=== PATIENT | female | born 1940 | race Caucasian/White ===

== ENCOUNTER 2019-09-05 13:02 | Outpatient (CLI) | payer MEDICARE, OTHER, SELFPAY ==
--- NOTE | ~2019-09-05 | XR_ITS ---
EXAMINATION: XR chest 2V EXAM DATE: 09/05/2019 14:32 INDICATION: Shortness of breath, cough for 3 weeks. TECHNIQUE: Frontal and lateral projections of the chest obtained and reviewed. There is no prior cyndi dy for comparison. FINDINGS: Sternotomy wires are present without findings to suggest sternal dehiscence. The lungs are clear. There are no pleural effusions. The cardiomediastinal silhouette is within normal limits. There is no pneumothorax suspected. The bones and soft tissues are unremarkable. IMPRESSION: No acute cardiopulmonary findings. Reviewed, dictated and finalized at location B. R CAPTAIN
--- NOTE | 2019-09-07 22:28 | WPDPFTINT ---
PFT Interpretation PFT Interpretation: DOS: 09/05/2019 REQUESTING: Chencho Molina MD REASON FOR TESTING: Shortness of breath PULMONARY FUNCTION TESTS Results are not reproducible or reliable due to lack of three exhalations of 6 seconds. Spirometry: Normal FEV1, 88%. Normal FVC. Normal FEV1%. DEcreased small airways slows 53%. No change with bronchodilator. Lung volumes: Normal totla lung capacity. Normal RV. Mild increase in RV/TLC ratio consistent with air trapping. Increased airway resistance 171%. Diffusion: DLCO is moderately decreased, 56%. Flow volume loop: Mild scooping of the expiratory limb. IMPRESSION: Moderate diffusion defect, small airways pattern, mild air trapping, mild increase in airway resistance. Lack of response to bronchodilator should not preclude use if clinically indicated. Results are not reproducible. Clinical correlation is advised. Clementina Molina MD
--- NOTE | 2019-09-07 22:41 | WPDSIXMINUTE ---
Six Minute Walk DOS: 09/05/2019 REQUESTING: Chencho Molina MD REASON FOR TESTING: Shortness of breath SIX MINUTE WALK This test was conducted per ATS guidelines. Initial saturation was 95%. Pulse was 61. She walked for 6 minutes on room air without stopping, distance walked 1000 feet/304 meters. Saturation ranged from 93-97%, pulse ranged from 60 to 79. IMPRESSION: No desaturation with exertion. No need for supplemental oxygen. Clementina Molina MD
== END 2019-09-05 13:03 | disposition home or self-care (01) ==
PROVIDERS: PCP Family Medicine; Visit Provider Internal Medicine Critical Care Medicine
DX: R06.02 Shortness of breath (principal); R94.2 Abnormal results of pulmonary function studies
CPT/HCPCS: 71046; 94060; 94618; 94726; 94729

== ENCOUNTER 2019-09-11 08:27 | Outpatient (CLI) | payer MEDICARE, OTHER, SELFPAY ==
--- NOTE | 2019-09-11 11:00 | NEURO_ITS ---
Patient Number: [id number] Impression: # Complains of gait dysfunction. # Nerve conduction study in upper extremities normal including motor and sensory nerves. # Nerve conduction study in lower extremities revealed neuropathy including right peroneal motor and sensory nerves and poor responses from left posterior tibial nerve. # Needle/EMG exam neurogenic in lower extremities. 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 Nerve Conduction Studies Anti Sensory Summary Table Stim Site NR Peak (ms) P-T Amp (?V) Site1 Site2 Delta-P (ms) Dist (cm) Be (m/s) Left Median Anti Sensory (2-3nd Digit) Wrist 3.8 37.3 Wrist 2-3nd Digit 3.8 14.0 37 Wrist 3.8 19.6 Wrist 2-3nd Digit 3.8 14.0 37 Right Median Anti Sensory (2-3nd Digit) Wrist 3.6 21.2 Wrist 2-3nd Digit 3.6 14.0 39 Wrist 3.6 27.8 Wrist 2-3nd Digit 3.6 14.0 39 Left Radial Anti Sensory (Base 1st Digit) Wrist 2.9 35.0 Wrist Base 1st Digit 2.9 0.0 Right Radial Anti Sensory (Base 1st Digit) Wrist 2.8 5.5 Wrist Base 1st Digit 2.8 0.0 Left Sup Fibular Anti Sensory (Ant Lat Mall) 14 cm 3.8 5.4 14 cm Ant Lat Mall 3.8 16.0 42 Right Sup Fibular Anti Sensory (Ant Lat Mall) NO RESPONSE 14 cm NR 14 cm Ant Lat Mall 16.0 Left Sural Anti Sensory (Lat Mall) Calf 3.9 15.3 Calf Lat Mall 3.9 16.0 41 Right Sural Anti Sensory (Lat Mall) Calf 4.3 7.8 Calf Lat Mall 4.3 16.0 37 Left Ulnar Anti Sensory (5th Digit) Right Ulnar Anti Sensory (5th Digit) Wrist 2.9 39.3 Wrist 5th Digit 2.9 14.0 48 Motor Summary Table Stim Site NR Onset (ms) O-P Amp (mV) Site1 Site2 Delta-0 (ms) Dist (cm) Be (m/s) Left Median Motor (Abd Poll Brev) Wrist 3.5 2.9 Elbow Wrist 5.3 33.0 62 Elbow 8.8 2.5 Right Median Motor (Abd Poll Brev) Wrist 3.4 5.0 Elbow Wrist 5.0 29.0 58 Elbow 8.4 4.5 Left Peroneal Motor (Vastus Med) Ankle 4.5 1.4 Popit Ankle 9.3 40.0 43 Popit 13.8 1.2 Right Peroneal Motor (Vastus Med) NO RESPONSE Ankle NR Popit Ankle 0.0 Popit NR Left Tibial Motor (Abd Segura Brev) Ankle 4.7 0.9 Knee Ankle 9.6 43.0 45 Knee 14.3 0.4 Right Tibial Motor (Abd Segura Brev) Ankle 5.1 0.8 Knee Ankle 9.7 43.0 44 Knee 14.8 0.6 Left Ulnar Motor (Abd Dig Minimi) Wrist 2.5 5.4 A Elbow Wrist 5.2 31.0 60 A Elbow 7.7 4.8 Right Ulnar Motor (Abd Dig Minimi) Wrist 2.7 6.5 A Elbow Wrist 5.3 30.0 57 A Elbow 8.0 5.0 F Wave Studies NR F-Lat (ms) L-R F-Lat (ms) Left Median (Mrkrs) (Abd Poll Brev) 30.18 0.00 Right Median (Mrkrs) (Abd Poll Brev) 30.18 0.00 Left Peroneal (Mrkrs) (EDB) 56.95 Left Tibial (Mrkrs) (Abd Hallucis) 56.07 2.92 Right Tibial (Mrkrs) (Abd Hallucis) 58.99 2.92 Left Ulnar (Mrkrs) (Abd Dig Min) 31.02 0.14 Right Ulnar (Mrkrs) (Abd Dig Min) 31.16 0.14 EMG Side Muscle Nerve Root Ins Act Fibs Amp Dur Recrt Comment Right 1stDorInt Ulnar C8-T1 Nml Nml Nml >12ms Reduced Right Ext Indicis Radial (Post Int) C7-8 Nml Nml Nml Nml Nml Right Ext Digitorum Radial (Post Int) C7-8 Nml Nml Nml Nml Nml Right BrachioRad Radial C5-6 Nml Nml Nml
== END 2019-09-11 08:28 | disposition home or self-care (01) ==
PROVIDERS: PCP Family Medicine; Visit Provider Psychiatry & Neurology Neurology
DX: G62.9 Polyneuropathy, unspecified (principal)
CPT/HCPCS: 95886; 95913

== ENCOUNTER 2019-09-30 13:37 | Outpatient (CLI) | payer MEDICARE, OTHER, SELFPAY ==
[2019-09-30 14:55] LABS: Basophils Percent Auto 0.3 % (0.2-1.2); Eosinophils Absolute Auto 0.1 K/mm3 (0-0.3); Eosinophils Percent Auto 1.8 % (0-4.4); Hematocrit 37.8 % (37.0-47.0); Hemoglobin 12.3 g/dL (12.0-15.0); Immature Granulocyte Absolute 0.01 K/mm3 (0.00-0.031); Immature Granulocyte Percent A 0.1 % (0-0.5); Lymphocytes Percent Auto 25.7 % (18.3-44.2); Mean Corpuscular HGB Conc 32.5 g/dl (32-36); Mean Corpuscular Hemoglobin 31.5 pg (26-34); Mean Corpuscular Volume 96.9 fl (80-100); Mean Platelet Volume 10.4 fl (7.4-10.4); Monocytes Absolute Auto 0.6 K/mm3 (0.1-0.6); Monocytes Percent Auto 7.5 % (2.6-8.5); Neutrophils Percent Auto 64.6 % (45.5-73.1); Platelet Count Result 246 k/mm3 (150-375); Red Cell Distribution Width 13.9 % (11.5-14.5); White Blood Count 7.8 K/mm3 (4.5-10.0)
[2019-09-30 15:04] LABS: Alanine Aminotransferase 19 U/L (4-35); Alkaline Phosphatase 74 U/L (38-126); Aspartate Amino Transferase 22 U/L (14-36); Bilirubin,Total 0.6 mg/dL (0.2-1.3); Blood Urea Nitrogen 30 mg/dL (7-17); Calcium 9.1 mg/dL (8.4-10.2); Carbon Dioxide 26 mmol/L (22-30); Chloride 107 mmol/L (98-107); Estimated Glomerular Filt Rate 40; Glucose 122 mg/dL (65-105); Potassium 4.6 mmol/L (3.4-5.0); Sodium 141 mmol/L (137-145)
[2019-09-30 16:08] LABS: Folic Acid 12.4 ng/mL (2.76->20)
[2019-09-30 16:21] LABS: Free T4 Free Thyroxine 0.86 ng/mL (0.78-2.19)
[2019-10-04 02:53] LABS: Albumin 3.7 g/dL (3.8-4.8); Alpha 1 Globulin 0.3 g/dL (0.2-0.3); Alpha 2 Globulin 0.9 g/dL (0.5-0.9); Beta 1 Globulin 0.5 g/dL (0.4-0.6); Gamma Globulin 0.7 g/dL (0.8-1.7); Protein, Total 6.4 g/dL (6.1-8.1)
== END 2019-09-30 13:38 | disposition home or self-care (01) ==
PROVIDERS: PCP Family Medicine; Visit Provider Psychiatry & Neurology Neurology
DX: R41.3 Other amnesia (principal)
CPT/HCPCS: 36415; 80053; 82607; 82746; 84155; 84165; 84439; 84443; 85025

== ENCOUNTER 2019-10-01 14:17 | Outpatient (CLI) | payer MEDICARE, OTHER, SELFPAY ==
[2019-10-06 02:10] LABS: Creatinine, Random Urine 75 mg/dL (20-275); Total Protein/Creatinine Ratio 93 mg/g creat (21-161)
== END 2019-10-01 14:18 | disposition home or self-care (01) ==
PROVIDERS: PCP Family Medicine; Visit Provider Psychiatry & Neurology Neurology
DX: R41.3 Other amnesia (principal)
CPT/HCPCS: 82570; 84156; 84166

== ENCOUNTER 2019-11-26 15:20 | Outpatient (CLI) | payer MEDICARE, OTHER, SELFPAY ==
[2019-11-26 16:05] LABS: Creatinine Urine 164.8 mg/dL; Total Protein Urine Random 10 mg/dL
[2019-11-26 16:10] LABS: Albumin Level 4.2 g/dL (3.5-5.1); Blood Urea Nitrogen 33 mg/dL (7-17); Calcium 9.1 mg/dL (8.4-10.2); Carbon Dioxide 25 mmol/L (22-30); Chloride 107 mmol/L (98-107); Estimated Glomerular Filt Rate 33; Glucose 114 mg/dL (65-105); Phosphorus 4.1 mg/dL (2.5-4.5); Potassium 4.9 mmol/L (3.4-5.0); Sodium 138 mmol/L (137-145)
[2019-11-26 16:21] LABS: Parathyroid Intact 95.9 pg/mL (7.5-53.5)
[2019-11-26 17:02] LABS: Vitamin D 25 Hydroxy 32.2 ng/mL
[2019-11-26 17:45] LABS: Rheumatoid Factor < 8.6 IU/ML (<12)
[2019-11-28 10:36] LABS: SS-A <1.0; SS-B <1.0
[2019-11-30 08:59] LABS: JO 1 Antibody <1.0; Scleroderma 70 Antibody <1.0
[2019-11-30 17:39] LABS: Anti Nuclear Antibody Pattern Nuclear, Speckled; Anti Nuclear Antibody Titer >=1:1280 (Negative)
== END 2019-11-26 15:21 | disposition home or self-care (01) ==
PROVIDERS: PCP Family Medicine; Visit Provider Nurse Practitioner Family
DX: M35.9 Systemic involvement of connective tissue, unspecified (principal); N18.3 Chronic kidney disease, stage 3 (moderate); I12.9 Hypertensive chronic kidney disease with stage 1 through stage 4 chronic kidney disease, or unspecified chronic kidney disease; R80.8 Other proteinuria
CPT/HCPCS: 36415; 80069; 82306; 82570; 83970; 84156; 86038; 86039; 86235; 86430

== ENCOUNTER 2019-12-17 09:50 | Outpatient (CLI) | payer MEDICARE, OTHER, SELFPAY ==
--- NOTE | ~2019-12-17 | CT_ITS ---
EXAMINATION: CT chest high resolution [facility] EXAM DATE: 12/17/2019 10:25 INDICATION: Abnormal pulmonary function tests. Shortness of breath. Chest pain. TECHNIQUE: Spiral CT of the chest without contrast. HRCT. Axial, coronal and sagittal images were re viewed. Coronal maximum intensity pixel images of chest reviewed. The dose-length product (DLP) for this examination was 192.83 mGy-cm. The exposure was tailored according to patient size (auto mA ex posure control), and iterative reconstruction (ASIR) was used as additional dose reduction technique. Comparison is made to prior examination from 05/08/2018. FINDINGS: Development of small cluster of reticular nodular tree-in-bud distribution right upper lob e opacities likely infectious or postinfectious. There is mild bronchiectasis and mild emphysema. No intralobular septal thickening on the HRCT. No There are no pleural or pericardial effusions. Trach eobronchial tree is patent. There is no mediastinal, hilar or axillary lymphadenopathy. There is no pneumothorax. Heart normal in size. There are sternotomy wires, and cardiac/coronary surgical changes. Correlate with prior history. Upper abdomen is unremarkable. There is moderate lower thor acic spondylosis without osteoblastic or osteolytic lesions identified. IMPRESSION: 1. Small cluster right upper lobe nodules consistent with infectious or postinfectious residua. 2. Mild emphysema and bronchiectasis. Reviewed, dictated and finalized at location A. IMPRESSION: 1. Small cluster right upper lobe nodules consistent with infectious or postin fectious residua. 2. Mild emphysema and bronchiectasis.
== END 2019-12-17 09:51 | disposition home or self-care (01) ==
PROVIDERS: PCP Family Medicine; Visit Provider Nurse Practitioner Family
DX: R06.02 Shortness of breath (principal); J43.9 Emphysema, unspecified; R91.8 Other nonspecific abnormal finding of lung field
CPT/HCPCS: 71250

== ENCOUNTER 2020-01-20 18:23 | Observation (INO) | payer MEDICARE, OTHER, SELFPAY ==
[2020-01-20] VITALS (11 sets, daily range): BP systolic 133–174; BP diastolic 54–107; PULSE 67–77; RESP 14–24; TEMP 36.2–37.1; O2SAT 94–98; BMI 34.2; BMI 33.0
--- NOTE | ~2020-01-20 | XR_ITS ---
EXAMINATION: XR chest 2V DATE: 01/20/2020 18:55 INDICATION: Chest pain and shortness of breath TECHNIQUE: PA and lateral views of the chest are obtained. COMPARISON: 09/05/2019 FINDINGS: The lungs are free of acute opacities. There is no pleural effusion or pneumothorax. The he art size is normal. There are coronary artery stents. Median sternotomy wires and mediastinal surgica l clips are seen, likely from prior coronary artery bypass grafting. Calcified atherosclerosis is not ed. There is moderate thoracic spondylosis. IMPRESSION: 1. No acute cardiopulmonary abnormality. Reviewed, dictated and finalized at location A.
--- NOTE | ~2020-01-20 | NM_ITS ---
EXAMINATION: NM annabel stress w perfusion DATE: 01/21/2020 14:29 INDICATION: Coronary artery disease. Chest pain. TECHNIQUE: Rest images were obtained following intravenous administration of 9.6 mCi Tc99m tetrofosmi n (Myoview). The patient was infused intravenously with Lexiscan (Regadenoson). Then, 30 mCi Tc99m te trofosmin (Myoview) was administered intravenously, and stress images were obtained. Data was reconst ructed into short axis and horizontal and vertical long axis SPECT images. Gated SPECT images were al so obtained. COMPARISON: None. FINDINGS: There is no definite reversible or fixed perfusion abnormality to suggest ischemia or infar ction. There is normal left ventricular chamber size, wall motion and ejection fraction. Left ventr icular ejection fraction measures >70%. IMPRESSION: 1. Normal myocardial perfusion at rest and during stress. 2. Left ventricular ejection fraction measuring >70%. Reviewed, dictated and finalized at location A.
--- NOTE | 2020-01-20 18:32 | ECG_ITS ---
Measurements Intervals [place] Rate: 73 P: 41 MI: 193 QRS: 31 QRSD: 93 T: 75 QT: 415 QTc: 459 Interpretive Statements SINUS RHYTHM NONSPECIFIC ST & T-WAVE ABNORMALITY- LATERAL LEADS BASELINE WANDER- I, II, AVR, AVL, AVF, V4-V6 BORDERLINE ECG Electronically Signed On 01-20-2020 18:58:10 CDT by Ramon Loyd D.O.
[2020-01-20 18:44] LABS: Basophils Percent Auto 0.5 % (0.2-1.2); Eosinophils Absolute Auto 0.2 K/mm3 (0-0.3); Eosinophils Percent Auto 2.4 % (0-4.4); Hematocrit 36.2 % (37.0-47.0); Hemoglobin 12.1 g/dL (12.0-15.0); Immature Granulocyte Absolute 0.03 K/mm3 (0.00-0.031); Immature Granulocyte Percent A 0.4 % (0-0.5); Lymphocytes Absolute Auto 1.96 K/mm3 (0.9-3.2); Lymphocytes Percent Auto 24.3 % (18.3-44.2); Mean Corpuscular HGB Conc 33.4 g/dl (32-36); Mean Corpuscular Hemoglobin 31.8 pg (26-34); Mean Corpuscular Volume 95.3 fl (80-100); Mean Platelet Volume 10.2 fl (7.4-10.4); Monocytes Absolute Auto 0.8 K/mm3 (0.1-0.6); Monocytes Percent Auto 9.7 % (2.6-8.5); Neutrophils Absolute Auto 5.1 K/mm3 (1.3-6.7); Neutrophils Percent Auto 62.7 % (45.5-73.1); Platelet Count Result 255 k/mm3 (150-375); Red Cell Distribution Width 13.5 % (11.5-14.5); White Blood Count 8.1 K/mm3 (4.5-10.0)
--- NOTE | 2020-01-20 18:47 | ED.CHESTPAIN ---
HPI - Chest Pain General Chief Complaint: Chest Pain Stated Complaint: Chest Pain Time Seen by Provider: 01/20/20 18:32 Source: patient Mode of arrival: ambulatory Limitations: no limitations History of Present Illness HPI narrative: This patient is a 79 year old female with history of hyperlipidemia, HTN, CABG who presents for evaluation of substernal chest pain. She states she developed chest pressure while cooking dinner around 2 pm She states she would sit down and her pressure wound improve and then it would worse when she would get back up. OVer time she states she developed pain in her back, bilateral shoulder and her teeth. She rates her pain 4/10. She reports shortness of breath that has been present for 3 months. She is currently being evaluated by head charrer but she states that she just started having chest pressure with it today. She denies associated diaphoresis, nausea, dizziness. She has chronic cough but no fever or chills. complaint: chest heaviness Pertinent past history: coronary artery disease and CABG (1998) Onset (ago): hour(s) (4) Pain location: substernal Pain radiation: back and jaw/teeth Quality: other (pressure) Relieving factors: rest Associated symptoms: dyspnea Related Data Home Medications Medication Instructions Recorded Confirmed nifedipine 30 mg tablet,extended 30 mg PO DAILY 07/27/19 11/13/19 release 24 hr ranolazine 500 mg tablet,extended 500 mg PO ONCE tablet 07/27/19 11/13/19 release,12 hr nitroglycerin 0.4 mg sublingual 0.4 mg SUBLINGUAL Q5M PRN 08/27/19 11/13/19 tablet Allergies Allergy/AdvReac Type Severity Reaction Status Date / Time No Known Allergies Allergy Unknown Verified 01/20/20 18:31 Review of Systems Review of Systems: All systems reviewed & are unremarkable except as noted in HPI and below Constitutional: Constitutional: Denies chills and Denies fever(s) Cardiovascular: Cardiovascular: Reports chest pain and Reports radiating jaw, neck or arm pain Respiratory: Respiratory: Reports cough (chronic) and Reports dyspnea Gastrointestinal: Gastrointestinal: Denies abdominal pain, Denies nausea and Denies vomiting Musculoskeletal: Musculoskeletal: Reports back pain PMFSH Past Medical History Medical History (Updated 01/20/20 @ 20:01 by Renay Mccall MD) Atherosclerotic heart disease of [place] coronary artery with angina pectoris Chronic sinusitis Cough Essential (primary) hypertension Gastroesophageal reflux disease History of melanoma Surgical History Surgical History (Updated 01/20/20 @ 18:49 by Renay Mccall MD) Hx of CABG Social History Social History Smoking status: Never smoker Second hand tobacco smoke exposure: No Alcohol intake: current Exam Narrative: Exam Narrative: GENERAL: Well-appearing, well-nourished, and in no acute distress. HEAD: Normocephalic, atraumatic EYES: PERRLA and EOMI, conjunctiva clear without discharge THROAT:Mucous membranes moist, NECK: Supple, without lymphadenopathy or mass RESPIRATORY: No respiratory distress, Airway patent, Respirations non-labored, Clear to auscultation without rales, rhonchi or wheeze HEART: Regular rate and rhythm. No murmur heard. Normal peripheral pulses. ABDOMEN: Soft, nontender, nondistended, normal active bowel sounds. No masses. No rebound or guarding, No organomegaly. EXTREMITIES: No edema, normal strength with full range of motion. SKIN: Warm, dry, normal color without rash NEURO: Alert and oriented x3. CN 2-12 grossly intact. No focal deficits. PSYCH: Normal mood and affect. Course Reevaluation(s) Reevaluation #1: PAtient states her chest pressure has resolved. She is agreeable to observation in the hospital Date: 01/20/20 Time: 19:59 Consultations Consultation #1: I have discussed case with DR. Ruelas who accepts patient to service in IMU. Recommends 1 dose of lovenox g
[2020-01-20 18:54] LABS: Prothrombin Time 12.5 Seconds (11.1-14.7)
[2020-01-20 18:55] LABS: Partial Thromboplastin Time 30.3 SECONDS (22.3-36.8)
[2020-01-20 18:59] LABS: Blood Urea Nitrogen 33 mg/dL (7-17); Carbon Dioxide 24 mmol/L (22-30); Chloride 106 mmol/L (98-107); Estimated CRCL calculation 39 ml/min; Estimated Glomerular Filt Rate 40; Glucose 131 mg/dL (65-105); Potassium 4.7 mmol/L (3.4-5.0); Sodium 139 mmol/L (137-145)
[2020-01-20 19:01] LABS: Alanine Aminotransferase 18 U/L (4-35); Albumin Level 4.2 g/dL (3.5-5.1); Alkaline Phosphatase 87 U/L (38-126); Aspartate Amino Transferase 29 U/L (14-36); Bilirubin,Total 0.6 mg/dL (0.2-1.3); Lipase 263 U/L (23-300)
[2020-01-20] MEDS: ASPIRIN 81 MG CHEWABLE TABLET 324 MG PO (19:04)
[2020-01-20] MEDS: NITROGLYCERIN OINTMENT 1 INCH DOSE TRANSDERM ×2 (19:05→23:17)
[2020-01-20 19:11] LABS: Troponin I < 0.012 ng/mL (0.000-0.034)
[2020-01-20] MEDS: BELLADONNA ALK/PHENOB ELIX 10 ML, MAG HYDROX/ALUMINUM HYD/SIMETH 30 ML, LIDOCAINE HCL 2... PO (19:49)
[2020-01-20] MEDS: ENOXAPARIN 100 MG/ML SYRINGE SUB-Q (20:52)
[2020-01-20 22:17] LABS: Troponin I < 0.012 ng/mL (0.000-0.034)
--- NOTE | 2020-01-20 22:45 | ADMGEN ---
This patient, Regine Zarate, was admitted to IMU Room 209-01 at 2130. Patient/family oriented to hospital policies and general routines including ID bracelet, bed and alarms, visiting hours, pain management, procedures, bathroom and other care routines, personal items, smoking policy, room service/diet, and visiting hours. Valuables list has been completed. Information on how to activate the Rapid Response Team has been discussed. Patient/Family are encouraged to report perceived risks to care and to ask questions if they do not understand what they are told or what they should do.
[2020-01-20] MEDS: FAMOTIDINE 20 MG/2 ML VIAL IV PUSH (23:16)
[2020-01-20] MEDS: METOPROLOL SUCCINATE EXT REL 100 MG TABCR PO (23:17)
[2020-01-20] MEDS: ROSUVASTATIN 10 MG TABLET 20 MG PO (23:17)
[2020-01-20] MEDS: RANOLAZINE 500 MG TAB.ER.12H 1000 MG PO (23:17)
[2020-01-21] VITALS (12 sets, daily range): BP systolic 127–185; BP diastolic 46–65; PULSE 50–64; RESP 14–20; TEMP 35.8–36.6; O2SAT 93–100
--- NOTE | 2020-01-21 | EST_ITS ---
Patient Info Name: Regine Zarate Age: 79 years : 1940 Gender: Female Ht: 69 in Wt: 217 lbs BSA: 2.22 m2 Exam Date: 01/21/2020 1:11 PM Exam Location: [facility] Stress Patient Status: Inpatient Admit Date: 01/20/2020 Staff Ordering Physician: Nadeem Barry MD Attending Provider: Diane Ruelas DO Exercise Technologist: Bharathi Elaine, SHEA, RT Nurse: Bianca Ferrari, ANP, ACNP-BC Exam Type: CA stress annabel w NM Study Info A regadenoson stress test was performed. Summary 1. 1. EKG portion of the pharmacological stress test is equivocal for ischemia. 2. Correlate with myocardial perfusion imaging. Protocol: Lexiscan Stress ECG Details Stage: REST Duration (min): 2 min : 12 sec HR (bpm): 55 SBP (mmHg): 187 DBP (mmHg): 61 Stage: REST Duration (min): 6 min : 10 sec HR (bpm): 57 SBP (mmHg): 187 DBP (mmHg): 61 Stage: STAGE 1 Duration (min): 1 min : 0 sec HR (bpm): 66 SBP (mmHg): 187 DBP (mmHg): 61 Stage: RECOVERY Duration (min): 1 min : 0 sec HR (bpm): 72 SBP (mmHg): 150 DBP (mmHg): 56 Stage: RECOVERY Duration (min): 2 min : 0 sec HR (bpm): 72 SBP (mmHg): 150 DBP (mmHg): 56 Stage: RECOVERY Duration (min): 3 min : 0 sec HR (bpm): 70 SBP (mmHg): 159 DBP (mmHg): 59 Stage: RECOVERY Duration (min): 4 min : 0 sec HR (bpm): 68 SBP (mmHg): 159 DBP (mmHg): 59 Stage: RECOVERY Duration (min): 5 min : 0 sec HR (bpm): 67 SBP (mmHg): 165 DBP (mmHg): 62 Stage: RECOVERY Duration (min): 6 min : 0 sec HR (bpm): 67 SBP (mmHg): 165 DBP (mmHg): 62 Stage: RECOVERY Duration (min): 6 min : 49 sec HR (bpm): 67 SBP (mmHg): 165 DBP (mmHg): 56 Rest HR: 57 bpm Peak HR: 74 bpm Rest Sys BP: 187 mmHg Peak Sys BP: 165 mmHg Max Pred HR: 141 bpm % Max Pred HR: 52 % Target HR: 120 bpm Max RPP: 12,210 bpm*mmHg Total Time: 1 min : 0 sec Rest Suazo BP: 61 mmHg Peak Suazo BP: 62 mmHg Total Dose: 0.4 mg Resting ECG Sinus bradycardia, heart rate 55 beats per minute, nonspecific ST-T abnormality. Stress ECG Subtle ST depression in leads V4 to V6. Arrhythmias None. Report Signatures
[2020-01-21 01:16] LABS: Troponin I < 0.012 ng/mL (0.000-0.034)
[2020-01-21] MEDS: NITROGLYCERIN OINTMENT 1 INCH DOSE TRANSDERM (05:35)
--- NOTE | 2020-01-21 08:37 | ECG_ITS ---
Measurements Intervals [place] Rate: 51 P: 30 MD: 203 QRS: 19 QRSD: 88 T: 77 QT: 477 QTc: 442 Interpretive Statements SINUS BRADYCARDIA BORDERLINE ST ABNORMALITY- HIGH LATERAL LEADS BORDERLINE ECG Electronically Signed On 01-21-2020 9:04:21 CDT by Ramon Loyd D.O.
[2020-01-21] MEDS: FAMOTIDINE 20 MG/2 ML VIAL IV PUSH (08:38)
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
[2020-01-21] MEDS: CLOPIDOGREL BISULFATE 75 MG TABLET PO (10:16)
[2020-01-21] MEDS: TELMISARTAN 40 MG TABLET 80 MG PO (10:16)
[2020-01-21] MEDS: NIFEdipine 30 MG TAB.ER.24 PO (14:51)
--- NOTE | 2020-01-21 17:31 | PM.DS ---
DS: Admitting Diagnosis Admitting Diagnosis Admitting Diagnosis: Chest pain DS: Discharge Diagnosis Discharge Diagnosis (1) Chest pain: Code(s): R07.9 - Chest pain, unspecified Status: Acute Assessment and Plan: History of coronary artery disease as described in the hospital course. Biomarkers negative x3 Lexiscan stress test negative for ischemia Restart Protonix. Discharge home. DS: Summary Hospital Course Reason for hospitalization: Chest pain Hospital Course: 79-year-old lady with coronary artery disease with an HILARIO graft to her diagonal branch of the LAD that was placed in 1997. She had a PRASANNA graft from the ADAME to the circumflex which has been occluded for a long time. She also apparently has a previous stent in the proximal anterior descending and some stenosis in a small obtuse marginal branch that was identified angiographically a couple of years ago. Her symptoms raised concern regarding ischemia. Biomarkers were negative x3. Lexiscan stress test was negative for ischemia. She was discharged home in stable and pain-free condition. Status at Discharge Functional status at discharge: independent ambulation Overall status at discharge: patient is back to baseline Time Spent with Patient Time attestation: Total time spent providing and/or coordinating discharge services: 15 minutes to do discharge summary Time spent: Less than 30 minutes Exam Const: General: no acute distress Other: Pleasant overweight white female comfortable cooperative in no distress of any kind HENMT: Mouth: Yes moist mucous membranes Eyes: Sclera: sclerae normal Pupils: Equal, round and reactive pupils present Neck: Neck: supple and no JVD Thyroid: thyroid normal Other: Carotid upstrokes are normal there are no audible bruits Resp: Effort & Inspection: normal respiratory effort Auscultation: clear to auscultation bilaterally Cardio: Rate: regular rate Rhythm: regular rhythm Other: No discernible cardiac murmur or gallop GI: Auscultation: normal bowel sounds Skin: General skin exam: normal color Neuro: Cranial nerves: Yes Equal, round and reactive pupils present Cognition (Neuro): normal cognition Extrem: General: normal to inspection Other: Intact distal pulses, no edema Psych: Mental Status: mental status grossly normal DS: Data Data Completed and Pending Labs on day of discharge: Labs from last 24 hours 01/21/20 01/20/20 01/20/20 00:34 21:40 18:38 WBC RBC Hgb Hct MCV MCH MCHC RDW Plt Count MPV Immature Gran % (Auto) Neut % (Auto) Lymph % (Auto) [place] % (Auto) Eos % (Auto) Baso % (Auto) Lymph # (Auto) [place] # (Auto) Eos # (Auto) Baso # (Auto) Abs Immat Gran (auto) Absolute Neuts (auto) Absolute Nucleated RBC Nucleated RBC % PT 12.5 INR 1.0 APTT 30.3 Sodium Potassium Chloride Carbon Dioxide BUN Creatinine Estim Creat Clear Calc Estimated GFR Glucose Calcium Total Bilirubin Direct Bilirubin AST ALT Alkaline Phosphatase Troponin I < 0.012 < 0.012 Total Protein Albumin Lipase 01/20/20 01/20/20 01/20/20 18:37 18:37 18:37 WBC 8.1 RBC 3.80 L Hgb 12.1 Hct 36.2 L MCV 95.3 MCH 31.8 MCHC 33.4 RDW 13.5 Plt Count 255 MPV 10.2 Immature Gran % (Auto) 0.4 Neut % (Auto) 62.7 Lymph % (Auto) 24.3 [place] % (Auto) 9.7 H Eos % (Auto) 2.4 Baso % (Auto) 0.5 Lymph # (Auto) 1.96 [place] # (Auto) 0.8 H Eos # (Auto) 0.2 Baso # (Auto) 0.0 Abs Immat Gran (auto) 0.03 Absolute Neuts (auto) 5.1 Absolute Nucleated RBC 0.0 Nucleated RBC % 0.0 PT INR APTT Sodium 139 Potassium 4.7 Chloride 106 Carbon Dioxide 24 BUN 33 H Creatinine 1.30 H Estim Creat Clear Calc 39 Estimated GFR 40 L Glucos
== END 2020-01-21 18:00 | disposition home or self-care (01) ==
LOC: ANHED 20:05 → ANHIMU 20:18
PROVIDERS: Emergency Medicine; Admitting Provider Internal Medicine Cardiovascular Disease; Emergency Provider General Practice; PCP Family Medicine; Visit Provider Internal Medicine Cardiovascular Disease
DX: R07.89 Other chest pain (principal); R06.00 Dyspnea, unspecified; I12.9 Hypertensive chronic kidney disease with stage 1 through stage 4 chronic kidney disease, or unspecified chronic kidney disease; N18.9 Chronic kidney disease, unspecified; E78.5 Hyperlipidemia, unspecified; I25.10 Atherosclerotic heart disease of native coronary artery without angina pectoris; K21.9 Gastro-esophageal reflux disease without esophagitis; G47.33 Obstructive sleep apnea (adult) (pediatric); K31.84 Gastroparesis; F41.8 Other specified anxiety disorders; Z95.1 Presence of aortocoronary bypass graft; Z85.820 Personal history of malignant melanoma of skin; Z79.02 Long term (current) use of antithrombotics/antiplatelets; Z86.73 Personal history of transient ischemic attack (TIA), and cerebral infarction without residual deficits; Z79.82 Long term (current) use of aspirin
CPT/HCPCS: 36415; 71046; 78452; 80048; 80076; 83690; 84484; 85025; 85610; 85730; 93005; 93017; 96372; 96374; 96376; 99285; A9270; A9502; G0378; J1650; J2785

== ENCOUNTER 2020-04-26 10:07 | Outpatient (CLI) | payer MEDICARE, OTHER, SELFPAY ==
--- NOTE | ~2020-04-26 | XR_ITS ---
XR foot RT standing 2V DATE: 04/26/2020 12:56 INDICATION: Abnormal neurological findings and serum TECHNIQUE: Standing AP and lateral views COMPARISON: None FINDINGS: Plate and screws are noted along the distal fibular shaft and lateral malleolus. There is hallux valgus and bunion deformity. There is moderate osteoarthritic change at the first metatarsophalangeal joint. There is osteoarthrit ic change at the first through third tarsometatarsal joints. No fracture, dislocation, periosteal reaction or bone destruction. IMPRESSION: Hallux valgus and bunion deformity Polyarticular osteoarthritis Reviewed, dictated and finalized at location A.
--- NOTE | ~2020-04-26 | XR_ITS ---
XR foot LT standing 2V DATE: 04/26/2020 12:56 INDICATION: Abnormal neurological findings in the cerebral TECHNIQUE: Standing AP and lateral views COMPARISON: None FINDINGS: There is osteoarthritic change at the first tarsometatarsal joint and the remaining tarsome tatarsal joints. There is hallux valgus and bunion deformity. There is moderate osteophytic changes of the first metatarsophalangeal joint. More prominent osteoarthritic changes noted at the second metatarsophalangeal joint. There are 2 screws in the head of the second metatarsal bone. There is fusion at the proximal interphalangeal joint of the second digit. There is slight plantar calcaneal enthesopathy. No fracture or dislocation, periosteal reaction or bone destruction. IMPRESSION: Postoperative change at second metatarsal head Hallux valgus and bunion deformity Polyarticular osteoarthritis Reviewed, dictated and finalized at location A.
--- NOTE | ~2020-04-26 | XR_ITS ---
XR knee LT min 4V DATE: 04/26/2020 12:56 INDICATION: Left knee pain TECHNIQUE: 4 views including standing AP and lateral views COMPARISON: None FINDINGS: There is tricompartment osteoarthritis, most pronounced at the lateral compartment. Tricomp artment osteoarthritis there is valgus angulation. No fracture or dislocation or joint effusion. No periosteal reaction or bone destruction. No radiopaq ue intra-articular loose body or chondrocalcinosis. IMPRESSION: Tricompartment osteoarthritis, most pronounced at lateral compartment Reviewed, dictated and finalized at location A. IMPRESSION: Tricompartment osteoarthritis, most pronounced at lateral compartme nt
--- NOTE | ~2020-04-26 | XR_ITS ---
XR hip BI 2V w AP pelvis DATE: 04/26/2020 12:56 INDICATION: Abnormal immunological findings and serum TECHNIQUE: AP pelvis. AP and lateral views of each hip. COMPARISON: None FINDINGS: There is prominent degenerative disc disease at L5-S1. No pelvic fracture or bone destructi on is detected. The pubic symphysis and sacroiliac joints are intact. No fracture, dislocation, avascular necrosis or bone destruction of either hip is detected. IMPRESSION: Prominent degenerative disc disease at L5-S1 No significant abnormality of the hips Reviewed, dictated and finalized at location A.
--- NOTE | ~2020-04-26 | XR_ITS ---
XR hand BI arthritis min 3V DATE: 04/26/2020 12:56 INDICATION: Osteoarthritis TECHNIQUE: 4 views of each COMPARISON: None FINDINGS: Right hand: There is asymmetry of the right trapezium trapezoid, possibly anatomic variation versus o ld or less likely recent fracture deformity. Other fracture or any dislocation or any periosteal reac tion or bone destruction is noted on the right. There is narrowing at the right second and third metacarpophalangeal joints and some interphalangeal joints, consistent with osteoarthritis. No erosive change is evident. No chondrocalcinosis. Left hand: There are a couple surgical clips in the anterolateral aspect of the left wrist. No fracture, dislocation, periosteal reaction or bone destruction. There is moderate narrowing at the third metacarpophalangeal joint. No erosive change. No chondrocalc inosis. IMPRESSION: Asymmetry of the trapezium and trapezoid bones on the right Osteoarthritis Reviewed, dictated and finalized at location A.
--- NOTE | ~2020-04-26 | XR_ITS ---
XR knee RT min 4V DATE: 04/26/2020 12:56 INDICATION: Right knee pain TECHNIQUE: 4 views, some standing COMPARISON: None FINDINGS: There is tricompartment osteoarthritis, moderate at the medial compartment, minimal at the lateral and patellofemoral compartments. No fracture or dislocation or joint effusion. No periosteal reaction or bone destruction. No radiopaq ue intra-articular loose body or chondrocalcinosis. IMPRESSION: Tricompartment osteophytosis, with greatest involvement at the medial compartment Reviewed, dictated and finalized at location A. IMPRESSION: Tricompartment osteophytosis, with greatest involvement at the medi al compartment
[2020-04-26 10:44] LABS: Basophils Percent Auto 0.4 % (0.2-1.2); Eosinophils Absolute Auto 0.2 K/mm3 (0-0.3); Eosinophils Percent Auto 3.1 % (0-4.4); Hematocrit 36.2 % (37.0-47.0); Immature Granulocyte Absolute 0.01 K/mm3 (0.00-0.031); Immature Granulocyte Percent A 0.2 % (0-0.5); Lymphocytes Absolute Auto 1.96 K/mm3 (0.9-3.2); Lymphocytes Percent Auto 36.1 % (18.3-44.2); Mean Corpuscular HGB Conc 33.1 g/dl (32-36); Mean Corpuscular Hemoglobin 31.6 pg (26-34); Mean Corpuscular Volume 95.3 fl (80-100); Mean Platelet Volume 9.8 fl (7.4-10.4); Monocytes Absolute Auto 0.6 K/mm3 (0.1-0.6); Monocytes Percent Auto 10.7 % (2.6-8.5); Neutrophils Absolute Auto 2.7 K/mm3 (1.3-6.7); Neutrophils Percent Auto 49.5 % (45.5-73.1); Platelet Count Result 274 k/mm3 (150-375); Red Cell Distribution Width 14.6 % (11.5-14.5); White Blood Count 5.4 K/mm3 (4.5-10.0)
[2020-04-26 10:52] LABS: Alanine Aminotransferase 18 U/L (4-35); Albumin Level 4.1 g/dL (3.5-5.1); Alkaline Phosphatase 77 U/L (38-126); Anion Gap 9 mmol/L (8-16); Aspartate Amino Transferase 23 U/L (14-36); Bilirubin,Total 0.7 mg/dL (0.2-1.3); Blood Urea Nitrogen 27 mg/dL (7-17); CRP < 0.5 mg/dL (<1.0); Calcium 9.3 mg/dL (8.4-10.2); Carbon Dioxide 26 mmol/L (22-30); Chloride 106 mmol/L (98-107); Creatine Kinase 68 U/L (30-135); Estimated Glomerular Filt Rate 33; Glucose 105 mg/dL (65-105); Potassium 4.4 mmol/L (3.4-5.0); Sodium 141 mmol/L (137-145)
[2020-04-26 10:56] LABS: Complement C3 119 mg/dL (88-165); Rheumatoid Factor < 8.6 IU/ML (<12)
[2020-04-26 11:10] LABS: Erythrocyte Sedimentation Rate 58 mm/hr (0-20)
[2020-04-26 11:19] LABS: Vitamin D 25 Hydroxy 39.5 ng/mL
[2020-04-28 22:02] LABS: Lupus dRVVT 1:1 Mix Interpreta Not Indicated; Lupus dRVVT Screen 44 sec (<=45); PTT-LA Screen 35 sec (<=40)
[2020-04-29 11:02] LABS: SM Antibody <1.0; SM/RNP Antibody <1.0; SS-A <1.0; SS-B <1.0
[2020-04-29 21:58] LABS: Anti Cyclic Citrullinated Pept <16 Units (<20)
[2020-04-30 03:23] LABS: Aldolase 4.2 U/L (<=8.1)
[2020-05-02 02:42] LABS: Angiotensin Converting Enzyme 34 U/L (9-67)
== END 2020-04-26 10:08 | disposition home or self-care (01) ==
PROVIDERS: PCP Family Medicine; Visit Provider Internal Medicine
DX: R76.8 Other specified abnormal immunological findings in serum (principal); M15.9 Polyosteoarthritis, unspecified; E56.9 Vitamin deficiency, unspecified; R89.9 Unspecified abnormal finding in specimens from other organs, systems and tissues; M81.0 Age-related osteoporosis without current pathological fracture
CPT/HCPCS: 36415; 73130; 73521; 73564; 73620; 80053; 82085; 82164; 82306; 82550; 85025; 85613; 85652; 85730; 86140; 86160; 86200; 86225; 86235; 86430

== ENCOUNTER 2020-08-09 12:11 | Outpatient (CLI) | payer MEDICARE, OTHER, SELFPAY ==
[2020-08-09 12:44] LABS: Creatinine Urine 63.2 mg/dL; Total Protein Urine Random 9 mg/dL; Ur Ttl Prot Creatinine Ratio 0.14 mg/mg (0-0.20)
[2020-08-09 12:50] LABS: Anion Gap 5 mmol/L (8-16); Blood Urea Nitrogen 27 mg/dL (7-17); Calcium 9.4 mg/dL (8.4-10.2); Carbon Dioxide 26 mmol/L (22-30); Chloride 108 mmol/L (98-107); Estimated Glomerular Filt Rate 31; Glucose 110 mg/dL (65-105); Phosphorus 3.9 mg/dL (2.5-4.5); Potassium 4.8 mmol/L (3.4-5.0); Sodium 139 mmol/L (137-145)
== END 2020-08-09 12:12 | disposition home or self-care (01) ==
PROVIDERS: PCP Family Medicine; Visit Provider Internal Medicine Nephrology
DX: I12.9 Hypertensive chronic kidney disease with stage 1 through stage 4 chronic kidney disease, or unspecified chronic kidney disease (principal); N18.30 Chronic kidney disease, stage 3 unspecified; R80.8 Other proteinuria
CPT/HCPCS: 36415; 80069; 82570; 84156

== ENCOUNTER 2020-08-17 02:02 | Outpatient (CLI) | payer MEDICARE, OTHER, SELFPAY ==
[2020-08-17 18:12] LABS: SARS-CoV-2 RNA PCR Negative
== END 2020-08-17 02:03 | disposition home or self-care (01) ==
LOC: ANHCOVIDDT 02:02
PROVIDERS: PCP Family Medicine; Visit Provider Internal Medicine Gastroenterology
DX: Z01.812 Encounter for preprocedural laboratory examination (principal); Z20.822 Contact with and (suspected) exposure to COVID-19
CPT/HCPCS: C9803; U0003; U0005

== ENCOUNTER 2020-08-17 08:21 | Outpatient (CLI) | payer MEDICARE, OTHER, SELFPAY ==
[2020-08-17 08:51] LABS: Add Urine Microscopic? YES; Appearance Urine Clear (Clear); Bilirubin Urine Negative (Negative); Blood Urine Negative (Negative); Color Urine Yellow (Yellow); Glucose Urine UA Negative (Negative); Ketones Urine Negative (Negative); Leukocyte Esterase Ur Trace LEU/UL (Negative); Nitrate Urine Negative (Negative); Protein Urine Negative (Negative); RBC Urine 0-2 /hpf (0-2); Specific Grav Ur 1.013 (1.001-1.035); Squamous Epithelial Cell Urine Occasional /hpf (Few); Urobilinogen Urine Negative mg/dL (<2.0)
== END 2020-08-17 08:22 | disposition home or self-care (01) ==
PROVIDERS: Family Provider Family Medicine; PCP Family Medicine; Referring Provider Family Medicine; Visit Provider Internal Medicine Nephrology
DX: N18.32 Chronic kidney disease, stage 3b (principal); R30.0 Dysuria; N39.0 Urinary tract infection, site not specified
CPT/HCPCS: 81001; 87086; C9803; U0003; U0005

== ENCOUNTER 2020-08-20 00:48 | Day surgery (SDC) | payer MEDICARE, OTHER, SELFPAY ==
[2020-07-30 08:42] VITALS: BMI 31.8
[2020-08-05 14:51] VITALS: BMI 32.1
--- NOTE | 2020-08-18 13:24 | WPDANESEPPF ---
Anes - Initial Pre Proc Eval Procedure: Operation Date: 08/20/20 07:30 Proposed Procedures p Esophagogastroduodenoscopy & Screening Colonoscopy - Jose Manuel Anderson MD Date/Time: 08/18/20 13:24 Surgeon: Jose Manuel Anderson MD Pre Op Diagnosis: Family Hx Of Colon CA, Gerd Patient Data Age: 80 Gender: F Height: 1.73 m Weight: 96 kg Allergies Allergy/AdvReac Type Severity Reaction Status Date / Time No Known Allergies Allergy Unknown Verified 08/20/20 06:21 Home Medications Medication Instructions Recorded Confirmed Type nifedipine 30 mg tablet,extended 30 mg PO DAILY 07/27/19 07/30/20 History release 24 hr ranolazine 500 mg tablet,extended 1,000 mg PO BID tablet 07/27/19 07/30/20 History release,12 hr telmisartan 80 mg tablet 80 mg PO DAILY #30 tablet 11/06/19 07/30/20 Rx metoprolol succinate 100 mg PO HS 01/20/20 07/30/20 History nitroglycerin 0.4 mg SUBLINGUAL DIRECTED PRN 01/21/20 07/30/20 Rx #21 tablet rosuvastatin 20 mg tablet 20 mg PO HS #90 tablet 03/05/20 07/30/20 Rx clopidogrel 75 mg tablet 75 mg PO DAILY #90 tablet 04/27/20 07/30/20 Rx furosemide 20 mg tablet 20 mg PO QAM PRN #30 tablet 07/08/20 07/30/20 Rx pantoprazole 40 mg tablet,delayed 40 mg PO QAM #90 tablet 07/08/20 07/30/20 Rx release ondansetron HCl 4 mg tablet 4 mg PO Q12H #60 tablet 07/21/20 07/30/20 Rx duloxetine [Cymbalta] 30 mg PO DAILY 08/05/20 08/05/20 History Patient hx anesthesia problems: none Family hx anesthesia problems: none [facility] Past Medical History Medical History (Updated 08/20/20 @ 07:07 by Riley Bedolla DO) AUSTIN positive (~10/2019) Anxiety 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 Patient states 2 of the grafts have since failed. She does not get chest pain but does have dyspnea on exertion. 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 BMI 32.0-32.9,adult BMI 33.0-33.9,adult Chronic sinusitis CKD (chronic kidney disease) III Cough Diverticula of colon Essential (primary) hypertension Gastroesophageal reflux disease Generalized osteoarthritis of multiple sites GERD with apnea History of melanoma WENYD (obstructive sleep apnea) TIA (transient ischemic attack) 2009 Surgical History Surgical History (Updated 08/18/20 @ 13:27 by Riley Bedolla DO) Hx of CABG 1998 Family History Family History Other Cerebrovascular accident Diabetes mellitus Family history of alcoholism Family history of arthritis Family history of cardiovascular disease Family history of kidney disease Family history of malignant neoplasm of urinary bladder Hypertension Social History Social History Smoking status: Never smoker Second hand tobacco smoke exposure: No Alcohol intake: never Substance use: never Substance use type: does not use Living arrangements: with family Gender identity (if verbalized by the patient): Female Sexual Orientation (if Verbalized by the Patient): Straight or Heterosexual Spiritual care concerns: No Anes - Eval Final PreProcedure Day of Procedure 08/18/20 13:24 Patient weight: obese Heart: regular rate and rhythm Lungs: clear to auscultation and normal air movement Airway: Mallampati scale class II Neurological: alert and oriented Last oral intake: >/= 8 hours ASA classification: IV Emergent: no Anesthetic plan: proceed Anesthesia type and monitoring: general GIVS and standard monitoring Informed Consent: The patient's anesthetic plan and its attendant risks and benefits were discussed with the patient/family/POA. Questions were solicited and answers provided to the satisfaction of the patient/family/POA.
[2020-08-20 06:24] VITALS: BP 166/62; PULSE 72; RESP 18; TEMP 36.4; O2SAT 98
[2020-08-20] MEDS: LACTATED RINGERS 1,000 ML 150 ML IV CONT (06:37)
[2020-08-20] MEDS: BENZOCAINE (*SP) 60 ML SPRAY CAN (HURRICAINE) 1 SPRAY MUCOUS MEM (07:38)
--- NOTE | 2020-08-20 07:45 | WPDGICN ---
Assessment and Plan Assessment and plan (1) Epigastric abdominal pain: Code(s): R10.13 - Epigastric pain Status: Acute Assessment and Plan: Patient with long history of GE reflux. Epigastric pain is developed over the last 10 days and poorly responsive to PPI. Plan is for EGD to assess more thoroughly. Patient also reports a component of dysphagia that will be assessed at the time endoscopy. Antiemetics will be stopped PPI will continue at this time. (2) GERD (gastroesophageal reflux disease): Code(s): K21.9 - Gastro-esophageal reflux disease without esophagitis Status: Acute Assessment and Plan: Patient has been on Protonix 40 mg p.o. daily. for an extended period of time because of acid reflux. Because of epigastric pain EGD will be performed to assess this patient has developed a component of dysphagia as well that will also be assessed. (3) Family history of colon cancer in father: Code(s): Z80.0 - Family history of malignant neoplasm of digestive organs Status: Acute Assessment and Plan: Because of family history of colon cancer in father surveillance colonoscopy at 5 year intervals as expected. GI Consult Note Consult date/time: 08/20/20 07:45 HPI: Regine Zarate is a 80 year old female Seen in evaluation at the request of . Patient reports a history of epigastric pain. She states she has been on Protonix for several months. Supplemented with antiemetic agents. Over the last 10 days has had significant epigastric pain that is not responded to these medications. She no longer takes [id number] antacids. She does notice food hanging up in the mid substernal portion of the chest on occasion. She denies any weight loss or bleeding. Family history noncontributory. Family history is significant that her father had colon cancer. Patient reports that her current weight appetite bowel movements are normal. Last colonoscopy was 2014. She has had several previous colonoscopies. On 1 occasion had colon polyps. Patient denies any blood in her stools. Her bowel habits have been loose over the last 1 week. 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 Patient states 2 of the grafts have since failed. She does not get chest pain but does have dyspnea on exertion. 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 BMI 32.0-32.9,adult BMI 33.0-33.9,adult Chronic sinusitis CKD (chronic kidney disease) III Cough Diverticula of colon Essential (primary) hypertension Gastroesophageal reflux disease Generalized osteoarthritis of multiple sites GERD with apnea History of melanoma WENDY (obstructive sleep apnea) TIA (transient ischemic attack) 2009 Surgical History Surgical History (Updated 08/18/20 @ 13:27 by Riley Bedolla, ) Hx of CABG 1998 Family History Family History Other Cerebrovascular accident Diabetes mellitus Family history of alcoholism Family history of arthritis Family history of cardiovascular disease Family history of kidney disease Family history of malignant neoplasm of urinary bladder Hypertension Social History Social History Smoking status: Never smoker Second hand tobacco smoke exposure: No Alcohol intake: never Substance use: never Substance use type: does not use Living arrangements: with family Gender identity (if verbalized by the patient): Female Sexual Orientation (if Verbalized by the Patient): Straight or Heterosexual Spiritual
[2020-08-20 08:03] VITALS: BP 125/60; PULSE 58; RESP 17; O2SAT 96
[2020-08-20 08:13] VITALS: BP 137/57; PULSE 59; RESP 16; O2SAT 97
[2020-08-20 08:23] VITALS: BP 150/61; PULSE 59; RESP 15; O2SAT 98
--- NOTE | 2023-10-31 09:16 | PC.NURSE ---
called pt to let her know we had rec'd cardiac clearance from dr crews office and informed her that lose dose of plavix will be november 03, 2013. voiced understanding.
== END 2020-08-20 08:40 | disposition home or self-care (01) ==
PROVIDERS: Family Provider Family Medicine; PCP Family Medicine; Visit Provider Internal Medicine Gastroenterology
PROC: 0DJ08ZZ Inspection of Upper Intestinal Tract, Via Natural or Artificial Opening Endoscopic (ICD-10-PCS; CPT 43235; principal; 2020-08-20 07:30)
DX: Z12.11 Encounter for screening for malignant neoplasm of colon (principal); Z83.71 Family history of colonic polyps; R10.13 Epigastric pain; R13.19 Other dysphagia; Q39.4 Esophageal web; K21.00 Gastro-esophageal reflux disease with esophagitis, without bleeding; Z80.0 Family history of malignant neoplasm of digestive organs; K57.30 Diverticulosis of large intestine without perforation or abscess without bleeding; K64.8 Other hemorrhoids; K63.5 Polyp of colon; F41.9 Anxiety disorder, unspecified; Z95.1 Presence of aortocoronary bypass graft; I10 Essential (primary) hypertension; K21.9 Gastro-esophageal reflux disease without esophagitis; M19.90 Unspecified osteoarthritis, unspecified site; G47.33 Obstructive sleep apnea (adult) (pediatric); Z86.73 Personal history of transient ischemic attack (TIA), and cerebral infarction without residual deficits; E66.9 Obesity, unspecified; Z68.31 Body mass index [BMI] 31.0-31.9, adult
CPT/HCPCS: 43450; 43235; 45385; 88305; J2001; J2704; J7120

== ENCOUNTER 2020-10-22 10:36 | Outpatient (CLI) | payer MEDICARE, OTHER, SELFPAY ==
[2020-10-22 11:11] LABS: Basophils Percent Auto 0.5 % (0.2-1.2); Eosinophils Absolute Auto 0.2 K/mm3 (0-0.3); Eosinophils Percent Auto 2.5 % (0-4.4); Hematocrit 38.8 % (37.0-47.0); Hemoglobin 12.7 g/dL (12.0-15.0); Immature Granulocyte Absolute 0.01 K/mm3 (0.00-0.031); Immature Granulocyte Percent A 0.2 % (0-0.5); Lymphocytes Absolute Auto 1.92 K/mm3 (0.9-3.2); Lymphocytes Percent Auto 30.5 % (18.3-44.2); Mean Corpuscular HGB Conc 32.7 g/dl (32-36); Mean Corpuscular Hemoglobin 31.9 pg (26-34); Mean Corpuscular Volume 97.5 fl (80-100); Mean Platelet Volume 9.9 fl (7.4-10.4); Monocytes Absolute Auto 0.6 K/mm3 (0.1-0.6); Monocytes Percent Auto 9.8 % (2.6-8.5); Neutrophils Absolute Auto 3.6 K/mm3 (1.3-6.7); Neutrophils Percent Auto 56.5 % (45.5-73.1); Platelet Count Result 236 k/mm3 (150-375); Red Blood Count 3.98 M/mm3 (4.2-5.4); White Blood Count 6.3 K/mm3 (4.5-10.0)
[2020-10-22 11:38] LABS: Anion Gap 9 mmol/L (8-16); Blood Urea Nitrogen 21 mg/dL (7-17); Calcium 9.3 mg/dL (8.4-10.2); Carbon Dioxide 25 mmol/L (22-30); Chloride 109 mmol/L (98-107); Estimated Glomerular Filt Rate 39; Glucose 114 mg/dL (65-105); Potassium 4.5 mmol/L (3.4-5.0); Sodium 143 mmol/L (137-145)
[2020-10-22 12:15] LABS: Vitamin D 25 Hydroxy 44.1 ng/mL
[2020-10-22 13:56] LABS: Erythrocyte Sedimentation Rate 50 mm/hr (0-20)
== END 2020-10-22 10:37 | disposition home or self-care (01) ==
LOC: ANHLAB 10:41
PROVIDERS: PCP Family Medicine; Visit Provider Family Medicine
DX: G44.85 Primary stabbing headache (principal); N18.31 Chronic kidney disease, stage 3a; E55.9 Vitamin D deficiency, unspecified; E56.9 Vitamin deficiency, unspecified
CPT/HCPCS: 36415; 80048; 82306; 82607; 85025; 85652

== ENCOUNTER 2021-02-15 21:12 | Observation (INO) | payer MEDICARE, OTHER, SELFPAY ==
--- NOTE | ~2021-02-15 | XR_ITS ---
EXAMINATION: XR chest 2V DATE: 02/15/2021 21:34 INDICATION: Left-sided chest pain TECHNIQUE: PA and lateral views of the chest are obtained. COMPARISON: 01/20/2020 FINDINGS: The lungs are free of acute opacities. There is no pleural effusion or pneumothorax. The he art size is normal. Median sternotomy wires and mediastinal surgical clips are seen, likely from prio r coronary artery bypass grafting. There is moderate thoracic spondylosis. Coronary artery stents are noted. IMPRESSION: 1. No acute cardiopulmonary abnormality. Reviewed, dictated and finalized at location A.
--- NOTE | ~2021-02-15 | NM_ITS ---
EXAMINATION: NM annabel stress w perfusion DATE: 02/16/2021 14:43 INDICATION: Chest pain with known coronary artery disease. TECHNIQUE: Rest images were obtained following intravenous administration of 9.6 mCi Tc99m tetrofosmi n (Myoview). The patient was infused intravenously with Lexiscan (Regadenoson). Then, 28.8 mCi Tc99m tetrofosmin (Myoview) was administered intravenously, and stress images were obtained. Data was recon structed into short axis and horizontal and vertical long axis SPECT images. Gated SPECT images were also obtained. COMPARISON: None. FINDINGS: There is no definite reversible or fixed perfusion abnormality to suggest ischemia or infar ction. There is normal left ventricular chamber size, wall motion and ejection fraction. Left ventr icular ejection fraction measures 70%. IMPRESSION: 1. Normal myocardial perfusion at rest and during stress. 2. Left ventricular ejection fraction measuring 70%. Reviewed, dictated and finalized at location A.
--- NOTE | 2021-02-15 21:15 | ECG_ITS ---
Measurements Intervals [place] Rate: 76 P: 61 CA: 172 QRS: 30 QRSD: 90 T: 78 QT: 400 QTc: 451 Interpretive Statements SINUS RHYTHM NONSPECIFIC ST & T-WAVE ABNORMALITY- HIGH LATERAL LEADS BASELINE ARTIFACT- I, II, III, AVR, AVL, AVF, V4-V6 BORDERLINE ECG Electronically Signed On 02-15-2021 21:26:55 CDT by Ramon Loyd D.O.
[2021-02-15 21:22] VITALS: BP 178/81; PULSE 75; RESP 20; TEMP 37.1; O2SAT 97
[2021-02-15 21:35] LABS: Basophils Percent Auto 0.3 % (0.2-1.2); Eosinophils Absolute Auto 0.1 K/mm3 (0-0.3); Hematocrit 37.8 % (37.0-47.0); Hemoglobin 12.2 g/dL (12.0-15.0); Immature Granulocyte Absolute 0.02 K/mm3 (0.00-0.031); Immature Granulocyte Percent A 0.3 % (0-0.5); Lymphocytes Absolute Auto 2.12 K/mm3 (0.9-3.2); Lymphocytes Percent Auto 35.8 % (18.3-44.2); Mean Corpuscular HGB Conc 32.3 g/dl (32-36); Mean Corpuscular Volume 96.2 fl (80-100); Monocytes Absolute Auto 0.7 K/mm3 (0.1-0.6); Monocytes Percent Auto 11.5 % (2.6-8.5); Neutrophils Percent Auto 50.1 % (45.5-73.1); Platelet Count Result 219 k/mm3 (150-375); Red Blood Count 3.93 M/mm3 (4.2-5.4); Red Cell Distribution Width 14.5 % (11.5-14.5); White Blood Count 5.9 K/mm3 (4.5-10.0)
[2021-02-15 22:09] LABS: Anion Gap 7 mmol/L (8-16); Blood Urea Nitrogen 22 mg/dL (7-17); Calcium 9.3 mg/dL (8.4-10.2); Carbon Dioxide 24 mmol/L (22-30); Chloride 110 mmol/L (98-107); Estimated CRCL calculation 38 ml/min; Estimated Glomerular Filt Rate 39; Glucose 102 mg/dL (65-110); Potassium 4.6 mmol/L (3.4-5.0); Sodium 141 mmol/L (137-145)
[2021-02-15 22:14] LABS: INR 0.9; Prothrombin Time 12.1 Seconds (11.1-14.7)
[2021-02-15 22:15] LABS: Partial Thromboplastin Time 29.5 SECONDS (22.3-36.8)
[2021-02-15 22:21] LABS: Troponin I < 0.012 ng/mL (0.000-0.034)
[2021-02-16] VITALS (19 sets, daily range): BP systolic 153–196; BP diastolic 57–69; PULSE 60–70; RESP 14–20; TEMP 35.6–37.2; O2SAT 95–100; BMI 32.8
--- NOTE | 2021-02-16 00:49 | ED.CHESTPAIN ---
HPI - Chest Pain History of Present Illness HPI narrative: 80 yo female w/ h/o CAD s/p CABG presents tot ED c/o CP. She reports not feeling well since yesterday. At that time she was seen by her PCP. She was noted to have very elevated BP. Ultimately she was snet home. Today she began having intermittent left sided schest pressure radiating to the left arm and back. She says that she feels like something is very wrong in her chest. She tried protonix without improvement. She took 2 nitro, which seemed to help. Related Data Home Medications Medication Instructions Recorded Confirmed nifedipine 30 mg tablet,extended 30 mg PO DAILY 07/27/19 02/16/21 release 24 hr metoprolol succinate 100 mg PO HS 01/20/20 02/16/21 pantoprazole 40 mg tablet,delayed 40 mg PO BID PRN tablet 09/13/20 02/16/21 release ranolazine 500 mg tablet,extended 500 mg PO BID tablet 10/21/20 11/18/20 release,12 hr Allergies Allergy/AdvReac Type Severity Reaction Status Date / Time No Known Allergies Allergy Unknown Verified 02/16/21 01:14 Review of Systems Review of Systems: All systems reviewed & are unremarkable except as noted in HPI and below Constitutional: Constitutional: Denies chills and Denies fever(s) Cardiovascular: Cardiovascular: Reports chest pain Respiratory: Respiratory: Reports dyspnea Gastrointestinal: Gastrointestinal: Denies abdominal pain Neurologic: Reports system reviewed and no additional complaints, except as documented PMF Past Medical History Medical History [place] positive (~10/2019) Anxiety 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 Patient states 2 of the grafts have since failed. She does not get chest pain but does have dyspnea on exertion. 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 BMI 31.0-31.9,adult BMI 32.0-32.9,adult BMI 32.0-32.9,adult BMI 32.0-32.9,adult BMI 33.0-33.9,adult Chronic sinusitis CKD (chronic kidney disease) III Cough Cough Diverticula of colon Ear pressure Erosive esophagitis Essential (primary) hypertension Gastroesophageal reflux disease Generalized osteoarthritis of multiple sites GERD with apnea Head ache History of melanoma WENDY (obstructive sleep apnea) Polyp of ascending colon Serous otitis media TIA (transient ischemic attack) 2009 Urinary incontinence Surgical History Surgical History Hx of CABG 1998 Family History Family History Other Cerebrovascular accident Diabetes mellitus Family history of alcoholism Family history of arthritis Family history of cardiovascular disease Family history of kidney disease Family history of malignant neoplasm of urinary bladder Hypertension Social History Social History Smoking status: Never smoker Second hand tobacco smoke exposure: No Alcohol intake: never Substance use: never Substance use type: does not use Gender identity (if verbalized by the patient): Female Spiritual care concerns: No Exam Const: General: healthy appearing, no acute distress and alert Orientation/consciousness: patient oriented x3 HENMT: Head: normal to inspection Neck: Neck: normal visual inspection Chest: Chest palpation & inspection: normal inspection of the chest Resp: Effort & Inspection: normal respiratory effort Auscultation: clear to auscultation bilaterally Cardio: Rate: regular rate Rhythm: regular rhythm Skin: General skin exam: normal color Neuro: General: patient oriented x3, moves all extremities, no focal motor deficits and CN's II-XI intact bilaterally Speech: normal speech Extrem: General: normal to inspection Psych: Appearance: grossly normal an
[2021-02-16 01:00] LABS: Troponin I < 0.012 ng/mL (0.000-0.034)
--- NOTE | 2021-02-16 01:24 | PC.NURSE ---
Pt okayed by EDP to take home medications (crestor and metoprolol)
[2021-02-16 03:36] LABS: Troponin I 0.014 ng/mL (0.000-0.034)
[2021-02-16] MEDS: LABETALOL HCL INJ 100 MG/20 ML VIAL 20 MG IV PUSH (03:43)
[2021-02-16] MEDS: hydrALAZINE HCL 20 MG/ML VIAL 10 MG IV PUSH (04:18)
--- NOTE | 2021-02-16 04:49 | PC.NURSE ---
This patient, Regine Zarate, was admitted to IMU Room 206-02. Patient/family oriented to hospital policies and general routines including ID bracelet, bed and alarms, visiting hours, pain management, procedures, bathroom and other care routines, personal items, smoking policy, room service/diet, and visiting hours. Information on how to activate the Rapid Response Team has been discussed. Patient/Family are encouraged to report perceived risks to care and to ask questions if they do not understand what they are told or what they should do.
--- NOTE | 2021-02-16 08:46 | PM.IMHP ---
H&P: HPI History of Present Illness Date/Time: 02/16/21 08:46 Chief Complaint: chest pain Narrative: Regine Zarate is an 80-year-old female whom I follow in the office with history of CAD and CABG in 1997, hypertension, history of TIA, 2nd TIA with amaurosis fugax in June 2016, dyslipidemia, WENDY on CPAP, GERD, gastroparesis, chronic kidney disease (Dr. Wolff), chronic atypical chest pain, anxiety, depression, fatigue, orthostatic hypotension, and a connective tissue disease followed by Dr. Kaufman. Her primary care doctor is Dr. tripathi. The patient has had recurrent evaluations for chest pains over the years. Last cardiac catheterization in 2015 showed a patent Left anterior descending with a patent stent, the ADAME which was anastomosed to the diagonal after the occluded diagonal stent was patent but the ADAME branch to the Left anterior descending was occluded. The Y-graft to the PRASANNA from the ADAME to the OM 1 has been occluded since with a 90% ostial stenosis of a small to medium-sized OM 1 which has been managed medically because of her atypical symptoms and negative stress tests. She has had her frequent evaluations for chest pains and Lexiscan stress tests In 2018 and 01/2020 have shown no ischemia, EF greater than 70%. I last saw her in September 2020 and she was having a lot of dizziness and orthostasis. I reduced her nifedipine and ranolazine with improvement. the patient states she has been doing very well recently, able to do housework etc. with no particular problems. She is taking nitroglycerin prep 6 times over the last 6-7 months for chest pain and also because it helps everything. On Sunday she went to her back doctor and was quite upset and aggravated as she had to walk a long way And had a lot of pain. Her blood pressure was 198/78 and she states she was advised to go to the emergency room but declined. She did not feel normal, not good, weak and went home. Sunday her blood pressure was 168 mmHg. She went to the store and broke out in a cold sweat, then quit and went home. Her chest discomfort started at home with heaviness and pressure in the epigastric area which has been constant. She had 3 episodes of watery diarrhea yesterday, no melena or GI bleeding. She had a bad headache and her ears hurt and she felt worse and worse. She took nitroglycerin which helped the pressure some and she took a Protonix which did not help at all. However the chest pressure came back an hour after the nitro and she came to the emergency room. Her BP was 189/61 and she was given some IV labetalol and hydralazine but her BP is still elevated this morning. Today she is still having some constant chest pressure and an episode of diarrhea, headache and feels nauseated. Her troponins have been negative x3 and her EKG was normal. No sick contacts. The patient is very worried as she states that prior to her CABG everything looked good. She wants to get to the bottom of this. Review of Systems Constitutional: Constitutional: Reports weakness Eyes: Eyes: Reports no additional eye complaints ENT: Denies epistaxis Cardiovascular: Cardiovascular: Reports chest pain, Reports diaphoresis, Denies pedal edema, Denies leg edema and Denies lightheadedness Respiratory: Respiratory: Reports cough (mild chronic nonproductive) and Denies dyspnea Gastrointestinal: Gastrointestinal: Reports abdominal pain (epigastric discomfort), Reports diarrhea and Reports nausea Genitourinary: Genitourinary: Denies hematuria Musculoskeletal: Musculoskeletal: Reports back pain and Reports arthralgias Integumentary/Breasts: Skin/Breast: Denies rash Neurologic: Denies confusion and Reports headache(s) Psychiatric: Psychiatric: Reports anxiety [facility] Past Medical History Medical History (Updated 02/16/21 @ 09:34 by Melani Santana MD) A[place] positive (~10/2019) Anxiety Anxiety and depression Atherosclerotic heart disease of [place]
--- NOTE | 2021-02-16 09:43 | EST_ITS ---
Patient Info Name: Regine Zarate Age: 80 years : 1940 Gender: Female Ht: 68 in Wt: 213 lbs BSA: 2.18 m2 Exam Date: 02/16/2021 1:33 PM Exam Location: [facility] Stress Admit Date: 02/16/2021 Staff Attending Provider: DR TRUDI TAYLOR Referring Physician: RUI Devi; Exam Type: CA stress annabel w NM Summary 1. Resting hypertension, systolic blood pressure 180-200 mmHg. 2. Patient received aminophylline 50 mg IV push at the completion the chest for complaints of headache and nausea, with relief. 3. No abnormal ST-T wave changes with lexiscan. 4. Nuclear test results to follow. Protocol: Lexiscan Stress ECG Details Stage: REST Duration (min): 6 min : 25 sec HR (bpm): 66 SBP (mmHg): 220 DBP (mmHg): 76 Stage: REST Duration (min): 8 min : 13 sec HR (bpm): 61 SBP (mmHg): 220 DBP (mmHg): 76 Stage: STAGE 1 Duration (min): 0 min : 59 sec HR (bpm): 68 SBP (mmHg): 220 DBP (mmHg): 76 Stage: RECOVERY Duration (min): 1 min : 0 sec HR (bpm): 75 SBP (mmHg): 178 DBP (mmHg): 61 Stage: RECOVERY Duration (min): 2 min : 0 sec HR (bpm): 74 SBP (mmHg): 178 DBP (mmHg): 61 Stage: RECOVERY Duration (min): 3 min : 0 sec HR (bpm): 73 SBP (mmHg): 178 DBP (mmHg): 61 Stage: RECOVERY Duration (min): 4 min : 0 sec HR (bpm): --- SBP (mmHg): 181 DBP (mmHg): 64 Stage: RECOVERY Duration (min): 4 min : 10 sec HR (bpm): --- SBP (mmHg): 181 DBP (mmHg): 64 Rest HR: 61 bpm Peak HR: 81 bpm Rest Sys BP: 220 mmHg Peak Sys BP: 181 mmHg Max Pred HR: 140 bpm % Max Pred HR: 58 % Target HR: 119 bpm Max RPP: 14,661 bpm*mmHg BP Response: Normal blood pressure response Termination Reason: Completed protocol Cardiac Symptoms: None Total Time: 1 min : 0 sec Rest [place] BP: 76 mmHg Peak [place] BP: 64 mmHg Total Dose: 0.4 mg Aminophylline Dose: 50 mg Resting ECG Normal sinus rhythm - normal ECG. Stress ECG No abnormal ST/T wave changes with exercise. Arrhythmias None. Report Signatures
[2021-02-16] MEDS: SODIUM CHLORIDE 0.9% IV 500 ML 100 ML IV CONT (10:55)
[2021-02-16] MEDS: DULoxetine HCL 60 MG CAPSULE.DR PO (10:56)
[2021-02-16] MEDS: TELMISARTAN 40 MG TABLET 80 MG PO (10:56)
[2021-02-16] MEDS: RANOLAZINE 500 MG TAB.ER.12H 1000 MG PO (10:56)
[2021-02-16] MEDS: PANTOPRAZOLE 40 MG TABLET PO ×2 (10:56→16:43)
[2021-02-16] MEDS: CLOPIDOGREL BISULFATE 75 MG TABLET PO (10:56)
[2021-02-16] MEDS: ACETAMINOPHEN 325 MG TABLET 650 MG PO (11:28)
[2021-02-16] MEDS: NIFEdipine 30 MG TAB.ER.24 PO ×2 (11:33→20:39)
--- NOTE | 2021-02-16 12:37 | PC.NURSE ---
To nuclear med dept for Lexiscan via wheelchair accompanied transporter
[2021-02-16] MEDS: ROSUVASTATIN 10 MG TABLET 20 MG PO (20:39)
[2021-02-16] MEDS: METOPROLOL SUCCINATE EXT REL 100 MG TABCR PO (20:40)
[2021-02-17] VITALS (12 sets, daily range): BP systolic 141–167; BP diastolic 51–97; PULSE 55–89; RESP 16–20; TEMP 36.4–37.1; O2SAT 94–100
[2021-02-17] MEDS: NIFEdipine 30 MG TAB.ER.24 60 MG PO (09:20)
[2021-02-17] MEDS: PANTOPRAZOLE 40 MG TABLET PO (09:21)
[2021-02-17] MEDS: TELMISARTAN 40 MG TABLET 80 MG PO (09:21)
[2021-02-17] MEDS: CLOPIDOGREL BISULFATE 75 MG TABLET PO (09:21)
[2021-02-17] MEDS: RANOLAZINE 500 MG TAB.ER.12H 1000 MG PO (09:21)
[2021-02-17] MEDS: DULoxetine HCL 60 MG CAPSULE.DR PO (09:21)
--- NOTE | 2021-02-17 13:44 | PM.DS ---
DS: Admitting Diagnosis Admitting Diagnosis chest pain, hypertension, diarrhea, history of CAD DS: Discharge Diagnosis Discharge Diagnosis (1) Chest pain: Qualifiers: Chest pain type: unspecified Qualified Code(s): R07.9 - Chest pain, unspecified Code(s): R07.9 - Chest pain, unspecified Status: Acute Assessment and Plan: Patient with a history of coronary disease was admitted with atypical lower sternal epigastric contant heaviness as described in the H&P. Troponins were negative, EKG was unremarkable. Lexiscan on this admission showed no ischemia, EF greater than 70%. Patient tends to be anxious about her coronary disease, but I felt her coronary disease with stable. The patient's PPI was increased to b.i.d. during this admission. The discomfort had resolved on discharge. I suspect that her epigastric discomfort was likely GERD or related to gastroenteritis as she also had episodes of diarrhea. (2) Hypertension: Code(s): I10 - Essential (primary) hypertension Status: Acute Assessment and Plan: A few months ago the patient was orthostatic and dizzy so I reduced her ranolazine and nifedipine. Over the past week she has had significant hypertension with systolic blood pressures running 160s- 180s at times, associated with headache. I increased her nifedipine back to 60 mg a day with improvement. Blood pressures are running in the 150s at discharge. She did have a 3 second episode of dizziness this morning which alarmed her. There were no arrhythmias and she was not orthostatic. (3) Atherosclerotic heart disease of [place] coronary artery with angina pectoris: Code(s): I25.119 - Atherosclerotic heart disease of [place] coronary artery with unspecified angina pectoris Status: Acute Assessment and Plan: history of CABG in 1997. Cardiac catheterization in 2016 showed Adequate revascularization as described in history. CAD appeared stable. (4) Diarrhea: Code(s): R19.7 - Diarrhea, unspecified Status: Acute Assessment and Plan: Patient had several episodes of watery stool which resolved on its own during this day and I suspected a viral gastroenteritis. DS: Summary Hospital Course Reason for hospitalization: chest pain and controlled hypertension Hospital Course: as described above Status at Discharge Cognitive/behavioral status at discharge: normal Functional status at discharge: independent ambulation Overall status at discharge: patient is back to baseline Time Spent with Patient Time attestation: Total time spent providing and/or coordinating discharge services: greater than 35 minutes Time spent: Greater than 30 minutes Exam Narrative: Complaint of dizziness earlier today. telemetry has shown no arrhythmias. Not orthostatic. Const: General: comfortable and no acute distress HENMT: Mouth: Yes moist mucous membranes Eyes: EOM: EOMs intact bilaterally Neck: Neck: supple Resp: Effort & Inspection: normal respiratory effort Auscultation: clear to auscultation bilaterally Cardio: Rate: regular rate Rhythm: regular rhythm Heart sounds: no murmurs GI: Inspection: non-distended GI Palp: Yes Soft to palpation, No Firmness to palpation present (GI) and No Tenderness to palpation present (GI) Skin: General skin exam: normal color and no rashes or lesions noted Neuro: Motor exam (neuro): Normal motor muscle tone present throughout Extrem: General: no edema and no pedal edema Psych: Mental Status: mental status grossly normal Affect: Anxious affect present DS: Data Data Completed and Pending Completed studies during hospitalization: Lexiscan stress test showed no ischemia, EF 70%. Labs on day of discharge: See admission H&P for lab results which were all basically normal, EKG was normal,chest x-ray was normal, Discharge Plan Discharge Attending physician on discharge: Melani Santana Discharging Clin[facility]
== END 2021-02-17 16:25 | disposition home or self-care (01) ==
LOC: ANHED 02-16 01:36 → ANHIMU 02-16 03:18
PROVIDERS: Emergency Medicine; Admitting Provider Internal Medicine Cardiovascular Disease; Emergency Provider Emergency Medicine; PCP Family Medicine; Visit Provider Internal Medicine Cardiovascular Disease
DX: R07.89 Other chest pain (principal); I25.119 Atherosclerotic heart disease of native coronary artery with unspecified angina pectoris; R19.7 Diarrhea, unspecified; I10 Essential (primary) hypertension; E78.5 Hyperlipidemia, unspecified; G47.33 Obstructive sleep apnea (adult) (pediatric); K21.9 Gastro-esophageal reflux disease without esophagitis; Z86.73 Personal history of transient ischemic attack (TIA), and cerebral infarction without residual deficits; Z95.1 Presence of aortocoronary bypass graft; Z79.02 Long term (current) use of antithrombotics/antiplatelets
CPT/HCPCS: 36415; 71046; 78452; 80048; 84484; 85025; 85610; 85730; 93005; 93017; 96361; 96374; 96375; 99285; A9270; A9502; G0378; J0280; J0360; J2785; J7040

== ENCOUNTER 2021-03-05 09:35 | Outpatient (CLI) | payer MEDICARE, OTHER, SELFPAY ==
--- NOTE | ~2021-03-05 | MR_ITS ---
EXAMINATION: MR brain IAC wo con DATE: 03/05/2021 10:47 INDICATION: Left-sided headache. Transient ischemic attack. TECHNIQUE: Magnetic resonance imaging (MRI) of the brain, brainstem, and internal auditory canals was performed without intravenous contrast. Sequences included sagittal and axial T1-weighted FSE, axial diffusion-weighted FS EPI, axial T2*-weighted GRE, axial T2-weighted FLAIR Propeller, axial T2-weigh syed Propeller, small ienpe-mq-vcyb coronal FIESTA, small erwts-rk-ohdo coronal T1-weighted FSE, and s mall kpiqd-kn-gkkh axial T1-weighted SPGR. Apparent diffusion coefficient (ADC) maps were created. COMPARISON: Brain MRI 04/11/2019 FINDINGS: There are scattered areas of nonspecific increased T2-weighted signal intensity in the cere bral white matter, which is within normal limits for the patient's age. There is no intracranial hemo rrhage, acute infarction, or abnormal intracranial mass lesion. The ventricles are normal in size. Th ere is mild mucosal thickening in the ethmoid sinuses. There are likely changes of ocular lens replac ement surgeries. The mastoid air cells are normal. IMPRESSION: 1. Normal aging brain. Reviewed, dictated and finalized at location B. IMPRESSION: 1. Normal aging brain.
== END 2021-03-05 09:36 | disposition home or self-care (01) ==
PROVIDERS: PCP Family Medicine; Visit Provider Psychiatry & Neurology Neurology
DX: G45.9 Transient cerebral ischemic attack, unspecified (principal); R56.9 Unspecified convulsions; I25.10 Atherosclerotic heart disease of native coronary artery without angina pectoris; R42 Dizziness and giddiness; Z86.73 Personal history of transient ischemic attack (TIA), and cerebral infarction without residual deficits
CPT/HCPCS: 70551

== ENCOUNTER 2021-03-15 13:56 | Outpatient (CLI) | payer MEDICARE, OTHER, SELFPAY ==
--- NOTE | ~2021-03-15 | US_ITS ---
EXAMINATION: US carotid duplex BI DATE: 03/15/2021 14:28 INDICATION: Transient cerebral ischemic attack, unspecified. TECHNIQUE: Grayscale, color Doppler, and pulsed Doppler images of the cervical carotid arteries were obtained. The degree of vessel stenosis is placed in one of the following categories: normal, <50%, 5 0-69%, >=70% but less than near-occlusion, near-occlusion, or total occlusion. Note that percent sten osis relative to normal distal artery lumen diameter is indirectly measured from velocity measurement s as described by King, et al. Radiology 2003; 229:340-346. COMPARISON: Ultrasound 08/25/2016 FINDINGS: RIGHT: The right common carotid artery (CCA) peak systolic velocity (PSV) is 65 cm/s. The right internal car otid artery (ICA) PSV is 120 cm/s. The right ICA end-diastolic velocity (EDV) is 25 cm/s. The right I CA/CCA PSV ratio is 1.9. Grayscale and color Doppler images yield an estimate of <50% diameter reduct ion from plaque in the ICA. There is antegrade flow in the right vertebral artery. LEFT: The left CCA PSV is 75 cm/s. The left ICA PSV is 116 cm/s. The left ICA EDV is 24 cm/s. The left ICA/ CCA PSV ratio is 1.5. Grayscale and color Doppler images yield an estimate of <50% diameter reduction from plaque in the ICA. There is antegrade flow in the left vertebral artery. IMPRESSION: 1. <50% stenosis in the right internal carotid artery. 2. <50% stenosis in the left internal carotid artery. Reviewed, dictated and finalized at location A.
== END 2021-03-15 13:57 | disposition home or self-care (01) ==
LOC: ANHIMG 14:01
PROVIDERS: PCP Family Medicine; Visit Provider Internal Medicine Cardiovascular Disease
DX: I25.10 Atherosclerotic heart disease of native coronary artery without angina pectoris (principal); R42 Dizziness and giddiness; Z86.73 Personal history of transient ischemic attack (TIA), and cerebral infarction without residual deficits; I65.23 Occlusion and stenosis of bilateral carotid arteries
CPT/HCPCS: 93880

== ENCOUNTER 2021-06-09 12:22 | Outpatient (CLI) | payer MEDICARE, OTHER, SELFPAY ==
[2021-06-09 13:07] LABS: Basophils Percent Auto 0.6 % (0.2-1.2); Eosinophils Absolute Auto 0.2 K/mm3 (0-0.3); Eosinophils Percent Auto 2.7 % (0-4.4); Hematocrit 37.9 % (37.0-47.0); Hemoglobin 12.5 g/dL (12.0-15.0); Immature Granulocyte Absolute 0.01 K/mm3 (0.00-0.031); Immature Granulocyte Percent A 0.2 % (0-0.5); Lymphocytes Absolute Auto 2.21 K/mm3 (0.9-3.2); Lymphocytes Percent Auto 34.5 % (18.3-44.2); Mean Platelet Volume 9.8 fl (7.4-10.4); Monocytes Absolute Auto 0.7 K/mm3 (0.1-0.6); Monocytes Percent Auto 10.3 % (2.6-8.5); Neutrophils Absolute Auto 3.3 K/mm3 (1.3-6.7); Neutrophils Percent Auto 51.7 % (45.5-73.1); Platelet Count Result 229 k/mm3 (150-375); Red Blood Count 4.03 M/mm3 (4.2-5.4); Red Cell Distribution Width 13.9 % (11.5-14.5); White Blood Count 6.4 K/mm3 (4.5-10.0)
[2021-06-09 13:20] LABS: Alanine Aminotransferase 19 U/L (4-35); Albumin Level 4.3 g/dL (3.5-5.1); Alkaline Phosphatase 73 U/L (38-126); Anion Gap 8 mmol/L (8-16); Aspartate Amino Transferase 26 U/L (14-36); Bilirubin,Total 0.9 mg/dL (0.2-1.3); Blood Urea Nitrogen 40 mg/dL (7-17); Calcium 9.4 mg/dL (8.4-10.2); Carbon Dioxide 22 mmol/L (22-30); Chloride 107 mmol/L (98-107); Estimated Glomerular Filt Rate 39; Glucose 98 mg/dL (65-110); Potassium 4.3 mmol/L (3.4-5.0); Sodium 137 mmol/L (137-145)
== END 2021-06-09 12:23 | disposition home or self-care (01) ==
PROVIDERS: PCP Family Medicine; Visit Provider Nurse Practitioner Adult Health
DX: R53.83 Other fatigue (principal)
CPT/HCPCS: 80053; 84443; 85025

== ENCOUNTER → 2021-07-11 09:58 | Outpatient (CLI) | payer MEDICARE, OTHER, SELFPAY ==
[2021-07-13 19:34] LABS: SARS-CoV-2 RNA PCR Negative
== END ==
PROVIDERS: PCP Family Medicine; Visit Provider Nurse Practitioner Family
DX: R05.9 Cough, unspecified (principal); R07.89 Other chest pain; G44.85 Primary stabbing headache; Z20.822 Contact with and (suspected) exposure to COVID-19
CPT/HCPCS: C9803; U0003; U0005

== ENCOUNTER 2021-07-18 16:26 | Outpatient (CLI) | payer MEDICARE, OTHER, SELFPAY ==
--- NOTE | ~2021-07-18 | XR_ITS ---
XR chest 2V DATE: 07/18/2021 16:53 INDICATION: Cough, shortness of breath TECHNIQUE: PA and lateral views COMPARISON: 02/15/2021 PA and lateral chest 01/19/2022 view chest 12/17/2019 CT chest high resolution scan FINDINGS: Status post sternotomy. Coronary artery stent is noted. Heart size is normal. There is aort ic calcification and mild tortuosity. No hilar or mediastinal enlargement, pulmonary vascular congest ion or pleural effusion or pneumothorax. The lungs are clear of infiltrate or consolidation. Diffuse osteopenia. Mild thoracic and lumbar scoliosis. Prominent calcification of the included proximal and mid abdominal aorta, without evidence of aneurys m. IMPRESSION: Status post sternotomy Coronary artery stent No active cardiopulmonary disease Reviewed, dictated and finalized at location A. MACHINE OPERATOR
== END 2021-07-18 16:27 | disposition home or self-care (01) ==
LOC: ANHIMG 16:32
PROVIDERS: PCP Family Medicine; Visit Provider Nurse Practitioner Family
DX: R05.9 Cough, unspecified (principal); R06.02 Shortness of breath
CPT/HCPCS: 71046

== ENCOUNTER 2021-09-12 11:40 | Outpatient (CLI) | payer OTHER, SELFPAY ==
[2021-09-12 12:14] LABS: Basophils Percent Auto 0.7 % (0.2-1.2); Eosinophils Absolute Auto 0.2 K/mm3 (0-0.3); Eosinophils Percent Auto 3.8 % (0-4.4); Hemoglobin 13.1 g/dL (12.0-15.0); Immature Granulocyte Absolute 0.02 K/mm3 (0.00-0.031); Immature Granulocyte Percent A 0.3 % (0-0.5); Lymphocytes Absolute Auto 2.12 K/mm3 (0.9-3.2); Lymphocytes Percent Auto 34.8 % (18.3-44.2); Mean Corpuscular HGB Conc 32.8 g/dl (32-36); Mean Corpuscular Hemoglobin 30.8 pg (26-34); Mean Corpuscular Volume 94.1 fl (80-100); Mean Platelet Volume 9.6 fl (7.4-10.4); Monocytes Absolute Auto 0.7 K/mm3 (0.1-0.6); Monocytes Percent Auto 11.3 % (2.6-8.5); Neutrophils Percent Auto 49.1 % (45.5-73.1); Platelet Count Result 269 k/mm3 (150-375); Red Blood Count 4.25 M/mm3 (4.2-5.4); Red Cell Distribution Width 14.6 % (11.5-14.5); White Blood Count 6.1 K/mm3 (4.5-10.0)
[2021-09-12 12:33] LABS: Alanine Aminotransferase 23 U/L (4-35); Albumin Level 4.3 g/dL (3.5-5.1); Alkaline Phosphatase 94 U/L (38-126); Anion Gap 7 mmol/L (8-16); Aspartate Amino Transferase 33 U/L (14-36); Bilirubin,Total 0.9 mg/dL (0.2-1.3); Blood Urea Nitrogen 29 mg/dL (7-17); Calcium 9.1 mg/dL (8.4-10.2); Carbon Dioxide 24 mmol/L (22-30); Chloride 109 mmol/L (98-107); Cholesterol 185 mg/dL (0-200); Estimated Glomerular Filt Rate 43; Glucose 102 mg/dL (65-110); HDL Direct 57 mg/dL; Potassium 4.5 mmol/L (3.4-5.0); Sodium 140 mmol/L (137-145); Triglycerides 158 mg/dL (<150)
[2021-09-12 12:44] LABS: LDL Cholesterol Direct 70 mg/dL
== END 2021-09-12 11:41 | disposition home or self-care (01) ==
PROVIDERS: PCP Family Medicine; Visit Provider Internal Medicine Cardiovascular Disease
DX: I25.10 Atherosclerotic heart disease of native coronary artery without angina pectoris (principal); R06.00 Dyspnea, unspecified; R53.82 Chronic fatigue, unspecified
CPT/HCPCS: 36415; 80053; 80061; 85025

== ENCOUNTER 2021-09-28 10:49 | Outpatient (CLI) | payer OTHER, SELFPAY ==
[2021-09-28 11:45] LABS: Anion Gap 10 mmol/L (8-16); Blood Urea Nitrogen 27 mg/dL (7-17); Carbon Dioxide 24 mmol/L (22-30); Chloride 107 mmol/L (98-107); Estimated Glomerular Filt Rate 39; Glucose 128 mg/dL (65-110); Potassium 4.1 mmol/L (3.4-5.0); Sodium 141 mmol/L (137-145)
[2021-09-28 11:53] LABS: NT Pro B Type Natriuretic Pept 489 pg/mL (5-100)
== END 2021-09-28 10:50 | disposition home or self-care (01) ==
LOC: ANHLAB 10:57
PROVIDERS: PCP Family Medicine; Visit Provider Internal Medicine Cardiovascular Disease
DX: R06.00 Dyspnea, unspecified (principal)
CPT/HCPCS: 36415; 80048; 83880

== ENCOUNTER 2021-12-29 09:13 | Outpatient (CLI) | payer OTHER, SELFPAY ==
[2021-12-29 10:32] LABS: Anion Gap 10 mmol/L (8-16); Blood Urea Nitrogen 42 mg/dL (7-17); Calcium 9.2 mg/dL (8.4-10.2); Carbon Dioxide 22 mmol/L (22-30); Chloride 109 mmol/L (98-107); Estimated Glomerular Filt Rate 33; Glucose 102 mg/dL (65-110); Potassium 4.3 mmol/L (3.4-5.0); Sodium 141 mmol/L (137-145)
[2021-12-29 10:33] LABS: NT Pro B Type Natriuretic Pept 538 pg/mL (5-100)
== END 2021-12-29 09:14 | disposition home or self-care (01) ==
LOC: ANHLAB 09:18
PROVIDERS: PCP Family Medicine; Visit Provider Internal Medicine Cardiovascular Disease
DX: R06.00 Dyspnea, unspecified (principal)
CPT/HCPCS: 36415; 80048; 83880

== ENCOUNTER 2022-02-15 13:24 | Outpatient (CLI) | payer OTHER, SELFPAY ==
--- NOTE | ~2022-02-15 | DEXA_ITS ---
Bone Density Report Name: CHARIS MCCULLOUGH Age: 81 Sex: Female Ethnicity: White Date of : 1940 Indication: postmenopausal; screening for osteoporosis; height loss; prior fracture; hysterectomy; Referring Provider: JEAN CLAUDE FISH Study: Bone densitometry was performed. Exam Date: February 15, 2022 Accession number: [id number] Bone Density: Region BMD T-score Z-score Classification AP Spine(L3, L4) 1.357 2.3 5.2 Normal Femoral Neck (Left) 0.728 -1.1 1.3 Osteopenia Total Hip (Left) 0.860 -0.7 1.5 Normal Femoral Neck (Right) 0.812 -0.3 2.1 Normal Total Hip (Right) 0.980 0.3 2.5 Normal Total Hip Mean 0.920 -0.2 2.0 Normal World Health Organization criteria for BMD impression classify patients as: Normal (T-score at or above -1.0), Osteopenia (T-score between -1.0 and -2.5), or Osteoporosis (T-score at or below -2.5). 10-year Fracture Risk(1): Major Osteoporotic Fracture 16% Hip Fracture 3.1% Reported Risk Factors: [place] (), Neck BMD=0.728, BMI=35.0, previous fracture (1) FRAX(R) Version 3.08. Fracture probability calculated for an untreated patient. Fracture probability may be lower if the patient has received treatment. Clinical Information Provided by Patient: Has had a low trauma fracture Has used the following medications: Vitamin D, Calcium Has the following medical conditions: Hysterectomy Patient maximum height was 68.5 Menopause Age: 31 No regular weight bearing exercise Onset of menses at age 14 Number of children 3 Impression: The patient has low bone mass, based on the Left Femoral Neck T-score. The patient has an estimated ten-year risk of hip fracture of 3.1% and an estimated ten-year risk of major fracture of 16%, based on the WHO FRAX algorithm. The patient has risk factors, including: previous fracture. Discussion: BONE DENSITY IS LOW AT ONE OR MORE SKELETAL SITES. THE PATIENT'S BMD AND CLINICAL RISK FACTORS CONTRIBUTE TO THIS PATIENT'S INCREASED RISK OF FRACTURE. This patient's lowest T-score is low at one or more skeletal sites. It meets the World Health Organization's (WHO) criteria for ?low bone mass? (T-score between -1.0 and -2.5). The patient's 10-year risk of hip fracture as calculated by FRAX exceeds the threshold where pharmacological therapy is recommended by the National Osteoporosis Foundation (NOF). However, all treatment decisions require clinical judgment and consideration of individual patient factors, including patient preferences, comorbidities, previous drug use, risk factors not captured in the FRAX model (e.g., frailty, falls, vitamin D deficiency, increased bone turnover, interval significant decline in bone density) and possible under or overestimation of fracture risk by FRAX. The patient should follow a healthful lifestyle
== END 2022-02-15 13:25 | disposition home or self-care (01) ==
LOC: ANHIMG 13:25
PROVIDERS: PCP Family Medicine; Visit Provider Family Medicine
DX: Z78.0 Asymptomatic menopausal state (principal); M85.852 Other specified disorders of bone density and structure, left thigh; S92.909A Unspecified fracture of unspecified foot, initial encounter for closed fracture
CPT/HCPCS: 77080

== ENCOUNTER 2022-02-17 08:22 | Outpatient (CLI) | payer OTHER, SELFPAY ==
--- NOTE | ~2022-02-17 | MM_ITS ---
EXAMINATION: MM screening marlon BI w joon HISTORY: Screening mammogram TECHNIQUE: Craniocaudal and mediolateral oblique 3-D tomosynthesis images were obtained and synthetic 2-D images were generated. CAD analysis was submitted and interpreted. COMPARISON: No prior mammogram is available for comparison at this institution. BREAST PARENCHYMAL COMPOSITION: There are scattered areas of fibroglandular density. FINDINGS: There is a biopsy marker on the right; history of prior benign right breast biopsy. There i s no evidence of suspicious mass, calcification, or architectural distortion to suggest malignancy in either breast. There has been no suspicious interval change. IMPRESSION: 1. No mammographic evidence of malignancy. 2. Recommend routine screening mammography in one year. BI-RADS Category 1: Negative Reviewed, dictated and finalized at location B.
== END 2022-02-17 08:23 | disposition home or self-care (01) ==
LOC: ANHIMG 08:23
PROVIDERS: PCP Family Medicine; Visit Provider Family Medicine
DX: Z12.31 Encounter for screening mammogram for malignant neoplasm of breast (principal)
CPT/HCPCS: 77063; 77067

== ENCOUNTER 2022-05-05 12:23 | Outpatient (CLI) | payer OTHER, SELFPAY ==
--- NOTE | ~2022-05-05 | XR_ITS ---
EXAMINATION: XR forearm LT 2V INDICATION: Left forearm pain TECHNIQUE: Left forearm pain COMPARISON: None available FINDINGS: Bone alignment is normal. There appears to be a nondisplaced radial head fracture. A small elbow joint effusion is present. Surgical clips are seen in the ventral soft tissues near the radial styloid and over the proximal forearm. Alignment IMPRESSION: 1. Nondisplaced radial head fracture with small elbow joint effusion. Reviewed, dictated and finalized at location F.
--- NOTE | ~2022-05-05 | XR_ITS ---
XR chest 2V 05/05/2022 12:56 Indication: Bronchitis Procedure: 2 view chest Comparison: Comparison to multiple prior studies sequentially, with oldest reviewed study dated 09/05. Findings: Status post median sternotomy for CABG. Borderline heart size. There is scarring in the lef t lung base. There is right basilar atelectasis. No focal pneumonia, edema, pleural effusion or pneum othorax. There is a coronary artery stent. Impression: 1: Right basilar atelectasis. Left basilar scarring. Reviewed, dictated and finalized at location A. Impression: 1: Right basilar atelectasis. Left basilar scarring.
== END 2022-05-05 12:24 | disposition home or self-care (01) ==
PROVIDERS: PCP Family Medicine; Visit Provider Physician Assistant Medical
DX: J40 Bronchitis, not specified as acute or chronic (principal); S52.125A Nondisplaced fracture of head of left radius, initial encounter for closed fracture; M25.422 Effusion, left elbow; I25.10 Atherosclerotic heart disease of native coronary artery without angina pectoris
CPT/HCPCS: 71046; 73090

== ENCOUNTER 2022-06-28 11:47 | Outpatient (CLI) | payer OTHER, SELFPAY ==
[2022-06-28 12:24] LABS: Anion Gap 4 mmol/L (8-16); Blood Urea Nitrogen 26 mg/dL (7-17); Calcium 9.1 mg/dL (8.4-10.2); Carbon Dioxide 27 mmol/L (22-30); Chloride 108 mmol/L (98-107); Estimated Glomerular Filt Rate 43; Glucose 97 mg/dL (65-110); Potassium 4.6 mmol/L (3.4-5.0); Sodium 139 mmol/L (137-145)
== END 2022-06-28 11:48 | disposition home or self-care (01) ==
LOC: ANHLAB 11:50
PROVIDERS: PCP Family Medicine; Visit Provider Nurse Practitioner Adult Health
DX: I51.89 Other ill-defined heart diseases (principal)
CPT/HCPCS: 36415; 80048

== ENCOUNTER 2022-07-03 15:06 | Outpatient (CLI) | payer OTHER, SELFPAY ==
--- NOTE | ~2022-07-03 | XR_ITS ---
EXAMINATION: XR chest 2V Exam Date/Time: 07/03/2022 15:11 BEST WORKER HISTORY: R07.81 - Pleurodynia, COUGH Comparison: 05/05/2022. RESULT: Lines, tubes, and devices: Intact sternotomy wires. Coronary artery stent. Mediastinal surgical clip s. Lungs and pleura: Bibasilar scar. No focal consolidation, effusion, or pneumothorax. Cardiomediastinal silhouette: Stable. Other: No acute osseous or upper abdominal finding. IMPRESSION: No acute cardiopulmonary process. Reviewed, dictated and finalized at location K. WORKER
== END 2022-07-03 15:07 | disposition home or self-care (01) ==
PROVIDERS: PCP Family Medicine; Visit Provider Family Medicine
DX: R07.81 Pleurodynia (principal)
CPT/HCPCS: 71046

== ENCOUNTER 2022-09-28 13:26 | Outpatient (CLI) | payer OTHER, SELFPAY ==
--- NOTE | ~2022-09-28 | XR_ITS ---
XR knee RT min 4V DATE: 09/28/2022 14:00 INDICATION: Bilateral primarily knee osteoarthritis TECHNIQUE: [place] and standing AP, PA and lateral views COMPARISON: None FINDINGS: There is tricompartment osteoarthritis, with prominent loss of lateral compartment joint sp latoya. No fracture or dislocation or joint effusion. No radiopaque intra-articular loose body or chondrocalc inosis. No periosteal reaction or bone destruction. IMPRESSION: Tricompartment osteoarthritis Reviewed, dictated and finalized at location L. NUE ACCOUNTING MANAGER
--- NOTE | ~2022-09-28 | XR_ITS ---
XR knee LT min 4V DATE: 09/28/2022 14:00 INDICATION: Bilateral knee pain. No injury. TECHNIQUE: [place] and standing AP, PA and lateral views COMPARISON: 04/26/2020 left knee FINDINGS: There is tricompartment osteoarthritis, most severe at the lateral compartment with bone-on -bone and prominent periarticular spurring. There is minimal periarticular spurring at the medial com partment and mild particular spurring at the patellofemoral compartment. No fracture or dislocation or joint effusion is evident. No radiopaque intra-articular loose body or chondrocalcinosis. No periosteal reaction or bone destruction. IMPRESSION: Tricompartment osteoarthritis, most severe at the lateral compartment; little interval ch dave since 04/26/2020 Reviewed, dictated and finalized at location L. ON RIVETER IMPRESSION: Tricompartment osteoarthritis, most severe at the lateral compartme nt; little interval change since 04/26/2020
== END 2022-09-28 13:27 | disposition home or self-care (01) ==
PROVIDERS: PCP Family Medicine; Referring Provider Orthopaedic Surgery; Visit Provider Family Medicine
DX: M17.0 Bilateral primary osteoarthritis of knee (principal)
CPT/HCPCS: 73564

== ENCOUNTER 2022-12-21 12:10 | Outpatient (CLI) | payer OTHER, SELFPAY ==
[2022-12-21 13:01] LABS: Anion Gap 7 mmol/L (8-16); Blood Urea Nitrogen 32 mg/dL (7-17); Carbon Dioxide 29 mmol/L (22-30); Chloride 105 mmol/L (98-107); Estimated Glomerular Filt Rate 33; Glucose 119 mg/dL (65-110); Potassium 4.9 mmol/L (3.4-5.0); Sodium 141 mmol/L (137-145)
== END 2022-12-21 12:11 | disposition home or self-care (01) ==
PROVIDERS: PCP Family Medicine; Visit Provider Nurse Practitioner Adult Health
DX: I10 Essential (primary) hypertension (principal)
CPT/HCPCS: 36415; 80048

== ENCOUNTER 2023-02-22 11:58 | Outpatient (CLI) | payer OTHER, SELFPAY ==
[2023-02-22 12:39] LABS: Anion Gap 6 mmol/L (8-16); Blood Urea Nitrogen 42 mg/dL (7-17); Calcium 9.2 mg/dL (8.4-10.2); Carbon Dioxide 24 mmol/L (22-30); Chloride 107 mmol/L (98-107); Estimated Glomerular Filt Rate 36; Glucose 98 mg/dL (65-110); Potassium 4.6 mmol/L (3.4-5.0); Sodium 137 mmol/L (137-145)
== END 2023-02-22 11:59 | disposition home or self-care (01) ==
PROVIDERS: PCP Family Medicine; Visit Provider Nurse Practitioner Adult Health
DX: I50.32 Chronic diastolic (congestive) heart failure (principal); R06.09 Other forms of dyspnea
CPT/HCPCS: 36415; 80048

== ENCOUNTER 2023-04-24 12:15 | Outpatient (CLI) | payer OTHER, SELFPAY ==
[2023-04-24 13:09] LABS: Hematocrit 46.7 % (37.0-47.0); Hemoglobin 15.1 g/dL (12.0-15.0); Mean Corpuscular HGB Conc 32.3 g/dl (32-36); Mean Corpuscular Hemoglobin 30.8 pg (26-34); Mean Corpuscular Volume 95.1 fl (80-100); Mean Platelet Volume 9.8 fl (7.4-10.4); Platelet Count Result 279 k/mm3 (150-375); Red Blood Count 4.91 M/mm3 (4.2-5.4); Red Cell Distribution Width 14.3 % (11.5-14.5); White Blood Count 8.4 K/mm3 (4.5-10.0)
[2023-04-24 13:18] LABS: Anion Gap 11 mmol/L (8-16); Blood Urea Nitrogen 39 mg/dL (7-17); Calcium 9.3 mg/dL (8.4-10.2); Carbon Dioxide 21 mmol/L (22-30); Chloride 107 mmol/L (98-107); Estimated Glomerular Filt Rate 36; Glucose 144 mg/dL (65-110); Potassium 4.5 mmol/L (3.4-5.0); Sodium 139 mmol/L (137-145)
[2023-04-24 13:27] LABS: Parathyroid Intact 84.4 pg/mL (7.5-53.5)
[2023-04-24 13:41] LABS: Vitamin D 25 Hydroxy 57.4 ng/mL
[2023-04-26 14:47] LABS: Ionized Calcium 4.9 mg/dL (4.7-5.5)
== END 2023-04-24 12:16 | disposition home or self-care (01) ==
LOC: ANHLAB 12:20
PROVIDERS: PCP Family Medicine; Visit Provider Family Medicine
DX: N18.31 Chronic kidney disease, stage 3a (principal); E55.9 Vitamin D deficiency, unspecified
CPT/HCPCS: 36415; 80048; 82306; 82330; 83970; 85027

== ENCOUNTER 2023-05-11 11:27 | Outpatient (CLI) | payer OTHER, SELFPAY ==
--- NOTE | ~2023-05-11 | MMUS_ITS ---
EXAMINATION: MM diagnostic marlon BI w joon, US breast BI complete HISTORY: Breast pain. TECHNIQUE: Additional 3-D tomosynthesis images of the right breast were performed and synthetic 2-D i mages were generated. CAD analysis was submitted and interpreted. High resolution bilateral complete breast ultrasound was performed. COMPARISON: 02/17/2022 BREAST PARENCHYMAL COMPOSITION: Breast composed of scattered areas of fibroglandular density FINDINGS: MAMMOGRAPHIC FINDINGS: There are benign calcifications in the upper outer quadrant of the right breast. There is tissue kerry er from previous benign right breast biopsy in the lower outer quadrant. There are no suspicious mass es, calcifications or architectural distortion in either breast to suggest malignancy. ULTRASOUND: Complete bilateral US of all 4 quadrants of the breasts and retroareolar region was reviewed. Right breast: At 12:00, 4 and 5 cm from the nipple, there are peripherally calcified nodules with pos terior shadowing, largest measuring 6 mm, corresponding to the area benign calcifications seen on [facility] mography. No definite sonographic correlate to focal asymmetry in the upper central right breast, mid dle third which appears lucent centrally on tomographic images, likely benign. Left breast: At 11:00, 8 cm from the nipple, there is a 3 mm cyst. No suspicious masses in the left b reast to suggest malignancy. IMPRESSION: 1. Probable benign focal asymmetry upper central right breast, middle third. No definite sonographic correlate. 2. Recommend 6 month follow-up diagnostic right mammogram BI-RADS category 3, probably benign findings. Reviewed, dictated and finalized at location A. IMPRESSION: 1. Probable benign focal asymmetry upper central right breast, middle third. No definite sonographic correlate. 2. Recommend 6 month follow-up diagnostic right mammogram BI-RADS category 3, probably benign findings.
== END 2023-05-11 11:28 | disposition home or self-care (01) ==
LOC: ANHIMG 11:28
PROVIDERS: PCP Family Medicine; Visit Provider Family Medicine
DX: R07.9 Chest pain, unspecified (principal); R92.8 Other abnormal and inconclusive findings on diagnostic imaging of breast
CPT/HCPCS: 76641; 77062; 77066; G0279

== ENCOUNTER 2023-05-30 15:43 | Outpatient (CLI) | payer OTHER, SELFPAY ==
--- NOTE | ~2023-05-30 | MR_ITS ---
EXAMINATION: MR lumbar spine wo con DATE: 05/30/2023 16:20 INDICATION: Spondylosis without myelopathy or radiculopathy. TECHNIQUE: Magnetic resonance imaging (MRI) of the lumbar spine was performed without intravenous con trast. COMPARISON: Lumbar spine MRI 12/16/2014 FINDINGS: There is 3 mm retrolisthesis of L1 on L2 and L2-L3 and L3 on L4, 3 mm anterolisthesis of L4 on L5, and 3 mm retrolisthesis of L5 on S1. Vertebral body heights are normal. There is severely dec reased disc height at L1-L2 and L2-L3. There is interbody fusion at L2-L3. There is mildly decreased disc height at L3-L4 and L4-L5 and severely decreased disc height at L5-S1. The distal spinal cord si gnal intensity is normal. The conus medullaris is at L1. The following disc levels are specifically d iscussed: L1-L2: The disc is bulging. There is severe bilateral facet joint osteoarthritis. There is mild bilat eral neural foraminal stenosis. There is mild central canal stenosis. L2-L3: The disc is bulging. There is severe bilateral facet joint osteoarthritis. There is mild bilat eral neural foraminal stenosis. There is mild central canal stenosis. L3-L4: The disc is bulging and has an annular fissure. There is severe bilateral facet joint osteoart hritis. There is mild bilateral neural foraminal stenosis. There is moderate central canal stenosis. L4-L5: The disc does not extend beyond the endplate margin. There is severe bilateral facet joint ost eoarthritis. There is mild bilateral neural foraminal stenosis. There is no central canal stenosis. L5-S1: The disc is bulging. There is severe bilateral facet joint osteoarthritis. There is mild bilat eral neural foraminal stenosis. There is mild central canal stenosis. IMPRESSION: 1. Severe lumbar spondylosis, worsened from 12/16/2014. Reviewed, dictated and finalized at location E. ONNEL AND PAYROLL TECHNICIAN
== END 2023-05-30 15:44 | disposition home or self-care (01) ==
PROVIDERS: PCP Family Medicine; Visit Provider Family Medicine
DX: M47.816 Spondylosis without myelopathy or radiculopathy, lumbar region (principal); M43.06 Spondylolysis, lumbar region
CPT/HCPCS: 72148

== ENCOUNTER 2023-07-02 08:35 | Outpatient (CLI) | payer OTHER, SELFPAY ==
--- NOTE | ~2023-07-02 | MR_ITS ---
EXAMINATION: MR brain/brain stem wo/w con DATE: 07/02/2023 09:32 INDICATION: Transient ischemic attack. Aphasia. Loss of balance. Gait disturbance. TECHNIQUE: Magnetic resonance imaging (MRI) of the brain and brainstem was performed without and with 20 mL MultiHance intravenous contrast. COMPARISON: Brain MRI 03/05/2021 FINDINGS: There are scattered areas of nonspecific increased T2-weighted signal intensity in the cere bral white matter, which is within normal limits for the patient's age. There is no intracranial hemo rrhage, acute infarction, or abnormal intracranial mass lesion. The ventricles are normal in size. Th ere is mucosal thickening in the paranasal sinuses. There are likely changes of ocular lens replaceme nt surgeries. The mastoid air cells are normal. IMPRESSION: 1. Normal aging brain. Reviewed, dictated and finalized at location A. L REED TUNER IMPRESSION: 1. Normal aging brain.
== END 2023-07-02 08:36 | disposition home or self-care (01) ==
PROVIDERS: PCP Family Medicine; Visit Provider Internal Medicine Cardiovascular Disease
DX: R47.01 Aphasia (principal); G45.9 Transient cerebral ischemic attack, unspecified; Z86.73 Personal history of transient ischemic attack (TIA), and cerebral infarction without residual deficits
CPT/HCPCS: 70553; A9577

== ENCOUNTER 2023-07-05 06:36 | Outpatient (CLI) | payer OTHER, SELFPAY ==
--- NOTE | ~2023-07-05 | MR_ITS ---
EXAMINATION: MRA neck wo/w con DATE: 07/05/2023 08:32 INDICATION: Aphasia. Transient ischemic attack. TECHNIQUE: Magnetic resonance angiography (MRA) of the neck was performed without and with 20 mL Mult iHance intravenous contrast. COMPARISON: Ultrasound 03/15/2021 FINDINGS: The vertebral arteries are codominant. There is no significant stenosis of the vertebral arteries. Th ere is 9% stenosis of the proximal right internal carotid artery relative to normal distal artery lum en diameter (NASCET criteria). There is 37% stenosis of the proximal left internal carotid artery re lative to normal distal artery lumen diameter. IMPRESSION: 1. 9% stenosis of the proximal right internal carotid artery relative to normal distal artery lumen d iameter (NASCET criteria). 2. 37% stenosis of the proximal left internal carotid artery relative to normal distal artery lumen d iameter. Reviewed, dictated and finalized at location A. ODIAN MANAGER IMPRESSION: 1. 9% stenosis of the proximal right internal carotid artery relative to normal distal artery lumen diameter (NASCET criteria). 2. 37% stenosis of the proximal left internal carotid artery relative to normal distal artery lumen diameter.
--- NOTE | ~2023-07-05 | MR_ITS ---
MRA HEAD History: TIA Technique: 3D time of flight MRA of the head is performed. Findings: The right and left distal vertebral arteries and the basilar and posterior cerebral arterie s are normal. Right and left distal internal carotid arteries and anterior and middle cerebral arteri es are normal. There is no aneurysm, stenosis, or occlusion. Impression: No occlusion, stenosis, or aneurysm. Reviewed, dictated and finalized at location . ER FIELD SERVICE TECHNICIAN Impression: No occlusion, stenosis, or aneurysm.
== END 2023-07-05 06:37 | disposition home or self-care (01) ==
PROVIDERS: PCP Family Medicine; Visit Provider Internal Medicine Cardiovascular Disease
DX: R47.01 Aphasia (principal); G45.9 Transient cerebral ischemic attack, unspecified; Z86.73 Personal history of transient ischemic attack (TIA), and cerebral infarction without residual deficits
CPT/HCPCS: 70544; 70549; A9577

== ENCOUNTER 2023-07-18 08:44 | Outpatient (CLI) | payer OTHER, SELFPAY ==
--- NOTE | ~2023-07-18 | US_ITS ---
US abdomen limited INDICATION: Epigastric pain PROCEDURE: Realtime right upper abdominal ultrasound. COMPARISON: No prior studies for comparison. FINDINGS: The pancreas is normal without focal mass or pancreatic ductal dilation. Liver echotexture is normal without focal mass or intrahepatic biliary dilatation. There is normal directional flow i n the portal vein. The gallbladder is normal without stones, gallbladder wall thickening or pericholecystic fluid. Comm on bile duct measures 6 mm. No sonographic Elaine's sign. IMPRESSION: 1: Normal limited abdominal ultrasound. Reviewed, dictated and finalized at location B. ITAL MONITOR
== END 2023-07-18 08:45 | disposition home or self-care (01) ==
PROVIDERS: PCP Family Medicine; Visit Provider Nurse Practitioner
DX: R10.13 Epigastric pain (principal)
CPT/HCPCS: 36415; 76705; 81001; 82306; 82330; 82550; 82570; 83883; 84100; 84156; 86038; 86039; 86160; 87086

== ENCOUNTER 2023-07-18 09:25 | Outpatient (CLI) | payer OTHER, SELFPAY ==
[2023-07-18 10:31] LABS: Appearance Urine Cloudy (Clear); Bacteria Urine 1+ /hpf; Bilirubin Urine Negative (Negative); Blood Urine Negative (Negative); Color Urine Yellow (Yellow); Glucose Urine UA 3+ mg/dL (Negative); Ketones Urine Negative (Negative); Leukocyte Esterase Ur 2+ LEU/UL (Negative); Nitrate Urine Negative (Negative); Non Pathogenic Casts 0-2; Protein Urine Negative (Negative); RBC Urine 0-2 /hpf (0-2); Specific Grav Ur 1.017 (1.001-1.035); Squamous Epithelial Cell Urine Moderate /hpf (Few); Urobilinogen Urine 0.2 mg/dL (<2.0)
[2023-07-18 10:33] LABS: Add Urine Microscopic? YES
[2023-07-18 10:38] LABS: Creatine Kinase 67 U/L (30-135); Phosphorus 3.5 mg/dL (2.5-4.5)
[2023-07-18 10:45] LABS: Complement C3 124 mg/dL (88-165)
[2023-07-18 10:45] LABS: Creatinine Urine 95.8 mg/dL; Total Protein Urine Random 16 mg/dL; Ur Ttl Prot Creatinine Ratio 0.17 mg/mg (0-0.20)
[2023-07-18 11:17] LABS: Vitamin D 25 Hydroxy 42.8 ng/mL
[2023-07-20 09:44] LABS: Kappa\\Lambda Light Chains 1.79 (0.26-1.65); Lambda Light Chain 32.6 mg/L (5.7-26.3)
[2023-07-20 20:28] LABS: Ionized Calcium 4.9 mg/dL (4.7-5.5)
[2023-07-24 12:11] LABS: Anti Nuclear Antibody Pattern Nuclear, Speckled; Anti Nuclear Antibody Titer >=1:1280 (Negative)
== END 2023-07-18 09:26 | disposition home or self-care (01) ==
PROVIDERS: PCP Family Medicine
DX: R33.9 Retention of urine, unspecified (principal); N25.0 Renal osteodystrophy; I12.9 Hypertensive chronic kidney disease with stage 1 through stage 4 chronic kidney disease, or unspecified chronic kidney disease; N18.30 Chronic kidney disease, stage 3 unspecified; R60.0 Localized edema
CPT/HCPCS: 36415; 81001; 82306; 82330; 82550; 82570; 83883; 84100; 84156; 86038; 86039; 86160; 87086; 87088

== ENCOUNTER 2023-07-26 07:59 | Outpatient (CLI) | payer OTHER, SELFPAY ==
--- NOTE | ~2023-07-26 | NM_ITS ---
EXAMINATION: NM hepatobiliary wo pharm DATE: 07/26/2023 11:32 INDICATION: Postprandial epigastric pain COMPARISON: None. TECHNIQUE: 5 mCi Tc-99m mebrofenin (Choletec) was administered intravenously. Scintigraphic images o f the abdomen were obtained for one hour. At the 1 hour time point, the patient drank 8 oz Ensure, an d imaging was continued for 60 minutes. Gallbladder ejection fraction was calculated by the technolog ist. FINDINGS: There is normal clearance of radiotracer from the blood pool. There is homogeneous tracer u ptake by the liver. Activity progresses to the bowel and gallbladder. The gallbladder ejection fract ion (GBEF) is 34%. Note that with this technique, normal GBEF >= 33%. IMPRESSION: 1. Normal hepatobiliary scan Reviewed, dictated and finalized at location A. GER COST
== END 2023-07-26 08:00 | disposition home or self-care (01) ==
PROVIDERS: PCP Family Medicine; Visit Provider Nurse Practitioner
DX: R10.13 Epigastric pain (principal)
CPT/HCPCS: 78226; A9537

== ENCOUNTER 2023-07-27 10:51 | Outpatient (CLI) | payer OTHER, SELFPAY ==
--- NOTE | ~2023-07-27 | US_ITS ---
EXAMINATION: US retroperitoneal comp DATE: 07/27/2023 12:03 INDICATION: Urinary retention TECHNIQUE: Multiple ultrasound grayscale images of the kidneys were obtained. COMPARISON: None. FINDINGS: The right kidney measures 9.0 x 4.0 x 4.6 cm. The left kidney measures 7.7 x 4.2 x 4.1 cm. The kidney s demonstrate normal echogenicity. There is no hydronephrosis in either kidney. No stones identified . The bladder is normal with calculated prevoid bladder volume of 153 mL. There is a normal minimal c alculated post void residual bladder volume of 9 mL. Bilateral ureteral jets are visualized in the bl adder on color Doppler. IMPRESSION: 1. Normal kidneys without hydronephrosis. 2. Minimal calculated post void bladder volume of 9 mL which is within normal limits. Reviewed, dictated and finalized at location A. SPOOLER IMPRESSION: 1. Normal kidneys without hydronephrosis. 2. Minimal calculated post void bladder volume of 9 mL which is within normal l imits.
== END 2023-07-27 10:52 | disposition home or self-care (01) ==
PROVIDERS: PCP Family Medicine
DX: R39.198 Other difficulties with micturition (principal)
CPT/HCPCS: 76770

== ENCOUNTER 2023-08-02 13:07 | Outpatient (CLI) | payer OTHER, SELFPAY ==
--- NOTE | ~2023-08-02 | XR_ITS ---
EXAMINATION: XR shoulder LT min 2V DATE: 08/02/2023 13:30 INDICATION: Left shoulder pain TECHNIQUE: AP internally and externally rotated, AP oblique externally rotated and transscapular Y vi ews of the left shoulder were obtained. COMPARISON: 02/15/2023 FINDINGS: Normal alignment. No fracture.Mild glenohumeral osteoarthritis with mild cephalad predominant nonuni form joint space narrowing and small marginal osteophytes along the inferior glenoid. Mild to moderat e acromioclavicular osteoarthritis with small inferiorly directed osteophytes. There is some cystic c hange along the superior facet of the greater tuberosity which can be seen in setting of rotator cuff disease. Median sternotomy wires and mediastinal surgical clips are seen, likely from prior coronary artery bypass grafting. Left lung is clear. IMPRESSION: 1. Mild to moderate left acromioclavicular and mild glenohumeral osteoarthritis. 2. Cystic change along the superior facet of the greater tuberosity which can be seen in setting of r otator cuff disease. Reviewed, dictated and finalized at location A. [facility] IMPRESSION: 1. Mild to moderate left acromioclavicular and mild glenohumeral osteoarthritis . 2. Cystic change along the superior facet of the greater tuberosity which can b e seen in setting of rotator cuff disease.
== END 2023-08-02 13:08 | disposition home or self-care (01) ==
PROVIDERS: PCP Family Medicine; Visit Provider Nurse Practitioner Family
DX: M25.512 Pain in left shoulder (principal); M19.012 Primary osteoarthritis, left shoulder
CPT/HCPCS: 73030

== ENCOUNTER 2023-08-10 09:06 | Outpatient (CLI) | payer OTHER, SELFPAY ==
--- NOTE | 2023-08-10 09:18 | ECG_ITS ---
Measurements Intervals [place] Rate: 60 P: 91 [place]: 220 QRS: 7 QRSD: 83 T: 76 QT: 420 QTc: 421 Interpretive Statements SINUS RHYTHM WITH SINUS ARRHYTHMIA WITH FIRST DEGREE AV BLOCK NONSPECIFIC T-WAVE ABNORMALITY- HIGH LATERAL LEADS BASELINE ARTIFACT- I, II, III, AVR, AVL, AVF BORDERLINE ECG COMPARED TO ECG 02/15/2021 21:22:43 SINUS ARRHYTHMIA NOW PRESENT FIRST DEGREE AV BLOCK NOW PRESENT Electronically Signed On 08-10-2023 10:02:53 TERMINAL OPERATIONS SUPERVISOR by Ramon Loyd D.O.
[2023-08-10 09:44] LABS: INR 0.9; Prothrombin Time 12.8 Seconds (11.1-14.7)
[2023-08-10 09:45] LABS: Partial Thromboplastin Time 34.6 SECONDS (22.3-36.8)
[2023-08-10 09:49] LABS: Anion Gap 11 mmol/L (8-16); Blood Urea Nitrogen 34 mg/dL (7-17); Calcium 9.6 mg/dL (8.4-10.2); Carbon Dioxide 23 mmol/L (22-30); Chloride 107 mmol/L (98-107); Estimated Glomerular Filt Rate 43; Glucose 89 mg/dL (65-110); Potassium 4.4 mmol/L (3.4-5.0); Sodium 141 mmol/L (137-145)
[2023-08-10 09:50] LABS: Alanine Aminotransferase 32 U/L (6-35); Albumin Level 4.3 g/dL (3.5-5.1); Alkaline Phosphatase 89 U/L (38-126); Amylase 99 U/L (30-110); Aspartate Amino Transferase 35 U/L (14-36); Bilirubin,Total 0.7 mg/dL (0.2-1.3); Lipase 274 U/L (23-300)
--- NOTE | 2023-08-10 10:02 | ECG_ITS ---
Rate [place] QRSd QT QTc P QRS T Severity 60 220 83 420 421 91 7 76 Abnormal ECG SINUS RHYTHM WITH SINUS ARRHYTHMIA WITH FIRST DEGREE AV BLOCK NONSPECIFIC T-WAVE ABNORMALITY- HIGH LATERAL LEADS BASELINE ARTIFACT- I, II, III, AVR, AVL, AVF BORDERLINE ECG COMPARED TO ECG 02/15/2021 21:22:43 SINUS ARRHYTHMIA NOW PRESENT FIRST DEGREE AV BLOCK NOW PRESENT Electronically Signed On 08-10-2023 10:02:53 LITHOGRAPHIC ARTIST by Ramon LOPEZ
--- NOTE | 2023-08-10 16:28 | ECG_ITS ---
Rate [place] QRSd QT QTc P QRS T Severity 60 220 83 420 421 91 7 76 Abnormal ECG SINUS RHYTHM WITH SINUS ARRHYTHMIA WITH FIRST DEGREE AV BLOCK NONSPECIFIC T-WAVE ABNORMALITY- HIGH LATERAL LEADS BASELINE ARTIFACT- I, II, III, AVR, AVL, AVF BORDERLINE ECG Electronically Signed On 08-10-2023 10:02:53 LABORER POWERHOUSE by Ramon Loyd D.O. COMPARED TO ECG 02/15/2021 21:22:43 SINUS ARRHYTHMIA NOW PRESENT FIRST DEGREE AV BLOCK NOW PRESENT MTDD
== END 2023-08-10 09:07 | disposition home or self-care (01) ==
LOC: ANHSURGERY 09:11
PROVIDERS: Anesthesiology; PCP Family Medicine; Visit Provider Surgery
DX: Z01.818 Encounter for other preprocedural examination (principal); K81.1 Chronic cholecystitis; I49.8 Other specified cardiac arrhythmias; I44.0 Atrioventricular block, first degree
CPT/HCPCS: 36415; 80048; 80076; 82150; 83690; 85610; 85730; 93005

== ENCOUNTER 2023-08-13 00:43 | Day surgery (SDC) | payer OTHER, SELFPAY ==
--- NOTE | 2023-08-09 12:04 | PC.NURSE ---
Report to the Outpatient Waiting Room, entrance under the green pavilion located off [facility], at time ___0700____ on date _08/13/23 . Planned Procedure Time: __0900 . Time changes happen often and if your time is changed the preop area will call you the afternoon before. - You and your visitor will be asked to self-screen and do not enter if you have any COVID symptoms. - A mask is optional within the hospital at this time. Patients may have clear liquids (water, carbonated beverages, clear teas, apple juice) until 3 hours prior to surgery( 6: 00 AM ) with a maximum of 20 ounces. - No food from midnight until time of surgery - Infants may have breast milk until 4 hours before surgery, infant formula 6 hours prior to surgery. - Children will be allowed to drink immediately following surgery. If applicable, please bring a bottle or sippy cup to assist with drinking. Juice, water, soda, and popsicles are readily available. For infants on formula, please bring formula the day of surgery. Pacifiers are allowed. Take the following medications with a SIP of water the morning of surgery: __USE INHALER IF NEEDED,DIAZEPAM, DO NOT STOP ANY OF YOUR OTHER PRESCRIPTION MEDICATIONS PRIOR TO SURGERY ?EXCEPT THE FOLLOWING Medications to discontinue per physician ___PLAVIX 5 DAYS PRE OP PER DR BRUSH. LAST DOSE MAY CONTINUE ASPIRIN 81 MG BUT DON'T TAKE MORNING OF SURGERY. HOLD ALL VITAMINS AND SUPPLEMENTS 3 DAYS PRE OP.LAST DOSE 08/09/23 Please no make-up, nail english, hairspray, perfume, deodorant, or body powder the day of surgery. No jewelry (including any body piercings) or valuables the day of surgery, leave them at home. Please take a shower or bath the night before, or the morning of, surgery with an antibacterial soap. Wear comfortable, loose fitting clothing. Children are encouraged to wear pajamas. - Jewelry must be removed prior to entering the operating room. Rings and piercings that are not removed may be cut off. - The hospital will not accept responsibility for valuables. - Please leave all valuables, including medications, at home the day of surgery. If you are going home after surgery, a licensed catshovel driver must drive you home. - NO public transportation without another adult if you receive anesthesia. - We recommend that an adult stay with you for 24 hours following discharge. - We also recommend that you do not drive, make important decision, drink alcoholic beverages, or take any drugs that were not prescribed by your health care provider for at least 24 hours after your discharge time. For Pediatric surgeries, we recommend two adults accompany the child home. Follow any additional instructions given to you from your surgeon. If you or anyone in your household have experienced Covid symptoms in the past week, please notify your surgeon or the nurse liaison at the phone number below for possible testing. Telephone instructions given to __PATIENT and asked if any additional questions and then verbalized understanding. Patient advised to call surgeon office or pre surgery nurse liaison [phone] if any additional questions.
[2023-08-09 12:20] VITALS: BMI 34.8
[2023-08-13] VITALS (12 sets, daily range): BP systolic 112–157; BP diastolic 43–73; PULSE 47–64; RESP 12–20; TEMP 36.2–36.3; O2SAT 91–100
--- NOTE | 2023-08-13 07:24 | WPDHPUPDATE1 ---
History and Physical Update Update Date/Time: 08/13/23 07:24 History and Physical has been reviewed, including an updated exam of the patient. There are NO changes in the patient's condition. Risks, benefits, and alternatives have been discussed and questions answered. Patient agrees to proceed with procedure.
[2023-08-13] MEDS: LACTATED RINGERS 1,000 ML 30 ML IV CONT ×2 (07:59→12:05)
[2023-08-13] MEDS: ACETAMINOPHEN 500 MG TABLET 1000 MG PO (07:59)
[2023-08-13] MEDS: KETOROLAC 15 MG/ML VIAL (*BKC) IV PUSH (08:02)
--- NOTE | 2023-08-13 08:15 | WPDANESEPPF ---
Anes - Initial Pre Proc Eval Procedure: Operation Date: 08/13/23 09:00 Proposed Procedures p Laparoscopic Cholecystectomy - Clotilde Caro MD Date/Time: 08/13/23 08:15 Surgeon: Clotilde Caro MD Pre Op Diagnosis: Chr Cholecystitis Patient Data Age: 83 Gender: F Height: 1.68 m Weight: 99.4 kg Last Vital Signs Temp 36.3 C L 08/13/23 08:06 Pulse 64 08/13/23 08:06 Resp 16 08/13/23 08:06 BP 142/73 H 08/13/23 08:06 Pulse Ox 99 08/13/23 08:06 O2 Del Method Room Air 08/13/23 08:06 Allergies Allergy/AdvReac Type Severity Reaction Status Date / Time No Known Allergies Allergy Unknown Verified 08/13/23 06:57 Home Medications Medication Instructions Recorded Confirmed Type telmisartan 80 mg tablet (Micardis) 80 mg PO DAILY #30 tabs 11/06/19 08/09/23 Rx nitroglycerin 0.4 mg sublingual 0.4 mg sublingual DIRECTED PRN 01/21/20 08/09/23 Rx tablet Chest Pain #21 tabs rosuvastatin 20 mg tablet (Crestor) 20 mg PO HS #90 tabs 03/05/20 08/09/23 Rx clopidogrel 75 mg tablet (Plavix) 75 mg PO DAILY #90 tabs 11/07/21 08/09/23 Rx albuterol sulfate 90 mcg/actuation 2 inh inhalation Q4H PRN shortness 08/21/22 08/09/23 Rx aerosol inhaler of breath or wheezing #8.5 grams nifedipine 60 mg tablet,extended 60 mg PO QNOON 09/19/22 08/09/23 History release estradiol 0.01% (0.1 mg/gram) 1 g vaginal 2XW #42.5 grams 01/25/23 08/09/23 Rx vaginal cream (Estrace) acetaminophen 325 mg tablet 650 mg PO Q6H PRN Pain 02/13/23 08/09/23 History diazepam 5 mg tablet 5 mg PO QHS PRN anxiety #90 tabs 08/02/23 08/09/23 Rx nifedipine 30 mg tablet,extended 30 mg PO QNOON 08/02/23 08/09/23 History release aluminum hydrox-magnesium carb 95 15 ml PO DAILY PRN Heartburn 08/09/23 08/09/23 History mg-358 mg/15 mL oral suspension (Gaviscon) aspirin 81 mg tablet,delayed 81 mg PO DAILY 08/09/23 08/09/23 History release (Adult Low Dose Aspirin) duloxetine 60 mg capsule,delayed 60 mg PO QNOON 08/09/23 08/09/23 History release (Cymbalta) empagliflozin 10 mg tablet 10 mg PO .QD TAKES FOR HEART/SOB 08/09/23 08/09/23 History (Jardiance) magnesium 250 mg tablet 250 mg PO HS 08/09/23 08/09/23 History metoprolol succinate 100 mg 100 mg PO HS 08/09/23 08/09/23 History tablet,extended release 24 hr clfmtvhw-ehk-pven-FA-Ca carb-vit K 1 tablet PO DAILY 08/09/23 08/09/23 History 18 mg iron-400 mcg-500 mg tablet Patient hx anesthesia problems: none Family hx anesthesia problems: none Results Review: All pre-operative results and documents have been reviewed as part of the pre-operative evaluation. 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 2016 cardiac catheterization: Patent Left anterior descending with patent stent. sequential ADAME to the occluded D1 was patent but occluded to the Left anterior descending. The PRASANNA from the ADAME to the OM 1 has been occluded since 2001. 90% ostial stenosis of a small to medium-sized OM 1 manage medically because of negative stress tests and atypical chest pain. Bilateral primary osteoarthritis of knee BMI 31.0-31.9,adult BMI 32.0-32.9,adult BMI 32.0-32.9,adult BMI 33.0-33.9,adult BMI 35.0-35.9,adult BMI 36.0-36.9,adult Chronic constipation Chronic sinusitis CKD (chronic kidney disease) III Coronary artery disease Cough Diverticula of colon Ear pressure Erosive esophagitis Esophageal web Essential (primary) hypertension Family hx of colon cancer Gastroesophageal reflux disease Generalized osteoarthritis of multiple sites GERD with apnea GERD without esophagitis Head ache History of melanoma History of one miscarriage Hx of adenomatous colonic polyps Hypertension Inflamed seborrheic ke
[2023-08-13] MEDS: ceFAZolin 2 GM/D5W 50 ML 2 GM/50 ML BAG IVPB (08:34)
[2023-08-13] MEDS: BUPIVACAINE/EPINEPHRINE 0.5% 30 ML VIAL INFILTRATE (08:55)
--- NOTE | 2023-08-13 09:54 | W.PM.PROC2 ---
Procedure Note - Detailed Date of Procedure 08/13/23 Pre-op Diagnosis Chronic cholecystitis Post-op Diagnosis Same Procedure Performed Laparoscopic cholecystectomy Surgeon Clotilde Caro MD Anesthesia General Indications 83-year-old female presenting with chronic cholecystitis, worsening symptoms over the last few months. Findings Chronic cholecystitis Description of Procedure The patient was taken to the operating room placed in the supine position. After adequate induction of general anesthesia, the patient was prepped and draped in normal sterile fashion. A time-out was then performed to verify the patient's identity as well as the procedure being performed. I then made a 5 mm incision in the infraumbilical region. Through this, a Veress needle was placed into the peritoneal cavity and CO2 gas was then insufflated. After adequate pneumoperitoneum was achieved, the Veress needle was removed and a 5 mm optiview trocar was placed through this incision under direct visualization. I then placed the laparoscope through this trocar site and under direct visualization placed a further 12 mm subxiphoid port as well as 2 additional 5 mm ports in the right upper abdomen. The gallbladder was then identified and was noted to be moderately inflamed and distended. I was able to place a grasper at the dome of the gallbladder and this was retracted anterior and cephalad up over the liver. A 2nd retractor was then placed at the infundibulum and retracted laterally, this allowed visualization of the triangle of Calot. I then was able to visualize the cystic duct in its entirety from its proximal insertion into the gallbladder, to its distal junction with the common hepatic/common bile duct junction. At this point, I carefully skeletonized the proximal cystic duct with the [place] dissector. I then clipped and transected the proximal cystic duct. Next I visualized the cystic artery. Again the artery was skeletonized, clipped, and transected. I then used the Bovie cautery to take down the peritoneal attachments of the gallbladder off the liver bed. This was somewhat difficult given the amount of inflammation in the posterior space. Once the gallbladder specimen was completely detached, an endo-pouch was placed through the 12 mm port site. I then placed the gallbladder specimen into the Endo pouch and removed the endo-pouch from the 12 mm port site. The specimen will now be sent to pathology for further review. I then copiously irrigated the right upper quadrant. Some mild oozing was noted in the liver bed and this was controlled with the bovie cautery. I then placed some hemostatic powder in the liver bed. Given her anticoagulation, I also placed some surgicel in the liver bed. Hemostasis was noted in the liver bed, the clips were noted to be in good position on both the cystic duct stump and the cystic artery stump. No other pathology was noted in the right upper quadrant. I then moved the laparoscope to the subxiphoid port. No iatrogenic injury or other pathology was noted in the lower abdomen. I then closed the 12 mm trocar site under direct visualization using the Desmond cone and 0 Vicryl suture. At this point, the abdomen was desufflated and all ports removed. All port sites were then closed with 4.O Monocryl subcuticular sutures. Dermabond was placed on each incision. The patient tolerated the procedure well, was extubated in the operating room postoperative and will be transferred to the recovery room in stable condition Estimated Blood Loss 100 Drains No Packing No Pathology Yes Complications No immediate complications Condition Stable Disposition PACU [facility] Billing Surgery - Charge Forward: Surgery Billing
[2023-08-13] MEDS: fentaNYL CITRATE INJ (*CRX) 100 MCG/2 ML VIAL 25 MCG IV PUSH ×4 (10:09→10:29)
[2023-08-13] MEDS: ONDANSETRON INJ 4 MG/2 ML VIAL IV PUSH (10:48)
[2023-08-13] MEDS: oxyCODONE HCL (*CRX) 5 MG TAB IR PO (11:23)
[2023-08-13] MEDS: diphenhydrAMINE HCl INJ 50 MG/ML VIAL 12.5 MG IV PUSH (12:05)
== END 2023-08-13 13:20 | disposition home or self-care (01) ==
PROVIDERS: PCP Family Medicine; Visit Provider Surgery
PROC: 0FT44ZZ Resection of Gallbladder, Percutaneous Endoscopic Approach (ICD-10-PCS; CPT 47562; principal; 2023-08-13 09:00)
DX: K81.1 Chronic cholecystitis (principal); I12.9 Hypertensive chronic kidney disease with stage 1 through stage 4 chronic kidney disease, or unspecified chronic kidney disease; N18.30 Chronic kidney disease, stage 3 unspecified; F41.8 Other specified anxiety disorders; K59.09 Other constipation; J32.9 Chronic sinusitis, unspecified; K21.9 Gastro-esophageal reflux disease without esophagitis; G47.33 Obstructive sleep apnea (adult) (pediatric); R32 Unspecified urinary incontinence; E66.9 Obesity, unspecified; Z68.35 Body mass index [BMI] 35.0-35.9, adult; Z79.02 Long term (current) use of antithrombotics/antiplatelets; Z79.51 Long term (current) use of inhaled steroids; Z79.82 Long term (current) use of aspirin; Z79.84 Long term (current) use of oral hypoglycemic drugs; Z95.1 Presence of aortocoronary bypass graft; Z86.79 Personal history of other diseases of the circulatory system; Z85.820 Personal history of malignant melanoma of skin; Z86.010 Personal history of colon polyps; Z86.73 Personal history of transient ischemic attack (TIA), and cerebral infarction without residual deficits; Z80.0 Family history of malignant neoplasm of digestive organs; Z80.52 Family history of malignant neoplasm of bladder; Z82.49 Family history of ischemic heart disease and other diseases of the circulatory system
CPT/HCPCS: 47562; 36415; 80048; 80076; 82150; 83690; 85610; 85730; 88304; 93005; A9270; J0330; J0690; J1200; J1885; J2405; J2704; J3010; J7030; J7120

== ENCOUNTER 2023-08-15 00:19 | Inpatient (IN) | payer OTHER, SELFPAY ==
[2023-08-15] VITALS (14 sets, daily range): BP systolic 129–160; BP diastolic 45–64; PULSE 79–100; RESP 15–25; TEMP 36.6–37.4; O2SAT 91–97; BMI 34.5
--- NOTE | ~2023-08-15 | US_ITS ---
US abdomen limited INDICATION: Possible hepatic laceration PROCEDURE: Realtime right upper abdominal ultrasound. COMPARISON: No prior studies for comparison. FINDINGS: Pancreas not visualized due to bowel gas. There is perihepatic fluid. There is nonspecific capsular thickening of the liver margin. There is normal directional flow in the portal vein. Gallbladder is surgically absent. Common bile duct measures 4 mm. No sonographic Elaine's sign. IMPRESSION: 1: Nonspecific capsular thickening of the liver with perihepatic ascites present. If there is concern for hepatic laceration CT abdomen with contrast recommended. Reviewed, dictated and finalized at location B. TIVE GURU IMPRESSION: 1: Nonspecific capsular thickening of the liver with perihepatic ascites presen t. If there is concern for hepatic laceration CT abdomen with contrast recommen ded.
--- NOTE | ~2023-08-15 | CT_ITS ---
Clinical Indication: Pain CT Scan of the Chest, Abdomen, and Pelvis with Contrast: Technique: Contiguous sections were acquired throughout the chest, abdomen, and pelvis without IV con trast administration. Dose reduction technique was used on this scan by utilizing automated exposure control and iterative reconstruction technique. The dose-length product (DLP) was 1409.93 mGy-cm. COMPARISON: 12/17/2019 Findings: There is no evidence of any significant mediastinal, hilar or axillary lymphadenopathy. Coronary christin ry calcifications are present. No pericardial effusion. There are small right pleural effusion with essentially complete right lower lobe atelectasis. Focal nodularity in the right upper lobe appears stable from prior exam. There is mild, subsegmental left b asilar atelectatic change. There is a subtle curvilinear lucency towards the dome of the liver (coronal images 1506 for example) . The spleen, pancreas, adrenals and kidneys are within normal limits. Cholecystectomy clips are pres ent. There is heterogeneous appearance of the gallbladder fossa, with probable small hematoma the gal lbladder fossa measuring approximately 3.5 x 1.6 cm. There is perihepatic ascites along the liver.. T here are atherosclerotic calcifications of the aorta. No lymphadenopathy. No bowel obstruction or bowel wall thickening. There is no evidence to suggest acute appendicitis. Th ere is subcutaneous emphysema at the right lateral abdominal wall and small amounts anteriorly, possi sierra postoperative in nature. Urinary bladder is unremarkable. No pelvic mass evident. There is small amount of hemorrhage of pelvi c ascites. Impression: Findings suggestive of recent cholecystectomy. There is probable 3.5 x 1.6 cm hematoma at the gallbla dder fossa, along with small amount of hemorrhage of pelvic ascites. Curvilinear lucency near the dome of the liver could reflect hepatic laceration. Perihepatic ascites versus possibly biloma. Consider HIDA scan to evaluate for bile leak, as indicate d. Small right pleural effusion with essentially complete right lower lobe atelectasis. Reviewed, dictated and finalized at location M. ECTOR HAIRSPRING TRUING Impression: Findings suggestive of recent cholecystectomy. There is probable 3.5 x 1.6 cm h ematoma at the gallbladder fossa, along with small amount of hemorrhage of pelv ic ascites. Curvilinear lucency near the dome of the liver could reflect hepatic laceration . Perihepatic ascites versus possibly biloma. Consider HIDA scan to evaluate for bile leak, as indicated. Small right pleural effusion with essentially complete right lower lobe atelect asis.
--- NOTE | ~2023-08-15 | XR_ITS ---
Portable chest x-ray Comparison: 07/03/2022 Clinical History: Chest pain Findings: Probable small right pleural effusion with mild vascular crowding centrally. Questionable minimal left pleural effusion. Cardiomediastinal silhouette is stable. Bones and soft tissues are un remarkable. Impression: Probable small right pleural effusion and minimal left pleural effusion. Reviewed, dictated and finalized at [facility]. HEAD WEIGHER Impression: Probable small right pleural effusion and minimal left pleural effusion.
--- NOTE | ~2023-08-15 | US_ITS ---
EXAMINATION: US thoracentesis DATE: 08/28/2023 13:58 INDICATION: pleural effusion TECHNIQUE: The skin was prepped and draped in sterile fashion. 1% lidocaine was used for local anesth esia. Under ultrasound guidance, a 5 Fr catheter with trochar was advanced into the right pleural eff usion. Fluid was aspirated. The catheter was removed, and a dressing was applied. There were no immed iate complications. FINDINGS: Ultrasound images demonstrate a right pleural effusion and the catheter within the fluid. IMPRESSION: 1. Successful ultrasound-guided thoracentesis yielding 40 mL of yellow fluid. Reviewed, dictated and finalized at location E. PRODUCTS MANUFACTURER
--- NOTE | ~2023-08-15 | US_ITS ---
EXAMINATION: US renal BI DATE: 08/19/2023 17:01 INDICATION: elevated creatinine. okay to do on sunday TECHNIQUE: Multiple grayscale and Doppler ultrasound images of the kidneys were obtained. COMPARISON: Ultrasound abdomen limited 08/15/2023; CT cap 08/15/2023. FINDINGS: The right kidney measures 9.8 x 5.0 x 5.1 cm. The left kidney measures 10.3 x 5.5 x 4.7 cm. The kidne ys demonstrate normal parenchymal echogenicity. There is no hydronephrosis. The bladder is normal. In cidental note of perihepatic fluid. IMPRESSION: Unremarkable renal sonogram findings. Reviewed, dictated and finalized at location K. MACOLOGY PROFESSOR
--- NOTE | ~2023-08-15 | XR_ITS ---
EXAMINATION: XR ERCP DATE: 08/16/2023 15:07 INDICATION: Bile leak TECHNIQUE: 3 spot fluoroscopic images of the right upper quadrant were obtained during endoscopic ret rograde cholangiopancreatography (ERCP). Fluoroscopy exposure time was 170 seconds. COMPARISON: CT 08/15/2023 FINDINGS: The endoscope is in the second portion of the duodenum. There is extravasation of contrast from the cystic duct. The final images demonstrate an internal biliary stent in expected position. Th ere are stents in expected position. IMPRESSION: 1. Bile leak from the cystic duct. 2. Internal biliary stent in expected position. Please refer to the ERCP procedure note for additiona l details. Reviewed, dictated and finalized at location E. L INTERNSHIP IMPRESSION: 1. Bile leak from the cystic duct. 2. Internal biliary stent in expected position. Please refer to the ERCP proced ure note for additional details.
--- NOTE | ~2023-08-15 | XR_ITS ---
XR chest 2V 08/16/2023 08:37 Indication: Shortness of breath. Nausea and pain. Procedure: AP and lateral views of the chest Comparison: Comparison to multiple prior studies sequentially, with oldest reviewed study dated 06/23. Findings: Status post median sternotomy for CABG. Cardiomegaly. Bilateral pleural effusions, right gr eater than left. Bibasilar compressive atelectasis. No acute osseous abnormality. No pneumothorax. El evated right diaphragm. Impression: 1: Bilateral pleural effusions with underlying compressive atelectasis. Reviewed, dictated and finalized at location L. RAM SUPPORT ASSISTANT Impression: 1: Bilateral pleural effusions with underlying compressive atelectasis.
--- NOTE | ~2023-08-15 | XR_ITS ---
XR chest 2V 08/18/2023 11:50 Indication: Shortness of breath Procedure: 2 view chest Comparison: Comparison to multiple prior studies sequentially, with oldest reviewed study dated 06/22. Findings: Status post median sternotomy for CABG. Cardiomegaly. Moderate right pleural effusion. Righ t basilar atelectasis. Cardiomegaly. Impression: 1: Moderate right pleural effusion with underlying compressive atelectasis. Reviewed, dictated and finalized at location B. TERIA HELPER Impression: 1: Moderate right pleural effusion with underlying compressive atelectasis.
--- NOTE | ~2023-08-15 | NM_ITS ---
EXAMINATION: NM hepatobiliary wo pharm DATE: 08/15/2023 13:12 INDICATION: Possible bile leak COMPARISON: None. TECHNIQUE: 5.019 mCi Tc-99m mebrofenin (Choletec) was administered intravenously. Scintigraphic imag es of the abdomen were obtained for one hour. Additional 1 hour and 15 minute delayed scintigrams obt ained. FINDINGS: There is normal clearance of radiotracer from the blood pool. There is homogeneous tracer u ptake by the liver. There is accumulation of a significant amount of activity in the region of the po rta hepatis gallbladder fossa which is concerning for bile leak. Is seen in the duodenum majority alec ears to reflux into the stomach with no appreciable jejunal activity. There is no extension of activi ty along the periphery of the dome of the liver suggesting complex fluid collection evident at this l ocation on prior CT most likely represents a postoperative hematoma. IMPRESSION: 1. Abnormal attenuation of activity at the rocco hepatis and gallbladder fossa suggesting a bile sherri k post recent cholecystectomy. Reviewed, dictated and finalized at location A. MODEL IMPRESSION: 1. Abnormal attenuation of activity at the rocco hepatis and gallbladder fossa suggesting a bile leak post recent cholecystectomy.
--- NOTE | ~2023-08-15 | US_ITS ---
EXAMINATION: US abdomen limited DATE: 08/20/2023 13:46 INDICATION: Perihepatic hematoma. TECHNIQUE: Multiple grayscale and Doppler ultrasound images of the abdomen were obtained. COMPARISON: CT abdomen and pelvis 08/15/23 FINDINGS: There is a loculated fluid collection superficial to the liver measuring 16.0 x 2.5 x 11.3 cm. IMPRESSION: 1. 16.0 x 2.5 x 1.3 cm loculated fluid collection superficial to the liver, consistent with biloma. Reviewed, dictated and finalized at location A. DIAN BACON TIER IMPRESSION: 1. 16.0 x 2.5 x 1.3 cm loculated fluid collection superficial to the liver, con sistent with biloma.
--- NOTE | ~2023-08-15 | XR_ITS ---
EXAMINATION: [id number]_[id number]_CR DATE: 08/20/2023 12:57 INDICATION: Right pleural effusion status post thoracentesis. TECHNIQUE: A single frontal view of the chest was obtained. COMPARISON: Chest 2 views 08/18/2023, chest CT 08/15/2023 FINDINGS: There is elevation of right hemidiaphragm. There is atelectasis at the lung bases, worse th an left. No pleural effusion or pneumothorax. The heart size is normal. Median sternotomy wires and m ediastinal surgical clips are seen, likely from prior coronary artery bypass grafting. IMPRESSION: 1. Elevation of right hemidiaphragm. 2. Atelectasis at the lung bases, right worse than left. Reviewed, dictated and finalized at location A. T MAKER
--- NOTE | ~2023-08-15 | XR_ITS ---
EXAMINATION: XR chest 1V portable DATE: 08/16/2023 19:09 INDICATION: Hypoxia. TECHNIQUE: A single frontal view of the chest was obtained. COMPARISON: Chest 2 views at 8:28 AM, chest CT 08/15/2023 FINDINGS: There is mild elevation of right hemidiaphragm. There are airspace opacities at the lung ba ses. There is a small right pleural effusion. No pneumothorax. The heart size is normal. Median dover otomy wires and mediastinal surgical clips are seen, likely from prior coronary artery bypass graftin g. Surgical clips in the right upper quadrant are likely from cholecystectomy. IMPRESSION: 1. Stable airspace opacities at the lung bases, likely atelectasis. 2. Stable small right pleural effusion. Reviewed, dictated and finalized at location E. ER SETTER RESISTANCE MACHINE
--- NOTE | 2023-08-15 00:24 | ECG_ITS ---
Measurements Intervals [place] Rate: 83 P: 20 [place]: 176 QRS: 11 QRSD: 86 T: 50 QT: 365 QTc: 430 Interpretive Statements SINUS RHYTHM BORDERLINE ST-T WAVE ABNORMALITY- HIGH LATERAL LEADS BASELINE ARTIFACT- I, II, III, AVR, AVL, AVF, V4-V6 BORDERLINE ECG COMPARED TO ECG 08/10/2023 09:21:33 NO SIGNIFICANT CHANGES Electronically Signed On 08-15-2023 6:49:05 DIRECTOR DIVERSITY by Ramon Loyd D.O.
[2023-08-15 01:40] LABS: Basophils Absolute Auto 0.1 K/mm3 (0.0-0.1); Basophils Percent Auto 0.3 % (0.2-1.2); Hematocrit 41.1 % (37.0-47.0); Hemoglobin 12.7 g/dL (12.0-15.0); Immature Granulocyte Absolute 0.18 K/mm3 (0.00-0.031); Immature Granulocyte Percent A 0.9 % (0-0.5); Immature Platelet Fraction Pct 5.2 % (0.9-11.2); Lymphocytes Absolute Auto 1.33 K/mm3 (0.9-3.2); Lymphocytes Percent Auto 6.3 % (18.3-44.2); Mean Corpuscular HGB Conc 30.9 g/dl (32-36); Mean Corpuscular Hemoglobin 29.6 pg (26-34); Mean Corpuscular Volume 95.8 fl (80-100); Mean Platelet Volume 10.5 fl (7.4-10.4); Monocytes Absolute Auto 1.1 K/mm3 (0.1-0.6); Monocytes Percent Auto 5.1 % (2.6-8.5); Neutrophils Absolute Auto 18.4 K/mm3 (1.3-6.7); Neutrophils Percent Auto 87.4 % (45.5-73.1); Platelet Count Result 295 k/mm3 (150-375); Red Blood Count 4.29 M/mm3 (4.2-5.4); White Blood Count 21.1 K/mm3 (4.5-10.0)
[2023-08-15] MEDS: SODIUM CHLORIDE 0.9% IV 1,000 ML 999 ML IV CONT (01:41)
[2023-08-15] MEDS: MORPHINE SULFATE (*CRX) 4 MG/ML INJ IV PUSH (01:41)
[2023-08-15] MEDS: ONDANSETRON INJ 4 MG/2 ML VIAL IV PUSH (01:41)
[2023-08-15 01:45] LABS: Lactic Acid Reflex 3.6 mmol/L (0.7-2.0)
[2023-08-15 01:47] LABS: INR 1.2; Prothrombin Time 15.7 Seconds (11.1-14.7)
[2023-08-15 01:48] LABS: Partial Thromboplastin Time 25.3 SECONDS (22.3-36.8)
[2023-08-15 02:41] LABS: Alanine Aminotransferase 30 U/L (6-35); Albumin Level 3.7 g/dL (3.5-5.1); Alkaline Phosphatase 108 U/L (38-126); Anion Gap 11 mmol/L (8-16); Aspartate Amino Transferase 43 U/L (14-36); Bilirubin,Total 2.1 mg/dL (0.2-1.3); Blood Urea Nitrogen 41 mg/dL (7-17); Calcium 8.9 mg/dL (8.4-10.2); Carbon Dioxide 20 mmol/L (22-30); Chloride 104 mmol/L (98-107); Estimated CRCL calculation 25 ml/min; Estimated Glomerular Filt Rate 27; Glucose 147 mg/dL (65-110); Lipase 64 U/L (23-300); Potassium 4.8 mmol/L (3.4-5.0); Sodium 135 mmol/L (137-145)
[2023-08-15 02:56] LABS: NT Pro B Type Natriuretic Pept 5510 pg/mL (19.9-100); Troponin I 0.042 ng/mL (0.000-0.034)
[2023-08-15 03:03] LABS: Influenza A QL RT-PCR Negative (Negative); Influenza B QL RT-PCR Negative (Negative); RSV RNA, RT-PCR Negative (Negative); SARS-CoV-2 RNA PCR Negative (Negative)
--- NOTE | 2023-08-15 03:31 | ECG_ITS ---
Measurements Intervals [place] Rate: 86 P: 11 [place]: 174 QRS: 11 QRSD: 85 T: 58 QT: 369 QTc: 443 Interpretive Statements SINUS RHYTHM BORDERLINE ST-T WAVE ABNORMALITY- HIGH LATERAL LEADS BASELINE ARTIFACT- I, II, III, AVR, AVL, AVF BORDERLINE ECG COMPARED TO ECG 08/15/2023 00:26:44 NO SIGNIFICANT CHANGES Electronically Signed On 08-15-2023 16:07:40 KNOWLEDGE MANAGEMENT CONSULTANT by Ramon Loyd D.O.
[2023-08-15 04:24] LABS: Appearance Urine Clear (Clear); Bacteria Urine None Seen /hpf; Bilirubin Urine 1+ (Negative); Blood Urine Negative (Negative); Color Urine Dark Yellow (Yellow); Glucose Urine UA 3+ mg/dL (Negative); Ketones Urine Negative (Negative); Leukocyte Esterase Ur Negative LEU/UL (Negative); Need Manual Microscopic Reviewed; Nitrate Urine Negative (Negative); Non Pathogenic Casts >20; Protein Urine 1+ mg/dL (Negative); RBC Urine 0-2 /hpf (0-2); Specific Grav Ur 1.024 (1.001-1.035); Squamous Epithelial Cell Urine Occasional /hpf (Few); WBC Urine 0-5 /hpf
[2023-08-15 04:28] LABS: Reflex Lactic Acid Yes or No Add Lactic
[2023-08-15 04:29] LABS: Add Urine Microscopic? YES
[2023-08-15 04:32] LABS: Troponin I 0.053 ng/mL (0.000-0.034)
[2023-08-15] MEDS: HYDROmorphone HCL INJ (*CRX) 1 MG/ML SYR 0.5 MG IV PUSH ×3 (05:15→20:12)
[2023-08-15] MEDS: PIPERACILLN/TAZ 3.375GM/NS50ML 3.375 GM/50 ML BAG IVPB (05:17)
--- NOTE | 2023-08-15 05:35 | ED.GENADULT ---
HPI - General Adult General Chief complaint: Chest Pain Stated complaint: NEAR SYNCOPE, CP, POST-OP PAIN Time Seen by Provider: 08/15/23 00:55 History of Present Illness HPI narrative: Patient 83-year-old female who presents emergency department with chief complaint of chest pain abdominal pain and shortness of breath. Patient reports that she had a cholecystectomy on Sunday and reports that this evening she had a near syncopal episode patient reports he has been having discomfort in the abdomen has also been going up into her chest. The patient states that she feels short of breath and feels though she is not getting a good deep breath due to the pain. Related Data Home Medications Medication Instructions Recorded Confirmed nifedipine 60 mg tablet,extended 60 mg PO QNOON 09/19/22 08/09/23 release acetaminophen 325 mg tablet 650 mg PO Q6H PRN Pain 02/13/23 08/09/23 nifedipine 30 mg tablet,extended 30 mg PO QNOON 08/02/23 08/09/23 release aluminum hydrox-magnesium carb 95 15 ml PO DAILY PRN Heartburn 08/09/23 08/09/23 mg-358 mg/15 mL oral suspension (Gaviscon) aspirin 81 mg tablet,delayed 81 mg PO DAILY 08/09/23 08/09/23 release (Adult Low Dose Aspirin) duloxetine 60 mg capsule,delayed 60 mg PO QNOON 08/09/23 08/09/23 release (Cymbalta) empagliflozin 10 mg tablet 10 mg PO .QD TAKES FOR HEART/SOB 08/09/23 08/09/23 (Jardiance) magnesium 250 mg tablet 250 mg PO HS 08/09/23 08/09/23 metoprolol succinate 100 mg 100 mg PO HS 08/09/23 08/09/23 tablet,extended release 24 hr vhvyzfvr-anm-fria-FA-Ca carb-vit K 1 tablet PO DAILY 08/09/23 08/09/23 18 mg iron-400 mcg-500 mg tablet Allergies Allergy/AdvReac Type Severity Reaction Status Date / Time No Known Allergies Allergy Unknown Verified 08/15/23 01:25 Review of Systems Review of Systems: A 10 system review of systems was completed on the patient and is negative except for what is stated in the HPI. Nursing and ancillary documentation was reviewed. 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 2016 cardiac catheterization: Patent Left anterior descending with patent stent. sequential ADAME to the occluded D1 was patent but occluded to the Left anterior descending. The PRASANNA from the ADAME to the OM 1 has been occluded since 2001. 90% ostial stenosis of a small to medium-sized OM 1 manage medically because of negative stress tests and atypical chest pain. Bilateral primary osteoarthritis of knee BMI 31.0-31.9,adult BMI 32.0-32.9,adult BMI 32.0-32.9,adult BMI 33.0-33.9,adult BMI 35.0-35.9,adult BMI 36.0-36.9,adult Chronic constipation Chronic sinusitis CKD (chronic kidney disease) III Coronary artery disease Cough Diverticula of colon Ear pressure Erosive esophagitis Esophageal web Essential (primary) hypertension Family hx of colon cancer Gastroesophageal reflux disease Generalized osteoarthritis of multiple sites GERD with apnea GERD without esophagitis Head ache History of melanoma History of one miscarriage Hx of adenomatous colonic polyps Hypertension Inflamed seborrheic keratosis Inflamed skin tag Kidney disease Left breast lump Left shoulder pain Lumbar radiculopathy, chronic Lumbar spondylosis Need for vaccination Obesity WENDY (obstructive sleep apnea) Osteoarthritis of knees, bilateral Otalgia, left ear Pleuritic chest pain Polyp of ascending colon Serous otitis media TIA (transient ischemic attack) 2010 Urinary incontinence Vascular disease Surgical History Surgical History History of ankle surgery 2012 History of dilation and curettage History of hysterectomy Hx of CABG 1998
[2023-08-15 05:44] LABS: Lactic Acid 1.6 mmol/L (0.7-2.0)
--- NOTE | 2023-08-15 07:17 | ECG_ITS ---
Measurements Intervals [place] Rate: 81 P: -6 [place]: 156 QRS: 6 QRSD: 82 T: 50 QT: 372 QTc: 434 Interpretive Statements SINUS RHYTHM NONSPECIFIC ST-T WAVE ABNORMALITY- HIGH LATERAL LEADS BASELINE ARTIFACT- I, III, AVR, AVL BORDERLINE ECG COMPARED TO ECG 08/15/2023 03:31:29 NO SIGNIFICANT CHANGES Electronically Signed On 08-15-2023 7:43:46 DIETARY COOK by Ramon Loyd D.O.
[2023-08-15 07:47] LABS: Troponin I 0.061 ng/mL (0.000-0.034)
--- NOTE | 2023-08-15 09:01 | PM.IMHP ---
H&P: [facility] History of Present Illness Date/Time: 08/15/23 09:01 Chief Complaint: CP/abdominal pain/SOB Narrative: 83-year-old female with history of hypertension, GERD, kidney disease, history of TIA, sleep apnea is presenting with abdominal pain, chest pain and shortness of breath. Patient had a cholecystectomy on Sunday. Since then, she has had a near syncopal episode was associated with epigastric discomfort radiating into her chest. She did notice some associated shortness of breath but states she also is having difficulty taking deep breath secondary to abdominal pain from the cholecystectomy. She denies any fevers or chills. No nausea, vomiting or diarrhea. Review of Systems Review of Systems: 12 point review of systems was assessed and was negative except as noted in the HPI [facility] Past Medical History Medical History [place] positive (~10/2019) Anxiety Anxiety and depression Anxiety disorder, unspecified At moderate risk for fall Ataxia Atherosclerotic heart disease of [place] coronary artery with angina pectoris CABG x3, 1997. 2016 cardiac catheterization: Patent Left anterior descending with patent stent. sequential ADAME to the occluded D1 was patent but occluded to the Left anterior descending. The PRASANNA from the ADAME to the OM 1 has been occluded since 2001. 90% ostial stenosis of a small to medium-sized OM 1 manage medically because of negative stress tests and atypical chest pain. Bilateral primary osteoarthritis of knee BMI 31.0-31.9,adult BMI 32.0-32.9,adult BMI 32.0-32.9,adult BMI 33.0-33.9,adult BMI 35.0-35.9,adult BMI 36.0-36.9,adult Chronic constipation Chronic sinusitis CKD (chronic kidney disease) III Coronary artery disease Cough Diverticula of colon Ear pressure Erosive esophagitis Esophageal web Essential (primary) hypertension Family hx of colon cancer Gastroesophageal reflux disease Generalized osteoarthritis of multiple sites GERD with apnea GERD without esophagitis Head ache History of melanoma History of one miscarriage Hx of adenomatous colonic polyps Hypertension Inflamed seborrheic keratosis Inflamed skin tag Kidney disease Left breast lump Left shoulder pain Lumbar radiculopathy, chronic Lumbar spondylosis Need for vaccination Obesity WENDY (obstructive sleep apnea) Osteoarthritis of knees, bilateral Otalgia, left ear Pleuritic chest pain Polyp of ascending colon Serous otitis media TIA (transient ischemic attack) 2010 Urinary incontinence Vascular disease Surgical History Surgical History History of ankle surgery 2011 History of dilation and curettage History of hysterectomy Hx of CABG 1998 [place] teeth removed Family History Family History Father Alcoholic Hypertension Cancer Mother Cerebrovascular accident Sibling Heart disease Other Diabetes mellitus Family history of alcoholism Family history of arthritis Family history of cardiovascular disease Family history of kidney disease Family history of malignant neoplasm of urinary bladder Social History Social History Social History: ; in his sleep. 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 Daughter is Shyann Perez. Smoking status: Never smoker Second hand tobacco smoke exposure: Yes Alcohol intake: current Substance use: never Substance use type: does not use Lack of Transportation: No Lack of Food: Never True Current Housing: I Have Housing Concerned About Future Housing: No Difficulty Paying Gas/Electric Bills: Decline to Answer Difficulty Paying for Meds: Decline to Answer Currently Unemployed: YES Education: High School Diploma/GED Difficulty w/ Childcare or Family Care:
[2023-08-15] MEDS: PIPERACILLIN/TAZ 2.25G/NS 50ML 2.25 GM/50 ML BAG IVPB ×3 (11:33→23:06)
--- NOTE | 2023-08-15 13:13 | PC.NURSE ---
pt returned to room h3 from nuclear medicine
--- NOTE | 2023-08-15 13:37 | PM.CNGS ---
Assessment and Plan Assessment and plan (1) Postoperative bile leak: Code(s): K91.89 - Other postprocedural complications and disorders of digestive system; K83.8 - Other specified diseases of biliary tract Status: Acute Assessment and Plan: CT showed evidence of a small fluid collection in the gallbladder fossa c/w with possible hematoma and perihepatic ascites that could be a biloma. Total bilirubin elevated at 2.1. HIDA scan showed bile leak. Will consult GI for possible ERCP. Continue IV Zosyn. Will keep NPO with IV fluids until GI evaluates the patient. (2) Status post laparoscopic cholecystectomy: Code(s): Z90.49 - Acquired absence of other specified parts of digestive tract Status: Acute Assessment and Plan: 08/13/[address] Caro for chronic cholecystitis (3) Chronic cholecystitis: Code(s): K81.1 - Chronic cholecystitis Status: Acute Assessment and Plan: Pathology reviewed (4) Pleural effusion: Code(s): J90 - Pleural effusion, not elsewhere classified Status: Acute Assessment and Plan: Management per primary service (5) Sepsis: Code(s): A41.9 - Sepsis, unspecified organism Status: Acute Assessment and Plan: Criteria met with tachypnea, leukocytosis, and CHUCK. Likely secondary to postoperative bile leak as mentioned above, consult GI. Blood cx pending. Continue IV Zosyn. (6) Antiplatelet or antithrombotic long-term use: Code(s): Z79.02 - terminal make up operator (current) use of antithrombotics/antiplatelets Status: Acute Assessment and Plan: Plavix was on hold for surgery and held postoperatively. She may have continued to hold this medication since being home, which is pertinent for ERCP. (7) Stage 3 chronic kidney disease: Qualifiers: Chronic kidney disease stage 3 subtype: stage 3a (GFR 45-59) Qualified Code(s): N18.31 - Chronic kidney disease, stage 3a Code(s): N18.3 - Chronic kidney disease, stage 3 (moderate) Status: Acute Assessment and Plan: CHUCK on CKD, creatinine up slightly from baseline, continue IV fluids and trend labs Plan I have discussed the patient's case and plan of care with Dr. Caro. History of Present Illness Consult details Consult date: 08/15/23 Reason for consult: other (Postoperative infection) Requesting physician: Moe Sullivan MD Narrative: This is an 83-year-old woman who we have been asked to see in surgical consultation for a postoperative infection. She is status post laparoscopic cholecystectomy on 08/13/[address] Caro for chronic cholecystitis. She reports having a near syncopal episode the evening she got home from her surgery. She also reports epigastric pain since surgery that is radiating up into her mid chest. She reports shortness of breath and difficulty taking a deep breath due to the pain. Due to her persistent pain, she presented to the ER overnight for further evaluation. [place] [address] with a left shift, BUN 41, creatinine 1.8, total bilirubin 2.1, AST 43, ALT 30, alk-phos 108, and lactic acid 3.6 that came down to 1.6 after IV fluids. She also has an elevated BNP of 5510. Found to have mildly elevated troponin as well. She had a CT scan of the chest, abdomen, and pelvis without contrast that showed changes of a recent cholecystectomy and a probable 3.5 x 1.6 cm hematoma at the gallbladder fossa, perihepatic ascites versus possibly a biloma, small right pleural effusion with essentially complete right lower lobe atelectasis, and curvilinear lucency near the dome of the liver that could reflect hepatic laceration. Chest x-ray showed probable small right pleural effusion and minimal left pleural effusion. Abdominal ultrasound showed nonspecific capsular thickening of the liver with perihepatic ascites present. Our service was consulted for suspected postoperative infection. She i
[2023-08-15] MEDS: IPRATROPIUM 0.5 MG/ALBUTEROL SULFATE 2.5 MG AMPUL.NEB 3 ML INHALATION ×2 (14:00→20:34)
[2023-08-15] MEDS: SODIUM CHLORIDE 0.9% IV 1,000 ML 125 ML IV CONT ×3 (14:12→23:06)
--- NOTE | 2023-08-15 16:51 | PC.NURSE ---
This patient, Regine Zarate, was admitted to Virtual Bed 3rd Floor-4. Patient/family oriented to hospital policies and general routines including ID bracelet, bed and alarms, visiting hours, pain management, procedures, bathroom and other care routines, personal items, smoking policy, room service/diet, and visiting hours. Information on how to activate the Rapid Response Team has been discussed. Patient/Family are encouraged to report perceived risks to care and to ask questions if they do not understand what they are told or what they should do.
[2023-08-16] VITALS (25 sets, daily range): BP systolic 156–184; BP diastolic 50–81; PULSE 80–103; RESP 17–26; TEMP 36.6–37.2; O2SAT 92–100
[2023-08-16] MEDS: HYDROmorphone HCL INJ (*CRX) 1 MG/ML SYR 0.5 MG IV PUSH ×3 (01:43→22:14)
[2023-08-16] MEDS: IPRATROPIUM 0.5 MG/ALBUTEROL SULFATE 2.5 MG AMPUL.NEB 3 ML INHALATION ×3 (03:00→19:58)
[2023-08-16] MEDS: PIPERACILLIN/TAZ 2.25G/NS 50ML 2.25 GM/50 ML BAG IVPB ×4 (04:19→22:16)
[2023-08-16 05:52] LABS: Basophils Percent Auto 0.1 % (0.2-1.2); Eosinophils Percent Auto 0.1 % (0-4.4); Hematocrit 32.7 % (37.0-47.0); Hemoglobin 10.2 g/dL (12.0-15.0); Immature Granulocyte Absolute 0.17 K/mm3 (0.00-0.031); Immature Granulocyte Percent A 1.3 % (0-0.5); Lymphocytes Percent Auto 11.5 % (18.3-44.2); Mean Corpuscular HGB Conc 31.2 g/dl (32-36); Mean Corpuscular Hemoglobin 29.7 pg (26-34); Mean Corpuscular Volume 95.3 fl (80-100); Mean Platelet Volume 10.1 fl (7.4-10.4); Monocytes Absolute Auto 0.9 K/mm3 (0.1-0.6); Monocytes Percent Auto 6.8 % (2.6-8.5); Neutrophils Absolute Auto 10.4 K/mm3 (1.3-6.7); Neutrophils Percent Auto 80.2 % (45.5-73.1); Platelet Count Result 241 k/mm3 (150-375); Red Blood Count 3.43 M/mm3 (4.2-5.4); Red Cell Distribution Width 15.1 % (11.5-14.5)
[2023-08-16 06:06] LABS: Alanine Aminotransferase 19 U/L (6-35); Albumin Level 3.2 g/dL (3.5-5.1); Alkaline Phosphatase 105 U/L (38-126); Anion Gap 13 mmol/L (8-16); Aspartate Amino Transferase 30 U/L (14-36); Bilirubin,Total 1.6 mg/dL (0.2-1.3); Blood Urea Nitrogen 49 mg/dL (7-17); Calcium 8.4 mg/dL (8.4-10.2); Carbon Dioxide 17 mmol/L (22-30); Chloride 110 mmol/L (98-107); Estimated CRCL calculation 23 ml/min; Estimated Glomerular Filt Rate 24; Glucose 113 mg/dL (65-110); Potassium 3.7 mmol/L (3.4-5.0); Sodium 140 mmol/L (137-145)
[2023-08-16] MEDS: SODIUM CHLORIDE 0.9% IV 1,000 ML 125 ML IV CONT (11:28)
[2023-08-16] MEDS: LACTATED RINGERS 1,000 ML 150 ML IV CONT (13:05)
--- NOTE | 2023-08-16 13:16 | WPDGICN ---
Assessment and Plan Assessment and plan (1) Postoperative bile leak: Code(s): K91.89 - Other postprocedural complications and disorders of digestive system; K83.8 - Other specified diseases of biliary tract Status: Acute Assessment and Plan: will proceed with ercp and stent placement this was discussed with daughter and patient unfortunately had complication of bile leak after surgery (2) Sepsis: Code(s): A41.9 - Sepsis, unspecified organism Status: Acute Assessment and Plan: on abx (3) Status post laparoscopic cholecystectomy: Code(s): Z90.49 - Acquired absence of other specified parts of digestive tract Status: Acute (4) Chronic anticoagulation: Code(s): Z79.01 - FPC (current) use of anticoagulants Status: Acute Assessment and Plan: meds on hold (5) Elevated liver enzymes: Code(s): R74.8 - Abnormal levels of other serum enzymes Status: Acute Assessment and Plan: elevated bili due to bile leak (6) Hematoma of gallbladder: Code(s): S36.122A - Contusion of gallbladder, initial encounter Status: Acute Assessment and Plan: also possible hematoma at site of GV fossa (7) Syncope: Code(s): R55 - Syncope and collapse Status: Acute GI Consult Note Consult date/time: 08/16/23 13:16 Reason for consult: bile leak post cholecystectomy, ruq pain, sepsis HPI: Regine Zarate is a 83 year old female who originally had 08/13/[address] Caro for chronic cholecystitis after she presented with several months of intermittent discomfort, she was Dr Anderson and evaluated by surgery.?After surgery when she was at home had a near syncopal episode, also worsening epigastric pain since surgery that is radiating up into her mid chest.?She presented to the ER overnight for further evaluation.? [place] [address] with a left shift, BUN 41, creatinine 1.8, total bilirubin 2.1, AST 43, ALT 30, alk-phos 108, and lactic acid 3.6 that came down to 1.6 after IV fluids.? She also has an elevated BNP of 5510.? Found to have mildly elevated troponin as well.? She had a CT scan of the chest, abdomen, and pelvis without contrast that showed changes of a recent cholecystectomy and a probable 3.5 x 1.6 cm hematoma at the gallbladder fossa, perihepatic ascites versus possibly a biloma, small right pleural effusion with essentially complete right lower lobe atelectasis, and curvilinear lucency near the dome of the liver that could reflect hepatic laceration.? Chest x-ray showed probable small right pleural effusion and minimal left pleural effusion. HIDA scan c/w bile leak, started on abx and evaluated by surgery. Review of Systems Constitutional: Constitutional: Reports weakness Eyes: Eyes: Denies blurry vision ENT: Reports Normal hearing present Cardiovascular: Cardiovascular: Reports chest pain Respiratory: Respiratory: Reports dyspnea Gastrointestinal: Gastrointestinal: Reports abdominal pain and Reports nausea Genitourinary: Genitourinary: Denies urinary incontinence Musculoskeletal: Musculoskeletal: Denies neck pain Integumentary/Breasts: Skin/Breast: Denies rash Neurologic: Denies confusion Psychiatric: Psychiatric: Denies behavioral changes [facility] Past Medical History Medical History (Updated 08/16/23 @ 13:51 by Juancarlos Comer MD) AUSTIN positive (~10/2019) Anxiety Anxiety and depression Anxiety disorder, unspecified At moderate risk for fall Ataxia 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 2016 cardiac catheterization: Patent Left anterior descending with patent stent. sequential ADAME to the occluded D1 was patent but occluded to the Left anterior descending. The PRASANNA from the ADAME to the OM 1 has been occluded since 2001. 90% ostial stenosis of a small to medium-sized OM 1 manage medically because of negative str
--- NOTE | 2023-08-16 13:43 | WPDANESEPPF ---
Anes - Initial Pre Proc Eval Procedure: Operation Date: 08/16/23 14:00 Proposed Procedures p Endoscopic Retro Cholangiopancreatogram With Stent Placement - Juancarlos Comer MD Date/Time: 08/16/23 13:43 Surgeon: Micki Em DO Pre Op Diagnosis: postoperative infection,pleural effusion, hypoxic Patient Data Age: 83 Gender: F Height: 1.68 m Weight: 97.2 kg Last Vital Signs Temp 97.9 F 08/16/23 13:12 Pulse 100 08/16/23 13:12 Resp 20 08/16/23 13:12 BP 170/53 H 08/16/23 13:12 Pulse Ox 93 08/16/23 13:12 O2 Del Method Nasal Cannula 08/16/23 13:12 O2 Flow Rate 3 08/16/23 13:12 FiO2 28 08/15/23 20:34 Allergies Allergy/AdvReac Type Severity Reaction Status Date / Time No Known Allergies Allergy Unknown Verified 08/16/23 13:06 Home Medications Medication Instructions Recorded Confirmed Type rosuvastatin 20 mg tablet (Crestor) 20 mg PO HS #90 tabs 03/05/20 08/15/23 Rx albuterol sulfate 90 mcg/actuation 2 inh inhalation Q4H PRN shortness 08/21/22 08/15/23 Rx aerosol inhaler of breath or wheezing #8.5 grams nifedipine 30 mg tablet,extended 90 mg PO QNOON 08/02/23 08/15/23 History release aspirin 81 mg tablet,delayed 81 mg PO QAM 08/09/23 08/15/23 History release (Adult Low Dose Aspirin) duloxetine 60 mg capsule,delayed 60 mg PO QAM 08/09/23 08/15/23 History release (Cymbalta) empagliflozin 10 mg tablet 10 mg PO QNOON TAKES FOR HEART/SOB 08/09/23 08/15/23 History (Jardiance) metoprolol succinate 100 mg 100 mg PO HS 08/09/23 08/15/23 History tablet,extended release 24 hr clopidogrel 75 mg tablet (Plavix) 75 mg PO QAM 08/15/23 08/16/23 History pantoprazole 40 mg tablet,delayed 40 mg PO 12 08/15/23 08/15/23 History release telmisartan 80 mg tablet (Micardis) 80 mg PO QAM 08/15/23 08/15/23 History Laboratory Tests 08/16/23 05:19 WBC 13.0 H K/mm3 (4.5-10.0) RBC 3.43 L M/mm3 (4.2-5.4) Hgb 10.2 L g/dL (12.0-15.0) Hct 32.7 L % (37.0-47.0) MCV 95.3 fl (80-100) MCH 29.7 pg (26-34) MCHC 31.2 L g/dl (32-36) RDW 15.1 H % (11.5-14.5) Plt Count 241 k/mm3 (150-375) MPV 10.1 fl (7.4-10.4) Immature Gran % (Auto) 1.3 H % (0-0.5) Neut % (Auto) 80.2 H % (45.5-73.1) Lymph % (Auto) 11.5 L % (18.3-44.2) [place] % (Auto) 6.8 % (2.6-8.5) Eos % (Auto) 0.1 % (0-4.4) Baso % (Auto) 0.1 L % (0.2-1.2) Lymph # (Auto) 1.50 K/mm3 (0.9-3.2) [place] # (Auto) 0.9 H K/mm3 (0.1-0.6) Eos # (Auto) 0.0 K/mm3 (0-0.3) Baso # (Auto) 0.0 K/mm3 (0.0-0.1) Abs Immat Gran (auto) 0.17 H K/mm3 (0.00-0.031) Absolute Neuts (auto) 10.4 H K/mm3 (1.3-6.7) Absolute Nucleated RBC 0.0 K/mm3 (0.0-0.012) Nucleated RBC % 0.0 % (0.0-0.2) Sodium 140 mmol/L (137-145) Potassium 3.7 mmol/L (3.4-5.0) Chloride 110 H mmol/L (98-107) Carbon Dioxide 17 L mmol/L (22-30) Anion Gap 13 mmol/L (8-16) BUN 49 H mg/dL (7-17) Creatinine 2.00 H mg/dL (0.7-1.0) Estim Creat Clear Calc 23 ml/min Estimated GFR 24 L (59 - ) Glucose 113 H mg/dL (65-110) Calcium 8.4 mg/dL (8.4-10.2) Total Bilirubin 1.6 H mg/dL (0.2-1.3) AST 30 U/L (14-36) ALT 19 U/L (6-35) Alkaline Phosphatase 105 U/L (38-126) Total Protein 7.0 g/dL (6.3-8.2) Albumin 3.2 L g/dL (3.5-5.1) Patient hx anesthesia problems: none Family hx anesthesia problems: none Results Review: All pre-operative results and documents have been reviewed as part of the pre-operative evaluation. 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 2016 cardiac catheterization:
--- NOTE | 2023-08-16 14:00 | PM.PNGS ---
Progress Note: A&P Assessment and Plan (1) Postoperative bile leak: Code(s): K91.89 - Other postprocedural complications and disorders of digestive system; K83.8 - Other specified diseases of biliary tract Status: Acute Assessment and Plan: plan for ERCP and stent today, labs improving, cont abx Subjective Subjective Date/Time Seen: 08/16/23 14:00 Interval history: feels better today, pain decreased, hungry Review of Systems Review of Systems: All systems reviewed & are unremarkable except as noted in HPI and below Exam Const: General: cooperative, comfortable and no acute distress Resp: Auscultation: clear to auscultation bilaterally Cardio: Rate: regular rate Rhythm: regular rhythm GI: Inspection: normal to inspection, distended and incision GI Palp: Yes abdominal tenderness, Yes Soft to palpation, Yes Tenderness to palpation present (GI), No Guarding due to palpation present (GI) and No Rigid due to palpation Objective Data Vital Signs Vital Signs: Vital Signs - 24 hr 08/15/23 14:10 08/15/23 15:50 08/15/23 17:50 Temperature 36.7 C Pulse Rate 87 90 90 Respiratory Rate 18 22 H 16 Blood Pressure 160/55 H 150/47 H Pulse Oximetry 95 97 Oxygen Delivery Oxygen Flow Rate Fraction of Inspired Oxygen 08/15/23 20:34 08/15/23 20:34 08/15/23 20:41 Temperature Pulse Rate 99 99 97 Respiratory Rate 20 20 20 Blood Pressure Pulse Oximetry 91 Oxygen Delivery Nasal Cannula Oxygen Flow Rate 2 Fraction of Inspired Oxygen 28 08/15/23 21:03 08/15/23 20:10 08/15/23 20:04 Temperature 37.4 C Pulse Rate 100 91 Respiratory Rate 18 Blood Pressure 130/45 L Pulse Oximetry 91 91 Oxygen Delivery Nasal Cannula Oxygen Flow Rate 3 Fraction of Inspired Oxygen 08/16/23 00:05 08/16/23 03:01 08/16/23 03:06 Temperature Pulse Rate 93 87 84 Respiratory Rate 18 18 Blood Pressure Pulse Oximetry Oxygen Delivery Oxygen Flow Rate Fraction of Inspired Oxygen 08/16/23 04:04 08/16/23 05:25 08/16/23 08:47 Temperature 36.8 C Pulse Rate 88 80 Respiratory Rate 20 Blood Pressure 156/81 H Pulse Oximetry 92 92 Oxygen Delivery Nasal Cannula Oxygen Flow Rate 3 Fraction of Inspired Oxygen 08/16/23 08:47 08/16/23 09:35 08/16/23 13:12 Temperature 36.6 C Pulse Rate 95 100 Respiratory Rate 20 20 Blood Pressure 170/53 H Pulse Oximetry 92 93 Oxygen Delivery Nasal Cannula Nasal Cannula Oxygen Flow Rate 3 3 Fraction of Inspired Oxygen Intake/Output Intake/Output: Intake & Output 08/13/23 08/14/23 08/15/23 08/16/23 23:59 23:59 23:59 23:59 Intake Total 3200 1100 Output Total 300 Balance 3200 800 Meds/Results Medications: Active Medications Generic Name Dose Route Start Last Admin Trade Name Freq PRN Reason Stop Dose Admin Albuterol/Ipratropium 3 ml 08/15/23 14:00 08/16/23 08:46 Ipratropium 0.5 Mg/Albuterol Sulfate 2.5 Mg Ampul.Neb 3 Ml INHALATION 3 ml Q6HRT ARTHUR Administration Hydromorphone HCl 0.5 mg 08/15/23 05:39 08/16/23 08:12 Hydromorphone Hcl Inj (*Crx) 1 Mg/Ml Syr IV PUSH 0.5 mg Q4H PRN Administration Pain Rated 7-10 Piperacillin Sod/Tazobactam Sod 2.25 gm in 50 mls @ 100 mls/hr 08/15/23 11:00 08/16/23 11:28 Zosyn 2.25 Gm/Ns 50 Ml IVPB 100 mls/hr Q6H ARTHUR Administration Sodium Chloride 1,000 mls @ 125 mls/hr 08/15/23 05:40 08/16/23 11:28 Normal Saline Iv IV CONT 125 mls/hr .Q8H ARTHUR Administration Lactated Ringer's 1,000 mls @ 150 mls/hr 08/16/23 12:35 08/16/23 13:05 Lr - Lactated Ringers Iv IV CONT 150 mls/hr .Q6H40M ARTHUR Administration Ondansetron HCl 4 mg 08/15/23 05:39 Ondansetron Inj 4 Mg/2 Ml Vial IV PUSH Q4H PRN Nausea Radiology Results: ITS Impressions Chest/Abdomen/Pelvis CT 08/15/23 05:45 Impression: Findings suggestive of recent cholecystectomy. There is probable 3.5 x 1.6 cm hematoma
[2023-08-16] MEDS: INDOMETHACIN 50 MG SUPP.RECT RECTAL (14:17)
[2023-08-16] MEDS: traMADol HCL (*CRX) 50 MG TABLET PO (18:35)
--- NOTE | 2023-08-16 18:51 | PM.IMPN ---
Progress Note: A&P Assessment and Plan (1) Postoperative bile leak: Code(s): K91.89 - Other postprocedural complications and disorders of digestive system; K83.8 - Other specified diseases of biliary tract Status: Acute Assessment and Plan: Status post elective cholecystectomy on 08/13/2023 with subsequent bile leak Status post biliary stent on 08/16/2023. No acute complications. She does complain of back pain at the mid right side and appear short of breath after the surgery so well obtain a stat chest x-ray. Use tramadol p.r.n. Follow general surgery and GI recommendations on going. Will need to follow with GI and have the stent taken out. Continue Zosyn. Her epigastric and chest pain has resolved. Chest pain was atypical and her troponin has down trended, this was likely due to her acute sepsis. Continue incentive spirometer (2) Ascites: Code(s): R18.8 - Other ascites Status: Acute Assessment and Plan: Probably secondary to bile leak. Continue to monitor (3) Status post laparoscopic cholecystectomy: Code(s): Z90.49 - Acquired absence of other specified parts of digestive tract Status: Acute Assessment and Plan: As above (4) Hematoma of gallbladder: Code(s): S36.122A - Contusion of gallbladder, initial encounter Status: Acute Assessment and Plan: Probably mixed with bile. Continue to monitor (5) Elevated liver enzymes: Code(s): R74.8 - Abnormal levels of other serum enzymes Status: Acute Assessment and Plan: Probably secondary to acute issues. (6) Sepsis: Code(s): A41.9 - Sepsis, unspecified organism Status: Acute Assessment and Plan: Resolving, secondary to bile leak. WBC downtrending (7) Post-operative infection: Code(s): T81.40XA - Infection following a procedure, unspecified, initial encounter Status: Acute Assessment and Plan: Continue Zosyn (8) Pleural effusion: Code(s): J90 - Pleural effusion, not elsewhere classified Status: Acute Assessment and Plan: Appear subacute to acute. This is worse on the right and is most likely related to her acute gallbladder issues and hematoma/ascites. None the less, she does have shortness of breath and bilateral pleural effusions it is possible that she has congestive heart failure so we will order echocardiogram and discontinue fluids. BNP on admission was elevated. Give 1 time dose of Lasix 40 mg IV. She has complained of bilateral leg swelling on and off. (9) Hypoxic respiratory failure: Code(s): J96.91 - Respiratory failure, unspecified with hypoxia Status: Acute Assessment and Plan: Continue O2 and wean as tolerated. Treat pleural effusions and possible congestive heart failure (10) Syncope: Code(s): R55 - Syncope and collapse Status: Acute Assessment and Plan: Continue to monitor (11) Metabolic acidosis: Code(s): E87.20 - Acidosis, unspecified Status: Acute Assessment and Plan: Probably due to sepsis and CHUCK. Lactic acid normal. Continue to monitor. (12) Acute kidney injury superimposed on CKD: Code(s): N17.9 - Acute kidney failure, unspecified; N18.9 - Chronic kidney disease, unspecified Status: Acute Assessment and Plan: Her baseline is between 1.2 and 1.9. On 07/27/2023 she is at 2 so it is not far off from her baseline. Discontinue fluids and monitor. Will more likely resolve as her sepsis has been treated (13) WENDY on CPAP: Code(s): G47.33 - Obstructive sleep apnea (adult) (pediatric); Z99.89 - Dependence on other enabling machines and devices Status: Acute Assessment and Plan: CPAP at night. This will help her breathing. (14) COPD (chronic obstructive pulmonary disease): Code(s): J44.9 - Chronic obstructive pulmonary disease, unspecified Status: Acute Assessment and Plan: Is not whee
[2023-08-16] MEDS: FUROSEMIDE INJ 40 MG/4 ML VIAL IV PUSH (19:15)
[2023-08-16] MEDS: ROSUVASTATIN 10 MG TABLET 20 MG PO (22:44)
[2023-08-16] MEDS: PANTOPRAZOLE 40 MG TABLET PO (22:44)
[2023-08-16] MEDS: METOPROLOL SUCCINATE EXT REL 100 MG TABCR PO (22:44)
[2023-08-17] VITALS (21 sets, daily range): BP systolic 128–152; BP diastolic 62–68; PULSE 75–99; RESP 16–18; TEMP 36.1–36.9; O2SAT 93–97
--- NOTE | 2023-08-17 | ECHO_ITS ---
Patient Info Name: Regine Zarate Age: 83 years : 1940 Gender: Female Ht: 66 in Wt: 214 lbs BSA: 2.16 m2 HR: 87 bpm BP: 168 / 60 mmHg Heart Rhythm: Sinus Rhythm Technical Quality: Good Exam Date: 08/17/2023 10:26 AM Exam Location: Echo Lab Patient Status: Inpatient Admit Date: 08/16/2023 Staff Ordering Physician: Veronique Antonio MD Client Relationship Executive: Maria T Sams RDCS Attending Provider: Micki Em DO Exam Type: CA echo doppler color flow Study Info Indications - hypxia Complete two-dimensional, color flow and Doppler transthoracic echocardiogram is performed. Summary 1. Complete two-dimensional, color flow and Doppler transthoracic echocardiogram is performed. 2. Technically somewhat challenging echocardiogram. 3. Normal appearing left and right ventricular size and systolic function. 4. Sclerotic aortic valve which is not significantly stenotic. 5. Mildly enlarged left atrium. 6. Mild TR with a velocity suggesting pulmonary systolic pressure approximately 55 mm Hg. Left Ventricle Left ventricular chamber dimension is normal. Left ventricular systolic function is normal, estimated at 60-65%. There is mild concentric increased left ventricular wall thickness. The left ventricular diastolic function is grade I diastolic dysfunction. Right Ventricle Right ventricular chamber dimension is normal. Left Atria Left atrial chamber dimension is mildly enlarged. Right Atria Right atrial chamber dimension is normal. Aortic Valve The aortic valve is trileaflet. There is moderate aortic valve sclerosis. There is no aortic valve stenosis. Pulmonic Valve The pulmonic valve is not well visualized. Mitral Valve The mitral valve has normal leaflets. The mitral valve annulus is mildly calcified. Tricuspid Valve The tricuspid valve leaflets are normal. There is mild tricuspid valve regurgitation. Moderate pulmonary hypertension, estimated pulmonary arterial systolic pressure is 58 mmHg. Pericardium/Pleural The pericardium appears normal. Aorta The aortic root size at the sinus of Valsalva is normal. Left Ventricular Outflow Tract Name Value Normal LVOT 2D LVOT Diameter 2.0 cm LVOT Doppler LVOT Peak Gradient 7 mmHg LVOT Mean Gradient 5 mmHg LVOT VTI 35 cm LVOT VTI/AV VTI Ratio 0.8 LVOT Stroke Volume 105 ml LVOT CO 8.1 l/min LVOT CI 3.7 l/min/m2 Pulmonic Valve Name Value Normal RVOT Doppler RVOT Peak Gradient 1 mmHg PV Doppler PV Peak Gradient 5 mmHg Mitral Valve Name Value Normal --------
[2023-08-17] MEDS: PIPERACILLIN/TAZ 2.25G/NS 50ML 2.25 GM/50 ML BAG IVPB ×4 (04:28→20:53)
[2023-08-17] MEDS: HYDROmorphone HCL INJ (*CRX) 1 MG/ML SYR 0.5 MG IV PUSH (04:30)
[2023-08-17] MEDS: traMADol HCL (*CRX) 50 MG TABLET PO ×2 (05:25→20:36)
[2023-08-17 05:59] LABS: Basophils Percent Auto 0.1 % (0.2-1.2); Hematocrit 31.7 % (37.0-47.0); Hemoglobin 10.3 g/dL (12.0-15.0); Immature Granulocyte Absolute 0.15 K/mm3 (0.00-0.031); Immature Granulocyte Percent A 1.1 % (0-0.5); Lymphocytes Percent Auto 5.8 % (18.3-44.2); Mean Corpuscular HGB Conc 32.5 g/dl (32-36); Mean Corpuscular Hemoglobin 30.3 pg (26-34); Mean Corpuscular Volume 93.2 fl (80-100); Mean Platelet Volume 9.8 fl (7.4-10.4); Monocytes Percent Auto 7.4 % (2.6-8.5); Neutrophils Absolute Auto 11.8 K/mm3 (1.3-6.7); Neutrophils Percent Auto 85.6 % (45.5-73.1); Platelet Count Result 247 k/mm3 (150-375); Red Cell Distribution Width 15.4 % (11.5-14.5); White Blood Count 13.7 K/mm3 (4.5-10.0)
[2023-08-17 06:29] LABS: Alanine Aminotransferase 26 U/L (6-35); Albumin Level 3.1 g/dL (3.5-5.1); Alkaline Phosphatase 140 U/L (38-126); Anion Gap 14 mmol/L (8-16); Aspartate Amino Transferase 44 U/L (14-36); Bilirubin,Total 1.5 mg/dL (0.2-1.3); Blood Urea Nitrogen 50 mg/dL (7-17); Calcium 8.5 mg/dL (8.4-10.2); Carbon Dioxide 18 mmol/L (22-30); Chloride 108 mmol/L (98-107); Estimated CRCL calculation 21 ml/min; Estimated Glomerular Filt Rate 21; Glucose 162 mg/dL (65-110); Potassium 3.9 mmol/L (3.4-5.0); Sodium 140 mmol/L (137-145)
[2023-08-17] MEDS: IPRATROPIUM 0.5 MG/ALBUTEROL SULFATE 2.5 MG AMPUL.NEB 3 ML INHALATION ×3 (07:43→20:06)
[2023-08-17] MEDS: PANTOPRAZOLE 40 MG TABLET PO ×2 (10:08→20:28)
[2023-08-17] MEDS: DULoxetine HCL 60 MG CAPSULE.DR PO (10:08)
[2023-08-17] MEDS: TELMISARTAN 40 MG TABLET 80 MG PO (10:08)
--- NOTE | 2023-08-17 14:31 | PM.PNGS ---
Progress Note: A&P Assessment and Plan (1) Postoperative bile leak: Code(s): K91.89 - Other postprocedural complications and disorders of digestive system; K83.8 - Other specified diseases of biliary tract Status: Acute Assessment and Plan: s/p ERCP and stent, exam largely benign, ADAT, PT/OT Subjective Subjective Date/Time Seen: 08/17/23 14:31 Interval history: cont to feel better, wants more to eat Review of Systems Review of Systems: All systems reviewed & are unremarkable except as noted in HPI and below Exam Const: General: cooperative, comfortable and no acute distress Resp: Auscultation: diminished lung sounds Cardio: Rate: regular rate Rhythm: regular rhythm GI: Inspection: normal to inspection and distended GI Palp: Yes abdominal tenderness, Yes Soft to palpation, Yes Tenderness to palpation present (GI), No Guarding due to palpation present (GI) and No Rigid due to palpation Objective Data Vital Signs Vital Signs: Vital Signs - 24 hr 08/16/23 15:13 08/16/23 15:23 08/16/23 15:33 Temperature 37.1 C Pulse Rate 102 H 103 H 100 Respiratory Rate 26 H 25 H 25 H Blood Pressure 160/63 H 171/51 H 166/50 H Pulse Oximetry 100 97 96 Oxygen Delivery Simple Face Mask Nasal Cannula Nasal Cannula Oxygen Flow Rate 8 5 5 08/16/23 15:43 08/16/23 15:53 08/16/23 16:03 Temperature 37.2 C Pulse Rate 102 H 97 96 Respiratory Rate 24 H 23 H 19 Blood Pressure 156/62 H 173/60 H 176/53 H Pulse Oximetry 95 94 95 Oxygen Delivery Nasal Cannula Nasal Cannula Nasal Cannula Oxygen Flow Rate 5 5 3 08/16/23 16:13 08/16/23 16:35 08/16/23 16:43 Temperature 36.6 C Pulse Rate 95 95 97 Respiratory Rate 22 H 17 Blood Pressure 175/59 H 184/61 H Pulse Oximetry 94 98 Oxygen Delivery Nasal Cannula Oxygen Flow Rate 3 08/16/23 19:58 08/16/23 20:05 08/16/23 20:00 Temperature Pulse Rate 99 102 H Respiratory Rate 18 Blood Pressure Pulse Oximetry 92 Oxygen Delivery Nasal Cannula Oxygen Flow Rate 2 08/16/23 21:58 08/16/23 20:15 08/16/23 21:35 Temperature 36.7 C Pulse Rate 101 H 102 H 102 H Respiratory Rate 20 18 Blood Pressure 168/60 H Pulse Oximetry 98 94 Oxygen Delivery CPAP Oxygen Flow Rate 08/17/23 00:00 08/17/23 02:00 08/17/23 04:00 Temperature Pulse Rate 99 93 87 Respiratory Rate Blood Pressure Pulse Oximetry 94 Oxygen Delivery CPAP Oxygen Flow Rate 08/17/23 06:00 08/17/23 07:44 08/17/23 07:35 Temperature 36.1 C L Pulse Rate 91 88 Respiratory Rate 16 18 Blood Pressure 144/68 H Pulse Oximetry 94 94 Oxygen Delivery Nasal Cannula Oxygen Flow Rate 2 08/17/23 07:54 08/17/23 10:07 08/17/23 08:00 Temperature Pulse Rate 89 77 Respiratory Rate 18 Blood Pressure Pulse Oximetry 94 Oxygen Delivery Nasal Cannula Oxygen Flow Rate 2 08/17/23 10:37 08/17/23 13:12 08/17/23 13:26 Temperature Pulse Rate 75 77 Respiratory Rate 18 18 Blood Pressure 139/65 Pulse Oximetry Oxygen Delivery Oxygen Flow Rate 08/17/23 12:00 08/17/23 14:00 Temperature 36.9 C Pulse Rate 88 82 Respiratory Rate 16 Blood Pressure 152/62 H Pulse Oximetry 93 Oxygen Delivery Oxygen Flow Rate Intake/Output Intake/Output: Intake & Output 08/14/23 08/15/23 08/16/23 08/17/23 23:59 23:59 23:59 23:59 Intake Total 3200 2070 1020 Output Total 1500 800 Balance 3200 570 220 Meds/Results Medications: Active Medications Generic Name Dose Route Start Last Admin Trade Name Freq PRN Reason Stop Dose Admin Albuterol/Ipratropium 3 ml 08/15/23 14:00 08/17/23 13:12 Ipratropium 0.5 Mg/Albuterol Sulfate 2.5 Mg Ampul.Neb 3 Ml INHALATION 3 ml Q6HRT ARTHUR Administration Duloxetine HCl 60 mg 08/17/23 09:00 08/17/23 10:08 Duloxetine Hcl 60 Mg Capsule.Dr PO 60 mg QAM ARTHUR Administration Hydromorphone HCl 0.5 mg 08/15/23 05:39 08/17/23 04:30 Hydromorphone Hcl Inj (*
--- NOTE | 2023-08-17 15:01 | PM.IMPN ---
Progress Note: A&P Assessment and Plan (1) Postoperative bile leak: Code(s): K91.89 - Other postprocedural complications and disorders of digestive system; K83.8 - Other specified diseases of biliary tract Status: Acute Assessment and Plan: Status post elective cholecystectomy on 08/13/2023 with subsequent bile leak Status post biliary stent on 08/16/2023. No acute complications. Back pain and bilateral upper quadrant abdominal pain are greatly resolving. Continue tramadol p.r.n. Follow general surgery and GI recommendations on going. She has been advanced to a regular diet. Will need to follow with GI and have the stent taken out. Will clarify with GI when she can restart aspirin and Plavix. Continue Zosyn. Leukocytosis persists. Chest pain was atypical and her troponin has down trended, this was likely due to her acute sepsis. Continue incentive spirometer (2) Ascites: Code(s): R18.8 - Other ascites Status: Acute Assessment and Plan: Probably secondary to bile leak. Continue to monitor (3) Status post laparoscopic cholecystectomy: Code(s): Z90.49 - Acquired absence of other specified parts of digestive tract Status: Acute Assessment and Plan: As above (4) Hematoma of gallbladder: Code(s): S36.122A - Contusion of gallbladder, initial encounter Status: Acute Assessment and Plan: Probably mixed with bile. Continue to monitor (5) Elevated liver enzymes: Code(s): R74.8 - Abnormal levels of other serum enzymes Status: Acute Assessment and Plan: Probably secondary to acute issues. Continue to trend (6) Sepsis: Code(s): A41.9 - Sepsis, unspecified organism Status: Acute Assessment and Plan: Resolving, secondary to bile leak. Monitor leukocytosis (7) Post-operative infection: Code(s): T81.40XA - Infection following a procedure, unspecified, initial encounter Status: Acute Assessment and Plan: Continue Zosyn (8) Pleural effusion: Code(s): J90 - Pleural effusion, not elsewhere classified Status: Acute Assessment and Plan: Appear subacute to acute. This is worse on the right and is most likely related to her acute gallbladder issues and hematoma/ascites. None the less, she does have shortness of breath and bilateral pleural effusions it is possible that she has congestive heart failure so we will order echocardiogram and discontinue fluids. BNP on admission was elevated. Give 1 time dose of Lasix 40 mg IV. She has complained of bilateral leg swelling on and off. On 08/17 she appears to be breathing better. She has had good urine output Still requires oxygen by nasal cannula so wean that as tolerated and will give another 1 time dose Lasix today 40 mg. (9) Hypoxic respiratory failure: Code(s): J96.91 - Respiratory failure, unspecified with hypoxia Status: Acute Assessment and Plan: Continue O2 and wean as tolerated. Treat pleural effusions and possible congestive heart failure Pending surface echo (10) Syncope: Code(s): R55 - Syncope and collapse Status: Acute Assessment and Plan: Continue to monitor (11) Metabolic acidosis: Code(s): E87.20 - Acidosis, unspecified Status: Acute Assessment and Plan: Probably due to sepsis and CHUCK. Lactic acid normal. Continue to monitor. (12) Acute kidney injury superimposed on CKD: Code(s): N17.9 - Acute kidney failure, unspecified; N18.9 - Chronic kidney disease, unspecified Status: Acute Assessment and Plan: Her baseline is between 1.2 and 1.9. On 08/16/2023 she is at 2 so it is not far off from her baseline. Discontinue fluids and monitor. Will more likely resolve as her sepsis has been treated On 08/17 serum creatinine is 2.2. Continues to diurese and follow. (13) WENDY on CPAP: Code(s): G47.33 - Obstructive sleep apnea (adult) (pe
--- NOTE | 2023-08-17 15:08 | WPDGIPROGNO ---
Progress Note: A&P Assessment and Plan (1) Postoperative bile leak: Code(s): K91.89 - Other postprocedural complications and disorders of digestive system; K83.8 - Other specified diseases of biliary tract Status: Acute Assessment and Plan: feeling much better continue medical care ERCP in about 2 months to remove stent and reassess site diet per surgery (2) Sepsis: Code(s): A41.9 - Sepsis, unspecified organism Status: Acute Assessment and Plan: improved, on abx (3) Acute kidney injury superimposed on CKD: Code(s): N17.9 - Acute kidney failure, unspecified; N18.9 - Chronic kidney disease, unspecified Status: Acute (4) Elevated liver enzymes: Code(s): R74.8 - Abnormal levels of other serum enzymes Status: Acute Assessment and Plan: trend lft, will expect recovery Subjective Date/time seen: 08/17/23 15:09 Interval history: feeling much better since had ERCP with biliary stent placement she is more comfortable and tolerating diet daugther at bedside Review of Systems Review of Systems: All systems reviewed & are unremarkable except as noted in HPI and below Exam Const: General: cooperative, comfortable and no acute distress HENMT: Face/Nose/Sinus: Normal nares present Eyes: Sclera: sclerae normal Neck: Neck: supple Resp: Auscultation: diminished lung sounds Cardio: Rate: regular rate Rhythm: regular rhythm GI: Inspection: normal to inspection and distended GI Palp: Yes abdominal tenderness, Yes Soft to palpation, Yes Tenderness to palpation present (GI) (less tender today), No Guarding due to palpation present (GI) and No Rigid due to palpation Skin: General skin exam: normal color Neuro: Speech: normal speech Motor exam (neuro): 5/5 motor strength present throughout Extrem: General: normal to inspection Psych: Mental Status: mental status grossly normal Objective Data Vital Signs Vital Signs: Vital Signs - 24 hr 08/16/23 15:13 08/16/23 15:23 08/16/23 15:33 Temperature 98.7 F Pulse Rate 102 H 103 H 100 Respiratory Rate 26 H 25 H 25 H Blood Pressure 160/63 H 171/51 H 166/50 H Pulse Oximetry 100 97 96 Oxygen Delivery Simple Face Mask Nasal Cannula Nasal Cannula Oxygen Flow Rate 8 5 5 08/16/23 15:43 08/16/23 15:53 08/16/23 16:03 Temperature 99.0 F Pulse Rate 102 H 97 96 Respiratory Rate 24 H 23 H 19 Blood Pressure 156/62 H 173/60 H 176/53 H Pulse Oximetry 95 94 95 Oxygen Delivery Nasal Cannula Nasal Cannula Nasal Cannula Oxygen Flow Rate 5 5 3 08/16/23 16:13 08/16/23 16:35 08/16/23 16:43 Temperature 97.9 F Pulse Rate 95 95 97 Respiratory Rate 22 H 17 Blood Pressure 175/59 H 184/61 H Pulse Oximetry 94 98 Oxygen Delivery Nasal Cannula Oxygen Flow Rate 3 08/16/23 19:58 08/16/23 20:05 08/16/23 20:00 Temperature Pulse Rate 99 102 H Respiratory Rate 18 Blood Pressure Pulse Oximetry 92 Oxygen Delivery Nasal Cannula Oxygen Flow Rate 2 08/16/23 21:58 08/16/23 20:15 08/16/23 21:35 Temperature 98.0 F Pulse Rate 101 H 102 H 102 H Respiratory Rate 20 18 Blood Pressure 168/60 H Pulse Oximetry 98 94 Oxygen Delivery CPAP Oxygen Flow Rate 08/17/23 00:00 08/17/23 02:00 08/17/23 04:00 Temperature Pulse Rate 99 93 87 Respiratory Rate Blood Pressure Pulse Oximetry 94 Oxygen Delivery CPAP Oxygen Flow Rate 08/17/23 06:00 08/17/23 07:44 08/17/23 07:35 Temperature 97.0 F L Pulse Rate 91 88 Respiratory Rate 16 18 Blood Pressure 144/68 H Pulse Oximetry 94 94 Oxygen Delivery Nasal Cannula Oxygen Flow Rate 2 08/17/23 07:54 08/17/23 10:07 08/17/23 08:00 Temperature Pulse Rate 89 77 Respiratory Rate 18 Blood Pressure Pulse Oximetry 94 Oxygen Delivery Nasal Cannula Oxygen Flow Rate 2 08/17/23 10:37 08/17/23 13:12 08/17/23 13:26 Temperature Pulse Rate 75 77 Respiratory Rate 18 18 Blood Pressure 1
[2023-08-17] MEDS: FUROSEMIDE INJ 40 MG/4 ML VIAL IV PUSH (15:52)
[2023-08-17] MEDS: NIFEdipine 30 MG TAB.ER.24 90 MG PO (15:52)
[2023-08-17] MEDS: ROSUVASTATIN 10 MG TABLET 20 MG PO (20:27)
[2023-08-17] MEDS: METOPROLOL SUCCINATE EXT REL 100 MG TABCR PO (20:28)
[2023-08-17] MEDS: MELATONIN 5 MG TABLET PO (23:38)
[2023-08-18] VITALS (20 sets, daily range): BP systolic 124–134; BP diastolic 47–62; PULSE 65–76; RESP 16–22; TEMP 36.3–36.9; O2SAT 92–97
[2023-08-18] MEDS: IPRATROPIUM 0.5 MG/ALBUTEROL SULFATE 2.5 MG AMPUL.NEB 3 ML INHALATION ×4 (01:52→20:35)
[2023-08-18] MEDS: PIPERACILLIN/TAZ 2.25G/NS 50ML 2.25 GM/50 ML BAG IVPB ×2 (05:25→12:07)
[2023-08-18] MEDS: traMADol HCL (*CRX) 50 MG TABLET PO ×3 (05:32→23:42)
[2023-08-18 05:56] LABS: Basophils Percent Auto 0.1 % (0.2-1.2); Eosinophils Percent Auto 0.5 % (0-4.4); Hematocrit 29.7 % (37.0-47.0); Hemoglobin 9.4 g/dL (12.0-15.0); Immature Granulocyte Absolute 0.04 K/mm3 (0.00-0.031); Immature Granulocyte Percent A 0.5 % (0-0.5); Lymphocytes Absolute Auto 1.13 K/mm3 (0.9-3.2); Lymphocytes Percent Auto 13.2 % (18.3-44.2); Mean Corpuscular HGB Conc 31.6 g/dl (32-36); Mean Corpuscular Volume 91.7 fl (80-100); Mean Platelet Volume 10.2 fl (7.4-10.4); Monocytes Absolute Auto 0.9 K/mm3 (0.1-0.6); Monocytes Percent Auto 10.5 % (2.6-8.5); Neutrophils Absolute Auto 6.5 K/mm3 (1.3-6.7); Neutrophils Percent Auto 75.2 % (45.5-73.1); Nucleated Red Blood Cells Perc 0.2 % (0.0-0.2); Platelet Count Result 229 k/mm3 (150-375); Red Blood Count 3.24 M/mm3 (4.2-5.4); Red Cell Distribution Width 15.6 % (11.5-14.5); White Blood Count 8.6 K/mm3 (4.5-10.0)
[2023-08-18 06:06] LABS: Alanine Aminotransferase 47 U/L (6-35); Albumin Level 3.2 g/dL (3.5-5.1); Alkaline Phosphatase 138 U/L (38-126); Anion Gap 10 mmol/L (8-16); Aspartate Amino Transferase 79 U/L (14-36); Bilirubin,Total 1.3 mg/dL (0.2-1.3); Blood Urea Nitrogen 51 mg/dL (7-17); Calcium 8.6 mg/dL (8.4-10.2); Carbon Dioxide 21 mmol/L (22-30); Chloride 108 mmol/L (98-107); Estimated CRCL calculation 18 ml/min; Estimated Glomerular Filt Rate 18; Glucose 115 mg/dL (65-110); Potassium 3.5 mmol/L (3.4-5.0); Sodium 139 mmol/L (137-145)
[2023-08-18] MEDS: TELMISARTAN 40 MG TABLET 80 MG PO (09:45)
[2023-08-18] MEDS: PANTOPRAZOLE 40 MG TABLET PO (09:45)
[2023-08-18] MEDS: DULoxetine HCL 60 MG CAPSULE.DR PO (09:45)
--- NOTE | 2023-08-18 10:55 | PM.PNGS ---
Progress Note: A&P Assessment and Plan (1) Postoperative bile leak: Code(s): K91.89 - Other postprocedural complications and disorders of digestive system; K83.8 - Other specified diseases of biliary tract Status: Acute Assessment and Plan: doing well, labs largely normalized, cont diet (2) Hypoxic respiratory failure: Code(s): J96.91 - Respiratory failure, unspecified with hypoxia Status: Acute Assessment and Plan: worsening SOB, will get CXR, ask hospitalist to further eval (3) Acute kidney injury superimposed on CKD: Code(s): N17.9 - Acute kidney failure, unspecified; N18.9 - Chronic kidney disease, unspecified Status: Acute Assessment and Plan: will check urine labs, get nephrology consult Subjective Subjective Date/Time Seen: 08/18/23 10:55 Interval history: feels a little worse today, reports increased SOB, +bowel fxn, eddie diet Review of Systems Review of Systems: All systems reviewed & are unremarkable except as noted in HPI and below Exam Const: General: cooperative, comfortable, no acute distress and tired appearing Resp: Auscultation: diminished lung sounds Cardio: Rate: regular rate Rhythm: regular rhythm GI: Inspection: normal to inspection, non-distended and incision GI Palp: Yes abdominal tenderness, Yes Soft to palpation, Yes Tenderness to palpation present (GI), No Guarding due to palpation present (GI) and No Rigid due to palpation Objective Data Vital Signs Vital Signs: Vital Signs - 24 hr 08/17/23 13:12 08/17/23 13:26 08/17/23 13:33 Temperature Pulse Rate 75 77 Respiratory Rate 18 18 Blood Pressure Pulse Oximetry Oxygen Delivery Nasal Cannula Oxygen Flow Rate 2 08/17/23 12:00 08/17/23 14:00 08/17/23 16:00 Temperature 36.9 C Pulse Rate 88 82 78 Respiratory Rate 16 Blood Pressure 152/62 H Pulse Oximetry 93 Oxygen Delivery Oxygen Flow Rate 08/17/23 20:08 08/17/23 20:09 08/17/23 20:10 Temperature Pulse Rate 75 75 Respiratory Rate 18 Blood Pressure Pulse Oximetry 94 94 Oxygen Delivery CPAP CPAP Oxygen Flow Rate 2 08/17/23 20:16 08/17/23 20:00 08/17/23 22:00 Temperature 36.2 C L Pulse Rate 75 75 83 Respiratory Rate 17 18 Blood Pressure 128/62 Pulse Oximetry 97 Oxygen Delivery Oxygen Flow Rate 08/18/23 01:55 08/18/23 01:56 08/18/23 02:01 Temperature Pulse Rate 74 71 71 Respiratory Rate 18 16 Blood Pressure Pulse Oximetry 92 Oxygen Delivery CPAP Oxygen Flow Rate 08/18/23 00:00 08/18/23 04:00 08/18/23 06:00 Temperature 36.7 C Pulse Rate 76 73 73 Respiratory Rate 18 Blood Pressure 128/47 L Pulse Oximetry 97 Oxygen Delivery Oxygen Flow Rate 08/18/23 08:42 08/18/23 08:35 08/18/23 10:02 Temperature Pulse Rate 74 Respiratory Rate 16 Blood Pressure Pulse Oximetry 94 Oxygen Delivery Nasal Cannula Nasal Cannula Oxygen Flow Rate 2 2 Intake/Output Intake/Output: Intake & Output 08/15/23 08/16/23 08/17/23 08/18/23 23:59 23:59 23:59 23:59 Intake Total 3200 2070 1860 750 Output Total 1500 800 Balance 3200 570 1060 750 Meds/Results Medications: Active Medications Generic Name Dose Route Start Last Admin Trade Name Freq PRN Reason Stop Dose Admin Albuterol/Ipratropium 3 ml 08/15/23 14:00 08/18/23 08:41 Ipratropium 0.5 Mg/Albuterol Sulfate 2.5 Mg Ampul.Neb 3 Ml INHALATION 3 ml Q6HRT ARTHUR Administration Duloxetine HCl 60 mg 08/17/23 09:00 08/18/23 09:45 Duloxetine Hcl 60 Mg Capsule.Dr PO 60 mg QAM ARTHUR Administration Hydromorphone HCl 0.5 mg 08/15/23 05:39 08/17/23 04:30 Hydromorphone Hcl Inj (*Crx) 1 Mg/Ml Syr IV PUSH 0.5 mg Q4H PRN Administration Pain Rated 7-10 Piperacillin Sod/Tazobactam Sod 2.25 gm in 50 mls @ 100 mls/hr 08/15/23 11:00 08/18/23 05:55 Zosyn 2.25 Gm/Ns 50 Ml IVPB Infused Q6H ARTHUR Infusion Melatonin 5 mg 0
[2023-08-18] MEDS: ALBUTEROL SULFATE NEB 2.5 MG/3 ML INH INHALATION (12:10)
[2023-08-18] MEDS: FUROSEMIDE INJ 40 MG/4 ML VIAL IV PUSH (13:14)
[2023-08-18] MEDS: HYDROmorphone HCL INJ (*CRX) 1 MG/ML SYR 0.5 MG IV PUSH (13:55)
--- NOTE | 2023-08-18 14:01 | PM.IMPN ---
Progress Note: A&P Assessment and Plan (1) Postoperative bile leak: Code(s): K91.89 - Other postprocedural complications and disorders of digestive system; K83.8 - Other specified diseases of biliary tract Status: Acute Assessment and Plan: Status post elective cholecystectomy on 08/13/2023 with subsequent bile leak Status post biliary stent on 08/16/2023. No acute complications. Back pain and bilateral upper quadrant abdominal pain are greatly resolving. Continue tramadol p.r.n. Follow general surgery and GI recommendations on going. She has been advanced to a regular diet. Will need to follow with GI and have the stent taken out. Zosyn has been discontinued due to CHUCK. Switch to ceftriaxone and metronidazole. Continue incentive spirometer She continues to have a achy pain at the right upper quadrant/right rib. This is likely due to the pleural effusion and hematoma/resolving bowel leak. Continue to monitor this. (2) Ascites: Code(s): R18.8 - Other ascites Status: Acute Assessment and Plan: Probably secondary to bile leak. Continue to monitor (3) Status post laparoscopic cholecystectomy: Code(s): Z90.49 - Acquired absence of other specified parts of digestive tract Status: Acute Assessment and Plan: As above (4) Hematoma of gallbladder: Code(s): S36.122A - Contusion of gallbladder, initial encounter Status: Acute Assessment and Plan: Probably mixed with bile. Continue to monitor (5) Elevated liver enzymes: Code(s): R74.8 - Abnormal levels of other serum enzymes Status: Acute Assessment and Plan: Probably secondary to acute issues. Continue to trend (6) Sepsis: Code(s): A41.9 - Sepsis, unspecified organism Status: Acute Assessment and Plan: Resolving, secondary to bile leak. Leukocytosis resolved (7) Post-operative infection: Code(s): T81.40XA - Infection following a procedure, unspecified, initial encounter Status: Acute Assessment and Plan: Zosyn switched to ceftriaxone and Flagyl (8) Pleural effusion: Code(s): J90 - Pleural effusion, not elsewhere classified Status: Acute Assessment and Plan: Appear subacute to acute. This is worse on the right and is most likely related to her acute gallbladder issues and hematoma/ascites. None the less, she does have shortness of breath and bilateral pleural effusions it is possible that she has congestive heart failure so we will order echocardiogram and discontinue fluids. BNP on admission was elevated. Give 1 time dose of Lasix 40 mg IV. She has complained of bilateral leg swelling on and off. On 08/17 she appears to be breathing better. She has had good urine output Still requires oxygen by nasal cannula so wean that as tolerated and will give another 1 time dose Lasix today 40 mg. On 08/18 will give last dose of Lasix. She has had good urine output but developing worsening CHUCK. Discussed the risks versus benefits of thoracentesis and she in the daughters agree. Thoracentesis ordered and she will be NPO at midnight. If acute hypoxic respiratory failure persists after this will consult pulmonology (9) Hypoxic respiratory failure: Code(s): J96.91 - Respiratory failure, unspecified with hypoxia Status: Acute Assessment and Plan: Continue O2 and wean as tolerated. (10) Syncope: Code(s): R55 - Syncope and collapse Status: Acute Assessment and Plan: Resolved. Continue to monitor (11) Metabolic acidosis: Code(s): E87.20 - Acidosis, unspecified Status: Acute Assessment and Plan: Lactic acid normal. This is probably due to the CHUCK and sepsis. It is resolving, continue to monitor. (12) Acute kidney injury superimposed on CKD: Code(s): N17.9 - Acute kidney failure, unspecified; N18.9 - Chronic kidney disease, unspecified Status: Acute Asses
--- NOTE | 2023-08-18 15:05 | PCOTNOTE ---
Attempted to see pt for Occupational Therapy treatment. Pt declined to participate in session due to being very tired and drowsy from recent pain medication. Will continue per poc duration/frequency tomorrow.
[2023-08-18] MEDS: NIFEdipine 30 MG TAB.ER.24 90 MG PO (15:33)
--- NOTE | 2023-08-18 15:33 | PM.CNNEP ---
Assessment and Plan Assessment and plan (1) CHUCK (acute kidney injury): Code(s): N17.9 - Acute kidney failure, unspecified Status: Acute Assessment and Plan: the patient has acute kidney injury. This could be due to infection. Her white count was elevated when she came in and she did have a biliary leak. The white count is better her pain is better. Sometimes there is a delay in the recover renal function after this sort of thing. Dehydration can do this as well, however the patient is getting IV fluids and she continues to worsen. Another possibility is contrast nephropathy. Her creatinine was already mildly elevated when she got the dye so the entire rise in her creatinine is not explained by the dye. perhaps the initial rise in creatinine was due to dehydration or infection. Obstruction or rhabdomyolysis or possible but less so. Interstitial nephritis or glomerulonephritis are less likely but still possible. (2) Stage 3 chronic kidney disease: Qualifiers: Chronic kidney disease stage 3 subtype: stage 3a (GFR 45-59) Qualified Code(s): N18.31 - Chronic kidney disease, stage 3a Code(s): N18.3 - Chronic kidney disease, stage 3 (moderate) Status: Acute Assessment and Plan: The patient has chronic kidney disease. This is probably due to vascular disease plus hypertension. Her baseline creatinine seems to be about 1.3 (3) WENDY on CPAP: Code(s): G47.33 - Obstructive sleep apnea (adult) (pediatric); Z99.89 - Dependence on other enabling machines and devices Status: Acute (4) Mixed hyperlipidemia: Code(s): E78.2 - Mixed hyperlipidemia Status: Acute Assessment and Plan: the patient has hyperlipidemia. She is on rosuvastatin for this. (5) Atherosclerotic heart disease of [place] coronary artery with angina pectoris: Qualifiers: [place] vs. transplanted heart: [place] heart Qualified Code(s): I25.119 - Atherosclerotic heart disease of [place] coronary artery with unspecified angina pectoris Code(s): I25.119 - Atherosclerotic heart disease of [place] coronary artery with unspecified angina pectoris Status: Chronic Assessment and Plan: Patient is on a statin. She has no chest pain or shortness of breath (6) Hypertension: Qualifiers: Hypertension type: primary hypertension Qualified Code(s): I10 - Essential (primary) hypertension Code(s): I10 - Essential (primary) hypertension Status: Acute Assessment and Plan: blood pressure is under good control (7) TIA (transient ischemic attack): Code(s): G45.9 - Transient cerebral ischemic attack, unspecified Status: Acute Assessment and Plan: no new symptoms of this (8) GERD without esophagitis: Code(s): K21.9 - Gastro-esophageal reflux disease without esophagitis Status: Acute Assessment and Plan: the patient is on pantoprazole and does not have any symptoms History of Present Illness Reason for Consult Consult date: 08/18/23 Chief Complaint Chief complaint: postoperative infection,pleural effusion, hypoxic History of Present Illness Narrative: Chronic kidney disease with a creatinine of 1.3-1.5, anxiety, peripheral vascular disease status post TIA, coronary artery disease status post bypass, sleep apnea, hypertension, GERD. The patient was recently in the hospital for cholecystectomy. She did well and went home. Then she developed abdominal discomfort in the right upper quadrant which was new for her. She came back to the ER. She had a CT of the abdomen with contrast. Apparently she had a leak in her bile duct and so Dr. Phan saw her and placed a stent in the bile duct. Since then she has been gradually better. Her creatinine on admission was 1.8. After that the creatinine has been rising gradually and today it is 2.5 so renal consultation was requested. The patient does no
[2023-08-18 16:17] LABS: Creatine Kinase 94 U/L (30-135)
[2023-08-18] MEDS: METOPROLOL SUCCINATE EXT REL 100 MG TABCR PO (20:03)
[2023-08-18] MEDS: ROSUVASTATIN 10 MG TABLET 20 MG PO (20:03)
[2023-08-18] MEDS: MELATONIN 5 MG TABLET PO (20:10)
[2023-08-18 23:44] LABS: Appearance Urine Clear (Clear); Bilirubin Urine Negative (Negative); Blood Urine Negative (Negative); Color Urine Yellow (Yellow); Glucose Urine UA 1+ mg/dL (Negative); Ketones Urine Negative (Negative); Leukocyte Esterase Ur Negative LEU/UL (Negative); Nitrate Urine Negative (Negative); Protein Urine Negative (Negative); Specific Grav Ur 1.008 (1.001-1.035); Urobilinogen Urine 0.2 mg/dL (<2.0)
[2023-08-18 23:50] LABS: Add Urine Microscopic? NO
[2023-08-18 23:51] LABS: Creatinine Urine 24.2 mg/dL; Total Protein Urine Random 18 mg/dL; Ur Ttl Prot Creatinine Ratio 0.74 mg/mg (0-0.20); Urea Random Urine 222 MG/DL
[2023-08-18 23:58] LABS: Sodium Urine Random 84 meq/L
[2023-08-19] VITALS (18 sets, daily range): BP systolic 140–150; BP diastolic 58–71; PULSE 74–86; RESP 16–20; TEMP 36.4–37.2; O2SAT 83–95
[2023-08-19] MEDS: IPRATROPIUM 0.5 MG/ALBUTEROL SULFATE 2.5 MG AMPUL.NEB 3 ML INHALATION ×4 (02:33→20:02)
[2023-08-19 06:17] LABS: Basophils Percent Auto 0.2 % (0.2-1.2); Eosinophils Absolute Auto 0.2 K/mm3 (0-0.3); Eosinophils Percent Auto 2.5 % (0-4.4); Hematocrit 33.1 % (37.0-47.0); Hemoglobin 10.8 g/dL (12.0-15.0); Immature Granulocyte Absolute 0.05 K/mm3 (0.00-0.031); Immature Granulocyte Percent A 0.6 % (0-0.5); Lymphocytes Absolute Auto 1.77 K/mm3 (0.9-3.2); Lymphocytes Percent Auto 21.4 % (18.3-44.2); Mean Corpuscular HGB Conc 32.6 g/dl (32-36); Mean Corpuscular Hemoglobin 29.5 pg (26-34); Mean Corpuscular Volume 90.4 fl (80-100); Mean Platelet Volume 10.1 fl (7.4-10.4); Monocytes Percent Auto 12.2 % (2.6-8.5); Neutrophils Absolute Auto 5.2 K/mm3 (1.3-6.7); Neutrophils Percent Auto 63.1 % (45.5-73.1); Platelet Count Result 265 k/mm3 (150-375); Red Blood Count 3.66 M/mm3 (4.2-5.4); Red Cell Distribution Width 15.7 % (11.5-14.5); White Blood Count 8.3 K/mm3 (4.5-10.0)
[2023-08-19 06:18] LABS: Hematocrit 34.7 % (37.0-47.0); Hemoglobin 11.1 g/dL (12.0-15.0); Mean Corpuscular Hemoglobin 29.6 pg (26-34); Mean Corpuscular Volume 92.5 fl (80-100); Mean Platelet Volume 10.3 fl (7.4-10.4); Platelet Count Result 255 k/mm3 (150-375); Red Blood Count 3.75 M/mm3 (4.2-5.4); Red Cell Distribution Width 16.1 % (11.5-14.5); White Blood Count 7.5 K/mm3 (4.5-10.0)
[2023-08-19 06:29] LABS: Albumin Level 3.3 g/dL (3.5-5.1); Anion Gap 10 mmol/L (8-16); Blood Urea Nitrogen 46 mg/dL (7-17); Calcium 8.8 mg/dL (8.4-10.2); Carbon Dioxide 23 mmol/L (22-30); Chloride 105 mmol/L (98-107); Estimated CRCL calculation 24 ml/min; Estimated Glomerular Filt Rate 25; Glucose 113 mg/dL (65-110); Phosphorus 3.9 mg/dL (2.5-4.5); Potassium 3.3 mmol/L (3.4-5.0); Sodium 138 mmol/L (137-145)
[2023-08-19 06:31] LABS: Alanine Aminotransferase 63 U/L (6-35); Albumin Level 3.3 g/dL (3.5-5.1); Alkaline Phosphatase 163 U/L (38-126); Anion Gap 9 mmol/L (8-16); Aspartate Amino Transferase 93 U/L (14-36); Bilirubin,Total 1.3 mg/dL (0.2-1.3); Blood Urea Nitrogen 46 mg/dL (7-17); Calcium 8.7 mg/dL (8.4-10.2); Carbon Dioxide 25 mmol/L (22-30); Chloride 104 mmol/L (98-107); Estimated CRCL calculation 23 ml/min; Estimated Glomerular Filt Rate 24; Glucose 113 mg/dL (65-110); Magnesium 2.4 mg/dL (1.6-2.3); Potassium 3.1 mmol/L (3.4-5.0); Sodium 138 mmol/L (137-145)
[2023-08-19 06:34] LABS: INR 1.1; Prothrombin Time 14.4 Seconds (11.1-14.7)
[2023-08-19 08:37] LABS: Partial Thromboplastin Time 34.6 SECONDS (22.3-36.8)
[2023-08-19] MEDS: DULoxetine HCL 60 MG CAPSULE.DR PO (10:05)
[2023-08-19] MEDS: HYDROmorphone HCL INJ (*CRX) 1 MG/ML SYR 0.5 MG IV PUSH (10:10)
[2023-08-19] MEDS: PANTOPRAZOLE 40 MG TABLET PO (10:13)
--- NOTE | 2023-08-19 11:09 | PM.PNGS ---
Progress Note: A&P Assessment and Plan (1) Postoperative bile leak: Code(s): K91.89 - Other postprocedural complications and disorders of digestive system; K83.8 - Other specified diseases of biliary tract Status: Acute Assessment and Plan: doing well, exam largely benign, eddie diet, leukocytosis resolved (2) Pleural effusion: Code(s): J90 - Pleural effusion, not elsewhere classified Status: Acute Assessment and Plan: exam improved, cont to follow (3) Stage 3 chronic kidney disease: Qualifiers: Chronic kidney disease stage 3 subtype: stage 3a (GFR 45-59) Qualified Code(s): N18.31 - Chronic kidney disease, stage 3a Code(s): N18.3 - Chronic kidney disease, stage 3 (moderate) Status: Acute Assessment and Plan: labs improved, appreciate nephrology input Subjective Subjective Date/Time Seen: 08/19/23 11:09 Interval history: feels better today, decreased SOB, abd pain, eddie diet Review of Systems Review of Systems: All systems reviewed & are unremarkable except as noted in HPI and below Exam Const: General: cooperative, comfortable and no acute distress Resp: Auscultation: diminished lung sounds Cardio: Rate: regular rate Rhythm: regular rhythm GI: Inspection: normal to inspection, non-distended and incision GI Palp: Yes abdominal tenderness, Yes Soft to palpation, Yes Tenderness to palpation present (GI), No Guarding due to palpation present (GI) and No Rigid due to palpation Objective Data Vital Signs Vital Signs: Vital Signs - 24 hr 08/18/23 12:10 08/18/23 12:20 08/18/23 13:07 Temperature 36.3 C L Pulse Rate 70 71 76 Respiratory Rate 20 22 H 17 Blood Pressure 134/55 L Pulse Oximetry 95 Oxygen Delivery Oxygen Flow Rate 08/18/23 12:00 08/18/23 16:00 08/18/23 20:03 Temperature Pulse Rate 70 65 73 Respiratory Rate Blood Pressure Pulse Oximetry Oxygen Delivery Oxygen Flow Rate 08/18/23 20:34 08/18/23 20:35 08/18/23 20:00 Temperature Pulse Rate 73 74 Respiratory Rate 22 H Blood Pressure Pulse Oximetry 94 Oxygen Delivery Nasal Cannula Oxygen Flow Rate 2 08/19/23 00:00 08/19/23 02:33 08/18/23 22:00 Temperature 36.9 C Pulse Rate 74 74 72 Respiratory Rate 20 18 Blood Pressure 124/62 Pulse Oximetry 95 Oxygen Delivery Oxygen Flow Rate 08/19/23 04:00 08/18/23 23:10 08/19/23 07:20 Temperature Pulse Rate 79 71 85 Respiratory Rate 20 Blood Pressure Pulse Oximetry 92 Oxygen Delivery CPAP Oxygen Flow Rate 08/19/23 07:20 08/19/23 07:27 08/19/23 06:00 Temperature 36.4 C Pulse Rate 80 79 Respiratory Rate 20 18 Blood Pressure 150/58 H Pulse Oximetry 92 95 Oxygen Delivery Nasal Cannula Oxygen Flow Rate 2 Intake/Output Intake/Output: Intake & Output 08/16/23 08/17/23 08/18/23 08/19/23 23:59 23:59 23:59 23:59 Intake Total 2070 1860 1900 300 Output Total 1500 722 501 9561 Balance 570 1060 1700 -1700 Meds/Results Medications: Active Medications Generic Name Dose Route Start Last Admin Trade Name Freq PRN Reason Stop Dose Admin Albuterol 2.5 mg 08/18/23 12:02 08/18/23 12:10 Albuterol Sulfate Neb 2.5 Mg/3 Ml Inh INHALATION 2.5 mg Q4HRT PRN Administration Shortness Of Breath Albuterol/Ipratropium 3 ml 08/15/23 14:00 08/19/23 08:10 Ipratropium 0.5 Mg/Albuterol Sulfate 2.5 Mg Ampul.Neb 3 Ml INHALATION Not Given Q6HRT ARTHUR Duloxetine HCl 60 mg 08/17/23 09:00 08/19/23 10:05 Duloxetine Hcl 60 Mg Capsule.Dr PO 60 mg QAM ARTHUR Administration Hydromorphone HCl 0.5 mg 08/15/23 05:39 08/19/23 10:10 Hydromorphone Hcl Inj (*Crx) 1 Mg/Ml Syr IV PUSH 0.5 mg Q4H PRN Administration Pain Rated 7-10 Melatonin 5 mg 08/17/23 23:17 08/18/23 20:10 Melatonin 5 Mg Tablet PO 5 mg HS PRN Administration Sleep Metoprolol Succinate 100 mg 08/16/23 22:20 08/18/23 20:0
--- NOTE | 2023-08-19 13:21 | PM.PNNEP ---
Progress Note: A&P Assessment and Plan (1) CHUCK (acute kidney injury): Code(s): N17.9 - Acute kidney failure, unspecified Status: Acute Assessment and Plan: the patient has acute kidney injury. Renal ultrasound is not done yet. Renal ultrasound on July 27 showed normal kidney no MRI imaging of the abdomen at [facility]. Urine electrolytes non pre renal. Fractional excretion of urea was non pre renal as well. CT abdomen and pelvis on August 15 showed normal kidneys. creatinine has come down in spite of diuretics. I suspect that the CHUCK is due to contrast plus possibly infection. She might have been a little dehydrated when she was admitted and had the CT scan done her creatinine was already 1.8 in the ER.. The patient's daughter is in the room. He was asking about some lesion on the kidneys about the size of a pea. The ultrasound I ordered for this admission is not done yet but as above other imaging has not shown any evidence of a lesion in either kidney. (2) Stage 3 chronic kidney disease: Qualifiers: Chronic kidney disease stage 3 subtype: stage 3a (GFR 45-59) Qualified Code(s): N18.31 - Chronic kidney disease, stage 3a Code(s): N18.3 - Chronic kidney disease, stage 3 (moderate) Status: Acute Assessment and Plan: The patient has chronic kidney disease. This is probably due to vascular disease plus hypertension. Her baseline creatinine seems to be about 1.3 (3) WENDY on CPAP: Code(s): G47.33 - Obstructive sleep apnea (adult) (pediatric); Z99.89 - Dependence on other enabling machines and devices Status: Acute (4) Mixed hyperlipidemia: Code(s): E78.2 - Mixed hyperlipidemia Status: Acute Assessment and Plan: the patient has hyperlipidemia. She is on rosuvastatin for this. (5) Atherosclerotic heart disease of [place] coronary artery with angina pectoris: Qualifiers: [place] vs. transplanted heart: [place] heart Qualified Code(s): I25.119 - Atherosclerotic heart disease of [place] coronary artery with unspecified angina pectoris Code(s): I25.119 - Atherosclerotic heart disease of [place] coronary artery with unspecified angina pectoris Status: Chronic Assessment and Plan: Patient is on a statin. She has no chest pain or shortness of breath (6) Hypertension: Qualifiers: Hypertension type: primary hypertension Qualified Code(s): I10 - Essential (primary) hypertension Code(s): I10 - Essential (primary) hypertension Status: Acute Assessment and Plan: blood pressure is under good control Generally. It has been running 120-140 over the last day or 2 but this a.m. was 150/58. will follow going forward see if adjustments need to be made in her blood pressure medications. (7) TIA (transient ischemic attack): Code(s): G45.9 - Transient cerebral ischemic attack, unspecified Status: Acute Assessment and Plan: no new symptoms of this (8) GERD without esophagitis: Code(s): K21.9 - Gastro-esophageal reflux disease without esophagitis Status: Acute Assessment and Plan: the patient is on pantoprazole and does not have any symptoms Subjective Date/time seen: 08/19/23 13:21 Interval history: patient feels better today. She developed some shortness of breath later. She received some IV Lasix and she feels better now. Review of Systems Cardiovascular: Cardiovascular: Reports no additional cardiovascular complaints Respiratory: Respiratory: Reports no additional respiratory complaints Gastrointestinal: Gastrointestinal: Reports no additional gastrointestinal complaints Genitourinary: Genitourinary: Reports no additional female genitourinary complaints Exam Narrative: WDWN in NAD skin no rash head ncat lungs clear Bilaterally cor reg no rub abd BS+ nontender and soft ext no edema. Objective Data Vital
[2023-08-19] MEDS: FUROSEMIDE INJ 40 MG/4 ML VIAL 20 MG IV PUSH ×2 (13:57→16:30)
[2023-08-19] MEDS: NIFEdipine 30 MG TAB.ER.24 90 MG PO (13:58)
[2023-08-19] MEDS: polyethylene glycoL 3350 17 GM POWD.PACK PO (13:59)
--- NOTE | 2023-08-19 14:08 | PM.IMPN ---
Progress Note: A&P Assessment and Plan (1) Postoperative bile leak: Code(s): K91.89 - Other postprocedural complications and disorders of digestive system; K83.8 - Other specified diseases of biliary tract Status: Acute Assessment and Plan: Status post elective cholecystectomy on 08/13/2023 with subsequent bile leak Status post biliary stent on 08/16/2023. No acute complications. pain is resolving. Tramadol and Tylenol p.r.n. Follow general surgery and GI recommendations on going. She has been advanced to a regular diet. Will need to follow with GI and have the stent taken out. Zosyn has been discontinued due to CHUCK. Switch to ceftriaxone and metronidazole. Continue incentive spirometer Has transaminitis, mild. Possibly due to the irritation from her acute events. Continue to monitor (2) Ascites: Code(s): R18.8 - Other ascites Status: Acute Assessment and Plan: Probably secondary to bile leak. Continue to monitor (3) Status post laparoscopic cholecystectomy: Code(s): Z90.49 - Acquired absence of other specified parts of digestive tract Status: Acute Assessment and Plan: As above (4) Hematoma of gallbladder: Code(s): S36.122A - Contusion of gallbladder, initial encounter Status: Acute Assessment and Plan: Probably mixed with bile. Continue to monitor (5) Elevated liver enzymes: Code(s): R74.8 - Abnormal levels of other serum enzymes Status: Acute Assessment and Plan: Probably secondary to acute issues. Continue to trend (6) Sepsis: Code(s): A41.9 - Sepsis, unspecified organism Status: Acute Assessment and Plan: Resolving, secondary to bile leak. Leukocytosis resolved (7) Post-operative infection: Code(s): T81.40XA - Infection following a procedure, unspecified, initial encounter Status: Acute Assessment and Plan: Zosyn switched to ceftriaxone and Flagyl due to CHUCK. (8) Pleural effusion: Code(s): J90 - Pleural effusion, not elsewhere classified Status: Acute Assessment and Plan: Appear subacute to acute. This is worse on the right and is most likely related to her acute gallbladder issues and hematoma/ascites. None the less, she does have shortness of breath and bilateral pleural effusions. BNP on admission elevated. Surface echo demonstrating 60-65% EF and grade 1 diastolic dysfunction. Probably has a degree of underlying CHF. Her symptomatology greatly improved with the Lasix 40 mg x 1 on 08/18 and on 08/19. With her best urine output came along improvement of her CHUCK. On 08/19 will continue Lasix 20 mg IV b.i.d. She still requires 2-3 L of nasal cannula at rest. NPO at midnight to attempt for thoracentesis on the right side. (9) Hypoxic respiratory failure: Code(s): J96.91 - Respiratory failure, unspecified with hypoxia Status: Acute Assessment and Plan: Continue O2 and wean as tolerated. Did better after coughing up some sputum. Start guaifenesin extended release 600 mg p.o. b.i.d. (10) Syncope: Code(s): R55 - Syncope and collapse Status: Acute Assessment and Plan: Resolved. Continue to monitor (11) Metabolic acidosis: Code(s): E87.20 - Acidosis, unspecified Status: Acute Assessment and Plan: Lactic acid normal. This is probably due to the CHUCK and sepsis. It is resolving, continue to monitor. (12) Acute kidney injury superimposed on CKD: Code(s): N17.9 - Acute kidney failure, unspecified; N18.9 - Chronic kidney disease, unspecified Status: Acute Assessment and Plan: Appreciate nephrology recommendations. Renal ultrasound pending as well. On 08/19 status post diuresis her CHUCK is improved. Continue to diurese gently and monitor renal function. (13) WENDY on CPAP: Code(s): G47.33 - Obstructive sleep apnea (adult) (pediatric); Z99.89 - Dependence on other enabli
--- NOTE | 2023-08-19 14:59 | PCOTNOTE ---
Attempted to see pt for Occupational Therapy treatment. Pt declined to participate in any self care, therapeutic activities, and/or strengthening due to being exhausted. Pt reports having limited sleep last night due to interruptions. Pt is aware of importance of therapy participation and states she will participate tomorrow, however, she is declining any therapy treatment today. Will continue per poc duration/frequency tomorrow.
[2023-08-19] MEDS: guaiFENesin 12 HR 600 MG TABCR PO (16:30)
--- NOTE | 2023-08-19 19:34 | PC.NURSE ---
On 08/19/23, the student, Jose Manuel Michelle, provided care and completed [facility] documentation on this patient. I have reviewed the student's documentation and agree with the findings except 0800 telemetry assessment claims pt was on comfort measures. This was a mistake in documentation as the pt has not been comfort measures.
[2023-08-19] MEDS: ROSUVASTATIN 10 MG TABLET 20 MG PO (20:46)
[2023-08-19] MEDS: METOPROLOL SUCCINATE EXT REL 100 MG TABCR PO (20:46)
[2023-08-20] VITALS (20 sets, daily range): BP systolic 100–154; BP diastolic 57–92; PULSE 80–88; RESP 16–18; TEMP 36.7–36.8; O2SAT 91–100
--- NOTE | 2023-08-20 02:29 | PCRCNOTE ---
pt did not want 0200 breathing tx, will resume tx's at 0800.
[2023-08-20 06:01] LABS: Basophils Percent Auto 0.4 % (0.2-1.2); Eosinophils Absolute Auto 0.1 K/mm3 (0-0.3); Eosinophils Percent Auto 1.9 % (0-4.4); Hemoglobin 10.9 g/dL (12.0-15.0); Immature Granulocyte Absolute 0.09 K/mm3 (0.00-0.031); Immature Granulocyte Percent A 1.2 % (0-0.5); Lymphocytes Absolute Auto 1.61 K/mm3 (0.9-3.2); Lymphocytes Percent Auto 22.1 % (18.3-44.2); Mean Corpuscular HGB Conc 32.1 g/dl (32-36); Mean Corpuscular Hemoglobin 29.1 pg (26-34); Mean Corpuscular Volume 90.9 fl (80-100); Mean Platelet Volume 10.3 fl (7.4-10.4); Monocytes Absolute Auto 1.1 K/mm3 (0.1-0.6); Monocytes Percent Auto 14.5 % (2.6-8.5); Neutrophils Absolute Auto 4.4 K/mm3 (1.3-6.7); Neutrophils Percent Auto 59.9 % (45.5-73.1); Platelet Count Result 278 k/mm3 (150-375); Red Blood Count 3.74 M/mm3 (4.2-5.4); Red Cell Distribution Width 15.9 % (11.5-14.5); White Blood Count 7.3 K/mm3 (4.5-10.0)
[2023-08-20 06:29] LABS: Alanine Aminotransferase 47 U/L (6-35); Alkaline Phosphatase 138 U/L (38-126); Anion Gap 10 mmol/L (8-16); Aspartate Amino Transferase 53 U/L (14-36); Bilirubin,Total 1.4 mg/dL (0.2-1.3); Blood Urea Nitrogen 44 mg/dL (7-17); Calcium 8.4 mg/dL (8.4-10.2); Carbon Dioxide 24 mmol/L (22-30); Chloride 104 mmol/L (98-107); Estimated CRCL calculation 28 ml/min; Estimated Glomerular Filt Rate 31; Glucose 115 mg/dL (65-110); Magnesium 2.2 mg/dL (1.6-2.3); Phosphorus 3.7 mg/dL (2.5-4.5); Sodium 138 mmol/L (137-145)
[2023-08-20] MEDS: IPRATROPIUM 0.5 MG/ALBUTEROL SULFATE 2.5 MG AMPUL.NEB 3 ML INHALATION (07:00)
[2023-08-20 07:32] LABS: Potassium 3.2 mmol/L (3.4-5.0)
[2023-08-20] MEDS: guaiFENesin 12 HR 600 MG TABCR PO ×2 (08:45→20:46)
[2023-08-20] MEDS: FUROSEMIDE INJ 40 MG/4 ML VIAL 20 MG IV PUSH (08:45)
[2023-08-20] MEDS: DULoxetine HCL 60 MG CAPSULE.DR PO (08:45)
[2023-08-20] MEDS: PANTOPRAZOLE 40 MG TABLET PO (08:45)
--- NOTE | 2023-08-20 09:19 | PCOTNOTE ---
The patient treatment was not able to be completed. Patient working with PT. Will plan to continue treatment per plan of care.
[2023-08-20] MEDS: diazePAM (*CRX) 5 MG TABLET PO (11:04)
--- NOTE | 2023-08-20 11:43 | PM.IMPN ---
Progress Note: A&P Assessment and Plan (1) Postoperative bile leak: Code(s): K91.89 - Other postprocedural complications and disorders of digestive system; K83.8 - Other specified diseases of biliary tract Status: Acute Assessment and Plan: Status post elective cholecystectomy on 08/13/2023 with subsequent bile leak Status post biliary stent on 08/16/2023. No acute complications. pain is resolving. Tramadol and Tylenol p.r.n. Follow general surgery and GI recommendations on going. She has been advanced to a regular diet. Will need to follow with GI and have the stent taken out. Zosyn has been discontinued due to CHUCK. Switched to ceftriaxone and metronidazole. Ordering repeat right upper quadrant ultrasound in light of that discovered hematoma. She does have some uncomfortable feeling when taking deep breaths. Will check to see if this hematoma is resolving or? This will help guide antibiotic timeline as well, she is largely nontoxic appearing at the moment but transaminitis persists Continue incentive spirometer (2) Ascites: Code(s): R18.8 - Other ascites Status: Acute Assessment and Plan: Probably secondary to bile leak. Continue to monitor (3) Status post laparoscopic cholecystectomy: Code(s): Z90.49 - Acquired absence of other specified parts of digestive tract Status: Acute Assessment and Plan: As above (4) Hematoma of gallbladder: Code(s): S36.122A - Contusion of gallbladder, initial encounter Status: Acute Assessment and Plan: Probably mixed with bile. Continue to monitor (5) Elevated liver enzymes: Code(s): R74.8 - Abnormal levels of other serum enzymes Status: Acute Assessment and Plan: Probably secondary to acute issues. Continue to trend (6) Sepsis: Code(s): A41.9 - Sepsis, unspecified organism Status: Acute Assessment and Plan: Resolving, secondary to bile leak. Leukocytosis resolved (7) Post-operative infection: Code(s): T81.40XA - Infection following a procedure, unspecified, initial encounter Status: Acute Assessment and Plan: Zosyn switched to ceftriaxone and Flagyl due to CHUCK. (8) Pleural effusion: Code(s): J90 - Pleural effusion, not elsewhere classified Status: Acute Assessment and Plan: Appear subacute to acute. This is worse on the right and is most likely related to her acute gallbladder issues and hematoma/ascites. None the less, she does have shortness of breath and bilateral pleural effusions. BNP on admission elevated. Surface echo demonstrating 60-65% EF and grade 1 diastolic dysfunction. Probably has a degree of underlying CHF. Her symptomatology greatly improved with the Lasix 40 mg x 1 on 08/18 and on 08/19. With her best urine output came along improvement of her CHUCK. On 08/19 will continue Lasix 20 mg IV b.i.d. On 08/19 She still requires 2-3 L of nasal cannula at rest. NPO at midnight to attempt for thoracentesis on the right side. On 08/20 thoracentesis pending as well as right upper quadrant ultrasound. (9) Hypoxic respiratory failure: Code(s): J96.91 - Respiratory failure, unspecified with hypoxia Status: Acute Assessment and Plan: Continue O2 and wean as tolerated. Did better after coughing up some sputum. Started guaifenesin extended release 600 mg p.o. b.i.d. on 08/19 On 08/20 discontinue DuoNeb scheduled as this did not provide relief (10) Syncope: Code(s): R55 - Syncope and collapse Status: Acute Assessment and Plan: Resolved. Continue to monitor (11) Metabolic acidosis: Code(s): E87.20 - Acidosis, unspecified Status: Acute Assessment and Plan: Lactic acid normal. This is probably due to the CHUCK and sepsis. It is resolving, continue to monitor. (12) Acute kidney injury superimposed on CKD: Code(s): N17.9 - Acute kidney failure, unspecified; N18
--- NOTE | 2023-08-20 12:10 | PM.PNNEP ---
Progress Note: A&P Assessment and Plan (1) CHUCK (acute kidney injury): Code(s): N17.9 - Acute kidney failure, unspecified Status: Acute Assessment and Plan: slow improvement noted evaluation to date: renal ultrasound okay urine electrolyte non-prerenal (by both FeNA and FeUrea) renal function tolerating diuresis suspect CHUCK due to contrast + infection and mild prerenal factors continue current therapy (2) Stage 3b chronic kidney disease: Code(s): N18.32 - Chronic kidney disease, stage 3b Status: Acute Assessment and Plan: baseline creatinine runs around 1.2 - 1.6mg/dl presumably due to vascular disease, hypertension, WENDY, and age-related change (3) Postoperative bile leak: Code(s): K91.89 - Other postprocedural complications and disorders of digestive system; K83.8 - Other specified diseases of biliary tract Status: Acute Assessment and Plan: s/p elective cholecystectomy on 08/13/2023 with subsequent bile leak s/p post biliary stent on 08/16/2023 General Surgery and GI following tolerating oral intake (4) Pleural effusion: Code(s): J90 - Pleural effusion, not elsewhere classified Status: Acute Assessment and Plan: felt to be responsible or respiratory/breathing issues Echo results noted - preserved EF but diastolic dysfunction noted reasonable response with IV diuretics continue current therapy (5) Hypertension: Qualifiers: Hypertension type: primary hypertension Qualified Code(s): I10 - Essential (primary) hypertension Code(s): I10 - Essential (primary) hypertension Status: Acute Assessment and Plan: reasonable control follow trend of hemodynamics Subjective Date/time seen: 08/20/23 12:10 Interval history: Follow-up for acute kidney injury/acute renal failure on chronic kidney disease. Chart reviewed -- assuming care from Dr. Guzmán; renal function stable if not improving in spite of IV diuretic therapy; some improvement in breathing/respiratory status on my visit with patient; no acute distress noted. Exam Narrative: General: elderly but WD/WN female in NAD Heart: normal S1 and S2; no rub Lungs: clear to auscultation Abdomen: soft, nontender, nondistended, positive bowel sounds Extremities: no cyanosis or clubbing; no edema Skin: warm and dry Objective Data Vital Signs Vital Signs: Vital Signs Temp Pulse Resp BP Pulse Ox O2 Del Method O2 Flow Rate 08/20/23 12:01 109/65 08/20/23 11:33 80 137/57 L 08/20/23 08:00 91 Nasal Cannula 3 08/20/23 09:12 100/58 L 08/20/23 09:10 134/60 08/20/23 07:10 84 18 08/20/23 07:00 83 18 08/20/23 07:00 83 18 91 Nasal Cannula 2 08/20/23 05:12 98.1 F 84 17 154/63 H 96 08/20/23 04:00 81 08/20/23 00:00 88 08/19/23 20:00 83 08/19/23 20:09 75 20 08/19/23 20:08 77 93 CPAP 08/19/23 20:00 77 20 08/19/23 19:37 98.9 F 83 17 145/62 H 95 Intake/Output Intake/Output: Intake & Output 08/17/23 08/18/23 08/19/23 08/20/23 23:59 23:59 23:59 23:59 Intake Total 1860 1900 1120 240 Output Total 647 942 0577 540 Balance 1060 1700 -2080 -300 Meds/Results Medications: Active Medications Generic Name Dose Route Start Last Admin Trade Name Freq PRN Reason Stop Dose Admin Albuterol 2.5 mg 08/18/23 12:02 08/18/23 12:10 Albuterol Sulfate Neb 2.5 Mg/3 Ml Inh INHALATION 2.5 mg Q4HRT PRN Administration Shortness Of Breath Duloxetine HCl 60 mg 08/17/23 09:00 08/20/23 08:45 Duloxetine Hcl 60 Mg Capsule.Dr PO 60 mg QAM ARTHUR Administration Guaifenesin 600 mg 08/19/23 14:10 08/20/23 08:45 Guaifenesin 12 Hr 600 Mg Tabcr PO 600 mg Q12HR ARTHUR Administration Hydromorphone HCl 0.5 mg 08/15/23 05:39 08/19/23 10:10 Hydromorphone Hcl Inj (*Crx) 1 Mg/Ml Syr IV PUSH 0.
--- NOTE | 2023-08-20 12:10 | P.PNNP_ITS ---
Progress Note: A&P Assessment and Plan (1) CHUCK (acute kidney injury): Code(s): N17.9 - Acute kidney failure, unspecified Status: Acute Assessment and Plan: * slow improvement noted * evaluation to date: * renal ultrasound okay * urine electrolyte non-prerenal (by both FeNA and FeUrea) * renal function tolerating diuresis * suspect CHUCK due to contrast + infection and mild prerenal factors * continue current therapy (2) Stage 3b chronic kidney disease: Code(s): N18.32 - Chronic kidney disease, stage 3b Status: Acute Assessment and Plan: * baseline creatinine runs around 1.2 - 1.6mg/dl * presumably due to vascular disease, hypertension, WENDY, and age-related change (3) Postoperative bile leak: Code(s): K91.89 - Other postprocedural complications and disorders of digestive system; K83.8 - Other specified diseases of biliary tract Status: Acute Assessment and Plan: * s/p elective cholecystectomy on 08/13/2023 with subsequent bile leak * s/p post biliary stent on 08/16/2023 * General Surgery and GI following * tolerating oral intake (4) Pleural effusion: Code(s): J90 - Pleural effusion, not elsewhere classified Status: Acute Assessment and Plan: * felt to be responsible or respiratory/breathing issues * Echo results noted - preserved EF but diastolic dysfunction noted * reasonable response with IV diuretics * continue current therapy (5) Hypertension: Qualifiers: Hypertension type: primary hypertension Qualified Code(s): I10 - Essential (primary) hypertension Code(s): I10 - Essential (primary) hypertension Status: Acute Assessment and Plan: * reasonable control * follow trend of hemodynamics Subjective Date/time seen: 08/20/23 12:10 Interval history: Follow-up for acute kidney injury/acute renal failure on chronic kidney disease. Chart reviewed -- assuming care from Dr. Guzmán; renal function stable if not improving in spite of IV diuretic therapy; some improvement in breathing/respiratory status on my visit with patient; no acute distress noted. Exam Narrative: General: elderly but WD/WN female in NAD Heart: normal S1 and S2; no rub Lungs: clear to auscultation Abdomen: soft, nontender, nondistended, positive bowel sounds Extremities: no cyanosis or clubbing; no edema Skin: warm and dry Objective Data Vital Signs Vital Signs: Vital Signs Temp Pulse Resp BP Pulse Ox O2 Del Method O2 Flow Rate 08/20/23 12:01 109/65 08/20/23 11:33 80 137/57 L 08/20/23 08:00 91 Nasal Cannula 3 08/20/23 09:12 100/58 L 08/20/23 09:10 134/60 08/20/23 07:10 84 18 08/20/23 07:00 83 18 08/20/23 07:00 83 18 91 Nasal Cannula 2 08/20/23 05:12 98.1 F 84 17 154/63 H 96 08/20/23 04:00 81 08/20/23 00:00 88 08/19/23 20:00 83 08/19/23 20:09 75 20 08/19/23 20:08 77 93 CPAP 08/19/23 20:00 77 20 08/19/23 19:37 98.9 F 83 17 145/62 H 95 Intake/Output Intake/Output: Intake & Output 08/17/23 08/18/23 08/19/23 08/20/23 23:59 23:59 23:59 23:59 Intake Total 1860 1900 1120 240
--- NOTE | 2023-08-20 14:17 | PM.PNGS ---
Progress Note: A&P Assessment and Plan (1) Postoperative bile leak: Code(s): K91.89 - Other postprocedural complications and disorders of digestive system; K83.8 - Other specified diseases of biliary tract Status: Acute Assessment and Plan: exam benign, eddie diet, +bowel fxn, labs largely normalized Subjective Subjective Date/Time Seen: 08/20/23 14:17 Interval history: feels better today, breathing better, more energy, eddie diet Review of Systems Review of Systems: All systems reviewed & are unremarkable except as noted in HPI and below Exam Const: General: cooperative, comfortable and no acute distress Resp: Auscultation: diminished lung sounds Cardio: Rate: regular rate Rhythm: regular rhythm GI: Inspection: normal to inspection and non-distended GI Palp: No abdominal tenderness Objective Data Vital Signs Vital Signs: Vital Signs - 24 hr 08/19/23 16:00 08/19/23 19:37 08/19/23 20:00 Temperature 37.2 C Pulse Rate 82 83 77 Respiratory Rate 17 20 Blood Pressure 145/62 H Pulse Oximetry 95 Oxygen Delivery Oxygen Flow Rate 08/19/23 20:08 08/19/23 20:09 08/19/23 20:00 Temperature Pulse Rate 77 75 83 Respiratory Rate 20 Blood Pressure Pulse Oximetry 93 Oxygen Delivery CPAP Oxygen Flow Rate 08/20/23 00:00 08/20/23 04:00 08/20/23 05:12 Temperature 36.7 C Pulse Rate 88 81 84 Respiratory Rate 17 Blood Pressure 154/63 H Pulse Oximetry 96 Oxygen Delivery Oxygen Flow Rate 08/20/23 07:00 08/20/23 07:00 08/20/23 07:10 Temperature Pulse Rate 83 83 84 Respiratory Rate 18 18 18 Blood Pressure Pulse Oximetry 91 Oxygen Delivery Nasal Cannula Oxygen Flow Rate 2 08/20/23 09:10 08/20/23 09:12 08/20/23 08:00 Temperature Pulse Rate Respiratory Rate Blood Pressure 134/60 100/58 L Pulse Oximetry 91 Oxygen Delivery Nasal Cannula Oxygen Flow Rate 3 08/20/23 11:33 08/20/23 11:41 08/20/23 14:05 Temperature Pulse Rate 80 Respiratory Rate Blood Pressure 137/57 L 109/65 Pulse Oximetry 96 Oxygen Delivery Room Air Oxygen Flow Rate Intake/Output Intake/Output: Intake & Output 08/17/23 08/18/23 08/19/2308/20/24 23:59 23:59 23:59 23:59 Intake Total 1860 1900 1120 Output Total 817 138 7720 540 Balance 1060 1700 -2080 -540 Meds/Results Medications: Active Medications Generic Name Dose Route Start Last Admin Trade Name Freq PRN Reason Stop Dose Admin Albuterol 2.5 mg 08/18/23 12:02 08/18/23 12:10 Albuterol Sulfate Neb 2.5 Mg/3 Ml Inh INHALATION 2.5 mg Q4HRT PRN Administration Shortness Of Breath Duloxetine HCl 60 mg 08/17/23 09:00 08/20/23 08:45 Duloxetine Hcl 60 Mg Capsule.Dr PO 60 mg QAM ARTHUR Administration Guaifenesin 600 mg 08/19/23 14:10 08/20/23 08:45 Guaifenesin 12 Hr 600 Mg Tabcr PO 600 mg Q12HR ARTHUR Administration Hydromorphone HCl 0.5 mg 08/15/23 05:39 08/19/23 10:10 Hydromorphone Hcl Inj (*Crx) 1 Mg/Ml Syr IV PUSH 0.5 mg Q4H PRN Administration Pain Rated 7-10 Melatonin 5 mg 08/17/23 23:17 08/18/23 20:10 Melatonin 5 Mg Tablet PO 5 mg HS PRN Administration Sleep Metoprolol Succinate 100 mg 08/16/23 22:20 08/19/23 20:46 Metoprolol Succinate Ext Rel 100 Mg Tabcr PO 100 mg HS ARTHUR Administration Nifedipine 90 mg 08/17/23 15:00 08/19/23 13:58 Nifedipine 30 Mg Tab.Er.24 PO 90 mg DAILY@1500 ARTHUR Administration Ondansetron HCl 4 mg 08/15/23 05:39 Ondansetron Inj 4 Mg/2 Ml Vial IV PUSH Q4H PRN Nausea Pantoprazole Sodium 40 mg 08/19/23 09:00 08/20/23 08:45 Pantoprazole 40 Mg Tablet PO 40 mg QAM ARTHUR Administration Polyethylene Glycol 17 gm 08/19/23 12:03 08/19/23 13:59 Polyethylene Glycol 3350 17 Gm Powd.Pack PO 17 gm QAM PRN Administration Constipation Rosuvastatin Calcium 20 mg 08/16/23 22:20 08/19/23 20:46 Rosuvastatin 10 Mg
--- NOTE | 2023-08-20 14:58 | PCOTNOTE ---
Attempted occupational therapy treatment. Patient refused therapy at this time, reports she had a difficult morning, RN stated that she had some orthostatic episodes when going to the bathroom. Following.
--- NOTE | 2023-08-20 15:03 | WPDGIPROGNO ---
Progress Note: A&P Assessment and Plan (1) Postoperative bile leak: Code(s): K91.89 - Other postprocedural complications and disorders of digestive system; K83.8 - Other specified diseases of biliary tract Status: Acute Assessment and Plan: treated with ercp and stent improving and feeling better bili 1.4 ercp in 2 months to remove stent (2) Acute kidney injury superimposed on CKD: Code(s): N17.9 - Acute kidney failure, unspecified; N18.9 - Chronic kidney disease, unspecified Status: Acute Assessment and Plan: renal function improving (3) Diastolic heart failure: Code(s): I50.30 - Unspecified diastolic (congestive) heart failure Status: Acute (4) Pleural effusion: Code(s): J90 - Pleural effusion, not elsewhere classified Status: Acute Assessment and Plan: s/p thoracentesis by primary Subjective Date/time seen: 08/20/23 15:03 Interval history: slowly feeling better but still generalized weakness earlier had thoracentesis Review of Systems Review of Systems: All systems reviewed & are unremarkable except as noted in HPI and below Exam Const: General: cooperative, comfortable and no acute distress HENMT: Face/Nose/Sinus: Normal nares present Eyes: Sclera: sclerae normal Neck: Neck: supple Resp: Auscultation: diminished lung sounds Cardio: Rate: regular rate Rhythm: regular rhythm GI: Inspection: normal to inspection and non-distended GI Palp: No abdominal tenderness Auscultation: normal bowel sounds Skin: General skin exam: normal color Neuro: Speech: normal speech Motor exam (neuro): 5/5 motor strength present throughout Extrem: General: normal to inspection Psych: Mental Status: mental status grossly normal Objective Data Vital Signs Vital Signs: Vital Signs - 24 hr 08/19/23 16:00 08/19/23 19:37 08/19/23 20:00 Temperature 98.9 F Pulse Rate 82 83 77 Respiratory Rate 17 20 Blood Pressure 145/62 H Pulse Oximetry 95 Oxygen Delivery Oxygen Flow Rate 08/19/23 20:08 08/19/23 20:09 08/19/23 20:00 Temperature Pulse Rate 77 75 83 Respiratory Rate 20 Blood Pressure Pulse Oximetry 93 Oxygen Delivery CPAP Oxygen Flow Rate 08/20/23 00:00 08/20/23 04:00 08/20/23 05:12 Temperature 98.1 F Pulse Rate 88 81 84 Respiratory Rate 17 Blood Pressure 154/63 H Pulse Oximetry 96 Oxygen Delivery Oxygen Flow Rate 08/20/23 07:00 08/20/23 07:00 08/20/23 07:10 Temperature Pulse Rate 83 83 84 Respiratory Rate 18 18 18 Blood Pressure Pulse Oximetry 91 Oxygen Delivery Nasal Cannula Oxygen Flow Rate 2 08/20/23 09:10 08/20/23 09:12 08/20/23 08:00 Temperature Pulse Rate Respiratory Rate Blood Pressure 134/60 100/58 L Pulse Oximetry 91 Oxygen Delivery Nasal Cannula Oxygen Flow Rate 3 08/20/23 11:33 08/20/23 11:41 08/20/23 14:05 Temperature Pulse Rate 80 Respiratory Rate Blood Pressure 137/57 L 109/65 Pulse Oximetry 96 Oxygen Delivery Room Air Oxygen Flow Rate 08/20/23 14:00 08/20/23 14:44 Temperature 98.0 F Pulse Rate 84 Respiratory Rate 18 Blood Pressure 144/65 H Pulse Oximetry 100 Oxygen Delivery Oxygen Flow Rate Intake/Output Intake/Output: Intake & Output 08/17/23 08/18/23 08/19/23 08/20/23 23:59 23:59 23:59 23:59 Intake Total 1860 1900 1120 Output Total 934 016 0737 540 Balance 1060 1700 -2080 -540 Meds/Results Medications: Active Medications Generic Name Dose Route Start Last Admin Trade Name Freq PRN Reason Stop Dose Admin Albuterol 2.5 mg 08/18/23 12:02 08/18/23 12:10 Albuterol Sulfate Neb 2.5 Mg/3 Ml Inh INHALATION 2.5 mg Q4HRT PRN Administration Shortness Of Breath Duloxetine HCl 60 mg 08/17/23 09:00 08/20/23 08:45 Duloxetine Hcl 60 Mg Capsule. PO 60 mg QAM ARTHUR Administration Guaifenesin 600 mg 08/19/23 14:10 08/20/23 08:45 Gu
[2023-08-20] MEDS: NIFEdipine 30 MG TAB.ER.24 90 MG PO (15:15)
[2023-08-20 16:26] LABS: Appearance Pleural Fluid Hazy (Clear); Color Pleural Fluid Yellow (Colorless); Pleural fluid source Pleural fluid
[2023-08-20 16:27] LABS: Lymphocytes Pleural Fluid 48 %; Macrophages Pleural Fluid 4 %; Mesothelial Cells Pleural Flui 27 %; Neutrophils Pleural Fluid 21 % (0-25)
[2023-08-20] MEDS: MELATONIN 5 MG TABLET PO (20:46)
[2023-08-20] MEDS: METOPROLOL SUCCINATE EXT REL 100 MG TABCR PO (20:46)
[2023-08-20] MEDS: ROSUVASTATIN 10 MG TABLET 20 MG PO (20:47)
[2023-08-20] MEDS: traMADol HCL (*CRX) 50 MG TABLET PO (20:47)
[2023-08-21] VITALS (15 sets, daily range): BP systolic 116–160; BP diastolic 51–61; PULSE 66–89; RESP 16–18; TEMP 36.2–37.2; O2SAT 94–96
[2023-08-21 06:20] LABS: Basophils Percent Auto 0.4 % (0.2-1.2); Eosinophils Absolute Auto 0.2 K/mm3 (0-0.3); Eosinophils Percent Auto 2.2 % (0-4.4); Hematocrit 31.7 % (37.0-47.0); Hemoglobin 10.5 g/dL (12.0-15.0); Immature Granulocyte Absolute 0.11 K/mm3 (0.00-0.031); Immature Granulocyte Percent A 1.3 % (0-0.5); Lymphocytes Absolute Auto 1.95 K/mm3 (0.9-3.2); Lymphocytes Percent Auto 23.4 % (18.3-44.2); Mean Corpuscular HGB Conc 33.1 g/dl (32-36); Mean Corpuscular Hemoglobin 29.4 pg (26-34); Mean Corpuscular Volume 88.8 fl (80-100); Mean Platelet Volume 10.1 fl (7.4-10.4); Monocytes Absolute Auto 1.1 K/mm3 (0.1-0.6); Monocytes Percent Auto 13.2 % (2.6-8.5); Neutrophils Percent Auto 59.5 % (45.5-73.1); Platelet Count Result 306 k/mm3 (150-375); Red Blood Count 3.57 M/mm3 (4.2-5.4); Red Cell Distribution Width 15.8 % (11.5-14.5); White Blood Count 8.4 K/mm3 (4.5-10.0)
[2023-08-21 06:33] LABS: Alanine Aminotransferase 36 U/L (6-35); Albumin Level 2.9 g/dL (3.5-5.1); Alkaline Phosphatase 125 U/L (38-126); Anion Gap 10 mmol/L (8-16); Aspartate Amino Transferase 40 U/L (14-36); Bilirubin,Total 1.3 mg/dL (0.2-1.3); Blood Urea Nitrogen 47 mg/dL (7-17); Calcium 8.4 mg/dL (8.4-10.2); Carbon Dioxide 22 mmol/L (22-30); Chloride 102 mmol/L (98-107); Estimated CRCL calculation 30 ml/min; Estimated Glomerular Filt Rate 33; Glucose 125 mg/dL (65-110); Magnesium 2.1 mg/dL (1.6-2.3); Potassium 2.9 mmol/L (3.4-5.0); Sodium 134 mmol/L (137-145)
[2023-08-21] MEDS: DULoxetine HCL 60 MG CAPSULE.DR PO (08:10)
[2023-08-21] MEDS: PANTOPRAZOLE 40 MG TABLET PO (08:10)
[2023-08-21] MEDS: guaiFENesin 12 HR 600 MG TABCR PO ×2 (08:10→22:08)
--- NOTE | 2023-08-21 11:01 | P.PNNP_ITS ---
Progress Note: A&P Assessment and Plan (1) CHUCK (acute kidney injury): Code(s): N17.9 - Acute kidney failure, unspecified Status: Acute Assessment and Plan: * slow improvement noted (if not back to baseline) * evaluation to date: * renal ultrasound okay * urine electrolyte non-prerenal (by both FeNA and FeUrea) * renal function tolerating diuresis * suspect CHUCK due to contrast + infection and mild prerenal factors * continue current therapy (2) Stage 3b chronic kidney disease: Code(s): N18.32 - Chronic kidney disease, stage 3b Status: Acute Assessment and Plan: * baseline creatinine runs around 1.2 - 1.6mg/dl * presumably due to vascular disease, hypertension, WENDY, and age-related change (3) Postoperative bile leak: Code(s): K91.89 - Other postprocedural complications and disorders of digestive system; K83.8 - Other specified diseases of biliary tract Status: Acute Assessment and Plan: * s/p elective cholecystectomy on 08/13/2023 with subsequent bile leak * s/p post biliary stent on 08/16/2023 * General Surgery and GI following * tolerating oral intake (4) Pleural effusion: Code(s): J90 - Pleural effusion, not elsewhere classified Status: Acute Assessment and Plan: * felt to be responsible or respiratory/breathing issues * Echo results noted - preserved EF but diastolic dysfunction noted * reasonable response with IV diuretics - transition to oral versus discontinue? * continue current therapy (5) Hypertension: Qualifiers: Hypertension type: primary hypertension Qualified Code(s): I10 - Essential (primary) hypertension Code(s): I10 - Essential (primary) hypertension Status: Acute Assessment and Plan: * reasonable control * follow trend of hemodynamics Not much else to add -- will continue to follow from a distance. Subjective Date/time seen: 08/21/23 11:01 Interval history: Follow-up for acute kidney injury/acute renal failure on chronic kidney disease. No apparent distress noted at the time of my visit; breathing/respiratory status seems stable if not improved; working with PT/OT as tolerated Exam Narrative: General: elderly but WD/WN female in NAD Heart: normal S1 and S2; no rub Lungs: decreased at bases Abdomen: soft, nontender, nondistended, positive bowel sounds Extremities: no cyanosis or clubbing; no edema Skin: warm and intac Objective Data Vital Signs Vital Signs: Vital Signs Temp Pulse Resp BP Pulse Ox O2 Del Method 08/21/23 11:00 77 08/21/23 08:00 68 08/21/23 09:59 116/51 L 08/21/23 09:58 140/61 08/21/23 05:52 97.1 F L 66 16 130/53 L 94 08/21/23 04:00 74 08/21/23 00:00 83 08/21/23 01:50 75 94 CPAP 08/20/23 20:00 84 08/20/23 19:44 107/92 H 08/20/23 19:40 85 128/65 08/20/23 19:38 98.3 F 85 16 149/60 H 92 Intake/Output Intake/Output: Intake & Output 08/18/23 08/19/23 08/20/23 08/21/23 23:59 23:59 23:59 23:59 Intake Total 1900 1120 630 850 Output Total 200 3200 540 Balance 1700 -2080 90 850 Meds/Results Medications: Active Medica
--- NOTE | 2023-08-21 11:01 | PM.PNNEP ---
Progress Note: A&P Assessment and Plan (1) CHUCK (acute kidney injury): Code(s): N17.9 - Acute kidney failure, unspecified Status: Acute Assessment and Plan: slow improvement noted (if not back to baseline) evaluation to date: renal ultrasound okay urine electrolyte non-prerenal (by both FeNA and FeUrea) renal function tolerating diuresis suspect CHUCK due to contrast + infection and mild prerenal factors continue current therapy (2) Stage 3b chronic kidney disease: Code(s): N18.32 - Chronic kidney disease, stage 3b Status: Acute Assessment and Plan: baseline creatinine runs around 1.2 - 1.6mg/dl presumably due to vascular disease, hypertension, WENDY, and age-related change (3) Postoperative bile leak: Code(s): K91.89 - Other postprocedural complications and disorders of digestive system; K83.8 - Other specified diseases of biliary tract Status: Acute Assessment and Plan: s/p elective cholecystectomy on 08/13/2023 with subsequent bile leak s/p post biliary stent on 08/16/2023 General Surgery and GI following tolerating oral intake (4) Pleural effusion: Code(s): J90 - Pleural effusion, not elsewhere classified Status: Acute Assessment and Plan: felt to be responsible or respiratory/breathing issues Echo results noted - preserved EF but diastolic dysfunction noted reasonable response with IV diuretics - transition to oral versus discontinue? continue current therapy (5) Hypertension: Qualifiers: Hypertension type: primary hypertension Qualified Code(s): I10 - Essential (primary) hypertension Code(s): I10 - Essential (primary) hypertension Status: Acute Assessment and Plan: reasonable control follow trend of hemodynamics Not much else to add -- will continue to follow from a distance. Subjective Date/time seen: 08/21/23 11:01 Interval history: Follow-up for acute kidney injury/acute renal failure on chronic kidney disease. No apparent distress noted at the time of my visit; breathing/respiratory status seems stable if not improved; working with PT/OT as tolerated Exam Narrative: General: elderly but WD/WN female in NAD Heart: normal S1 and S2; no rub Lungs: decreased at bases Abdomen: soft, nontender, nondistended, positive bowel sounds Extremities: no cyanosis or clubbing; no edema Skin: warm and intac Objective Data Vital Signs Vital Signs: Vital Signs Temp Pulse Resp BP Pulse Ox O2 Del Method 08/21/23 11:00 77 08/21/23 08:00 68 08/21/23 09:59 116/51 L 08/21/23 09:58 140/61 08/21/23 05:52 97.1 F L 66 16 130/53 L 94 08/21/23 04:00 74 08/21/23 00:00 83 08/21/23 01:50 75 94 CPAP 08/20/23 20:00 84 08/20/23 19:44 107/92 H 08/20/23 19:40 85 128/65 08/20/23 19:38 98.3 F 85 16 149/60 H 92 Intake/Output Intake/Output: Intake & Output 08/18/23 08/19/23 08/20/23 08/21/23 23:59 23:59 23:59 23:59 Intake Total 1900 1120 630 850 Output Total 200 3200 540 Balance 1700 -2080 90 850 Meds/Results Medications: Active Medications Generic Name Dose Route Start Last Admin Trade Name Freq PRN Reason Stop Dose Admin Albuterol 2.5 mg 08/18/23 12:02 08/18/23 12:10 Albuterol Sulfate Neb 2.5 Mg/3 Ml Inh INHALATION 2.5 mg Q4HRT PRN Administration Shortness Of Breath Aspirin 325 mg 08/21/23 17:45 Aspirin 325 Mg Tablet PO DAILY@0800 [facility] Clopidogrel Bisulfate 75 mg 08/21/23 17:45 Clopidogrel Bisulfate 75 Mg Tablet PO QAM [facility] Duloxetine HCl 60 mg 08/17/23 09:00 08/21/23 08:10 Duloxetine Hcl 60 Mg Capsule.Dr PO 60 mg QAM [facility] Administration Guaifenesin 600 mg 08/19/23 14:10 08/21/23 08:10 Guaifenesin 12 Hr 600 Mg Tabcr PO 600 mg Q12HR [facility] Administration Hydromorphone HCl 0.5 mg 08/15/23 05:39 08/19/23 10:10
--- NOTE | 2023-08-21 11:19 | PCDIET ---
Nursing requested consult regarding diet supplement. Spoke with patient today, regarding oral intake. Intake has been minimal 10-25% for the past couple of days. Just no appetite per patient. Family also present, states weight has been stable. Discussed diet supplement with patient today and she would like to start on Ensure compact BID 4 oz. 220 kcals and 9 gms protein. Agree with diet orders. No further nutritional interventions needed at this time. Will monitor for LOS.
--- NOTE | 2023-08-21 13:05 | PM.PNGS ---
Progress Note: A&P Assessment and Plan (1) Postoperative bile leak: Code(s): K91.89 - Other postprocedural complications and disorders of digestive system; K83.8 - Other specified diseases of biliary tract Status: Acute Assessment and Plan: exam completely benign, cont medical optimization of her other comorbid conditions, home soon, encourage OOB/IS Subjective Subjective Date/Time Seen: 08/21/23 13:05 Interval history: doing better, abd pain much improved, breathing better Review of Systems Review of Systems: All systems reviewed & are unremarkable except as noted in HPI and below Exam Const: General: cooperative, comfortable and no acute distress Resp: Auscultation: clear to auscultation bilaterally Cardio: Rate: regular rate Rhythm: regular rhythm GI: Inspection: normal to inspection and non-distended GI Palp: No abdominal tenderness, Yes Soft to palpation, No Tenderness to palpation present (GI), No Guarding due to palpation present (GI) and No Rigid due to palpation Objective Data Vital Signs Vital Signs: Vital Signs - 24 hr 08/20/23 14:05 08/20/23 14:00 08/20/23 14:44 Temperature 36.7 C Pulse Rate 84 Respiratory Rate 18 Blood Pressure 144/65 H Pulse Oximetry 96 100 Oxygen Delivery Room Air 08/20/23 18:00 08/20/23 16:00 08/20/23 19:38 Temperature 36.8 C Pulse Rate 85 85 Respiratory Rate 16 Blood Pressure 149/60 H Pulse Oximetry 93 92 Oxygen Delivery Room Air 08/20/23 19:40 08/20/23 19:44 08/20/23 20:00 Temperature Pulse Rate 85 84 Respiratory Rate Blood Pressure 128/65 107/92 H Pulse Oximetry Oxygen Delivery 08/21/23 01:50 08/21/23 00:00 08/21/23 04:00 Temperature Pulse Rate 75 83 74 Respiratory Rate Blood Pressure Pulse Oximetry 94 Oxygen Delivery CPAP 08/21/23 05:52 08/21/23 09:58 08/21/23 09:59 Temperature 36.2 C L Pulse Rate 66 Respiratory Rate 16 Blood Pressure 130/53 L 140/61 116/51 L Pulse Oximetry 94 Oxygen Delivery 08/21/23 08:00 Temperature Pulse Rate 68 Respiratory Rate Blood Pressure Pulse Oximetry Oxygen Delivery Intake/Output Intake/Output: Intake & Output 08/18/23 08/19/23 08/20/23 01/30/24 23:59 23:59 23:59 23:59 Intake Total 1900 1120 630 370 Output Total 200 3200 540 Balance 1700 -2080 90 370 Meds/Results Medications: Active Medications Generic Name Dose Route Start Last Admin Trade Name Freq PRN Reason Stop Dose Admin Albuterol 2.5 mg 08/18/23 12:02 08/18/23 12:10 Albuterol Sulfate Neb 2.5 Mg/3 Ml Inh INHALATION 2.5 mg Q4HRT PRN Administration Shortness Of Breath Duloxetine HCl 60 mg 08/17/23 09:00 08/21/23 08:10 Duloxetine Hcl 60 Mg Capsule.Dr PO 60 mg QAM [facility] Administration Guaifenesin 600 mg 08/19/23 14:10 08/21/23 08:10 Guaifenesin 12 Hr 600 Mg Tabcr PO 600 mg Q12HR [facility] Administration Hydromorphone HCl 0.5 mg 08/15/23 05:39 08/19/23 10:10 Hydromorphone Hcl Inj (*Crx) 1 Mg/Ml Syr IV PUSH 0.5 mg Q4H PRN Administration Pain Rated 7-10 Melatonin 5 mg 08/17/23 23:17 08/20/23 20:46 Melatonin 5 Mg Tablet PO 5 mg HS PRN Administration Sleep Metoprolol Succinate 100 mg 08/16/23 22:20 08/20/23 20:46 Metoprolol Succinate Ext Rel 100 Mg Tabcr PO 100 mg HS [facility] Administration Nifedipine 90 mg 08/17/23 15:00 08/20/23 15:15 Nifedipine 30 Mg Tab.Er.24 PO 90 mg DAILY@1500 [facility] Administration Ondansetron HCl 4 mg 08/15/23 05:39 Ondansetron Inj 4 Mg/2 Ml Vial IV PUSH Q4H PRN Nausea Pantoprazole Sodium 40 mg 08/19/23 09:00 08/21/23 08:10 Pantoprazole 40 Mg Tablet PO 40 mg QAM [facility] Administration Polyethylene Glycol 17 gm 08/19/23 12:03 08/19/23 13:59 Polyethylene Glycol 3350 17 Gm Powd.Pack PO 17 gm QAM PRN Administration Constipation Rosuvastatin Calcium 20 mg 08/16/23 22:20 08/20/23 20:47 Rosuvastatin
[2023-08-21] MEDS: NIFEdipine 30 MG TAB.ER.24 90 MG PO (14:06)
[2023-08-21] MEDS: POTASSIUM CHLORIDE 20 MEQ ER TABLET PO ×2 (14:06→18:53)
--- NOTE | 2023-08-21 16:52 | WPDGIPROGNO ---
Progress Note: A&P Assessment and Plan (1) Postoperative bile leak: Code(s): K91.89 - Other postprocedural complications and disorders of digestive system; K83.8 - Other specified diseases of biliary tract Status: Acute Assessment and Plan: treated with ercp and stent improving and feeling better bili normal and liver enzymes trending down ercp in 2 months to remove stent home soon (2) Acute kidney injury superimposed on CKD: Code(s): N17.9 - Acute kidney failure, unspecified; N18.9 - Chronic kidney disease, unspecified Status: Acute Assessment and Plan: renal function improving (3) Diastolic heart failure: Code(s): I50.30 - Unspecified diastolic (congestive) heart failure Status: Acute (4) Pleural effusion: Code(s): J90 - Pleural effusion, not elsewhere classified Status: Acute Assessment and Plan: s/p thoracentesis by primary Subjective Date/time seen: 08/21/23 16:52 Interval history: she keeps feeling better, soreness from thoracentesis Review of Systems Review of Systems: All systems reviewed & are unremarkable except as noted in HPI and below Exam Const: General: cooperative, comfortable and no acute distress HENMT: Face/Nose/Sinus: Normal nares present Eyes: Sclera: sclerae normal Neck: Neck: supple Resp: Auscultation: clear to auscultation bilaterally Cardio: Rate: regular rate Rhythm: regular rhythm GI: Inspection: normal to inspection and non-distended GI Palp: No abdominal tenderness, Yes Soft to palpation, No Tenderness to palpation present (GI), No Guarding due to palpation present (GI) and No Rigid due to palpation Skin: General skin exam: normal color Neuro: Speech: normal speech Motor exam (neuro): 5/5 motor strength present throughout Extrem: General: normal to inspection Psych: Affect: normal affect Objective Data Vital Signs Vital Signs: Vital Signs - 24 hr 08/20/23 18:00 08/20/23 19:38 08/20/23 19:40 Temperature 98.3 F Pulse Rate 85 85 Respiratory Rate 16 Blood Pressure 149/60 H 128/65 Pulse Oximetry 93 92 Oxygen Delivery Room Air 08/20/23 19:44 08/20/23 20:00 08/21/23 01:50 Temperature Pulse Rate 84 75 Respiratory Rate Blood Pressure 107/92 H Pulse Oximetry 94 Oxygen Delivery CPAP 08/21/23 00:00 08/21/23 04:00 08/21/23 05:52 Temperature 97.1 F L Pulse Rate 83 74 66 Respiratory Rate 16 Blood Pressure 130/53 L Pulse Oximetry 94 Oxygen Delivery 08/21/23 09:58 08/21/23 09:59 08/21/23 08:00 Temperature Pulse Rate 68 Respiratory Rate Blood Pressure 140/61 116/51 L Pulse Oximetry Oxygen Delivery 08/21/23 12:00 08/21/23 14:00 Temperature 97.3 F L Pulse Rate 77 76 Respiratory Rate 18 Blood Pressure 158/51 H Pulse Oximetry 96 Oxygen Delivery Intake/Output Intake/Output: Intake & Output 08/18/23 08/19/23 08/20/23 08/21/23 23:59 23:59 23:59 23:59 Intake Total 1900 1120 630 490 Output Total 200 3200 540 Balance 1700 -2080 90 490 Meds/Results Medications: Active Medications Generic Name Dose Route Start Last Admin Trade Name Freq PRN Reason Stop Dose Admin Albuterol 2.5 mg 08/18/23 12:02 08/18/23 12:10 Albuterol Sulfate Neb 2.5 Mg/3 Ml Inh INHALATION 2.5 mg Q4HRT PRN Administration Shortness Of Breath Duloxetine HCl 60 mg 08/17/23 09:00 08/21/23 08:10 Duloxetine Hcl 60 Mg Capsule.Dr PO 60 mg QAM [facility] Administration Guaifenesin 600 mg 08/19/23 14:10 08/21/23 08:10 Guaifenesin 12 Hr 600 Mg Tabcr PO 600 mg Q12HR [facility] Administration Hydromorphone HCl 0.5 mg 08/15/23 05:39 08/19/23 10:10 Hydromorphone Hcl Inj (*Crx) 1 Mg/Ml Syr IV PUSH 0.5 mg Q4H PRN Administration Pain Rated 7-10 Melatonin 5 mg 08/17/23 23:17 08/20/23 20:46 Melatonin 5 Mg Tablet PO 5 mg HS PRN Administration Sleep Metoprolol Succinate 100 mg 08/16/23 22:20
--- NOTE | 2023-08-21 17:33 | PM.IMPN ---
Progress Note: A&P Assessment and Plan (1) Postoperative bile leak: Code(s): K91.89 - Other postprocedural complications and disorders of digestive system; K83.8 - Other specified diseases of biliary tract Status: Acute Assessment and Plan: Status post elective cholecystectomy on 08/13/2023 with subsequent bile leak Status post biliary stent on 08/16/2023. No acute complications. Pain is resolved. Tramadol and Tylenol p.r.n. Follow general surgery and GI recommendations on going. She has been advanced to a regular diet. Will need to follow with GI and have the stent taken out. Continue incentive spirometer (2) Ascites: Code(s): R18.8 - Other ascites Status: Acute Assessment and Plan: Insignificant, related to her acute surgery issues (3) Status post laparoscopic cholecystectomy: Code(s): Z90.49 - Acquired absence of other specified parts of digestive tract Status: Acute Assessment and Plan: As above (4) Hematoma of gallbladder: Code(s): S36.122A - Contusion of gallbladder, initial encounter Status: Acute Assessment and Plan: Probably mixed with bile. Continue to monitor (5) Elevated liver enzymes: Code(s): R74.8 - Abnormal levels of other serum enzymes Status: Acute Assessment and Plan: Probably secondary to acute issues. Downtrending (6) Sepsis: Code(s): A41.9 - Sepsis, unspecified organism Status: Acute Assessment and Plan: Resolving, secondary to bile leak. Leukocytosis resolved (7) Post-operative infection: Code(s): T81.40XA - Infection following a procedure, unspecified, initial encounter Status: Acute Assessment and Plan: Zosyn switched to ceftriaxone and Flagyl due to CHUCK. (8) Pleural effusion: Code(s): J90 - Pleural effusion, not elsewhere classified Status: Acute Assessment and Plan: Appear subacute to acute. This is worse on the right and is most likely related to her acute gallbladder issues and hematoma/ascites. None the less, she does have shortness of breath and bilateral pleural effusions. BNP on admission elevated. Surface echo demonstrating 60-65% EF and grade 1 diastolic dysfunction. Probably has a degree of underlying CHF. Her symptomatology greatly improved with the Lasix 40 mg x 1 on 08/18 and on 08/19. With her best urine output came along improvement of her CHUCK. On 08/19 will continue Lasix 20 mg IV b.i.d. On 08/19 She still requires 2-3 L of nasal cannula at rest. NPO at midnight to attempt for thoracentesis on the right side. On 08/20 thoracentesis pending as well as right upper quadrant ultrasound. On 08/21 she remains on room air and has good breathing. (9) Hypoxic respiratory failure: Code(s): J96.91 - Respiratory failure, unspecified with hypoxia Status: Acute Assessment and Plan: Did better after coughing up some sputum. Started guaifenesin extended release 600 mg p.o. b.i.d. on 08/19 On 08/20 discontinue DuoNeb scheduled as this did not provide relief Resolved (10) Syncope: Code(s): R55 - Syncope and collapse Status: Acute Assessment and Plan: Resolved. Continue to monitor (11) Metabolic acidosis: Code(s): E87.20 - Acidosis, unspecified Status: Acute Assessment and Plan: Lactic acid normal. This is probably due to the CHUCK and sepsis. It is resolving, continue to monitor. (12) Acute kidney injury superimposed on CKD: Code(s): N17.9 - Acute kidney failure, unspecified; N18.9 - Chronic kidney disease, unspecified Status: Acute Assessment and Plan: On 08/19 status post diuresis her CHUCK is improved. Continue to diurese gently and monitor renal function. On 08/20 she has greatly improved kidney function in spite of achieving large volume diuresis. While she was not appearing to overtly overloaded she was likely hiding fluid in her pleural effu
[2023-08-21] MEDS: ASPIRIN 325 MG TABLET PO (18:53)
[2023-08-21] MEDS: CLOPIDOGREL BISULFATE 75 MG TABLET PO (18:53)
[2023-08-21] MEDS: ONDANSETRON INJ 4 MG/2 ML VIAL IV PUSH (21:36)
[2023-08-21] MEDS: MELATONIN 5 MG TABLET PO (22:08)
[2023-08-21] MEDS: ROSUVASTATIN 10 MG TABLET 20 MG PO (22:08)
[2023-08-21] MEDS: METOPROLOL SUCCINATE EXT REL 100 MG TABCR PO (22:08)
[2023-08-21] MEDS: HYDROmorphone HCL INJ (*CRX) 1 MG/ML SYR 0.5 MG IV PUSH (22:09)
[2023-08-22] VITALS (13 sets, daily range): BP systolic 99–155; BP diastolic 49–68; PULSE 68–96; RESP 16–20; TEMP 36.2–36.7; O2SAT 92–98
[2023-08-22 06:02] LABS: Basophils Percent Auto 0.2 % (0.2-1.2); Eosinophils Absolute Auto 0.2 K/mm3 (0-0.3); Eosinophils Percent Auto 2.1 % (0-4.4); Hemoglobin 10.1 g/dL (12.0-15.0); Immature Granulocyte Percent A 1.1 % (0-0.5); Lymphocytes Percent Auto 24.1 % (18.3-44.2); Mean Corpuscular HGB Conc 31.6 g/dl (32-36); Mean Corpuscular Hemoglobin 28.9 pg (26-34); Mean Corpuscular Volume 91.7 fl (80-100); Mean Platelet Volume 10.3 fl (7.4-10.4); Monocytes Absolute Auto 1.2 K/mm3 (0.1-0.6); Monocytes Percent Auto 13.3 % (2.6-8.5); Neutrophils Absolute Auto 5.1 K/mm3 (1.3-6.7); Neutrophils Percent Auto 59.2 % (45.5-73.1); Platelet Count Result 304 k/mm3 (150-375); Red Blood Count 3.49 M/mm3 (4.2-5.4); Red Cell Distribution Width 15.9 % (11.5-14.5); White Blood Count 8.7 K/mm3 (4.5-10.0)
[2023-08-22 06:21] LABS: Alanine Aminotransferase 29 U/L (6-35); Albumin Level 2.8 g/dL (3.5-5.1); Alkaline Phosphatase 115 U/L (38-126); Anion Gap 8 mmol/L (8-16); Aspartate Amino Transferase 32 U/L (14-36); Bilirubin,Total 1.2 mg/dL (0.2-1.3); Blood Urea Nitrogen 51 mg/dL (7-17); Calcium 8.3 mg/dL (8.4-10.2); Carbon Dioxide 23 mmol/L (22-30); Chloride 104 mmol/L (98-107); Estimated CRCL calculation 31 ml/min; Estimated Glomerular Filt Rate 33; Glucose 141 mg/dL (65-110); Magnesium 2.2 mg/dL (1.6-2.3); Potassium 3.4 mmol/L (3.4-5.0); Sodium 135 mmol/L (137-145)
[2023-08-22] MEDS: guaiFENesin 12 HR 600 MG TABCR PO (08:19)
[2023-08-22] MEDS: CLOPIDOGREL BISULFATE 75 MG TABLET PO (08:19)
[2023-08-22] MEDS: PANTOPRAZOLE 40 MG TABLET PO ×2 (08:19→20:36)
[2023-08-22] MEDS: ASPIRIN 325 MG TABLET PO (08:19)
[2023-08-22] MEDS: DULoxetine HCL 60 MG CAPSULE.DR PO (08:19)
[2023-08-22] MEDS: POTASSIUM CHLORIDE 20 MEQ ER TABLET PO ×2 (08:19→17:17)
[2023-08-22] MEDS: ONDANSETRON INJ 4 MG/2 ML VIAL IV PUSH ×2 (10:56→14:26)
--- NOTE | 2023-08-22 12:16 | PM.PNGS ---
Progress Note: A&P Assessment and Plan (1) Postoperative bile leak: Code(s): K91.89 - Other postprocedural complications and disorders of digestive system; K83.8 - Other specified diseases of biliary tract Status: Acute Assessment and Plan: exam completely benign, eddie diet and having bowel fxn, no acute surgical issues, will s/o, call c ?s, issues, f/u 2 wks p dc Subjective Subjective Date/Time Seen: 08/22/23 12:16 Interval history: c/o dizziness, blurred vision when standing, o/w feels much improved, eddie diet Review of Systems Review of Systems: All systems reviewed & are unremarkable except as noted in HPI and below Exam Const: General: cooperative, comfortable and no acute distress Resp: Auscultation: clear to auscultation bilaterally Cardio: Rate: regular rate Rhythm: regular rhythm GI: Inspection: normal to inspection and non-distended GI Palp: No abdominal tenderness, Yes Soft to palpation and No Tenderness to palpation present (GI) Objective Data Vital Signs Vital Signs: Vital Signs - 24 hr 08/21/23 14:00 08/21/23 16:00 08/21/23 20:00 Temperature 36.3 C L Pulse Rate 76 79 88 Respiratory Rate 18 Blood Pressure 158/51 H Pulse Oximetry 96 Oxygen Delivery 08/21/23 21:16 08/21/23 21:20 08/21/23 21:37 Temperature 37.2 C Pulse Rate 89 Respiratory Rate 18 Blood Pressure 160/55 H 121/59 L 133/59 L Pulse Oximetry 95 Oxygen Delivery 08/21/23 22:08 08/22/23 00:00 08/22/23 04:00 Temperature Pulse Rate 77 89 75 Respiratory Rate Blood Pressure Pulse Oximetry Oxygen Delivery 08/22/23 05:07 08/22/23 08:00 08/22/23 08:00 Temperature 36.6 C Pulse Rate 78 Respiratory Rate 18 Blood Pressure 127/49 L 125/54 L Pulse Oximetry 92 Oxygen Delivery Room Air 08/22/23 09:28 08/22/23 09:28 08/22/23 08:00 Temperature Pulse Rate 68 Respiratory Rate Blood Pressure 114/68 99/56 L Pulse Oximetry Oxygen Delivery Intake/Output Intake/Output: Intake & Output 08/19/23 08/20/23 08/21/23 08/22/23 23:59 23:59 23:59 23:59 Intake Total 1120 630 850 50 Output Total 3200 540 Balance -2080 90 850 50 Meds/Results Medications: Active Medications Generic Name Dose Route Start Last Admin Trade Name Freq PRN Reason Stop Dose Admin Albuterol 2.5 mg 08/18/23 12:02 08/18/23 12:10 Albuterol Sulfate Neb 2.5 Mg/3 Ml Inh INHALATION 2.5 mg Q4HRT PRN Administration Shortness Of Breath Aspirin 325 mg 08/21/23 17:45 08/22/23 08:19 Aspirin 325 Mg Tablet PO 325 mg DAILY@0800 [facility] Administration Clopidogrel Bisulfate 75 mg 08/21/23 17:45 08/22/23 08:19 Clopidogrel Bisulfate 75 Mg Tablet PO 75 mg QAM [facility] Administration Duloxetine HCl 60 mg 08/17/23 09:00 08/22/23 08:19 Duloxetine Hcl 60 Mg Capsule.Dr PO 60 mg QAM [facility] Administration Guaifenesin 600 mg 08/19/23 14:10 08/22/23 08:19 Guaifenesin 12 Hr 600 Mg Tabcr PO 600 mg Q12HR [facility] Administration Hydromorphone HCl 0.5 mg 08/15/23 05:39 08/21/23 22:09 Hydromorphone Hcl Inj (*Crx) 1 Mg/Ml Syr IV PUSH 0.5 mg Q4H PRN Administration Pain Rated 7-10 Melatonin 5 mg 08/17/23 23:17 08/21/23 22:08 Melatonin 5 Mg Tablet PO 5 mg HS PRN Administration Sleep Metoprolol Succinate 100 mg 08/16/23 22:20 08/21/23 22:08 Metoprolol Succinate Ext Rel 100 Mg Tabcr PO 100 mg HS [facility] Administration Nifedipine 90 mg 08/17/23 15:00 08/21/23 14:06 Nifedipine 30 Mg Tab.Er.24 PO 90 mg DAILY@1500 [facility] Administration Ondansetron HCl 4 mg 08/15/23 05:39 08/22/23 10:56 Ondansetron Inj 4 Mg/2 Ml Vial IV PUSH 4 mg Q4H PRN Administration Nausea Pantoprazole Sodium 40 mg 08/19/23 09:00 08/22/23 08:19 Pantoprazole 40 Mg Tablet PO 40 mg QAM [facility] Administration Polyethylene Glycol 17 gm 08/19/23 12:03 08/19/23 13:59 Polyethylene Glycol 3350 17 Gm Powd.Pack PO 17
--- NOTE | 2023-08-22 14:17 | WPDGIPROGNO ---
Progress Note: A&P Assessment and Plan (1) Postoperative bile leak: Code(s): K91.89 - Other postprocedural complications and disorders of digestive system; K83.8 - Other specified diseases of biliary tract Status: Acute Assessment and Plan: treated with ercp and stent today normalization of liver enzymes some burning sensation, will increase protonix to twice daily ercp in 2 months to remove stent (2) Acute kidney injury superimposed on CKD: Code(s): N17.9 - Acute kidney failure, unspecified; N18.9 - Chronic kidney disease, unspecified Status: Acute Assessment and Plan: renal function stable now (3) Diastolic heart failure: Code(s): I50.30 - Unspecified diastolic (congestive) heart failure Status: Acute (4) Pleural effusion: Code(s): J90 - Pleural effusion, not elsewhere classified Status: Acute Assessment and Plan: s/p thoracentesis by primary Subjective Date/time seen: 08/22/23 14:17 Interval history: today after physical therapy having burning sensation in epigastric area, some nausea Review of Systems Review of Systems: All systems reviewed & are unremarkable except as noted in HPI and below Exam Const: General: cooperative, comfortable and no acute distress HENMT: Face/Nose/Sinus: Normal nares present Eyes: Sclera: sclerae normal Neck: Neck: supple Resp: Auscultation: clear to auscultation bilaterally Cardio: Rate: regular rate Rhythm: regular rhythm GI: Inspection: normal to inspection and non-distended GI Palp: No abdominal tenderness, Yes Soft to palpation, No Tenderness to palpation present (GI), No Guarding due to palpation present (GI) and No Rigid due to palpation Skin: General skin exam: normal color Neuro: Speech: normal speech Motor exam (neuro): 5/5 motor strength present throughout Extrem: General: normal to inspection Psych: Affect: normal affect Objective Data Vital Signs Vital Signs: Vital Signs - 24 hr 08/21/23 16:00 08/21/23 20:00 08/21/23 21:16 Temperature 99 F Pulse Rate 79 88 89 Respiratory Rate 18 Blood Pressure 160/55 H Pulse Oximetry 95 Oxygen Delivery 08/21/23 21:20 08/21/23 21:37 08/21/23 22:08 Temperature Pulse Rate 77 Respiratory Rate Blood Pressure 121/59 L 133/59 L Pulse Oximetry Oxygen Delivery 08/22/23 00:00 08/22/23 04:00 08/22/23 05:07 Temperature 97.9 F Pulse Rate 89 75 78 Respiratory Rate 18 Blood Pressure 127/49 L Pulse Oximetry 92 Oxygen Delivery 08/22/23 08:00 08/22/23 08:00 08/22/23 09:28 Temperature Pulse Rate Respiratory Rate Blood Pressure 125/54 L 114/68 Pulse Oximetry Oxygen Delivery Room Air 08/22/23 09:28 08/22/23 08:00 08/22/23 12:00 Temperature Pulse Rate 68 79 Respiratory Rate Blood Pressure 99/56 L Pulse Oximetry Oxygen Delivery Intake/Output Intake/Output: Intake & Output 08/19/23 08/20/23 08/21/23 08/22/23 23:59 23:59 23:59 23:59 Intake Total 1120 630 850 50 Output Total 3200 540 Balance -2080 90 850 50 Meds/Results Medications: Active Medications Generic Name Dose Route Start Last Admin Trade Name Freq PRN Reason Stop Dose Admin Albuterol 2.5 mg 08/18/23 12:02 08/18/23 12:10 Albuterol Sulfate Neb 2.5 Mg/3 Ml Inh INHALATION 2.5 mg Q4HRT PRN Administration Shortness Of Breath Aspirin 325 mg 08/21/23 17:45 08/22/23 08:19 Aspirin 325 Mg Tablet PO 325 mg DAILY@0800 [facility] Administration Clopidogrel Bisulfate 75 mg 08/21/23 17:45 08/22/23 08:19 Clopidogrel Bisulfate 75 Mg Tablet PO 75 mg QAM [facility] Administration Duloxetine HCl 60 mg 08/17/23 09:00 08/22/23 08:19 Duloxetine Hcl 60 Mg Capsule.Dr PO 60 mg QAM [facility] Administration Guaifenesin 600 mg 08/19/23 14:10 08/22/23 08:19 Guaifenesin 12 Hr 600 Mg Tabcr PO 600 mg Q12HR [facility] Administration Hydromorphone HCl 0.5 mg 08/15/23 05:
[2023-08-22] MEDS: NIFEdipine 30 MG TAB.ER.24 90 MG PO (14:28)
--- NOTE | 2023-08-22 16:59 | PM.CNCAR ---
Assessment and Plan Assessment and plan (1) Orthostasis: Code(s): I95.1 - Orthostatic hypotension Status: Acute Assessment and Plan: Has symptoms of orthostasis. Last orthostatic vital signs I see are negative. She did have large volume diuresis with Lasix, which could have contributed. Agree with stopping the Lasix. Okay to have blood pressures on the higher side due to her symptoms. Agree with holding her Telmisartan, especially with her renal function. Continue with Metoprolol and Nifedipine for now. Continue to work with physical therapy as tolerated. 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 transplanted heart: shawnee heart Qualified Code(s): I25.119 - Atherosclerotic heart disease of sh[place] coronary artery with unspecified angina pectoris Code(s): I25.119 - Atherosclerotic heart disease of sh[place] coronary artery with unspecified angina pectoris Status: Chronic Assessment and Plan: Stable. Continue ASA, Plavix, statin, beta guille. Will reduce her ASA down to 81mg. (3) Hypertension: Qualifiers: Hypertension type: primary hypertension Qualified Code(s): I10 - Essential (primary) hypertension Code(s): I10 - Essential (primary) hypertension Status: Acute Assessment and Plan: Given symptoms of orthostasis, I am okay with having her blood pressures on the higher side. Agree with holding her Telmisartan, especially with her renal function. Continue with Metoprolol and Nifedipine for now. (4) TIA (transient ischemic attack): Code(s): G45.9 - Transient cerebral ischemic attack, unspecified Status: Acute Assessment and Plan: Continue ASA, Plavix, statin. (5) Status post laparoscopic cholecystectomy: Code(s): Z90.49 - Acquired absence of other specified parts of digestive tract Status: Acute Assessment and Plan: As per General Surgery and GI. History of Present Illness History of Present Illness Consult date/time: 08/22/23 16:59 Requesting physician: Veronique Antonio MD Consult reason: Other (Orthostasis, medication management) Reason For Visit: postoperative infection,pleural effusion, hypoxic Narrative: We are consulted for orthostasis, medical management of cardiac issues. This is an 83 year old female who follows with Dr. Santana. She has coronary artery disease s/p CABG, hypertension, history of TIAs, hyperlipidemia, WENDY, GERD, CKD, some orthostatic hypotension in the past. Last office visit with Dr. Santana in May 2023. She also has had longstanding issues with fatigue/poor stamina (no particular cause, likely multifactorial). Patient underwent elective cholecystectomy on 08/13/2023 with subsequent bile leak s/p biliary stent on 08/16. She had an CHUCK which is now improving. Noted to have pleural effusions, for which she was diuresed. Lasix discontinued on 08/21. She reports lightheadedness/dizziness with activity. 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 2016 cardiac catheterization: Patent Left anterior descending with patent stent. sequential ADAME to the occluded D1 was patent but occluded to the Left anterior descending. The PRASANNA from the ADAME to the OM 1 has been occluded since 2001. 90% ostial stenosis of a small to medium-sized OM 1 manage medically because of negative stress tests and atypical chest pain. Bilateral primary osteoarthritis of knee BMI 31.0-31.9,adult BMI 32.0-32.9,adult BMI 32.0-32.9,adult BMI 33.0-33.9,adult BMI 35.0-35.9,adult BMI 36.0-36.
[2023-08-22] MEDS: traMADol HCL (*CRX) 50 MG TABLET PO (17:17)
--- NOTE | 2023-08-22 18:47 | P.PNIM_ITS ---
Progress Note: A&P Assessment and Plan (1) Postoperative bile leak: Code(s): K91.89 - Other postprocedural complications and disorders of digestive system; K83.8 - Other specified diseases of biliary tract Status: Acute Assessment and Plan: Status post elective cholecystectomy on 08/13/2023 with subsequent bile leak Status post biliary stent on 08/16/2023. No acute complications. Pain is resolved. Tramadol and Tylenol p.r.n. Follow general surgery and GI recommendations on going. She has been advanced to a regular diet. Will need to follow with GI and have the stent taken out. Continue incentive spirometer (2) Ascites: Code(s): R18.8 - Other ascites Status: Acute Assessment and Plan: Insignificant, related to her acute surgery issues (3) Status post laparoscopic cholecystectomy: Code(s): Z90.49 - Acquired absence of other specified parts of digestive tract Status: Acute Assessment and Plan: As above (4) Hematoma of gallbladder: Code(s): S36.122A - Contusion of gallbladder, initial encounter Status: Acute Assessment and Plan: Probably mixed with bile. Continue to monitor (5) Elevated liver enzymes: Code(s): R74.8 - Abnormal levels of other serum enzymes Status: Acute Assessment and Plan: Resolved. Likely due to her surgery issues (6) Sepsis: Code(s): A41.9 - Sepsis, unspecified organism Status: Acute Assessment and Plan: Resolving, secondary to bile leak. Leukocytosis resolved (7) Post-operative infection: Code(s): T81.40XA - Infection following a procedure, unspecified, initial encounter Status: Acute Assessment and Plan: Antibiotics discontinued (8) Pleural effusion: Code(s): J90 - Pleural effusion, not elsewhere classified Status: Acute Assessment and Plan: Appear subacute to acute. This is worse on the right and is most likely related to her acute gallbladder issues and hematoma/ascites. None the less, she does have shortness of breath and bilateral pleural effusions. BNP on admission elevated. Surface echo demonstrating 60-65% EF and grade 1 diastolic dysfunction. Probably has a degree of underlying CHF. Her symptomatology greatly improved with the Lasix 40 mg x 1 on 08/18 and on 08/19. With her best urine output came along improvement of her CHUCK. On 08/19 will continue Lasix 20 mg IV b.i.d. On 08/19 She still requires 2-3 L of nasal cannula at rest. NPO at midnight to attempt for thoracentesis on the right side. On 08/20 thoracentesis pending as well as right upper quadrant ultrasound. On 08/21 she remains on room air and has good breathing. On 08/22 no change (9) Hypoxic respiratory failure: Code(s): J96.91 - Respiratory failure, unspecified with hypoxia Status: Acute Assessment and Plan: Resolved status post thoracentesis (10) Syncope: Code(s): R55 - Syncope and collapse Status: Acute Assessment and Plan: Resolved. Continue to monitor (11) Metabolic acidosis: Code(s): E87.20 - Acidosis, unspecified Status: Acute Assessment and Plan: Resolved. Secondary to CHUCK and sepsis (12) Acute kidney injury superimposed on CKD: Code(s): N17.9 - Acute kidney failure, unspecified; N18.9 - Chronic kidney disease, unspecified Status: Acute Assessment and Plan: On 08/19 status post diuresis her CHUCK is improved. Continue to diurese gently and monitor renal function. On 08/20 she
[2023-08-22] MEDS: ROSUVASTATIN 10 MG TABLET 20 MG PO (20:35)
[2023-08-22] MEDS: METOPROLOL SUCCINATE EXT REL 100 MG TABCR PO (20:35)
[2023-08-22] MEDS: MELATONIN 5 MG TABLET PO (20:36)
[2023-08-22] MEDS: HYDROcodone/acetaminophen (*CRX) 7.5-325 MG TABLET 1 TAB PO (22:01)
[2023-08-23] VITALS (9 sets, daily range): BP systolic 116–151; BP diastolic 52–73; PULSE 61–75; RESP 18–20; TEMP 36.5–36.6; O2SAT 96–98
[2023-08-23 06:51] LABS: Basophils Percent Auto 0.5 % (0.2-1.2); Eosinophils Absolute Auto 0.3 K/mm3 (0-0.3); Eosinophils Percent Auto 3.2 % (0-4.4); Hematocrit 31.5 % (37.0-47.0); Hemoglobin 10.1 g/dL (12.0-15.0); Immature Granulocyte Absolute 0.08 K/mm3 (0.00-0.031); Lymphocytes Absolute Auto 2.02 K/mm3 (0.9-3.2); Lymphocytes Percent Auto 24.3 % (18.3-44.2); Mean Corpuscular HGB Conc 32.1 g/dl (32-36); Mean Corpuscular Hemoglobin 29.4 pg (26-34); Mean Corpuscular Volume 91.8 fl (80-100); Mean Platelet Volume 10.3 fl (7.4-10.4); Neutrophils Absolute Auto 4.9 K/mm3 (1.3-6.7); Platelet Count Result 319 k/mm3 (150-375); Red Blood Count 3.43 M/mm3 (4.2-5.4); White Blood Count 8.3 K/mm3 (4.5-10.0)
[2023-08-23 07:08] LABS: Alanine Aminotransferase 27 U/L (6-35); Alkaline Phosphatase 122 U/L (38-126); Anion Gap 9 mmol/L (8-16); Aspartate Amino Transferase 29 U/L (14-36); Blood Urea Nitrogen 50 mg/dL (7-17); Calcium 8.6 mg/dL (8.4-10.2); Carbon Dioxide 22 mmol/L (22-30); Chloride 106 mmol/L (98-107); Estimated CRCL calculation 31 ml/min; Estimated Glomerular Filt Rate 33; Glucose 107 mg/dL (65-110); Potassium 3.8 mmol/L (3.4-5.0); Sodium 137 mmol/L (137-145)
[2023-08-23] MEDS: DULoxetine HCL 60 MG CAPSULE.DR PO (08:21)
[2023-08-23] MEDS: POTASSIUM CHLORIDE 20 MEQ ER TABLET PO (08:21)
[2023-08-23] MEDS: CLOPIDOGREL BISULFATE 75 MG TABLET PO (08:21)
[2023-08-23] MEDS: ASPIRIN 81 MG CHEWABLE TABLET PO (08:21)
[2023-08-23] MEDS: PANTOPRAZOLE 40 MG TABLET PO (08:21)
--- NOTE | 2023-08-23 10:00 | PM.PNCARD ---
Progress Note: A&P Assessment and Plan (1) Orthostasis: Code(s): I95.1 - Orthostatic hypotension Status: Acute Assessment and Plan: Has symptoms of orthostasis. Last orthostatic vital signs I see are negative. She did have large volume diuresis with Lasix, which could have contributed. Agree with stopping the Lasix. Okay to have blood pressures on the higher side due to her symptoms. Agree with holding her Telmisartan, especially with her renal function. Continue with Metoprolol and Nifedipine for now. Continue to work with physical therapy as tolerated. Cardiology will sign off. Please call with any questions. (2) Atherosclerotic heart disease of [place] coronary artery with angina pectoris: Qualifiers: [place] vs. transplanted heart: [place] and [place]oux heart Qualified Code(s): I25.119 - Atherosclerotic heart disease of [place] and [place] coronary artery with unspecified angina pectoris Code(s): I25.119 - Atherosclerotic heart disease of [place] and [place] coronary artery with unspecified angina pectoris Status: Chronic Assessment and Plan: Stable. Continue ASA, Plavix, statin, beta guille. Will reduce her ASA down to 81mg. (3) Hypertension: Qualifiers: Hypertension type: primary hypertension Qualified Code(s): I10 - Essential (primary) hypertension Code(s): I10 - Essential (primary) hypertension Status: Acute Assessment and Plan: Given symptoms of orthostasis, I am okay with having her blood pressures on the higher side. Agree with holding her Telmisartan, especially with her renal function. Continue with Metoprolol and Nifedipine for now. (4) TIA (transient ischemic attack): Code(s): G45.9 - Transient cerebral ischemic attack, unspecified Status: Acute Assessment and Plan: Continue ASA, Plavix, statin. (5) Status post laparoscopic cholecystectomy: Code(s): Z90.49 - Acquired absence of other specified parts of digestive tract Status: Acute Assessment and Plan: As per General Surgery and GI. Subjective Date/time seen: 08/23/23 10:00 Interval history: Cardiology follow-up for orthostatic hypotension She is feeling well this morning. She has worked with physical therapy and did not have any dizziness with standing or activity. Her blood pressure is stable this morning. Review of Systems Review of Systems: All systems reviewed & are unremarkable except as noted in HPI and below (HPI) Exam Const: General: no acute distress HENMT: Mouth: Yes moist mucous membranes Eyes: General: appearance normal, both eyes and all related structures Sclera: sclerae normal Neck: Neck: supple Resp: Effort & Inspection: normal respiratory effort Cardio: Rate: regular rate Rhythm: regular rhythm Skin: General skin exam: normal color Neuro: Speech: normal speech Psych: Mental Status: mental status grossly normal Affect: normal affect Objective Data Vital Signs Vital Signs: Vital Signs - 24 hr 08/22/23 12:00 08/22/23 14:00 08/22/23 16:00 Temperature 36.7 C Pulse Rate 79 70 73 Respiratory Rate 16 Blood Pressure 132/65 Pulse Oximetry 95 Oxygen Delivery 08/22/23 20:35 08/22/23 20:00 08/22/23 20:00 Temperature Pulse Rate 75 82 Respiratory Rate Blood Pressure Pulse Oximetry Oxygen Delivery Room Air 08/23/23 00:00 08/22/23 22:00 08/22/23 22:05 Temperature 36.5 C 36.7 C Pulse Rate 68 80 88 Respiratory Rate 16 20 Blood Pressure 155/52 H 148/65 H Pulse Oximetry 95 98 Oxygen Delivery 08/22/23 22:10 08/22/23 22:00 08/23/23 04:00 Temperature 36.2 C L 36.5 C Pulse Rate 96 80 61 Respiratory Rate 20 16 Blood Pressure 110/55 L 155/52 H Pulse Oximetry 98 95 Oxygen Delivery 08/23/23 06:00 08/23/23 08:00 Temperature 36.5 C Pulse Rate 64 Respiratory Rate 20 Blood Pressure 138/52 L Pulse Oximetry 98 Oxygen Delivery Room Air Intake/Output Intake/Output: Inta
--- NOTE | 2023-08-23 10:06 | PM.IMPN ---
Progress Note: A&P Assessment and Plan (1) Postoperative bile leak: Code(s): K91.89 - Other postprocedural complications and disorders of digestive system; K83.8 - Other specified diseases of biliary tract Status: Acute Assessment and Plan: Status post elective cholecystectomy on 08/13/2023 with subsequent bile leak Status post biliary stent on 08/16/2023. No acute complications. Pain is resolved. Tramadol and Tylenol p.r.n. Follow general surgery and GI recommendations on going. She has been advanced to a regular diet. Will need to follow with GI and have the stent taken out. Continue incentive spirometer (2) Ascites: Code(s): R18.8 - Other ascites Status: Acute Assessment and Plan: Insignificant, related to her acute surgery issues (3) Status post laparoscopic cholecystectomy: Code(s): Z90.49 - Acquired absence of other specified parts of digestive tract Status: Acute Assessment and Plan: As above (4) Hematoma of gallbladder: Code(s): S36.122A - Contusion of gallbladder, initial encounter Status: Acute Assessment and Plan: Probably mixed with bile. Continue to monitor (5) Elevated liver enzymes: Code(s): R74.8 - Abnormal levels of other serum enzymes Status: Acute Assessment and Plan: Resolved. Likely due to her surgery issues (6) Sepsis: Code(s): A41.9 - Sepsis, unspecified organism Status: Acute Assessment and Plan: Resolving, secondary to bile leak. Leukocytosis resolved (7) Post-operative infection: Code(s): T81.40XA - Infection following a procedure, unspecified, initial encounter Status: Acute Assessment and Plan: Antibiotics discontinued (8) Pleural effusion: Code(s): J90 - Pleural effusion, not elsewhere classified Status: Acute Assessment and Plan: Appear subacute to acute. This is worse on the right and is most likely related to her acute gallbladder issues and hematoma/ascites. None the less, she does have shortness of breath and bilateral pleural effusions. BNP on admission elevated. Surface echo demonstrating 60-65% EF and grade 1 diastolic dysfunction. Probably has a degree of underlying CHF. Her symptomatology greatly improved with the Lasix 40 mg x 1 on 08/18 and on 08/19. With her best urine output came along improvement of her CHUCK. On 08/19 will continue Lasix 20 mg IV b.i.d. On 08/19 She still requires 2-3 L of nasal cannula at rest. NPO at midnight to attempt for thoracentesis on the right side. On 08/20 thoracentesis pending as well as right upper quadrant ultrasound. On 08/21 she remains on room air and has good breathing. On 08/22 no change (9) Hypoxic respiratory failure: Code(s): J96.91 - Respiratory failure, unspecified with hypoxia Status: Acute Assessment and Plan: Resolved status post thoracentesis (10) Syncope: Code(s): R55 - Syncope and collapse Status: Acute Assessment and Plan: Resolved. Continue to monitor (11) Metabolic acidosis: Code(s): E87.20 - Acidosis, unspecified Status: Acute Assessment and Plan: Resolved. Secondary to CHUCK and sepsis (12) Acute kidney injury superimposed on CKD: Code(s): N17.9 - Acute kidney failure, unspecified; N18.9 - Chronic kidney disease, unspecified Status: Acute Assessment and Plan: On 08/19 status post diuresis her CHUCK is improved. Continue to diurese gently and monitor renal function. On 08/20 she has greatly improved kidney function in spite of achieving large volume diuresis. While she was not appearing to overtly overloaded she was likely hiding fluid in her pleural effusion and lung parenchyma. Will slow down on the Lasix to 20 mg IV daily. Continue to appreciate Nephrology recommendation On 08/21 Lasix discontinued. Replace potassium. On 08/22 it is the stable 2/, stable (13) WENDY on C
--- NOTE | 2023-08-23 10:50 | PCNWS ---
Weekly nutritional screen. Patient is currently on a heart healthy diet with Ensure compact BID. She did refused ensure for breakfast today. Oral Intake fair. Ordered a tuna salad sandwich for lunch. Agree with diet orders at this time. No weight loss reported. No further nutritional needs at this time.
--- NOTE | 2023-08-23 13:02 | PM.DS ---
DS: Admitting Diagnosis Discharge Date 08/23/23 Admitting Diagnosis (1) Postoperative bile leak: ?Code(s): K91.89 - Other postprocedural complications and disorders of digestive system; K83.8 - Other specified diseases of biliary tract ?Status:?Acute ?Assessment and Plan: Status post elective cholecystectomy on 08/13/2023 with subsequent bile leak Status post biliary stent on 08/16/2023.? No acute complications.? Pain is resolved.? Tramadol and Tylenol p.r.n. Follow general surgery and GI recommendations on going.? She has been advanced to a regular diet.? Will need to follow with GI and have the stent taken out. Continue incentive spirometer (2) Ascites: ?Code(s): R18.8 - Other ascites ?Status:?Acute ?Assessment and Plan: Insignificant, related to her acute surgery issues (3) Status post laparoscopic cholecystectomy: ?Code(s): Z90.49 - Acquired absence of other specified parts of digestive tract ?Status:?Acute ?Assessment and Plan: As above (4) Hematoma of gallbladder: ?Code(s): S36.122A - Contusion of gallbladder, initial encounter ?Status:?Acute ?Assessment and Plan: Probably mixed with bile.? Continue to monitor (5) Elevated liver enzymes: ?Code(s): R74.8 - Abnormal levels of other serum enzymes ?Status:?Acute ?Assessment and Plan: Resolved.? Likely due to her surgery issues (6) Sepsis: ?Code(s): A41.9 - Sepsis, unspecified organism ?Status:?Acute ?Assessment and Plan: Resolving, secondary to bile leak. Leukocytosis resolved (7) Post-operative infection: ?Code(s): T81.40XA - Infection following a procedure, unspecified, initial encounter ?Status:?Acute ?Assessment and Plan: Antibiotics discontinued (8) Pleural effusion: ?Code(s): J90 - Pleural effusion, not elsewhere classified DS: Summary Hospital Course Hospital Course: 83-year-old female with history of hypertension GERD kidney, COPD, CKD disease history of TIA sleep apnea, chronic cholecystitis status post elective laparoscopic cholecystectomy on 08/13/2023.? The evening when she got home from surgery she had a near syncopal episode.? Since then she reports epigastric pain radiating up into her mid chest she also reports breathing difficulty.? She reports chronic swelling in the lower extremities but no history of heart failure.? She does have a history of CABG and follows up with Dr. Santana.? Admitted on 08/15/2023 for bile leak. On 08/21 disposition is pending.? Patient does have orthostatic hypotension.? She sees Dr. Santana as an outpatient and the family reports she has had issues with [place] before.? The patient's daughters are unhappy that the patient did not get her exact blood pressure medications.? I explained to them the patient needed medication adjustment while she went through surgery and fluid changes.? At any rate, they want Dr. Santana's team to handle the blood pressure medications and orthostasis.? Cardiology consulted. 07/23/2030 the patient refuses to fully participate with therapy.? Also refuses to go to SNF for therapy.? She has the complaint of weakness every day although. I encouraged the patient to participate.? Cardiology has placed the recommendations for orthostasis.? If refusing SNF tomorrow discharge home 08/23: Appreciate general surgeon consultation, general surgeon considers acute surgical issues,? 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 Continue with Metoprolol and Nifedipine for now. Chronic patient is afebrile, blood pressure stable, labs reviewed, patient has CKD stage 3, BUN creatinine below the baseline Time Spent with Patient Time attestation: Total time spent providing and/or coordinating discharge services: Exam Narrati
--- NOTE | 2023-08-23 14:19 | WPDGIPROGNO ---
Progress Note: A&P Assessment and Plan (1) Postoperative bile leak: Code(s): K91.89 - Other postprocedural complications and disorders of digestive system; K83.8 - Other specified diseases of biliary tract Status: Acute Assessment and Plan: treated with ercp and stent liver enzymes down to normal for last 2 days ppi because reflux symptoms but overall better today ercp in 2 months to remove stent no objections to discharge today (2) Acute kidney injury superimposed on CKD: Code(s): N17.9 - Acute kidney failure, unspecified; N18.9 - Chronic kidney disease, unspecified Status: Acute Assessment and Plan: renal function stable now (3) Diastolic heart failure: Code(s): I50.30 - Unspecified diastolic (congestive) heart failure Status: Acute (4) Pleural effusion: Code(s): J90 - Pleural effusion, not elsewhere classified Status: Acute Assessment and Plan: s/p thoracentesis by primary Subjective Date/time seen: 08/23/23 14:19 Interval history: doing much better today, hoping to go home soon Review of Systems Review of Systems: All systems reviewed & are unremarkable except as noted in HPI and below Exam Const: General: cooperative, comfortable and no acute distress HENMT: Face/Nose/Sinus: Normal nares present Eyes: Sclera: sclerae normal Neck: Neck: supple Resp: Auscultation: clear to auscultation bilaterally Cardio: Rate: regular rate Rhythm: regular rhythm GI: Inspection: normal to inspection GI Palp: Yes Soft to palpation, No Tenderness to palpation present (GI) and No Guarding due to palpation present (GI) Skin: General skin exam: normal color Neuro: Speech: normal speech Motor exam (neuro): 5/5 motor strength present throughout Extrem: General: normal to inspection Psych: Affect: normal affect Objective Data Vital Signs Vital Signs: Vital Signs - 24 hr 08/22/23 16:00 08/22/23 20:35 08/22/23 20:00 Temperature Pulse Rate 73 75 82 Respiratory Rate Blood Pressure Pulse Oximetry Oxygen Delivery 08/22/23 20:00 08/23/23 00:00 08/22/23 22:00 Temperature 97.7 F Pulse Rate 68 80 Respiratory Rate 16 Blood Pressure 155/52 H Pulse Oximetry 95 Oxygen Delivery Room Air 08/22/23 22:05 08/22/23 22:10 08/22/23 22:00 Temperature 98.1 F 97.2 F L 97.7 F Pulse Rate 88 96 80 Respiratory Rate 20 20 16 Blood Pressure 148/65 H 110/55 L 155/52 H Pulse Oximetry 98 98 95 Oxygen Delivery 08/23/23 04:00 08/23/23 06:00 08/23/23 08:00 Temperature 97.7 F Pulse Rate 61 64 Respiratory Rate 20 Blood Pressure 138/52 L Pulse Oximetry 98 Oxygen Delivery Room Air 08/23/23 08:00 Temperature Pulse Rate 61 Respiratory Rate Blood Pressure Pulse Oximetry Oxygen Delivery Intake/Output Intake/Output: Intake & Output 08/20/23 08/21/23 08/22/23 08/23/23 23:59 23:59 23:59 23:59 Intake Total 630 850 170 620 Output Total 540 1000 Balance 90 850 170 -380 Meds/Results Medications: Active Medications Generic Name Dose Route Start Last Admin Trade Name Freq PRN Reason Stop Dose Admin Acetaminophen 650 mg 08/22/23 21:49 Acetaminophen 325 Mg Tablet PO Q6H PRN Mild Pain (1-3) or Fever Hydrocodone Bitart/Acetaminophen 1 tab 08/22/23 21:49 08/22/23 22:01 Hydrocodone/Acetaminophen (*Crx) 7.5-325 Mg Tablet PO 1 tab Q4H PRN Administration Pain Rated 7-10 Albuterol 2.5 mg 08/18/23 12:02 08/18/23 12:10 Albuterol Sulfate Neb 2.5 Mg/3 Ml Inh INHALATION 2.5 mg Q4HRT PRN Administration Shortness Of Breath Aspirin 81 mg 08/23/23 08:00 08/23/23 08:21 Aspirin 81 Mg Chewable Tablet PO 81 mg DAILY@0800 ARTHUR Administration Clopidogrel Bisulfate 75 mg 08/21/23 17:45 08/23/23 08:21 Clopidogrel Bisulfate 75 Mg Tablet PO 75 mg QAM ARTHUR Administration Duloxetine HCl 60 mg 08/17/23 09:00 08/23/23 08:21 Duloxetine Hcl
[2023-08-24 08:57] LABS: Albumin Pleural Fluid 1.7 g/dL
[2023-08-27 14:07] LABS: Glucose Pleural Fluid 104 mg/dL; LDH Pleural Fluid 306 U/L
== END 2023-08-23 16:55 | disposition home health service (06) | DRG 862 ==
LOC: ANHED 05:38 → ANH3MEDSUR 11:05 → ANH3MED 17:35
PROVIDERS: General Practice; Internal Medicine Gastroenterology; Internal Medicine Nephrology; Student in an Organized Health Care Education/Training Program; Surgery; Admitting Provider Internal Medicine; Emergency Provider Emergency Medicine; PCP Family Medicine; Visit Provider Hospitalist
PROC: 0F798DZ Dilation of Common Bile Duct with Intraluminal Device, Via Natural or Artificial Opening Endoscopic (ICD-10-PCS; CPT 43260; principal; 2023-08-16 14:00)
DX: T81.44XA Sepsis following a procedure, initial encounter (principal); A41.9 Sepsis, unspecified organism; I50.31 Acute diastolic (congestive) heart failure; K91.89 Other postprocedural complications and disorders of digestive system; R18.8 Other ascites; J90 Pleural effusion, not elsewhere classified; N17.8 Other acute kidney failure; I13.0 Hypertensive heart and chronic kidney disease with heart failure and stage 1 through stage 4 chronic kidney disease, or unspecified chronic kidney disease; K83.8 Other specified diseases of biliary tract; I25.10 Atherosclerotic heart disease of native coronary artery without angina pectoris; R55 Syncope and collapse; N18.32 Chronic kidney disease, stage 3b; J44.9 Chronic obstructive pulmonary disease, unspecified; K21.9 Gastro-esophageal reflux disease without esophagitis; I95.1 Orthostatic hypotension; M47.26 Other spondylosis with radiculopathy, lumbar region; M15.9 Polyosteoarthritis, unspecified; G47.33 Obstructive sleep apnea (adult) (pediatric); E66.9 Obesity, unspecified; T50.8X5A Adverse effect of diagnostic agents, initial encounter; Z68.31 Body mass index [BMI] 31.0-31.9, adult; Z90.49 Acquired absence of other specified parts of digestive tract; Z86.73 Personal history of transient ischemic attack (TIA), and cerebral infarction without residual deficits; Z95.1 Presence of aortocoronary bypass graft; Z85.820 Personal history of malignant melanoma of skin; Z90.710 Acquired absence of both cervix and uterus; Z79.02 Long term (current) use of antithrombotics/antiplatelets
CPT/HCPCS: 32555; 36415; 71045; 71046; 71250; 74176; 74329; 76705; 76775; 78226; 80053; 80069; 81001; 81003; 82042; 82550; 82570; 82945; 83605; 83615; 83690; 83735; 83880; 84100; 84156; 84157; 84300; 84311; 84484; 84540; 85025; 85027; 85055; 85610; 85730; 87040; 87070; 87075; 87205; 87637; 88304; 89051; 93005; 93306; 94640; 96361; 96365; 96375; 97110; 97161; 97165; 97530; 97535; 99285; A9270; A9537; C1876; G0378; J0330; J0690; J1100; J1170; J1200; J1885; J1940; J2270; J2405; J2543; J2704; J3010; J7030; J7120; Q9966

== ENCOUNTER 2023-09-11 09:31 | Outpatient (CLI) | payer OTHER, SELFPAY ==
[2023-09-11 10:36] LABS: Basophils Percent Auto 0.6 % (0.2-1.2); Eosinophils Absolute Auto 0.1 K/mm3 (0-0.3); Eosinophils Percent Auto 1.5 % (0-4.4); Hematocrit 33.3 % (37.0-47.0); Hemoglobin 10.5 g/dL (12.0-15.0); Immature Granulocyte Absolute 0.03 K/mm3 (0.00-0.031); Immature Granulocyte Percent A 0.4 % (0-0.5); Lymphocytes Absolute Auto 1.91 K/mm3 (0.9-3.2); Lymphocytes Percent Auto 26.3 % (18.3-44.2); Mean Corpuscular HGB Conc 31.5 g/dl (32-36); Mean Corpuscular Hemoglobin 28.6 pg (26-34); Mean Corpuscular Volume 90.7 fl (80-100); Mean Platelet Volume 9.7 fl (7.4-10.4); Monocytes Absolute Auto 0.7 K/mm3 (0.1-0.6); Monocytes Percent Auto 9.5 % (2.6-8.5); Neutrophils Absolute Auto 4.5 K/mm3 (1.3-6.7); Neutrophils Percent Auto 61.7 % (45.5-73.1); Platelet Count Result 365 k/mm3 (150-375); Red Blood Count 3.67 M/mm3 (4.2-5.4); Red Cell Distribution Width 16.2 % (11.5-14.5); White Blood Count 7.3 K/mm3 (4.5-10.0)
[2023-09-11 10:43] LABS: Appearance Urine Cloudy (Clear); Bacteria Urine 4+ /hpf; Bilirubin Urine Negative (Negative); Blood Urine Trace (Negative); Color Urine Yellow (Yellow); Glucose Urine UA 3+ mg/dL (Negative); Ketones Urine Trace mg/dL (Negative); Leukocyte Esterase Ur 1+ LEU/UL (Negative); Need Manual Microscopic Reviewed; Nitrate Urine Negative (Negative); Protein Urine 2+ mg/dL (Negative); RBC Urine 0-2 /hpf (0-2); Specific Grav Ur 1.028 (1.001-1.035); Squamous Epithelial Cell Urine Many /hpf (Few); Urobilinogen Urine 0.2 mg/dL (<2.0); WBC Urine >100 /hpf; pH Urine 5.5 (5.0-9.0)
[2023-09-11 10:52] LABS: Anion Gap 11 mmol/L (8-16); Blood Urea Nitrogen 13 mg/dL (7-17); Calcium 9.1 mg/dL (8.4-10.2); Carbon Dioxide 21 mmol/L (22-30); Chloride 107 mmol/L (98-107); Estimated Glomerular Filt Rate 60; Glucose 131 mg/dL (65-110); Potassium 3.3 mmol/L (3.4-5.0); Sodium 139 mmol/L (137-145)
[2023-09-11 11:10] LABS: Add Urine Microscopic? YES
[2023-09-11 11:27] LABS: Vitamin D 25 Hydroxy 41.6 ng/mL
== END 2023-09-11 09:32 | disposition home or self-care (01) ==
PROVIDERS: PCP Family Medicine; Visit Provider Physician Assistant Medical
DX: E55.9 Vitamin D deficiency, unspecified (principal); I10 Essential (primary) hypertension; J90 Pleural effusion, not elsewhere classified; N18.32 Chronic kidney disease, stage 3b; R53.82 Chronic fatigue, unspecified; J96.91 Respiratory failure, unspecified with hypoxia; R33.9 Retention of urine, unspecified
CPT/HCPCS: 36415; 80048; 81001; 82306; 82607; 84443; 85025; 87077; 87086; 87186

== ENCOUNTER 2023-09-25 11:33 | Outpatient (CLI) | payer OTHER, SELFPAY ==
--- NOTE | ~2023-09-25 | XR_ITS ---
Left foot Technique: AP and lateral views were obtained. Clinical History: Pain swelling great toe Findings: No acute fracture or dislocation is seen. Hallux valgus noted. 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 There is moderate degenerative change throughout the tarsometatarsal joints. Soft tissues are unremarkable. 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 Hallux valgus. 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 Reviewed, dictated and finalized at location 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 Hallux valgus. 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
[2023-09-25 12:07] LABS: Basophils Percent Auto 0.5 % (0.2-1.2); Eosinophils Absolute Auto 0.2 K/mm3 (0-0.3); Eosinophils Percent Auto 2.1 % (0-4.4); Hematocrit 35.7 % (37.0-47.0); Hemoglobin 11.1 g/dL (12.0-15.0); Immature Granulocyte Absolute 0.02 K/mm3 (0.00-0.031); Immature Granulocyte Percent A 0.3 % (0-0.5); Lymphocytes Absolute Auto 2.76 K/mm3 (0.9-3.2); Lymphocytes Percent Auto 36.5 % (18.3-44.2); Mean Corpuscular HGB Conc 31.1 g/dl (32-36); Mean Corpuscular Hemoglobin 28.3 pg (26-34); Mean Corpuscular Volume 91.1 fl (80-100); Mean Platelet Volume 9.7 fl (7.4-10.4); Monocytes Absolute Auto 0.7 K/mm3 (0.1-0.6); Monocytes Percent Auto 9.4 % (2.6-8.5); Neutrophils Absolute Auto 3.9 K/mm3 (1.3-6.7); Neutrophils Percent Auto 51.2 % (45.5-73.1); Platelet Count Result 371 k/mm3 (150-375); Red Blood Count 3.92 M/mm3 (4.2-5.4); Red Cell Distribution Width 16.3 % (11.5-14.5); White Blood Count 7.6 K/mm3 (4.5-10.0)
[2023-09-25 12:17] LABS: Anion Gap 13 mmol/L (8-16); Blood Urea Nitrogen 24 mg/dL (7-17); Calcium 9.6 mg/dL (8.4-10.2); Carbon Dioxide 20 mmol/L (22-30); Chloride 107 mmol/L (98-107); Estimated Glomerular Filt Rate 47; Glucose 117 mg/dL (65-110); Potassium 3.9 mmol/L (3.4-5.0); Sodium 140 mmol/L (137-145); Uric Acid 7.9 mg/dL (2.5-7.5)
== END 2023-09-25 11:34 | disposition home or self-care (01) ==
PROVIDERS: PCP Family Medicine; Visit Provider Physician Assistant Medical
DX: M79.672 Pain in left foot (principal); E87.6 Hypokalemia; Z96.698 Presence of other orthopedic joint implants
CPT/HCPCS: 36415; 73620; 80048; 84550; 85025

== ENCOUNTER 2023-11-09 00:08 | Day surgery (SDC) | payer OTHER, SELFPAY ==
[2023-10-30 14:03] VITALS: BMI 31.9
--- NOTE | ~2023-11-09 | XR_ITS ---
EXAMINATION: XR ERCP DATE: 11/09/2023 13:39 INDICATION: Biliary stent removal. TECHNIQUE: 1 spot fluoroscopic images of the right upper quadrant were obtained during endoscopic ret rograde cholangiopancreatography (ERCP). Fluoroscopy exposure time was 33 seconds.. COMPARISON: ERCP 08/16/2023 FINDINGS: There are surgical clips from cholecystectomy. There is contrast opacification of the commo n duct, which is normal in size. IMPRESSION: 1. Normal common duct status post cholecystectomy. Please refer to the ERCP procedure note for additi onal details. Reviewed, dictated and finalized at location E. IMPRESSION: 1. Normal common duct status post cholecystectomy. Please refer to the ERCP pro cedure note for additional details.
[2023-11-09 11:01] VITALS: BP 179/65; PULSE 60; RESP 16; TEMP 36.1; O2SAT 98
[2023-11-09] MEDS: LACTATED RINGERS 1,000 ML 150 ML IV CONT (11:19)
--- NOTE | 2023-11-09 11:52 | WPDANESEPPF ---
Anes - Initial Pre Proc Eval Procedure: Operation Date: 11/09/23 12:30 Proposed Procedures p Endoscopic Retro Cholangiopancreatogram - Juancarlos Comer MD Date/Time: 11/09/23 11:52 Surgeon: Juancarlos Comer MD Pre Op Diagnosis: Other specified diseases of biliary tract Patient Data Age: 83 Gender: F Height: 1.68 m Weight: 91.4 kg Last Vital Signs Temp 97 F L 11/09/23 11:01 Pulse 60 11/09/23 11:01 Resp 16 11/09/23 11:01 BP 179/65 H 11/09/23 11:01 Pulse Ox 98 11/09/23 11:01 O2 Del Method Room Air 11/09/23 11:01 Allergies Allergy/AdvReac Type Severity Reaction Status Date / Time No Known Allergies Allergy Unknown Verified 11/09/23 10:58 Home Medications Medication Instructions Recorded Confirmed Type rosuvastatin 20 mg tablet (Crestor) 20 mg PO HS #90 tabs 03/05/20 09/25/23 Rx albuterol sulfate 90 mcg/actuation 2 inh inhalation Q4H PRN shortness 08/21/22 09/25/23 Rx aerosol inhaler of breath or wheezing #8.5 grams aspirin 81 mg tablet,delayed 81 mg PO QAM 08/09/23 09/25/23 History release (Adult Low Dose Aspirin) duloxetine 60 mg capsule,delayed 60 mg PO QAM 08/09/23 09/25/23 History release (Cymbalta) metoprolol succinate 100 mg 100 mg PO HS 08/09/23 09/25/23 History tablet,extended release 24 hr clopidogrel 75 mg tablet (Plavix) 75 mg PO QAM 08/15/23 09/25/23 History pantoprazole 40 mg tablet,delayed 40 mg PO Q12HR #60 tabs 08/23/23 09/25/23 Rx release empagliflozin 10 mg tablet 10 mg PO QNOON TAKES FOR HEART/SOB 09/26/23 Rx (Jardiance) #90 tabs nifedipine 90 mg tablet,extended 90 mg PO DAILY 10/30/23 10/30/23 History release lorazepam 0.5 mg tablet 0.5 mg PO DAILY PRN anxiety #30 11/06/23 Rx tabs Patient hx anesthesia problems: none Family hx anesthesia problems: none Results Review: All pre-operative results and documents have been reviewed as part of the pre-operative evaluation. 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 2016 cardiac catheterization: Patent Left anterior descending with patent stent. sequential ADAME to the occluded D1 was patent but occluded to the Left anterior descending. The PRASANNA from the ADAME to the OM 1 has been occluded since 2001. 90% ostial stenosis of a small to medium-sized OM 1 manage medically because of negative stress tests and atypical chest pain. Bilateral primary osteoarthritis of knee BMI 31.0-31.9,adult BMI 32.0-32.9,adult BMI 32.0-32.9,adult BMI 33.0-33.9,adult BMI 35.0-35.9,adult BMI 36.0-36.9,adult Chronic constipation Chronic sinusitis CKD (chronic kidney disease) III Coronary artery disease Cough Diverticula of colon Ear pressure Elevated liver enzymes Erosive esophagitis Esophageal web Essential (primary) hypertension Family hx of colon cancer Gastroesophageal reflux disease Generalized osteoarthritis of multiple sites GERD with apnea GERD without esophagitis Head ache Hematoma of gallbladder History of melanoma History of one miscarriage Hx of adenomatous colonic polyps Hypertension Inflamed seborrheic keratosis Inflamed skin tag Kidney disease Left breast lump Left shoulder pain Lumbar radiculopathy, chronic Lumbar spondylosis Nausea and vomiting Need for vaccination Obesity WENDY (obstructive sleep apnea) Osteoarthritis of knees, bilateral Otalgia, left ear Pleuritic chest pain Polyp of ascending colon Serous otitis media Syncope TIA (transient ischemic attack) 2010 Urinary incontinence Vascular disease Surgical History Surgical History History of ankle surgery 2012 History of dilation and curettage History of hysterectomy History of laparoscopic cholecystectomy 08/13/23 PDC Hx of CABG 1998 [place] teeth removed Family History Family History Father Alcoholic Hypertension Cancer Mother Cerebrovascular accident Sibling Heart disease Other Diabetes mellitus Family history of alcoholism Family history of arthritis Family history of cardiovascular disease Family history of kidney disease Family history of malignant neoplasm of urinary bladder Social History Social History Social History: ; in his sleep. Lives in an apartment, busy with nondenominational. Daughter is Shyann Perez. 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 Gender identity (if verbalized by the patient): Female Sexual Orientation (if Verbalized by the Patient): Straight or Heterosexual Spiritual care concerns: No Anes - Eval Final PreProcedure Day of Procedure 11/09/23 11:52 Patient weight: obese Heart: regular rate and rhythm Lungs: clear to auscultation Airway: Mallampati scale class II Neurological: alert and oriented Last oral intake: >/= 8 hours ASA classification: IV Emergent: no Anesthetic plan: proceed Anesthesia type and monitoring: general ETT and standard monitoring Results Review: All pre-operative results and documents have been reviewed as part of the pre-operative evaluation. Informed Consent: The patient's anesthetic plan and its attendant risks and benefits were discussed with the patient/family/POA. Questions were solicited and answers provided to the satisfaction of the patient/family/POA.
--- NOTE | 2023-11-09 12:43 | P.HP_ITS ---
History of Present Illness History of Present Illness Consent: Risks, benefits, and alternatives have been discussed and questions answered. Patient agrees to proceed with procedure. Chief complaint: Other specified diseases of biliary tract Narrative: Regine Zarate is a 83 year old female here for ercp, originally had cholecystectomy complicated with bile leak then I performed ercp with biliary stenting. Now she is feeling much better and here to remove stent. Review of Systems Review of Systems: All systems reviewed & are unremarkable except as noted in HPI and below PMFSH Past Medical History Medical History [place] positive (~10/2019) Anxiety Anxiety and depression Anxiety disorder, unspecified At moderate risk for fall Ataxia Atherosclerotic heart disease of [place] coronary artery with angina pectoris CABG x3, 1997. 2016 cardiac catheterization: Patent Left anterior descending with patent stent. sequential ADAME to the occluded D1 was patent but occluded to the Left anterior descending. The PRASANNA from the ADAME to the OM 1 has been occluded since 2001. 90% ostial stenosis of a small to medium-sized OM 1 manage medically because of negative stress tests and atypical chest pain. Bilateral primary osteoarthritis of knee BMI 31.0-31.9,adult BMI 32.0-32.9,adult BMI 32.0-32.9,adult BMI 33.0-33.9,adult BMI 35.0-35.9,adult BMI 36.0-36.9,adult Chronic constipation Chronic sinusitis CKD (chronic kidney disease) III Coronary artery disease Cough Diverticula of colon Ear pressure Elevated liver enzymes Erosive esophagitis Esophageal web Essential (primary) hypertension Family hx of colon cancer Gastroesophageal reflux disease Generalized osteoarthritis of multiple sites GERD with apnea GERD without esophagitis Head ache Hematoma of gallbladder History of melanoma History of one miscarriage Hx of adenomatous colonic polyps Hypertension Inflamed seborrheic keratosis Inflamed skin tag Kidney disease Left breast lump Left shoulder pain Lumbar radiculopathy, chronic Lumbar spondylosis Nausea and vomiting Need for vaccination Obesity WENDY (obstructive sleep apnea) Osteoarthritis of knees, bilateral Otalgia, left ear Pleuritic chest pain Polyp of ascending colon Serous otitis media Syncope TIA (transient ischemic attack) 2010 Urinary incontinence Vascular disease Surgical History Surgical History History of ankle surgery 2012 History of dilation and curettage History of hysterectomy History of laparoscopic cholecystectomy 08/13/23 PDC Hx of CABG 1998 [place] teeth removed Family History Family History Father Alcoholic Hypertension Cancer Mother Cerebrovascular accident Sibling Heart disease Other Diabetes mellitus Family history of alcoholism Family history of arthritis Family history of cardiovascular disease Family history of kidney disease Family history of malignant neoplasm of urinary bladder Social History Social History Social History: ; in his sleep. Lives in an apartment, busy with evangelical. Daughter is Shyann Perez. 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 Gender identity (if verbalized by the patient): Female Sexual Orientation (if Verbalized by the Patient): Straight or Heterosexual Spiritual care concerns: No Meds Home Medications and Allergies Home Medications Medication Instructions Recorded Confirmed Type rosuvastatin 20 mg tablet (Crestor) 20 mg PO HS #90 tabs 03/05/20 09/25/23 Rx albuterol sulfate 90 mcg/actuation 2 inh inhalation Q4H PRN shortness 08/21/22 09/25/23 Rx aerosol inhaler of breath or wheezing #8.5 grams aspirin 81 mg tablet,delayed 81 mg PO QAM 08/09/23 09/25/23 History release (Adult Low Dose Aspirin) duloxetine 60 mg capsule,delayed 60 mg PO QAM 08/09/23 09/25/23 History release (Cymbalta) metoprolol succinate 100 mg 100 mg PO HS 08/09/23 09/25/23 History tablet,extended release 24 hr clopidogrel 75 mg tablet (Plavix) 75 mg PO QAM 08/15/23 09/25/23 History pantoprazole 40 mg tablet,delayed 40 mg PO Q12HR #60 tabs 02/01/24 03/05/24 Rx release empagliflozin 10 mg tablet 10 mg PO QNOON TAKES FOR HEART/SOB 09/26/23 Rx (Jardiance) #90 tabs nifedipine 90 mg tablet,extended 90 mg PO DAILY 10/30/23 10/30/23 History release lorazepam 0.5 mg tablet 0.5 mg PO DAILY PRN anxiety #30 11/06/23 Rx tabs Allergies Allergy/AdvReac Type Severity Reaction Status Date / Time No Known Allergies Allergy Unknown Verified 11/09/23 10:58 Vital Signs Vital Signs - 24 hr 11/09/23 11:01 Temperature 97 F L Pulse Rate 60 Respiratory Rate 16 Blood Pressure 179/65 H Pulse Oximetry 98 Oxygen Delivery Room Air Exam Const: General: comfortable and no acute distress HENMT: Face/Nose/Sinus: Normal nares present Eyes: General: appearance normal, both eyes and all related structures Neck: Neck: no JVD Resp: Auscultation: clear to auscultation bilaterally Cardio: Rate: regular rate Rhythm: regular rhythm GI: Inspection: non-distended GI Palp: Yes Soft to palpation Skin: General skin exam: normal color Neuro: General: gait normal Speech: normal speech Extrem: General: normal to inspection Psych: Mental Status: mental status grossly normal Assessment and Plan Assessment and plan (1) History of biliary duct stent placement: Code(s): Z98.890 - Other specified postprocedural states Status: Acute (2) Postoperative bile leak: Code(s): K91.89 - Other postprocedural complications and disorders of digestive system; K83.8 - Other specified diseases of biliary tract Status: Acute Assessment and Plan: ercp today remove stent
[2023-11-09] MEDS: INDOMETHACIN 50 MG SUPP.RECT RECTAL (13:16)
[2023-11-09 13:50] VITALS: BP 188/72; PULSE 55; RESP 25; TEMP 36.2; O2SAT 100
[2023-11-09 14:00] VITALS: BP 206/74; PULSE 55; RESP 18; O2SAT 100
[2023-11-09 14:10] VITALS: BP 213/78; PULSE 55; RESP 17; O2SAT 100
[2023-11-09 14:40] VITALS: BP 211/86; PULSE 57; RESP 17; TEMP 36.4; O2SAT 100
[2023-11-09 14:50] VITALS: BP 206/77; PULSE 55; RESP 17; O2SAT 100
== END 2023-11-09 14:59 | disposition home or self-care (01) ==
PROVIDERS: PCP Family Medicine; Visit Provider Internal Medicine Gastroenterology
PROC: (CPT 43260; principal; 2023-11-09 12:30)
DX: Z46.59 Encounter for fitting and adjustment of other gastrointestinal appliance and device (principal); K44.9 Diaphragmatic hernia without obstruction or gangrene; F41.8 Other specified anxiety disorders; I25.10 Atherosclerotic heart disease of native coronary artery without angina pectoris; I12.9 Hypertensive chronic kidney disease with stage 1 through stage 4 chronic kidney disease, or unspecified chronic kidney disease; N18.30 Chronic kidney disease, stage 3 unspecified; K21.9 Gastro-esophageal reflux disease without esophagitis; G47.33 Obstructive sleep apnea (adult) (pediatric); Z95.1 Presence of aortocoronary bypass graft; Z86.73 Personal history of transient ischemic attack (TIA), and cerebral infarction without residual deficits; Z79.51 Long term (current) use of inhaled steroids; Z79.82 Long term (current) use of aspirin; Z79.02 Long term (current) use of antithrombotics/antiplatelets; Z79.84 Long term (current) use of oral hypoglycemic drugs; E66.9 Obesity, unspecified; Z68.32 Body mass index [BMI] 32.0-32.9, adult
CPT/HCPCS: 43275; 74329; A9270; J0330; J2405; J2704; J3010; J7120; Q9966

== ENCOUNTER 2023-12-07 11:23 | Outpatient (CLI) | payer OTHER, SELFPAY ==
--- NOTE | ~2023-12-07 | MM_ITS ---
EXAMINATION: MM diagnostic marlon RT w joon HISTORY: Six-month follow-up of probably benign focal asymmetry in the upper central right breast TECHNIQUE: ML, MLO and CC 3-D tomosynthesis images of the right breast were performed and synthetic 2 -D images were generated. CAD analysis was submitted and interpreted. COMPARISON: 05/11/2023 diagnostic right mammogram and complete bilateral breast ultrasound examinatio n 02/17/2022 bilateral screening mammogram Breast parenchymal composition: There are scattered areas of fibroglandular density. FINDINGS: No suspicious mass or architectural distortion, malignant calcification, skin thickening or retraction or significant new or developing density is detected. No significant change since 022. IMPRESSION: 1. No mammographic evidence of malignancy 2. Routine annual mammographic screening is recommended BI-RADS Category 1: Negative Reviewed, dictated and finalized at location B.
== END 2023-12-07 11:24 | disposition home or self-care (01) ==
PROVIDERS: PCP Family Medicine; Visit Provider Family Medicine
DX: R92.8 Other abnormal and inconclusive findings on diagnostic imaging of breast (principal)
CPT/HCPCS: 77061; 77065; G0279

== ENCOUNTER 2024-02-13 10:28 | Outpatient (CLI) | payer OTHER, SELFPAY ==
[2024-02-13 11:14] LABS: Basophils Percent Auto 0.5 % (0.2-1.2); Eosinophils Absolute Auto 0.2 K/mm3 (0-0.3); Eosinophils Percent Auto 3.4 % (0-4.4); Hematocrit 40.4 % (37.0-47.0); Hemoglobin 12.7 g/dL (12.0-15.0); Immature Granulocyte Absolute 0.01 K/mm3 (0.00-0.031); Immature Granulocyte Percent A 0.2 % (0-0.5); Lymphocytes Absolute Auto 1.93 K/mm3 (0.9-3.2); Lymphocytes Percent Auto 34.7 % (18.3-44.2); Mean Corpuscular HGB Conc 31.4 g/dl (32-36); Mean Corpuscular Volume 92.2 fl (80-100); Monocytes Absolute Auto 0.5 K/mm3 (0.1-0.6); Monocytes Percent Auto 9.2 % (2.6-8.5); Neutrophils Absolute Auto 2.9 K/mm3 (1.3-6.7); Platelet Count Result 233 k/mm3 (150-375); Red Blood Count 4.38 M/mm3 (4.2-5.4); Red Cell Distribution Width 15.5 % (11.5-14.5); White Blood Count 5.6 K/mm3 (4.5-10.0)
[2024-02-13 11:16] LABS: Appearance Urine Clear (Clear); Bilirubin Urine Negative (Negative); Blood Urine Negative (Negative); Color Urine Yellow (Yellow); Glucose Urine UA 2+ mg/dL (Negative); Ketones Urine Negative (Negative); Leukocyte Esterase Ur Negative LEU/UL (Negative); Nitrate Urine Negative (Negative); Protein Urine Negative (Negative); Specific Grav Ur 1.009 (1.001-1.035); Urobilinogen Urine 0.2 mg/dL (<2.0)
[2024-02-13 11:17] LABS: Add Urine Microscopic? NO
[2024-02-13 11:32] LABS: Albumin Level 4.2 g/dL (3.5-5.1); Anion Gap 11 mmol/L (4-12); Blood Urea Nitrogen 39 mg/dL (7-17); Calcium 8.9 mg/dL (8.4-10.2); Carbon Dioxide 23 mmol/L (22-30); Chloride 106 mmol/L (98-107); Estimated Glomerular Filt Rate 43; Glucose 142 mg/dL (65-110); Potassium 4.2 mmol/L (3.4-5.0); Sodium 140 mmol/L (137-145)
[2024-02-13 11:44] LABS: Iron 80 ug/dL (37-170)
[2024-02-13 11:54] LABS: Percent Iron Saturation 24 % (20-50)
[2024-02-13 11:54] LABS: Creatinine Urine 39.9 mg/dL; Total Protein Urine Random 12 mg/dL
[2024-02-13 11:59] LABS: Parathyroid Intact 123.3 pg/mL (7.5-53.5)
[2024-02-13 12:10] LABS: Vitamin D 25 Hydroxy 52.1 ng/mL
== END 2024-02-13 10:29 | disposition home or self-care (01) ==
PROVIDERS: PCP Family Medicine
DX: I12.9 Hypertensive chronic kidney disease with stage 1 through stage 4 chronic kidney disease, or unspecified chronic kidney disease (principal); D63.1 Anemia in chronic kidney disease; N18.30 Chronic kidney disease, stage 3 unspecified; N25.0 Renal osteodystrophy; M10.9 Gout, unspecified
CPT/HCPCS: 36415; 80069; 81003; 82306; 82570; 82728; 83540; 83550; 83970; 84156; 85025; 87086; 87088

== ENCOUNTER 2024-06-17 13:37 | Outpatient (CLI) | payer OTHER, SELFPAY ==
--- NOTE | ~2024-06-17 | XR_ITS ---
3 VIEWS LUMBAR SPINE Ordering provider: Tanisha Bustos, PAC History: . M54.41 - Lumbago with sciatica, right side . Comparison: None. FINDINGS: VERTEBRAL BODIES: No visible fracture or subluxation. Severe bending of the coccyx. DISK SPACES: Severe narrowing of the disc L1-L2, L2-L3, L4-L5 and L5-S1. Facet joint disease at the l evel of L4-L5 and L5-S1. SOFT TISSUES: Atherosclerotic changes of the aorta. IMPRESSION: No acute osseous abnormality lumbar spine. Multilevel degenerative disc disease. Reviewed, dictated and finalized at location A. 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
--- NOTE | ~2024-06-17 | XR_ITS ---
EXAMINATION: XR chest 2V DATE: 06/17/2024 13:58 INDICATION: Hemoptysis. TECHNIQUE: Frontal and lateral views of the chest were obtained. COMPARISON: Chest single view 08/20/2023 FINDINGS: There is mild atelectasis in the lower lung zones. No pleural effusion or pneumothorax. The heart size is normal. Median sternotomy wires and mediastinal surgical clips are seen, likely from p rior coronary artery bypass grafting. Surgical clips in the right upper quadrant are likely from chol ecystectomy. IMPRESSION: 1. Mild atelectasis in the lower lung zones. Reviewed, dictated and finalized at location A. TECHNICIAN
== END 2024-06-17 13:38 | disposition home or self-care (01) ==
PROVIDERS: PCP Family Medicine; Visit Provider Physician Assistant Medical
DX: R04.2 Hemoptysis (principal); J98.11 Atelectasis; M51.369 Other intervertebral disc degeneration, lumbar region without mention of lumbar back pain or lower extremity pain
CPT/HCPCS: 71046; 72100

== ENCOUNTER 2024-08-14 11:26 | Outpatient (CLI) | payer OTHER, SELFPAY ==
[2024-08-14 12:01] LABS: Basophils Absolute Auto 0.1 K/mm3 (0.0-0.1); Basophils Percent Auto 0.8 % (0.2-1.2); Eosinophils Absolute Auto 0.2 K/mm3 (0-0.3); Eosinophils Percent Auto 2.7 % (0-4.4); Hematocrit 44.5 % (37.0-47.0); Immature Granulocyte Absolute 0.02 K/mm3 (0.00-0.031); Immature Granulocyte Percent A 0.3 % (0-0.5); Lymphocytes Absolute Auto 2.44 K/mm3 (0.9-3.2); Lymphocytes Percent Auto 37.1 % (18.3-44.2); Mean Corpuscular HGB Conc 31.5 g/dl (32-36); Mean Corpuscular Volume 92.1 fl (80-100); Mean Platelet Volume 10.1 fl (7.4-10.4); Monocytes Absolute Auto 0.7 K/mm3 (0.1-0.6); Monocytes Percent Auto 10.2 % (2.6-8.5); Neutrophils Absolute Auto 3.2 K/mm3 (1.3-6.7); Neutrophils Percent Auto 48.9 % (45.5-73.1); Platelet Count Result 248 k/mm3 (150-375); Red Blood Count 4.83 M/mm3 (4.2-5.4); Red Cell Distribution Width 15.2 % (11.5-14.5); White Blood Count 6.6 K/mm3 (4.5-10.0)
[2024-08-14 12:10] LABS: Alanine Aminotransferase 28 U/L (6-35); Alkaline Phosphatase 81 U/L (38-126); Anion Gap 10 mmol/L (4-12); Aspartate Amino Transferase 37 U/L (14-36); Bilirubin,Total 0.6 mg/dL (0.2-1.3); Blood Urea Nitrogen 38 mg/dL (7-17); Calcium 8.7 mg/dL (8.4-10.2); Carbon Dioxide 26 mmol/L (22-30); Chloride 104 mmol/L (98-107); Estimated Glomerular Filt Rate 33; Glucose 94 mg/dL (65-110); Potassium 4.6 mmol/L (3.4-5.0); Sodium 140 mmol/L (137-145)
== END 2024-08-14 11:27 | disposition home or self-care (01) ==
LOC: ANHLAB 11:29
PROVIDERS: PCP Family Medicine; Visit Provider Internal Medicine
DX: I25.10 Atherosclerotic heart disease of native coronary artery without angina pectoris (principal); Z95.1 Presence of aortocoronary bypass graft; I11.0 Hypertensive heart disease with heart failure; I50.32 Chronic diastolic (congestive) heart failure
CPT/HCPCS: 36415; 80053; 84443; 85025

== ENCOUNTER 2024-09-08 09:50 | Outpatient (CLI) | payer OTHER, SELFPAY ==
--- NOTE | ~2024-09-08 | XR_ITS ---
Clinical Indication: Shortness of breath PA and lateral views of the chest: Comparison: 06/17/2024 Findings: The lungs are clear, without evidence of focal consolidation or pleural effusion. Cardiome diastinal silhouette is stable, status post CABG. Bones and soft tissues are unremarkable. Impression: Clear lungs. Reviewed, dictated and finalized at location . TECHNICIAN Impression: Clear lungs.
[2024-09-08 10:56] LABS: Iron 109 ug/dL (37-170)
[2024-09-08 11:06] LABS: Percent Iron Saturation 33 % (20-50)
[2024-09-08 11:13] LABS: Vitamin D 25 Hydroxy 51.4 ng/mL
--- OUTSIDE RECORDS SUMMARY | 2024-09-08 12:21 | XMS_ITS | Encounter Summary ---
Author Organization [facility] Address [facility] [place] [address] Care Team Providers Care Field Foreman Name Role Phone Artemio Avila MD Primary Care Provider [phone] Encounter Details Date Type Department Care Team (Late st Contact Info) Description 06/19/2023 Results Notification [facility] [place] [address] [id number] Jelly Lazcano APNP [address] [place] [phone] Social History Tobacco Use Types Packs/Day Years Used Date Smoking Tobacco: Never Smokeless Tobacco: Never Alcohol Use Standard Drinks/Week Comments Yes 0 (1 standard drink = 0.6 oz pur e alcohol) SOCIAL Comments No Sex and Gender Information Value Date Recorded Sex Assigned at Not on file Legal Sex Female 11:01 PM CDT Gender Identity Not on file Sexual Orientation Not on file Occupation Industry Job Start Date Job End 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
--- OUTSIDE RECORDS SUMMARY | 2024-09-08 12:21 | XMS_ITS | Clinical Summary ---
Author Organization [facility] [address] Address [address] [place] [address] Care Team Providers Care Vp Business Development Name Role Phone Artemio Avila MD Primary Care Provider [phone] Sarthak Myrick MD Unavailable [phone] Allergies Active Allergy Reactions Criticality Noted Date Comments Diltiazem Other (See comments) Low 09/04/2019 Bradycardia 2016 Spironolactone Other (See comments) Low 06/19/2023 patient developed diarrhea, headaches and chest pressure and stopped it, [address] (PROTONIX) 40 mg EC tablet Take 1 tablet (40 mg total) by mouth 2 (two) times a day as needed Active DULoxetine DR (CYMBALTA) 30 mg capsule Take 3 capsules (90 mg total) by mouth daily 020 Active aspirin 81 mg enteric coated tabletIndications:C oronary arteriosclerosis in [place] artery Take 1 tablet (81 mg total) by mouth daily 021 Active LORazepam (ATIVAN) 0.5 mg tablet Take 1 tablet (0.5 mg total) by mouth daily as needed 022 Active albuterol HFA (PROVENTIL HFA,VENTOLIN HFA,PROAIR HFA) 90 mcg/actuation inhaler INHALE 2 PUFFS BY MOUTH EVERY 4 HOURS NEEDED FOR SHORTNESS OF BREATH AND WHEEZING 022 Active empagliflozin (JARDIANCE) 10 mg tabletIndications:t ype 2 diabetes mellitus Take 1 tablet (10 mg total) by mouth daily 90 tablet 3 022 Active rosuvastatin (Crestor) 20 mg tabletIndications:C oronary arteriosclerosis in [place] artery Take 1 tablet (20 mg total) by mouth daily 90 tablet 3 023 Active NIFEdipine (NIFEdipine CC) 90 mg 24 hr tabletIndications:E ssential hypertension Take 1 tablet (90 mg total) by mouth daily 90 tablet 3 024 Active nitroglycerin (NITROSTAT) 0.[address] 1 tablet (0.4 mg total) under the tongue every 5 (five) minutes as needed for chest pain 50 tablet 1 024 Active clopidogreL (PLAVIX) 75 mg tabletIndications:C oronary arteriosclerosis in [place] artery Take 1 tablet (75 mg total) by mouth daily 90 tablet 3 024 Active metoprolol XL (TOPROL-XL) 100 mg 24 hr tablet Take 1 tablet (100 mg total) by mouth daily 90 tablet 2 024 Active torsemide (DEMADEX) 10 mg tablet Take 1 tablet (10 mg total) by mouth daily 025 Active potassium chloride ER 10 mEq CR tablet Take 1 tablet/capsu le (10 mEq total) by mouth 025 Active tiZANidine (ZANAFLEX) 2 mg tablet Take 1 tablet (2 mg total) by mouth 3 (three) times a day as needed 024 2024 Discontinued Active Problems Problem Noted Date Diagnosed Date Sensorineural hearing loss (SNHL) of both ears 0 03/26/2024 Assessment & Plan (03/26/2024 8:19 PM CDT): She had a hearing test done today and I reviewed this with her. It shows a mild sloping to severe bilateral low high-frequency sensorineural hearing loss. Discrimination scores are good. Tympanometry is normal. I did not really notice any significant change in her hearing when comparing a prior audiogram from 05/11/2022. I think her hearing loss is pretty stable. I think she probably needs to have her hearing adjusted and possibly service. She was seeing our banquet captain to have them checked. She is going to follow up for further problems if needed. Bilateral impacted cerumen 03/26/2024 Assessment & Plan (03/26/2024 8:20 PM CDT): She did have a small to moderate amount of cerumen that I removed on both sides. I do not think it was enough to impact her hearing aids. She is going to talk with our banquet captain and follow up here otherwise as needed. 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 She will be changing from her current Viibryd to another antidepressant soon. Assessment & Plan (06/04/2017 5:47 PM HOME SCHOOL LIAISON OFFICER): Patient has a lot of symptoms at night, and disclosed better in his sleep. Since she lives alone, I can understand why nighttime is a tough time for her. However she also has feelings of i mpending doom which sound like they may be panic attack. Temporary cerebral vascular dysfunction 09/27/19 17 Overview (12/15/2016): Transient cerebral ischemia, unspecified type Arnold-Chiari malformation, type I (CMS/HCC) Bradycardia 02/10/2016 Overview (10/26/2016): Bradycardia Chronic fatigue 02/10/2016 Overview (10/26/2016): Fatigue, unspecified type Essential hypertension 02/10/2016 Overview (10/26/2016): Essential hypertension Assessment & Plan (01/21/2018 9:52 PM CDT): Hypertension is not optimally controlled at this time. I wonder if her significant systolic and diastolic hypertension are contributing to some of her exertional problems. Hx of CABG 02/10/2016 Overview (10/26/2016): Hx of CABG Orthostatic hypotension 02/10/2016 Overview (10/26/2016): Orthostatic hypotension Assessment & Plan (01/21/2018 9:53 PM CDT): Not a problem recently. Assessment & Plan (06/04/2017 5:44 PM HOME SCHOOL LIAISON OFFICER): Not a recent problem. 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 Takes Crestor 20 mg daily. Assessment & Plan (06/04/2017 5:45 PM HOME SCHOOL LIAISON OFFICER): 11/2016 total cholesterol 172, TG 185 and LDL 72, acceptable on rosuvastatin 20 mg daily. Coronary artery disease invo lving conf[place] coronary artery of [place] heart without angina pectoris 07/03/2014 Overview (10/26/2016): Coronary arteriosclerosis in [place] artery Assessment & Plan (01/21/2018 9:54 PM CDT): Remote CABG History of coronary stent Recurrent atypical chest pain prompting cardiac catheterization in 2013 and November 2015 showing adequate revascularization but some stenosis of OM1 Negative stress test 2015, EF greater than 70% Negative stress test October 2017, EF 72% Patient continues to have a multitude of symptoms with a lots of chest pain, sweats, GALINDO, intrascapular discomfort. Sometimes her chest pain does sound cardiac in often times it is atypical. She has had 2 catheterizations in the last 6 years, 2- stress test the most recent being in October 2017. I think it is unlikely we will find any significant CAD if we repeat a heart catheterization. Perhaps we should concentrate on her hypertension which may be contributing to some of these symptoms. Her anxiety may be contributing as well. Assessment & Plan (06/04/2017 5:44 PM HOME SCHOOL LIAISON OFFICER): Remote CABG History of coronary stent Recurrent atypical chest pain prompting cardiac catheterization in 2013 and November 2015 showing adequate revascularization but some stenosis of OM1 Negative stress test 2015, EF greater than 70% Stable exertional angina, with h/o noncardiac CP also. Hemoptysis Resolved Problems Problem Noted Date Diagnosed Date Resolved Date Abnormal laboratory test 03/30/2020 Hypercholesterolemia 02/10/2016 017 Overview (10/26/2016): Hypercholesterolemia Encounters Date Type Department Care Team Description 08/28/2024 Telephone [facility] Medical Group Cardiology [address] [place] [address] Donna Cao MD 08/14/2024 10:45 AM HOME SCHOOL LIAISON OFFICER Office Visit [facility] Medical [facility] Cardiology [address] [place] [address] Donna Cao MD Coronary artery disease involving conf[place] coronary artery of [place] heart without angina pectoris (Primary Dx); Hx of CABG; Presence of stent in coronary artery; Chronic heart failure with preserved ejection fraction (CMS/HCC) (HCC); Multiple-type hyperlipidemia; Essential hypertension; History of TIAs 07/14/2024 1:45 PM HOME SCHOOL LIAISON OFFICER Procedure visit [facility] Otolaryngology [address] [place] [address] [phone] Yuki Logan Fitting and adjustment of hearing aid (Primary Dx) 07/02/2024 1:30 PM HOME SCHOOL LIAISON OFFICER Procedure visit [facility] Otolaryngology [address] [place] [address] [phone] Yuki Logan Fitting and adjustment of hearing aid (Primary Dx) from Last 3 Months Immunizations Immunization Administration Dates Next Due Influenza, Trivalent, Preservative Free, Intramu scular 05/23/2015 Surgical History Surgery Date Site/Laterality Comments CORONARY ARTERY BYPASS GRAFT CABG INNER EAR SURGERY Left HOLE IN EAR DRUM CHOLECYSTECTOMY Medical History Medical History Date Comments Hyperlipidemia Hyperlipidemia; Comments: [facility] 04/07/2014 - Chronic coronary artery disease Coronary artery disease Hypertension Hypertension Hx Other Medical TIA; Comments: [facility] 04/07/2014 - Hx Other Medical GERD; Comments: [facility] 04/07/2014 - Hx Other Medical anxiety/depress ion; Comments: [facility] 04/07/2014 - Hx Other Medical orthostatic hyp otension; Comments: [facility] 04/07/2014 - Hx Other Medical hysterectomy wi th BSO; Comments: [facility] 04/07/2014 - Hx Other Medical ankle surgery; Comments: [facility] 04/07/2014 - Autoimmune disease (CMS/HCC) (HCC) Heart disease GERD (gastroesophageal reflux disease) Family History Medical History Relation Name Comments Heart disease Brother Cardiovascular disease; Cancer Father Kidney and Blad karol Heart disease Mother Cardiovascular disease; Cause of : Cardiovascular disease Heart disease Sister 1 Heart disease Sister 2 Cardiovascular disease; Cause of : Cardiovascular disease Relation Name Status Comments Brother Father Mother Sister 1 Sister 2 Social History Tobacco Use Types Packs/Day Years Used Date Smoking Tobacco: Never Smokeless Tobacco: Never Tobacco Cessation:Counseling Given: Not Answered Alcohol Use Standard Drinks/Week Comments Yes 0 (1 standard drink = 0.6 oz pur e alcohol) Comments Unknown Sex and Gender Information Value Date Recorded Sex Assigned at Not on file Legal Sex Female 3:24 AM HOME SCHOOL LIAISON OFFICER Gender Identity Not on file Sexual Orientation Not on file Obstetrics History Last Filed Vital Signs Vital Sign Reading Time Taken Comments Blood Pressure 150/62 08/14/2024 10:47 AM HOME SCHOOL LIAISON OFFICER Pulse 58 08/14/2024 10:47 AM HOME SCHOOL LIAISON OFFICER Temperature 36.6 C (97.9 F) 10/04/2018 1:20 PM CDT Respiratory Rate 18 03/26/2024 10:53 AM CDT Oxygen Saturation 97% 08/14/2024 10:47 AM HOME SCHOOL LIAISON OFFICER Inhaled Oxygen Concentration - - Weight 91.6 kg (202 lb) 08/14/2024 10:47 AM HOME SCHOOL LIAISON OFFICER Height 172.7 cm (5' 8 ) 08/14/2024 10:47 AM HOME SCHOOL LIAISON OFFICER Body Mass Index 30.71 08/14/2024 10:47 AM HOME SCHOOL LIAISON OFFICER Plan of Treatment Health Maintenance Due Date Last Done Comments Depression Screening 1940 Fall Risk Assessment 1940 Osteoporosis Screening-Bone Density Scan 1940 Hepatitis B Screening 1958 Zoster Vaccine (1 of 2) 1990 Well Visit 65+ 2005 Pneumococcal vaccine 65+ (2 of 2 - PPSV23) 11/03/2015 09/08/2015 Influenza Vaccine (#1) 2024 10/07/2018, 2014 DTaP/Tdap/Td Vaccine (2 - Td or Tdap) 04/08/2027 Insurance Unified Color [facility] LIFE [facility] Care Teams Vp Business Development Relationship Specialty Start Date End Date Artemio Avila MD PCP - General 10/20/16 Sarthak Myrick MD Referring Physician Otolaryngology 01/04/18
--- OUTSIDE RECORDS SUMMARY | 2024-09-08 12:21 | XMS_ITS | Patient Health Summary ---
Author Organization [facility] Address [address] [place] [address] Care Team Providers Care Respooler Name Role Phone Artemio Avila MD Primary Care Provider [phone] Note from [facility],non-owned Affiliates and Associated Physician Practices is amultiple site organization consisting of ambulatory clinics and hospital sitesin [place], [place], [place] and [place]. This disclosure is being madepursuant to the Care Everywhere program and may not contain all information available regarding this patient. Last updated 18.[facility] [employer] Social History Tobacco Use Types Packs/Day Years Used Date Smoking Tobacco: Never Sex and Gender Information Value Date Recorded Sex Assigned at Not on file Gender Identity Not on file Sexual Orientation Not on file Procedures * DERMATOPATHOLOGY(Performed 10/25/2021) * DERMATOPATHOLOGY(Performed 07/17/2014) Results * DERMATOPATHOLOGY (10/25/2021 12:00 AM CDT) Only the most recent of2 resultswithin the time period is included. Case Report Dermatopathology Report Case: [id number] Authorizing Provider: Artemio Avila MD Collected: 10/25/2021 12:00 AM Ordering Location: [facility] DermPath Lab Received: 10/27/2021 09:29 AM Pathologist: Laura Herrera MD Specimens: A) - Skin, left lower breast B) - Skin, left upper breast C) - Skin, left top chest 4:43 PM CDT DERMATOPATHOLOGY LABORATORY Final Diagnosis Specimen A. SKIN, left lower breast: BENIGN VERRUCOUS KERATOSIS (L82.1) PRESENT AT MARGIN Specimen B. SKIN, left upper breast: SEBORRHEIC KERATOSIS, IRRITATED AND INFLAMED (L82.0) PRESENT AT MARGIN Specimen C. SKIN, left top chest: SEBORRHEIC KERATOSIS, IRRITATED AND INFLAMED (L82.0) PRESENT AT MARGIN 4:43 PM [facility] DERMATOPATHOLOGY LABORATORY Clinical History A-C: Changing lesion. Check margins. 4:43 PM [facility] DERMATOPATHOLOGY LABORATORY Gross Description Specimen A: Received is one formalin filled container labeled with the patient's name and designated left lower breast. The specimen consists of a shave biopsy measuring [id number], bisected. The margin is inked green. Jar 0. Specimen B: Received is one formalin filled container labeled with the patient's name and designated left upper breast. The specimen consists of a shave biopsy measuring [id number], bisected. The margin is inked green. Jar 0. Specimen C: Received is one formalin filled container labeled with the patient's name and designated left top chest. The specimen consists of a shave biopsy measuring [id number], bisected. The margin is inked green. Jar 0. 4:43 PM [facility] DERMATOPATHOLOGY LABORATORY Microscopic Description Specimen A. SKIN, left lower breast: Sections show hyperkeratosis, papillomatosis, hypergranulosis, and acanthosis. These histological findings can be seen in a verruca vulgaris or a seborrheic keratosis. This lesion is present at the margin of the specimen. Specimen B. SKIN, left upper breast: Sections show acanthosis, papillomatosis, hyperkeratosis, and squamous eddies. There is a lymphohistiocytic infiltrate within the papillary dermis. This lesion is present at the margin of the specimen. Specimen C. SKIN, left top chest: Sections show acanthosis, papillomatosis, hyperkeratosis, and squamous eddies. There is a lymphohistiocytic infiltrate within the papillary dermis. This lesion is present at the margin of the specimen. 4:43 PM CDT DERMATOPATHOLOGY LABORATORY Disclaimer An external and internal positive and negative controls are appropriate for the histochemical, immunohistochemical and immunofluorescence stain(s) in this case (if any), except where stated explicitly. The performance characteristics of the stain(s) cited in this report were developed and its performance characteristic determined by the Dermatopathology Laboratory at [facility], directed by Dr. Leana Swartz. These tests need not be, and therefore are not, approved by the [place] Food and Drug Administration. The tests are used for clinical purposes. Billing Codes Specimen Charges Stain Charges [id number] [id number] 1 1 1 2 4:43 PM CDT DERMATOPATHOLOGY LABORATORY Embedded Images 2 4:43 PM CDT DERMATOPATHOLOGY LABORATORY Pathology/Cytology TISSUE SPECIMEN FROM SKIN / Unknown 10/25/2021 10/27/2021 9:29 AM CDT Miscellaneous samples (specimen) TISSUE SPECIMEN FROM SKIN / Unknown 10/25/2021 10/27/2021 9:29 AM CDT Miscellaneous samples (specimen) TISSUE SPECIMEN FROM SKIN / Unknown 10/25/2021 10/27/2021 9:29 AM CDT Artemio Avila MD LAB - PATHOLOGY/CYTO LOGY ORDERABLES Performing Organization Address City/State/[facility] Co de Phone Number DERMATOPATHOLOGY LABORATORY [facility] [place] - Department of Dermatology [facility] Medicine [address] [place] [address], [address] [phone] Care Teams Respooler Relationship Specialty Start Date End Date Artemio Avila MD [address] [place] [id number] PCP - General 06/17/14
--- OUTSIDE RECORDS SUMMARY | 2024-09-08 12:21 | XMS_ITS | Continuity of Care Document ---
Author Organization [facility] Address [address] [place] [address] Phone Care Team Providers Care Director Zone Name Role Phone Joe Turner Unavailable Unavailable Procedures Procedure Date Eye Exam & Treatment Refraction Eye Exam & Treatment No Script Office/outpatient Visit, Est Refraction Post-op Follow-up Visit Refraction Post-op Follow-up Visit Remove Cataract, Insert Lens PreSurg Dilated Fundus Eval Performed Se PreSurg Measurements/IOL Calc Performed And Docum Office/outpatient Visit, Est IOLMaster-Professional Visual Functional Status Assessed Post-op Follow-up Visit Refraction Advance Directives Directive Yes / No Effective Date File Name No Information Encounters Encounter Description Practice Location Reason(s) For Visit Diagnoses Date Provider Providers Copied on Encounter [facility], [address], [place], [place], [id number], [place] tel:[phone] [facility] No Information 0 Yue Diaz. [address] , [address], [place], [place], [address], [place]. tel:[phone] [facility], [address], [place], [place], [id number], tel:[phone] [facility] No Information John-0 1-200 9 Doisy Edward. [address] , [address], [place], [address], [place]. tel:[phone] Office/outpat ient Visit, Est [facility], [address], [place], [place], [address], [place] tel:[phone] [facility] No Information May-2 9-200 8 Doisy Edward. [address] , [address], [place], [address], [place]. tel:[phone] [facility], [id number] [place] [address] [address], [place], [place], [id number], [place] tel:[phone] [facility] No Information Oct-1 0-200 7 Doisy Edward. [address] [facility] [facility] [address] , [address], [place], [address], [place]. tel:[phone] [facility], [address], [place], [place], [address], [place] tel:[phone] [facility] No Information Sep-2 6-200 7 Doisy Edward. [address] , [address], [place], [address], [place]. tel:[phone] [facility], [address], [place], [place], [address], [place] tel:[phone] [facility] No Information Sep-2 5-200 7 Doisy Edward. [address] , [address], [place], [address], [place]. tel:[phone] Office/outpat ient Visit, Est [facility], [address], [place], [place], [address], [place] tel:[phone] [facility] No Information John-2 7-200 7 Doisy Edward. [address] , [address], [place], [address], [place]. tel:[phone] Referring Provider: Joe Jacobo, [address] [facility] [address], [place], [address]. tel:[phone] [facility], [address] [address], [place], [place], [id number], [place] tel:[phone] [facility] No Information 2200 6 uYe Diaz. [facility] [address], [address], [place], [address], [place]. tel:[phone] Family History Family Member Type Diagnosis Age At Onset No Information Payers Payer name Insurance type Covered alliance party ID Authoriza tigabriel(s) Medicare [facility] [id number] For Life Mdcr Supp CI [id number] Social History Type Description Quantity Date Captured Comments Sex Female Smoking Status No Information Chief Complaint And Reason For Visit No Information Reason For Referral Reason For Referral No Information History Of Present Illness Encounter Date Complaint History Of Prese nt Illness No Information Functional Status Date Functional Assessmen t No Information Instructions Date Instruction Additional Infor mation No Information Assessments Type Assessment Date No Information Patient Care Teams Name Effective Dates (start - stop) Status Members No Information
--- OUTSIDE RECORDS SUMMARY | 2024-09-08 12:21 | XMS_ITS | Clinical Summary ---
Author Organization [facility] Address [address] [place] [address] Care Team Providers Care Deli Associate Name Role Phone Artemio Avila MD Primary Care Provider [phone] Allergies Active Allergy Reactions Criticality Noted Date Comments Diltiazem Other (see comment) Low 11/30/2021 bradycardia Spironolactone Other (see comment) Low 06/19/2023 patient developed diarrhea, headaches and chest pressure and stopped it, 2021 Medications clopidogrel 75 MG tablet Take 1 tablet (75 mg total) by mouth daily. Active DULoxetine 60 MG capsule Take 1 capsule (60 mg total) by mouth daily. Active metoprolol succinate ER 100 MG 24 hr tablet Take 1 tablet (100 mg total) by mouth daily. Active rosuvastatin 20 MG tablet Take 1 tablet (20 mg total) by mouth nightly at bedtime. Active pantoprazole EC 20 MG tablet Take 1 tablet (20 mg total) by mouth daily. Active nitroglycerin 0.[address] 1 tablet (0.4 mg total) under the tongue every 5 (five) minutes as needed for Chest Pain. Active aspirin EC (ECOTRIN) 81 MG tablet Take 1 tablet (81 mg total) by mouth daily. Active empagliflozin (JARDIANCE) 10 MG tablet Take 1 tablet (10 mg total) by mouth daily. Active ALPRAZolam 0.25 MG tablet Take 1 tablet (0.25 mg total) by mouth 3 (three) times daily as needed. FOR ANXIETY 1 Active LORazepam 0.5 MG tablet Take 1 tablet (0.5 mg total) by mouth daily as needed. 2 Active Multiple Vitamin (DAILY VITAMINS) Tab Take 1 tablet by mouth daily. 4 Active pantoprazole EC 40 MG tablet Take 1 tablet (40 mg total) by mouth. Active nitroglycerin (NITROSTAT) 0.4 MG SL tablet Nitrostat (nitroglycerin) tablet, sublingual 0.4 mg; Place one tablet under tongue for chest pain up to 3 doses 5 minutes apart; 25; 3; -Dec-2013; Active 4 Active NIFEdipine ER 60 MG 24 hr tablet Take 1 tablet (60 mg total) by mouth daily. 1 Active clopidogrel 75 MG tablet 4 Active Telmisartan 80 MG Tab Take 80 mg by mouth daily. 2 Active albuterol sulfate HFA 108 (90 Base) MCG/ACT inhaler Inhale 2 puffs into the lungs every 4 (four) hours as needed. 3 Active estradiol (ESTRACE) 0.1 MG/GM vaginal cream 3 Active magnesium 250 MG tablet Take 1 tablet (250 mg total) by mouth. Active Active Problems Problem Noted Date Diagnosed Date Lumbar facet arthropathy 06/22/2023 Lumbar radiculopathy 02/14/2021 Family History Medical History Relation Comments Heart Disease Brother Cancer Father Heart Disease Mother Heart Disease Sister Relation Status Comments Brother Father Mother Sister Social History Tobacco Use Types Packs/Day Years [...] file Not on file Not on file Last Filed Vital Signs Vital Sign Reading Time Taken Comments Blood Pressure 186/72 07/10/2023 10:53 AM RAD TECH Pulse 64 07/10/2023 10:42 AM RAD TECH Temperature 36.6 C (97.9 F) 07/10/2023 9:57 AM RAD TECH Respiratory Rate 18 07/10/2023 10:53 AM RAD TECH Oxygen Saturation 99% 07/10/2023 10:42 AM RAD TECH Inhaled Oxygen Concentration - - Weight 99.6 kg (219 lb 9.6 oz) 07/10/2023 9:57 A M RAD TECH Height 167.6 cm (5' 6 ) 07/10/2023 9:57 AM RAD TECH Body Mass Index 35.44 07/10/2023 9:57 AM RAD TECH Plan of Treatment Health Maintenance Due Date Last Done Comments DTaP, Tdap and Td Vaccines ( 1 - Tdap) 1959 Zoster Vaccines (1 of 2) 1990 Annual Medicare Wellness Visit 2005 Dexa Scan (General) 2005 RSV Immunization or 60+ Years (1 - 1-dose 75+ series) 2015 Pneumococcal Vaccine: 65+ Ye ars (2 of 2 - PPSV23 or PCV20) 09/08/2016 09/08/2015 COVID-19 Vaccine (2 - 2023-2 5 season) 2024 09/30/2020 Influenza Adult (#1) 2024 05/23/2015 Meningococcal B Vaccine Aged Out No l onger eligible based on patient's age to complete this topic Meningococcal Vaccine Aged Out No philip logan eligible based on patient's age to complete this topic RSV Immunizations Under 20 Months Aged Out No longer eligible based on patient's age to complete this topic Insurance [facility] Care Teams Deli Associate Relationship Specialty Start Date End Date Artemio Avila MD [address] [address] PCP - General 06/30/13
--- OUTSIDE RECORDS SUMMARY | 2024-09-08 12:21 | XMS_ITS | Encounter Summary ---
Author Organization [facility] Address [facility] [place] [address] Care Team Providers Care Retail And Promotions Coordinator Name Role Phone Artemio Avila MD Primary Care Provider [phone] Encounter Details Date Type Department Care Team (Late st Contact Info) Description 06/19/2023 Prep for Procedure [facility] [place] [address] [id number] Jelly Lazcano APNP [address] [place] [address] Social History Tobacco Use Types Packs/Day Years [...] on filedocumented in this encounter Care Teams Retail And Promotions Coordinator Relationship Specialty Start Date End Date Artemio Avila MD [address] [place], [place] [id number] PCP - General 06/30/13 documented as of this encounter
--- OUTSIDE RECORDS SUMMARY | 2024-09-08 12:21 | XMS_ITS | Encounter Summary ---
Author Organization [facility] Address [address] [address] Care Team Providers Care Automotive Warranty Administrator Name Role Phone Artemio Avila MD Primary Care Provider [phone] Artemio Avila MD Primary Care Provider [phone] Sarthak Myrick MD Unavailable [phone] Encounter Details Date Type Department Care Team (Late st Contact Info) Description 09/08/2016 Orders Only [facility] ProviderRaffy MD [address] [place] [id number] Social History Tobacco Use Types Packs/Day Years Used Date Smoking Tobacco: Never Alcohol Use Standard Drinks/Week Comments Yes 0 (1 standard drink = 0.6 oz pur e alcohol) Comments Unknown Sex and Gender Information Value Date Recorded Sex Assigned at Not on file Legal Sex Female 3:24 AM NURSE STAFF Gender Identity Not on file Sexual Orientation Not on file documented as of this encounter Plan of Treatment Not on file documented as of this encounter Procedures Procedure Name Priority Date/Time Associated Diagnosis Comments CARDIOLOGY REPORT 09/08/2016 documented in this encounter Results * CARDIOLOGY REPORT (09/08/2016) Anatomical Region Laterality Modality Other Narrative 09/08/2016 Ordered by an unspecified provider. us Historical Provider [facility] Final Result documented in this encounter Visit Diagnoses Not on filedocumented in this encounter Care Teams Automotive Warranty Administrator Relationship Specialty Start Date End Date Artemio Avila MD PCP - General 10/20/16 Artemio Avila MD PCP - General 12/21/15 10/19/16 Sarthak Myrick MD Referring Physician Otolaryngology 01/04/18 documented as of this encounter
--- OUTSIDE RECORDS SUMMARY | 2024-09-08 12:21 | XMS_ITS | Referral Summary ---
Author Organization [facility] [address] Address [address] [place] [address] Care Team Providers Care Ciaio Counter Molder Name Role Phone Artemio Avila MD Primary Care Provider [phone] Sarthak Myrick MD Unavailable [phone] Encounters Date Type Department Care Team Description 08/28/2024 Telephone [facility] Medical [facility] Cardiology [address] [place] [address] [address] [place] [address] Donna Cao MD 08/14/2024 10:45 AM HEEL COVERER MACHINE OPERATOR Office Visit [facility] Cardiology [address] [place] [address] [address] [place] [address] Donna Cao MD 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 (Primary Dx); Hx of CABG; Presence of stent in coronary artery; Chronic heart failure with preserved ejection fraction (CMS/HCC) (HCC); Multiple-type hyperlipidemia; Essential hypertension; History of TIAs 07/14/2024 1:45 PM HEEL COVERER MACHINE OPERATOR Procedure visit [facility] Otolaryngology [address] [place], [place] [address] [address] Yuki Logan Fitting and adjustment of hearing aid (Primary Dx) 07/02/2024 1:30 PM HEEL COVERER MACHINE OPERATOR Procedure visit [facility] Otolaryngology [address] [place] [address] Yuki Logan Fitting and adjustment of hearing aid (Primary Dx) from Last 3 Months Allergies Active Allergy Reactions Criticality Noted Date [...] mg enteric coated tabletIndications:C oronary arteriosclerosis in peoria artery Take 1 tablet (81 mg total) [...] (Crestor) 20 mg tabletIndications:C oronary arteriosclerosis in pe[place] artery Take 1 tablet (20 mg total) [...] (PLAVIX) 75 mg tabletIndications:C oronary arteriosclerosis in pe[place] artery Take 1 tablet (75 mg total) by mouth daily 90 tablet 3 Active metoprolol XL (TOPROL-XL) 100 mg 24 [...] and possibly service. She was seeing our operating room nurse to have them checked. She is going to follow up for further problems if needed. Bilateral impacted cerumen 03/26/2024 Assessment & Plan (03/26/2024 8:20 PM CDT): She did have a small to moderate amount of cerumen that I removed on both sides. I do not think it was enough to impact her hearing aids. She is going to talk with our operating room nurse and follow up here otherwise as needed. [...] 06/04/2017 Assessment & Plan (06/04/2017 5:46 PM HEEL COVERER MACHINE OPERATOR): Currently taking Plavix and rosuvastatin Anxiety 06/04/2017 Assessment & Plan (01/21/2018 9:53 PM CDT): I am wondering if the patient's anxiety is contributing to some of her symptoms. She will be changing from her current Viibryd to another antidepressant soon. Assessment & Plan (06/04/2017 5:47 PM HEEL COVERER MACHINE OPERATOR): Patient has a lot of symptoms at [...] recently. Assessment & Plan (06/04/2017 5:44 PM HEEL COVERER MACHINE OPERATOR): Not a recent problem. 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 Takes Crestor 20 mg daily. Assessment & Plan (06/04/2017 5:45 PM HEEL COVERER MACHINE OPERATOR): 11/2016 total cholesterol 172, TG 185 and LDL 72, acceptable on rosuvastatin 20 mg daily. Coronary artery disease invo lving peoria coronary artery of peoria heart without angina pectoris 07/03/2014 Overview (10/26/2016): Coronary arteriosclerosis in peoria artery Assessment & Plan (01/21/2018 9:54 PM [...] well. Assessment & Plan (06/04/2017 5:44 PM HEEL COVERER MACHINE OPERATOR): Remote CABG History of coronary stent Recurrent atypical chest pain prompting cardiac catheterization in 2013 and November 2015 showing adequate revascularization but some stenosis of OM1 Negative stress test 2015, EF greater than 70% Stable exertional angina, with h/o noncardiac CP also. Hemoptysis Resolved Problems Problem Noted Date Diagnosed Date Resolved Date Abnormal laboratory test 03/30/2020 Hypercholesterolemia 02/10/2016 017 Overview (10/26/2016): Hypercholesterolemia Immunizations Immunization Administration Dates Next Due Influenza, Trivalent, Preservative Free, Intramu scular 05/23/2015 Social History Tobacco Use Types Packs/Day Years Used Date Smoking Tobacco: Never Smokeless Tobacco: Never Tobacco Cessation:Counseling Given: Not Answered Alcohol Use Standard Drinks/Week Comments Yes 0 (1 standard drink = 0.6 oz pur e alcohol) Comments Unknown Sex and Gender Information Value Date Recorded Sex Assigned at Not on file Legal Sex Female 3:24 AM HEEL COVERER MACHINE OPERATOR Gender Identity Not on file Sexual Orientation Not on file Last Filed Vital Signs Vital Sign Reading Time Taken Comments Blood Pressure 150/62 08/14/2024 10:47 AM HEEL COVERER MACHINE OPERATOR Pulse 58 08/14/2024 10:47 AM HEEL COVERER MACHINE OPERATOR Temperature 36.6 C (97.9 F) 10/04/2018 1:20 PM CDT Respiratory Rate 18 03/26/2024 10:53 AM CDT Oxygen Saturation 97% 08/14/2024 10:47 AM HEEL COVERER MACHINE OPERATOR Inhaled Oxygen Concentration - - Weight 91.6 kg (202 lb) 08/14/2024 10:47 AM HEEL COVERER MACHINE OPERATOR Height 172.7 cm (5' 8 ) 08/14/2024 10:47 AM HEEL COVERER MACHINE OPERATOR Body Mass Index 30.71 08/14/2024 10:47 AM HEEL COVERER MACHINE OPERATOR Plan of Treatment Not on file Insurance FOR LIFE [facility] HEALTHCARE FOR LIFE [facility] HEALTHCARE Member Subscriber Plan / Payer (Ef fective 2021-Present) Name:Charis Mccullough Relation to Subscriber:Self Name:Charis Mccullough Payer ID:[id number] (NAIC) Type:MEDICARE RISK OTHER Address: [place] [id number] [facility] Member Subscriber Plan / Payer (Ef fective 2021-Present) Name:Charis Mccullough Ayana Relation to Subscriber:Self Name:Charis Mccullough Payer ID:[id number] (NAIC) Type:MEDICARE RISK OTHER Address: [address] [place] Care Teams Ciaio Counter Molder Relationship Specialty Start Date End Date Artemio Avila MD PCP - General 10/20/16 Sarthak Myrick MD Referring Physician Otolaryngology 01/04/18
--- OUTSIDE RECORDS SUMMARY | 2024-09-08 12:21 | XMS_ITS | Clinical Summary ---
Author Organization [facility] Address [address] [place] [address] Phone Care Team Providers Care Wind Field Manager Name Role Phone Artemio Avila MD Primary Care Provider [phone] Allergies Active Allergy Reactions Criticality Noted Date Comments Diltiazem Other (see comments) Low 09/04/2019 Bradycardia 2016 Medications Medication Sig Dispensed Refills Start Date End Date Status aspirin EC 81 MG EC tablet Take 81 mg by mouth daily Active clopidogrel (PLAVIX) 75 MG tablet Take 75 mg by mouth 1 (one) time each day Active rosuvastatin (CRESTOR) 20 MG tablet Take 20 mg by mouth daily 11/19/2018 Active DULoxetine (CYMBALTA) [address] capsule Take 90 mg by mouth 1 (one) time each day 11/04/2020 Active NIFEdipine CC (ADALAT CC) 30 MG 24 hr tablet Take 90 mg by mouth 1 (one) time each day 10/29/2020 Active Empagliflozin (Jardiance) 10 MG tablet Take 10 mg by mouth 1 (one) time each day Active pantoprazole (PROTONIX) 40 MG EC tablet Take 40 mg by mouth in the morning and 40 mg in the evening. Active metoprolol succinate XL (TOPROL-XL) 100 MG 24 hr tablet Take 100 mg by mouth 1 (one) time each day Active albuterol HFA (PROVENTIL HFA) 108 (90 Base) MCG/ACT inhaler Inhale 2 puffs every 4 (four) hours if needed for wheezing Active colchicine 0.6 MG tablet Take 1.2mg for one dose. One hour later, take an additional 0.6mg tablet. Then, monitor for gout flare resolution. 10 tablet 1 09/21/2023 Active LORazepam (ATIVAN) 0.5 MG tablet Take 0.5 mg by mouth every 8 (eight) hours if needed 01/16/2024 Active torsemide (DEMADEX) 10 MG tablet TAKE 1 TABLET(10 MG) BY MOUTH 1 TIME EACH DAY 90 tablet 3 08/08/2024 Active potassium chloride (KLOR-CON M10) 10 MEQ CR tablet TAKE 1 TABLET(10 MEQ) BY MOUTH 1 TIME EACH DAY 30 tablet 11 08/08/2024 Active Active Problems Problem Noted Date Diagnosed Date Hemoptysis 03/12/2019 Dyspnea on exertion 02/26/2019 Gastroparesis 10/23/2018 Precordial pain 10/23/2018 Syncope and collapse 10/23/2018 Headache 03/22/2018 Postconcussion syndrome 03/22/2018 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 She will be changing from her current Viibryd to another antidepressant soon. H/O: TIA 06/04/2017 Overview (03/12/2019): Last Assessment & Plan: Currently taking Plavix and rosuvastatin Transient cerebral ischemia 09/26/2016 Overview (03/12/2019): Overview: Transient cerebral ischemia, unspecified type Chiari malformation type I 08/14/2016 Bradycardia 02/10/2016 Overview (03/12/2019): Overview: Bradycardia Fatigue 02/10/2016 Overview (03/12/2019): Overview: Fatigue, unspecified type History of coronary artery bypass grafting 02/09 Overview (03/12/2019): Overview: Hx of CABG Obstructive sleep apnea syndrome 02/10/2016 Overview (03/12/2019): Overview: WENDY (obstructive sleep apnea) Orthostatic hypotension 02/10/2016 Overview (03/12/2019): Overview: Orthostatic hypotension Last Assessment & Plan: Not a problem recently. Stented coronary artery 02/10/2016 Overview (03/12/2019): Overview: Stented coronary artery Mixed hyperlipidemia 09/07/2015 Overview (03/12/2019): Converted unresolved ICD9, potential mismatch. Overview: Mixed hyperlipidemia Last Assessment & Plan: October 2017 LDL cholesterol was 61, well controlled. Takes Crestor 20 mg daily. Chronic kidney disease, stage 3 (moderate) 04/06 Essential (primary) hypertension 04/21/2013 Essential (primary) hypertension 04/13/2013 Personal history of transien t ischemic attack (TIA), and cerebral infarction without residual deficits 04/13/2013 Coronary arteriosclerosis in [place] artery 04/13 Overview (03/12/2019): Overview: Coronary arteriosclerosis in [place] artery Last Assessment & Plan: Remote CABG History of coronary stent Recurrent [...] Her anxiety may be contributing as well. Encounters Date Type Department Care Team Description 08/08/2024 [facility] [address] [place] [address] Jerrod Garcia PA [facility] [address] [place] [address] Jerrod Garcia PA from Last 3 Months Immunizations Name Administration Dates Next Due Influenza (IM) Preservative Free 05/23/2015 Pneumococcal Conjugate 13-Valent 09/08/2015 Family History Medical History Relation Comments Cerebrovascular accident Mother Diabetes mellitus Mother Hypertensive disorder Mother Kidney disease Neg Hx Kidney stone Neg Hx Relation Status Comments Mother Social History Tobacco Use Types Packs/Day Years Used Date Smoking Tobacco: Never Smokeless Tobacco: Never Alcohol Use Standard Drinks/Week Comments No 0 (1 standard drink = 0.6 oz pur e alcohol) Sex and Gender Information Value Date Recorded Sex Assigned at Not on file Gender Identity Not on file Sexual Orientation Not on file Last Filed Vital Signs Vital Sign Reading Time Taken Comments Blood Pressure 128/78 02/20/2024 1:01 PM CDT Pulse 61 02/20/2024 1:01 PM CDT Temperature 36.3 C (97.4 F) 08/16/2020 1:16 PM CONTOUR GRINDER Respiratory Rate 18 08/16/2020 1:16 PM CONTOUR GRINDER Oxygen Saturation - - Inhaled Oxygen Concentration - - Weight 92.5 kg (204 lb) 02/20/2024 1:01 PM CDT Height 172.7 cm (5' 8 ) 02/20/2024 1:01 PM CDT Body Mass Index 31.02 02/20/2024 1:01 PM CDT Plan of Treatment Upcoming Encounters Date Type Department Care Team (Late st Contact Info) Description 04/21/2025 11:20 AM CDT Office Visit [facility] [address] [place] [address] Vasyl Craft MD [address] [place] [address] Health Maintenance Due Date Last Done Comments Pneumococcal PPSV23/PCV13 65 + Years / High and Highest Risk (2 of 4 - PPSV23 or PCV20) 11/03/2015 09/08/2015 Influenza Vaccine (#1) 2024 05/23/2015 Care Teams Wind Field Manager Relationship Specialty Start Date End Date Artemio Avila MD [address] [place] [address] PCP - General Family Medicine 10/16/18
--- OUTSIDE RECORDS SUMMARY | 2024-09-08 12:21 | XMS_ITS | Encounter Summary ---
Author Organization [facility] Address [facility] [place] [address] Care Team Providers Care Snake Charmer Name Role Phone Artemio Avila MD Primary Care Provider [phone] Encounter Details Date Type Department Care Team (Late st Contact Info) Description 12/28/2018 Abstract [facility] CONVERSION [address] [place] [address] , Generic ConversionMD Social History Tobacco Use Types Packs/Day Years Used Date Smoking Tobacco: Never Comments Unknown Sex and Gender Information Value Date Recorded Sex Assigned at Not on file Legal Sex Female 11:01 PM CDT Gender Identity Not on file Sexual Orientation Not on file documented as of this encounter Plan of Treatment Not on file documented as of this encounter Visit Diagnoses Not on filedocumented in this encounter Care Teams Snake Charmer Relationship Specialty Start Date End Date Artemio Avila MD [address] [place] [address] PCP - General 06/30/13 documented as of this encounter
--- OUTSIDE RECORDS SUMMARY | 2024-09-08 12:21 | XMS_ITS | Clinical Summary ---
Author Organization [facility] Address [address] [place] [address] Care Team Providers Care Regional Agronomist Name Role Phone Artemio Avila MD Primary Care Provider [phone] Source Comments [facility] Affiliates and Associated Physician Practices is amultiple site organization consisting of ambulatory clinics and hospital sitesin [place], [place], [place] and [place]. This disclosure is being madepursuant to the Care Everywhere program and may not contain all information available regarding this patient. Last updated 18.[facility] Family History Medical History Relation Name Comments Allergy (Severe) Neg Hx CVA Neg Hx Cancer Neg Hx Cancer - Breast Neg Hx Cancer - Skin, Melanoma Neg Hx Cancer - Skin, Non Melanoma Neg Hx Eczema Neg Hx Hemophilia Neg Hx Psoriasis Neg Hx Rashes/Skin Problems Neg Hx Social History Tobacco Use Types Packs/Day Years Used Date Smoking Tobacco: Never Sex and Gender Information Value Date Recorded Sex Assigned at Not on file Gender Identity Not on file Sexual Orientation Not on file Plan of Treatment Health Maintenance Due Date Last Done Comments BONE DENSITY TESTING 1940 DTAP/TDAP/TD VACCINES (1 - Tdap) 1959 PNEUMOCOCCAL VACCINE 50+ (1 of 1 - PCV) 1990 ZOSTER VACCINE (1 of 2) 1990 Respiratory Syncytial Virus (RSV) Vaccine Pt: or over 60 yrs (1 - 1-dose 75+ series) 2015 COVID-19 VACCINE ( - 2023-2 5 season) 2024 INFLUENZA VACCINE (#1) 2024 DEPRESSION SCREENING 07/23/2024 MEDICARE AWV CALENDAR YEAR 2024 HEPATITIS B VACCINE Aged Out No longe r eligible based on patient's age to complete this topic HIB VACCINE Aged Out No longer eligi ble based on patient's age to complete this topic HPV VACCINE Aged Out No longer eligi ble based on patient's age to complete this topic MENINGOCOCCAL (Group B) VACCINE Aged Out No longer eligible based on patient's age to complete this topic MENINGOCOCCAL VACCINE Aged Out No philip logan eligible based on patient's age to complete this topic Care Teams Regional Agronomist Relationship Specialty Start Date End Date Artemio Avila MD [address] [place] [address] PCP - General 06/17/14
--- OUTSIDE RECORDS SUMMARY | 2024-09-08 12:21 | XMS_ITS | Encounter Summary ---
Author Organization [facility] Address [address] [place] [address] Care Team Providers Care Crop Adjuster Name Role Phone Artemio Avila MD Primary Care Provider [phone] Reason for Referral * Surgical (Routine) - Closed Specialty Diagnoses / Procedures Referred By Veronica huntley Referred To Contact Diagnoses Lumbar radiculopathy Procedures Case request operating room: INJECTION EPIDURAL TRANSFORAMINAL L4-5 Jelly Lazcano APNP Phone: tel: fax: Referral ID Status Reason Start Date Expiration Date Visits Re quested Visits Authorized [id number] Closed 04/04/2023 04/04/2024 1 1 Encounter Details Date Type Department Care Team (Late st Contact Info) Description 04/04/2023 Prep for Procedure [facility] [place] [address] [id number] Jelly Lazcano APNP [address] [place] [phone] Social History Tobacco Use Types Packs/Day Years [...] as of this encounter Plan of Treatment Scheduled Orders Name Type Priority Associated Diagnoses Orde r Schedule Case request operating room: INJECTION EPIDURAL TRANSFORAMINAL L4-5 Case Request Routine Lumbar radiculopathy Once for 1 Occurrences starting 04/04/2023 until 04/04/2023 documented as of this encounter Visit Diagnoses Diagnosis Lumbar radiculopathy- Primary Thoracic or lumbosacral neuritis or radiculitis, unspecified documented in this encounter Care Teams Crop Adjuster Relationship Specialty Start Date End Date Artemio Avila MD [address] [place] [address] PCP - General 06/30/13 documented as of this encounter
--- OUTSIDE RECORDS SUMMARY | 2024-09-08 12:21 | XMS_ITS | Encounter Summary ---
Author Organization [facility] Address [address] [place] [place] [address] Care Team Providers Care Financial Planning Advisor Name Role Phone Artemio Avila MD Primary Care Provider [phone] Encounter Details Date Type Department Care Team (Late st Contact Info) Description 10/27/2021 Lab Requisition [facility] DermPath Lab [address] [facility] [place] [place] [address] Artemio Avila MD [address] [place] [address] Social History Tobacco Use Types Packs/Day Years Used Date Smoking Tobacco: Never Sex and Gender Information Value Date Recorded Sex Assigned at Not on file Gender Identity Not on file Sexual Orientation Not on file documented as of this encounter Plan of Treatment Not on file documented as of this encounter Procedures Procedure Name Priority Date/Time Associated Diagnosis Comments DERMATOPATHOLOGY Routine 10/25/2021 12:0 0 AM CDT documented in this encounter Results * DERMATOPATHOLOGY (10/25/2021 12:00 AM CDT) Case Report Dermatopathology Report Case: [id number] Authorizing Provider: Artemio Avila MD Collected: 10/25/2021 12:00 AM Ordering Location: [facility] DermPath Lab Received: 10/27/2021 09:29 AM Pathologist: Laura Herrera MD Specimens: A) - Skin, left lower breast B) - Skin, left upper breast C) - Skin, left top chest 4:43 PM [facility] DERMATOPATHOLOGY LABORATORY Final Diagnosis Specimen A. SKIN, left lower breast: BENIGN VERRUCOUS KERATOSIS (L82.1) PRESENT AT MARGIN Specimen B. SKIN, left upper breast: SEBORRHEIC KERATOSIS, IRRITATED AND INFLAMED (L82.0) PRESENT AT MARGIN Specimen C. SKIN, left top chest: SEBORRHEIC KERATOSIS, IRRITATED AND INFLAMED (L82.0) PRESENT AT MARGIN 4:43 PM [facility] DERMATOPATHOLOGY LABORATORY Clinical History A-C: Changing lesion. Check margins. 4:43 PM [facility] DERMATOPATHOLOGY LABORATORY Gross Description Specimen A: Received is one formalin filled container labeled with the patient's name and designated left lower breast. The specimen consists of a shave biopsy measuring [id number], bisected. The margin is inked green. Jar 0. Specimen B: Received is one formalin filled container labeled with the patient's name and designated left upper breast. The specimen consists of a shave biopsy measuring [id number], bisected. The margin is inked green. Jar 0. Specimen C: Received is one formalin filled container labeled with the patient's name and designated left top chest. The specimen consists of a shave biopsy measuring [id number], bisected. The margin is inked green. Jar 0. 4:43 PM [facility] DERMATOPATHOLOGY LABORATORY Microscopic Description Specimen A. SKIN, [...] present at the margin of the specimen. 2 4:43 PM CDT DERMATOPATHOLOGY LABORATORY Disclaimer An external and internal positive and negative controls are appropriate for the histochemical, immunohistochemical and immunofluorescence stain(s) in this case (if any), except where stated explicitly. The performance characteristics of the stain(s) cited in this report were developed and its performance characteristic determined by the Dermatopathology Laboratory at [facility], directed by Dr. Leana Swartz. These tests need not be, and therefore are not, approved by the [place] Food and Drug Administration. The tests are used for clinical purposes. Billing Codes Specimen Charges Stain Charges 81283 59261 56070 1 1 1 2 4:43 PM CDT [...] Avila MD LAB - PATHOLOGY/CYTO LOGY ORDERABLES DERMATOPATHOLOGY LABORATORY [facility] Department of Dermatology [facility] Medicine [address] [place] [address], [address] [phone] documented in this encounter Visit Diagnoses Not on filedocumented in this encounter Care Teams Financial Planning Advisor Relationship Specialty Start Date End Date Artemio Avila MD [address] [place] [address] PCP - General 06/17/14 documented as of this encounter
--- OUTSIDE RECORDS SUMMARY | 2024-09-08 12:21 | XMS_ITS | Encounter Summary ---
Author Organization [facility] Address [address] [address] Care Team Providers Care Instructional Technology Director Name Role Phone Artemio Avila MD Primary Care Provider [phone] Artemio Avila MD Primary Care Provider [phone] Sarthak Myrick MD Unavailable [phone] Encounter Details Date Type Department Care Team (Late st Contact Info) Description 09/05/2016 Orders Only [facility] ProviderRaffy MD [address] [place] [address] Social History Tobacco Use Types Packs/Day Years Used Date Smoking Tobacco: Never Alcohol Use Standard Drinks/Week Comments Yes 0 (1 standard drink = 0.6 oz pur e alcohol) Comments Unknown Sex and Gender Information Value Date Recorded Sex Assigned at Not on file 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 us Historical Provider [facility] Final Result documented in this encounter Visit Diagnoses Not on filedocumented in this encounter Care Teams Instructional Technology Director Relationship Specialty Start Date End Date Artemio Avila MD PCP - General 10/20/16 Artemio Avila MD PCP - General 12/21/15 10/19/16 Sarthak Myrick MD Referring Physician Otolaryngology 01/04/18 documented as of this encounter
--- OUTSIDE RECORDS SUMMARY | 2024-09-08 12:21 | XMS_ITS | Referral Summary ---
Author Organization [facility] Address [address] [facility] [place] [address] Care Team Providers Care Field Software Engineer Name Role Phone Artemio Avila MD Primary Care Provider [phone] Source Comments [facility],non-owned Affiliates and Associated Physician Practices is amultiple site organization consisting of ambulatory clinics and hospital sitesin [place], [place], [place] and [place]. This disclosure is being madepursuant to the Care Everywhere program and may not contain all information available regarding this patient. Last updated 18.[facility] Social History Tobacco Use Types Packs/Day Years Used Date Smoking Tobacco: Never Sex and Gender Information Value Date Recorded Sex Assigned at Not on file Gender Identity Not on file Sexual Orientation Not on file Plan of Treatment Not on file Care Teams Field Software Engineer Relationship Specialty Start Date End Date Artemio Avila MD [address] [place] [address] PCP - General 06/17/14
--- OUTSIDE RECORDS SUMMARY | 2024-09-08 12:37 | XMS_ITS | Continuity of Care Document ---
Author Organization [facility] Address [address] [place] [address] Phone Care Team Providers Care Remote Computer Terminal Operator Name Role Phone Joe Turner Unavailable Unavailable [...] Diagnoses Date Provider Providers Copied on Encounter [facility], [address], [place], [place], [address], [place] tel:[phone] [facility] No Information 0 Yue Diaz. [address], [place], [address], [place]. tel:[phone] [facility], [address], [place], [place], [address], tel:[phone] [facility] No Information John-0 1-200 9 Doisy Edward. [address], [place], [address], [place]. tel:[phone] Office/outpat ient Visit, Est [facility], [address], [place], [place], [address], [place] tel:[phone] [facility] No Information May-2 9-200 8 Doisy Edward. [address], [place], [address], [place]. tel:[phone] [facility], [address] [place] [address] [address], [place], [place], [address], [place] tel:[phone] [facility] No Information Oct-1 0-200 7 Doisy Edward. [address] [facility] , [address], [place], [address], [place]. tel:[phone] [facility], [address], [place], [place], [address], [place] tel:[phone] [facility] No Information Sep-2 6-200 7 Doisy Edward. [address], [place], [address], [place]. tel:[phone] [facility], [address], [place], [place], [address], [place] tel:[phone] [facility] Information Sep-2 5-200 7 Doisy Edward. [address], [place], [address], [place]. tel:[phone] Office/outpat ient Visit, Est [facility], [address], [place], [place], [address], [place] tel:[phone] [facility] No Information John-2 7-200 7 Doisy Edward. [address], [place], [address], [place]. tel:[phone] Referring Provider: Joe Jacobo, [address] [facility] [address], [place], [address]. tel:[phone] [facility], [address] [facility] [address], [place], [place], [address], [place] tel:[phone] [facility] No Information [address] Yue Diaz. [facility] [address], [address], [place], [address], [place]. tel:[phone] Family History Family Member Type Diagnosis Age At Onset No Information Payers Payer name Insurance type Covered libertarian ID Authoriza tigabriel(s) Medicare [facility] [id number] For Life Mdcr Supp CI [id number] Social History Type Description Quantity Date Captured [...]
== END 2024-09-08 09:51 | disposition home or self-care (01) ==
PROVIDERS: PCP Family Medicine; Visit Provider Physician Assistant Medical
DX: R25.2 Cramp and spasm (principal); E55.9 Vitamin D deficiency, unspecified; D64.9 Anemia, unspecified; R06.02 Shortness of breath
CPT/HCPCS: 36415; 71046; 82306; 82607; 83540; 83550

== ENCOUNTER 2024-10-14 12:07 | Outpatient (CLI) | payer OTHER, SELFPAY ==
[2024-10-14 12:43] LABS: Hematocrit 41.8 % (37.0-47.0); Hemoglobin 13.4 g/dL (12.0-15.0); Mean Corpuscular HGB Conc 32.1 g/dl (32-36); Mean Corpuscular Hemoglobin 30.2 pg (26-34); Mean Corpuscular Volume 94.1 fl (80-100); Mean Platelet Volume 10.3 fl (7.4-10.4); Platelet Count Result 223 k/mm3 (150-375); Red Blood Count 4.44 M/mm3 (4.2-5.4); Red Cell Distribution Width 15.2 % (11.5-14.5); White Blood Count 6.4 K/mm3 (4.5-10.0)
[2024-10-14 13:01] LABS: Alanine Aminotransferase 25 U/L (6-35); Albumin Level 4.3 g/dL (3.5-5.1); Alkaline Phosphatase 89 U/L (38-126); Amylase 79 U/L (30-110); Anion Gap 11 mmol/L (4-12); Aspartate Amino Transferase 31 U/L (14-36); Bilirubin,Total 0.6 mg/dL (0.2-1.3); Blood Urea Nitrogen 38 mg/dL (7-17); Calcium 9.1 mg/dL (8.4-10.2); Carbon Dioxide 25 mmol/L (22-30); Chloride 104 mmol/L (98-107); Estimated Glomerular Filt Rate 37; Glucose 88 mg/dL (65-110); Lipase 203 U/L (23-300); Potassium 4.7 mmol/L (3.4-5.0); Sodium 140 mmol/L (137-145)
--- OUTSIDE RECORDS SUMMARY | 2024-10-14 14:12 | XMS_ITS | Continuity of Care Document ---
Author Organization [facility] Address [address] [place] [address] Phone Care Team Providers Care Sustainability Consultant Name Role Phone Joe Turner Unavailable Unavailable [...] Diagnoses Date Provider Providers Copied on Encounter [facility], [address], [place], [place], [address], [place] tel:[phone] SEC [facility] No Information 0 Yue Diaz. [address], [place], [address], [place]. tel:[phone] [facility], [address], [place], [place], [address], tel:[phone] [facility] No Information John-0 1-200 9 Doisy Edward. [address] , [address], [place], [address], [place]. tel:[phone] Office/outpat ient Visit, Est [facility], [address], [place], [place], [address], [place] tel:[phone] [facility] No Information May-2 9-200 8 Doisy Edward. [address], [place], [address], [place]. tel:[phone] [facility], [address] [place] [address] [address], [place], [place], [address], [place] tel:[phone] [facility] No Information Oct-1 0-200 7 Doisy Edward. [address] [facility] , [address], [place], [address], [place]. tel:[phone] [facility], [address], [place], [place], [address], [place] tel:[phone] [facility] No Information Sep-2 6-200 7 Doisy Edward. [address], [place], [address], [place]. tel:[phone] [facility], [address], [place], [place], [address], [place] tel:[phone] [facility] No Information Sep-2 5-200 7 Doisy Edward. [address], [place], [address], [place]. tel:[phone] Office/outpat ient Visit, Est [facility], [address], [place], [place], [address], [place] tel:[phone] [facility] No Information John-2 7-200 7 Doisy Edward. [address], [place], [address], [place]. tel:[phone] Referring Provider: Joe Jacobo, [address] [facility] [address], [place], [address]. tel:[phone] [facility], [address] [facility] [address], [place], [place], [address], [place] tel:[phone] [facility] No Information [address] 6 Yue Diaz. [facility] [address], [address], [place], [address], [place]. tel:[phone] Family History Family Member Type Diagnosis Age At Onset No Information Payers Payer name Insurance type Covered green party ID Authoriza tigabriel(s) Medicare [facility] [id number] For Life Mdcr Supp [place] [id number] Social History Type Description Quantity Date Captured [...]
--- OUTSIDE RECORDS SUMMARY | 2024-10-14 14:12 | XMS_ITS | Encounter Summary ---
Author Organization [facility] Address [address] [address] Care Team Providers Care Surveyor Helper Name Role Phone Artemio Avila MD Primary Care Provider [phone] Encounter Details Date Type Department Care Team (Late st Contact Info) Description 10/27/2021 Lab Requisition [facility] DermPath Lab [address] [facility] [place] [address] Artemio Avila MD [address] [place] [address] Social History Tobacco Use Types [...] AM CDT) Case Report Dermatopathology Report Case: [id number] Authorizing Provider: Artemio Avila MD Collected: 10/25/2021 12:00 AM Ordering Location: [facility] DermPath Lab Received: 10/27/2021 09:29 AM Pathologist: Laura Herrera MD Specimens: A) - Skin, left lower breast B) - Skin, left upper breast C) - Skin, left top chest 4:43 PM [facility] DERMATOPATHOLOGY LABORATORY Final Diagnosis Specimen A. SKIN, left lower breast: BENIGN VERRUCOUS KERATOSIS (L82.1) PRESENT AT MARGIN Specimen B. SKIN, left upper breast: SEBORRHEIC KERATOSIS, IRRITATED AND INFLAMED (L82.0) PRESENT AT MARGIN Specimen C. SKIN, left top chest: SEBORRHEIC KERATOSIS, IRRITATED AND INFLAMED (L82.0) PRESENT AT MARGIN 4:43 PM [facility] DERMATOPATHOLOGY LABORATORY Clinical History A-C: Changing lesion. Check margins. 4:43 PM [facility] DERMATOPATHOLOGY LABORATORY Gross Description Specimen A: Received is one formalin filled container labeled with the patient's name and designated left lower breast. The specimen consists of a shave biopsy measuring [id number], bisected. The margin is inked green. Jar 0. Specimen B: Received is one formalin filled container labeled with the patient's name and designated left upper breast. The specimen consists of a shave biopsy measuring [id number], bisected. The margin is inked green. Jar 0. Specimen C: Received is one formalin filled container labeled with the patient's name and designated left top chest. The specimen consists of a shave biopsy measuring [id number], bisected. The margin is inked green. Jar 0. 4:43 PM [facility] DERMATOPATHOLOGY LABORATORY Microscopic Description Specimen A. SKIN, [...] characteristic determined by the Dermatopathology Laboratory at [facility], directed by Dr. Leana Swartz. These tests need not be, and therefore are not, approved by the [place] Food and Drug Administration. The tests are used for clinical purposes. Billing Codes Specimen Charges Stain Charges 88521 88901 30780 1 1 1 2 4:43 PM CDT [...] LAB - PATHOLOGY/CYTO LOGY ORDERABLES DERMATOPATHOLOGY LABORATORY [facility] Department of Dermatology [facility] Medicine [address] [place] [address], [address] [phone] documented in this encounter Visit Diagnoses Not on filedocumented in this encounter Care Teams Surveyor Helper Relationship Specialty Start Date End Date Artemio Avila MD [address] [place] [address] PCP - General 06/17/14 documented as of this encounter
--- OUTSIDE RECORDS SUMMARY | 2024-10-14 14:12 | XMS_ITS | Referral Summary ---
Author Organization [facility] [place] [address] [place] [address] [place] [phone] Care Team Providers Care Calibration Technician Name Role Phone Artemio Avila MD Primary Care Provider Sarthak Myrick MD Unavailable [phone] Encounters Date Type Department Care Team Description 09/11/2024 Results Follow-Up [facility] Cardiology [address] [place] [address] [place] [phone] Ella Cao MD 09/09/2024 9:15 AM SKEINER Ancillary Procedure [facility] Cardiology [address] [place] [address] [place] [phone] 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; Hx of CABG; Chronic heart failure with preserved ejection fraction (HCC); Essential hypertension; Atherosclerosis of keweenaw coronary artery without angina pectoris, unspecified whether keweenaw or transplanted heart; Chronic congestive heart failure, unspecified heart failure type (HCC); Essential (primary) hypertension 08/28/2024 Telephone [facility] Cardiology [address] [place] [address] [place] [phone] Ella Cao MD 08/14/2024 10:45 AM SKEINER Office Visit [facility] Cardiology [address] [place] [address] Ella Cao MD 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 (Primary Dx); Hx of CABG; Presence of stent in coronary artery; Chronic heart failure with preserved ejection fraction (HCC); Multiple-type hyperlipidemia; Essential hypertension; History of TIAs from Last 3 Months Allergies Active Allergy [...] capsules (90 mg total) by mouth daily 05/28/20 20 Active aspirin 81 mg enteric coated tabletIndications:Co ronary arteriosclerosis in keweenaw artery Take 1 tablet (81 mg total) by mouth daily 03/02/20 21 Active LORazepam (ATIVAN) 0.5 mg tablet Take 1 tablet (0.5 mg total) by mouth daily as needed 12/07/19 22 Active albuterol HFA (PROVENTIL HFA,VENTOLIN HFA,PROAIR HFA) 90 mcg/actuation inhaler INHALE 2 PUFFS BY MOUTH EVERY 4 HOURS NEEDED FOR SHORTNESS OF BREATH AND WHEEZING 05/07/20 22 Active empagliflozin (JARDIANCE) 10 mg tabletIndications:ty pe 2 diabetes mellitus Take 1 tablet (10 mg total) by mouth daily 90 tablet 3 07/04/20 22 Active rosuvastatin (Crestor) 20 mg tabletIndications:Co ronary arteriosclerosis in keween[place] artery Take 1 tablet (20 mg total) by mouth daily 90 tablet 3 12/27/19 23 Active NIFEdipine (NIFEdipine CC) 90 mg 24 hr tabletIndications:Es sential hypertension Take 1 tablet (90 mg total) by mouth daily 90 tablet 3 08/09/19 24 Active nitroglycerin (NITROSTAT) 0.[address] 1 tablet (0.4 mg total) under the tongue every 5 (five) minutes as needed for chest pain 50 tablet 1 08/17/19 24 Active clopidogreL (PLAVIX) 75 mg tabletIndications:Co ronary arteriosclerosis in keween[place] artery Take 1 tablet (75 mg total) by mouth daily 90 tablet 3 01/14/20 24 Active metoprolol XL (TOPROL-XL) 100 mg 24 hr tablet Take 1 tablet (100 mg total) by mouth daily 90 tablet 2 04/15/20 24 Active torsemide (DEMADEX) 10 mg tablet Take 1 tablet (10 mg total) by mouth daily 08/08/19 25 Active potassium chloride ER 10 mEq CR tablet Take 1 tablet/capsul e (10 mEq total) by mouth 08/08/19 25 Active Active Problems Problem Noted Date Diagnosed [...] and possibly service. She was seeing our mold preparer to have them checked. She is going to follow up for further problems if needed. Bilateral impacted cerumen 03/26/2024 Assessment & Plan (03/26/2024 8:20 PM CDT): She did have a small to moderate amount of cerumen that I removed on both sides. I do not think it was enough to impact her hearing aids. She is going to talk with our mold preparer and follow up here otherwise as needed. Fall 06/19/2023 Aphasia 06/19/2023 TIA (transient ischemic attack) 06/19/2023 Chronic heart failure with preserved ejection fr action 08/09/2022 Chronic pain syndrome 08/09/2022 Numbness of [...] 06/04/2017 Assessment & Plan (06/04/2017 5:46 PM SKEINER): Currently taking Plavix and rosuvastatin Anxiety 06/04/2017 Assessment & Plan (01/21/2018 9:53 PM CDT): I am wondering if the patient's anxiety is contributing to some of her symptoms. She will be changing from her current Viibryd to another antidepressant soon. Assessment & Plan (06/04/2017 5:47 PM SKEINER): Patient has a lot of symptoms at night, and disclosed better in his sleep. Since she lives alone, I can understand why nighttime is a tough time for her. However she also has feelings of i mpending doom which sound like they may be panic attack. Temporary cerebral vascular dysfunction 09/27/19 17 Overview (12/15/2016): Transient cerebral ischemia, unspecified type Arnold-Chiari malformation, type I 08/14/2016 Bradycardia 02/10/2016 Overview (10/26/2016): Bradycardia Chronic fatigue [...] recently. Assessment & Plan (06/04/2017 5:44 PM SKEINER): Not a recent problem. 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 Takes Crestor 20 mg daily. Assessment & Plan (06/04/2017 5:45 PM SKEINER): 11/2016 total cholesterol 172, TG 185 and LDL 72, acceptable on rosuvastatin 20 mg daily. Coronary artery disease invo lving keweenaw coronary artery of ke[place] heart without angina pectoris 07/03/2014 Overview (10/26/2016): Coronary arteriosclerosis in keween[place] artery Assessment & Plan (01/21/2018 9:54 PM [...] well. Assessment & Plan (06/04/2017 5:44 PM SKEINER): Remote CABG History of coronary stent Recurrent [...] on file Legal Sex Female 3:24 AM SKEINER Gender Identity Not on file Sexual Orientation Not on file Last Filed Vital Signs Vital Sign Reading Time Taken Comments Blood Pressure 150/62 08/14/2024 10:47 AM SKEINER Pulse 58 08/14/2024 10:47 AM SKEINER Temperature 36.6 C (97.9 F) 10/04/2018 1:20 PM CDT Respiratory Rate 18 03/26/2024 10:53 AM CDT Oxygen Saturation 97% 08/14/2024 10:47 AM SKEINER Inhaled Oxygen Concentration - - Weight 91.6 kg (202 lb) 08/14/2024 10:47 AM SKEINER Height 172.7 cm (5' 8 ) 08/14/2024 10:47 AM SKEINER Body Mass Index 30.71 08/14/2024 10:47 AM SKEINER Plan of Treatment Not on file Procedures Procedure Name Priority Date/Time Associated Diagnosis Comments TRANSTHORACIC ECHO (TTE) COMPLETE W DOPPLER/CF WO CONTRAST Routine 09/09/2024 9:35 AM SKEINER 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 Hx of CABG Chronic heart failure with preserved ejection fraction (HCC) Essential hypertension from Last 3 Months Results * TRANSTHORACIC ECHO (TTE) COMPLETE W DOPPLER/CF WO CONTRAST (09/09/2024 9:35 AM SKEINER) LV EF 70-75 % CONS SCIMAGE Anatomical Region Laterality Modality Ultrasound 09/09/2024 8:48 AM SKEINER Narrative 09/09/2024 11:57 AM SKEINER [facility] Cardiology [address] [facility] [address], [place] [address] [address] [facility] [address], [place] [address] P:[phone] P:[phone] Echocardiographic Report Patient Name: CHARIS MCCULLOUGH L : 1940 Study Date: 09/09/2024 8:48:35 AM Gender: F Tech: Location: [facility] Provider: ELLA CAO Height(Cm): 173 BSA: 2.1 Weight(Kg): 91.6 Heart Rate: 62 BP: 150 / 62 Quality: Good Order Provider: ELLA CAO PROCEDURES: Echocardiographic Report: Transthoracic echocardiogram with complete 2D, M-Mode, and color Doppler examination. With Strain Analysis. INDICATIONS: History of CABG, Coronary Artery Disease, I50.32 Chronic diastolic (congestive) heart failure, and I10 Essential (primary) hypertension. MEASUREMENTS: 2D/MM Value Range Doppler Value Range EF Mod BP 66 % [ 54 - 74 ] ALEN Vmax 2.06 cm2 [ 2.00 - 4.00 ] EF Teich MM 56 % [ 54 - 74 ] AV Mean PG 8 mmHg Estimated EF 70-75 % AV Peak Be 2.04 m/s [ 1.00 - 1.70 ] LVIDd 2D 4.71 cm [ 3.80 - 5.20 ] AV Peak PG 17 mmHg LVIDd MM 4.93 cm [ 3.80 - 5.20 ] AV VTI 47.71 cm LVIDs 2D 3.40 cm [ 2.20 - 3.50 ] LVOT Diam 2.01 cm [ 1.70 - 2.10 ] LVIDs MM 3.49 cm [ 2.20 - 3.50 ] LVOT Peak Be 1.20 m/s [ 0.70 - 1.10 ] LVPWd 2D 1.15 cm [ 0.60 - 0.90 ] LVOT VTI 33.61 cm LVPWd MM 1.10 cm [ 0.60 - 0.90 ] MV E Peak Be 0.98 m/s [ 0.60 - 1.30 ] IVSd 2D 0.99 cm [ 0.60 - 0.90 ] MV A Peak Be 1.21 m/s [ 1.00 - 1.20 ] IVSd MM 0.83 cm [ 0.60 - 0.90 ] MV Decel Time 347 msec [ 104 - 258 ] LA Dimension MM 5.36 cm [ 2.70 - 3.80 ] PV Peak Be 1.03 m/s [ 0.40 - 0.80 ] AoR Diam MM 3.16 cm [ 2.70 - 3.70 ] TR Peak Be 3.23 m/s [ 1.00 - 2.80 ] LA Volume Index 31 cc/m2 [ 16 - 34 ] TR Peak PG 42 mmHg Lateral E` 0.06 m/s [ 0.10 - 0.15 ] E` 0.06 m/s E/E` 16 2D/MM Value Range Doppler Value Range - FINDINGS: Interpretation Site: Exam was interpreted at [facility] ER. Left Ventricle: Normal left ventricular systolic function. No focal wall motion abnormalities. Normal left ventricular size. Mild concentric left ventricular hypertrophy. Impaired diastolic relaxation Grade I. Ejection fraction is measured at 66 %. Ejection Fraction is visually estimated to be 70-75 %. Global Longitudinal Strain is -22 %. GLS is normal. Right Ventricle: Normal right ventricular size. Normal right ventricular systolic function. Left Atrium: There is severe enlargement of left atrium. Right Atrium: The right atrium is normal in size. Atrial Septum: Normal atrial septum. Mitral Valve: Moderate mitral annular calcification. Mild mitral valve regurgitation. There is no hemodynamically significant mitral stenosis by Doppler. Aortic Valve: Mild aortic stenosis. Peak Velocity of 2.00 m/s. Mean gradient of 8.0 mmHg. Valve area of 2 cm2. Aortic cusps appear mildly calcified. Trileaflet aortic valve. Trace aortic valve regurgitation. Tricuspid Valve: Normal appearance of the tricuspid valve. Moderate pulmonary hypertension based on right ventricular systolic pressure. Estimated peak RVSP is 50 mmHg. Mild tricuspid regurgitation. Pulmonic Valve: Normal appearance of the pulmonic valve. No pulmonic stenosis. Mild pulmonic regurgitation. Pericardium: Normal pericardium with no significant pericardial effusion. Aorta: No aortic root dilation. Mild aortic root calcification. IVC: Normal size and normal respiratory collapse consistent with normal right atrial pressure (<5 mmHg). CONCLUSIONS: Normal left ventricular systolic function. No focal wall motion abnormalities. Normal left ventricular size. Mild concentric left ventricular hypertrophy. Impaired diastolic relaxation Grade I. Ejection fraction is measured at 66 %. Ejection Fraction is visually estimated to be 70-75 %. Global Longitudinal Strain is -22 %. GLS is normal. There is severe enlargement of left atrium. Moderate mitral annular calcification. Mild mitral valve regurgitation. Mild aortic stenosis. Peak Velocity of 2.00 m/s. Mean gradient of 8.0 mmHg. Valve area of 2 cm2. Aortic cusps appear mildly calcified. Trileaflet aortic valve. Trace aortic valve regurgitation. Moderate pulmonary hypertension based on right ventricular systolic pressure. Estimated peak RVSP is 50 mmHg. Mild tricuspid regurgitation. Mild pulmonic regurgitation. Normal sinus rhythm. Electronically Signed By: Michael Weir MD 09/09/2024 11:56:24 AM SKEINER Procedure Note Michael Weir MD - 09/09/2024 [facility] Cardiology [address] [facility] [address], [place] [address] [address] [facility] [id number], [place] [address] P:[phone] P:[phone] Echocardiographic Report Patient Name: CHARIS MCCULLOUGH L : 1940 Study Date: 09/09/2024 8:48:35 AM Gender: F Tech: Location: [facility] Provider: ELLA CAO Height(Cm): 173 BSA: 2.1 Weight(Kg): 91.6 Heart Rate: 62 BP: 150 / 62 Quality: Good Order Provider: ELLA CAO PROCEDURES: Echocardiographic Report: Transthoracic echocardiogram with complete 2D, M-Mode, and color Dopplerexamination. With Strain Analysis. INDICATIONS: History of CABG, Coronary Artery Disease, I50.32 Chronic diastolic(congestive) heart failure, and I10 Essential (primary) hypertension. MEASUREMENTS: 2D/MM Value Range Doppler ValueRange EF Mod BP 66 % [ 54 - 74 ] ALEN Vmax 2.06cm2 [ 2.00 - 4.00 ] EF Teich MM 56 % [ 54 - 74 ] AV Mean PG 8mmHg Estimated EF 70-75 % AV Peak Be 2.04m/s [ 1.00 - 1.70 ] LVIDd 2D 4.71 cm [ 3.80 - 5.20 ] AV Peak PG 17mmHg LVIDd MM 4.93 cm [ 3.80 - 5.20 ] AV VTI 47.71cm LVIDs 2D 3.40 cm [ 2.20 - 3.50 ] LVOT Diam 2.01 cm[ 1.70 - 2.10 ] LVIDs MM 3.49 cm [ 2.20 - 3.50 ] LVOT Peak Be 1.20m/s [ 0.70 - 1.10 ] LVPWd 2D 1.15 cm [ 0.60 - 0.90 ] LVOT VTI 33.61cm LVPWd MM 1.10 cm [ 0.60 - 0.90 ] MV E Peak Be 0.98m/s [ 0.60 - 1.30 ] IVSd 2D 0.99 cm [ 0.60 - 0.90 ] MV A Peak Be 1.21m/s [ 1.00 - 1.20 ] IVSd MM 0.83 cm [ 0.60 - 0.90 ] MV Decel Time 347msec [ 104 - 258 ] LA Dimension MM 5.36 cm [ 2.70 - 3.80 ] PV Peak Be 1.03m/s [ 0.40 - 0.80 ] AoR Diam MM 3.16 cm [ 2.70 - 3.70 ] TR Peak Be 3.23m/s [ 1.00 - 2.80 ] LA Volume Index 31 cc/m2 [ 16 - 34 ] TR Peak PG 42mmHg Lateral E` 0.06 m/s [ 0.10 - 0.15 ] E` 0.06 m/s E/E` 16 2D/MM Value Range Doppler ValueRange - FINDINGS: Interpretation Site: Exam was interpreted at [facility] ER. Left Ventricle: Normal left ventricular systolic function. No focal wall motionabnormalities. Normal left ventricular size. Mild concentric left ventricular hypertrophy.Impaired diastolic relaxation Grade I. Ejection fraction is measured at 66 %. EjectionFraction is visually estimated to be 70-75 %. Global Longitudinal Strain is -22 %. GLS isnormal. Right Ventricle: Normal right ventricular size. Normal right ventricular systolicfunction. Left Atrium: There is severe enlargement of left atrium. Right Atrium: The right atrium is normal in size. Atrial Septum: Normal atrial septum. Mitral Valve: Moderate mitral annular calcification. Mild mitral valve regurgitation.There is no hemodynamically significant mitral stenosis by Doppler. Aortic Valve: Mild aortic stenosis. Peak Velocity of 2.00 m/s. Mean gradient of 8.0mmHg. Valve area of 2 cm2. Aortic cusps appear mildly calcified. Trileaflet aortic valve.Trace aortic valve regurgitation. Tricuspid Valve: Normal appearance of the tricuspid valve. Moderate pulmonary hypertensionbased on right ventricular systolic pressure. Estimated peak RVSP is 50 mmHg. Mildtricuspid regurgitation. Pulmonic Valve: Normal appearance of the pulmonic valve. No pulmonic stenosis. Mildpulmonic regurgitation. Pericardium: Normal pericardium with no significant pericardial effusion. Aorta: No aortic root dilation. Mild aortic root calcification. IVC: Normal size and normal respiratory collapse consistent with normal rightatrial pressure (<5 mmHg). CONCLUSIONS: Normal left ventricular systolic function. No focal wall motionabnormalities. Normal left ventricular size. Mild concentric left ventricular hypertrophy.Impaired diastolic relaxation Grade I. Ejection fraction is measured at 66 %. EjectionFraction is visually estimated to be 70-75 %. Global Longitudinal Strain is -22 %. GLS isnormal. There is severe enlargement of left atrium. Moderate mitral annular calcification. Mild mitral valve regurgitation. Mild aortic stenosis. Peak Velocity of 2.00 m/s. Mean gradient of 8.0mmHg. Valve area of 2 cm2. Aortic cusps appear mildly calcified. Trileaflet aortic valve.Trace aortic valve regurgitation. Moderate pulmonary hypertension based on right ventricular systolicpressure. Estimated peak RVSP is 50 mmHg. Mild tricuspid regurgitation. Mild pulmonic regurgitation. Normal sinus rhythm. Electronically Signed By: Michael Weir MD 09/09/2024 11:56:24 AM SKEINER us [facility] Marybeth Cao MD CV ECHO PROCEDURES Geno crump Result from Last 3 Months Insurance [employer] [facility] [employer] [facility] LIFE [facility] HEALTHCARE [facility] HEALTHCARE FOR LIFE Care Teams Calibration Technician Relationship Specialty Start Date End Date Artemio Avila MD PCP - General 10/20/16 Sarthak Myrick MD Referring Physician Otolaryngology 01/04/18
--- OUTSIDE RECORDS SUMMARY | 2024-10-14 14:12 | XMS_ITS | Encounter Summary ---
Author Organization [facility] Address [address] [address] Care Team Providers Care Water Treatment Operator Name Role Phone Artemio Avila MD Primary Care Provider [phone] Artemio Avila MD Primary Care Provider [phone] Sarthak Myrick MD Unavailable [phone] Encounter Details Date Type Department Care Team (Late st Contact Info) Description 09/05/2016 Orders Only [facility] ProviderRaffy MD [address] [place] [id number] Social History Tobacco Use Types Packs/Day Years Used Date Smoking Tobacco: Never Alcohol Use Standard Drinks/Week Comments Yes 0 (1 standard drink = 0.6 oz pur e alcohol) Comments Unknown Sex and Gender Information Value Date Recorded Sex Assigned at Not on file 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
--- OUTSIDE RECORDS SUMMARY | 2024-10-14 14:12 | XMS_ITS | Clinical Summary ---
Author Organization [facility] Address [address] [place] [address] Care Team Providers Care Director [employer] Name Role Phone Artemio Avlia MD Primary Care Provider [phone] Allergies Active Allergy Reactions Criticality Noted Date [...] Comments Blood Pressure 186/72 07/10/2023 10:53 AM NEW CLIENT BANKING SERVICES CLERK Pulse 64 07/10/2023 10:42 AM NEW CLIENT BANKING SERVICES CLERK Temperature 36.6 C (97.9 F) 07/10/2023 9:57 AM NEW CLIENT BANKING SERVICES CLERK Respiratory Rate 18 07/10/2023 10:53 AM NEW CLIENT BANKING SERVICES CLERK Oxygen Saturation 99% 07/10/2023 10:42 AM NEW CLIENT BANKING SERVICES CLERK Inhaled Oxygen Concentration - - Weight 99.6 kg (219 lb 9.6 oz) 07/10/2023 9:57 A M NEW CLIENT BANKING SERVICES CLERK Height 167.6 cm (5' 6 ) 07/10/2023 9:57 AM NEW CLIENT BANKING SERVICES CLERK Body Mass Index 35.44 07/10/2023 9:57 AM NEW CLIENT BANKING SERVICES CLERK Plan of Treatment Health Maintenance Due Date [...] age to complete this topic Insurance A [facility] Care Teams Director [employer] Systems Relationship Specialty Start Date End Date Artemio Avila MD [address] [address] PCP - General 06/30/13
--- OUTSIDE RECORDS SUMMARY | 2024-10-14 14:12 | XMS_ITS | Encounter Summary ---
Author Organization [facility] Address [facility] [place] [address] Care Team Providers Care Section Maintainer Name Role Phone Artemio Avila MD Primary Care Provider [phone] Encounter Details Date Type Department Care Team (Late st Contact Info) Description 06/19/2023 Results Notification [facility] [place] [address] [id number] Jelly Lazcano APNP [address] [place] [phone] Social History Tobacco Use Types Packs/Day Years [...] on filedocumented in this encounter Care Teams Section Maintainer Relationship Specialty Start Date End Date Artemio Avila MD [address] [place] [address] PCP - General 06/30/13 documented as of this encounter
--- OUTSIDE RECORDS SUMMARY | 2024-10-14 14:12 | XMS_ITS | Clinical Summary ---
Author Organization [facility] Address [address] [facility] [place] [address] Care Team Providers Care Monitor Technician Name Role Phone Artemio Avila MD Primary Care Provider [phone] Source Comments [facility] hospital [facility] Affiliates and Associated Physician Practices is amultiple site organization consisting of ambulatory clinics and hospital sitesin [place], [place], [place] and [place]. This disclosure is being madepursuant to the Care Everywhere program and may not contain all information available regarding this patient. Last updated 18.[facility] Family History Medical History Relation Name Comments [...] Last Done Comments BONE DENSITY TESTING 1940 MEDICARE AWV 12 MONTHS 1940 DTAP/TDAP/TD VACCINES (1 - Tdap) 1959 [...] to complete this topic MENINGOCOCCAL (Group B) VACC INE SHARED DECISION-MAKING Aged Out No longer eligibl e based on patient's age to complete this topic MENINGOCOCCAL GROUPS A/C/Y/W VACCINE Aged Out No longer eligible b ased on patient's age to complete this topic Care Teams Monitor Technician Relationship Specialty Start Date End Date Artemio Avila MD [address] [place] [address] PCP - General 06/17/14
--- OUTSIDE RECORDS SUMMARY | 2024-10-14 14:12 | XMS_ITS | Encounter Summary ---
Author Organization [facility] Address [address] [address] Care Team Providers Care Lotteries Agent Name Role Phone Artemio Avila MD Primary Care Provider [phone] Artemio Avila MD Primary Care Provider [phone] Sarthak Myrick MD Unavailable [phone] Encounter Details Date Type Department Care Team (Late st Contact Info) Description 09/08/2016 Orders Only [facility] ProviderRaffy MD [address] [place] [id number] Social History Tobacco Use Types Packs/Day Years Used Date Smoking Tobacco: Never Alcohol Use Standard Drinks/Week Comments Yes 0 (1 standard drink = 0.6 oz pur e alcohol) Comments Unknown Sex and Gender Information Value Date Recorded Sex Assigned at Not on file 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
--- OUTSIDE RECORDS SUMMARY | 2024-10-14 14:12 | XMS_ITS | Encounter Summary ---
Author Organization [facility] Address [address] [place] [address] Care Team Providers Care Dialysis Tech Name Role Phone Artemio Avila MD Primary Care Provider [phone] Reason for Referral * Surgical (Routine) - Closed Specialty Diagnoses / Procedures Referred By Veronica huntley Referred To Contact Diagnoses Lumbar radiculopathy Procedures Case request operating room: INJECTION EPIDURAL TRANSFORAMINAL L4-5 Jelly Lazcano APNP Phone: tel: fax: Referral ID Status Reason Start Date Expiration Date Visits Re quested Visits Authorized [id number] Closed 04/04/2023 04/04/2024 1 1 Encounter Details Date Type Department Care Team (Late st Contact Info) Description 04/04/2023 Prep for Procedure [facility] Inter[facility] [place] [address] [id number] Jelly Lazcano APNP [address] [place] [phone] Social History Tobacco Use Types Packs/Day Years [...] unspecified documented in this encounter Care Teams Dialysis Tech Relationship Specialty Start Date End Date Artemio Avila MD [address] [place] [address] PCP - General 06/30/13 documented as of this encounter
--- OUTSIDE RECORDS SUMMARY | 2024-10-14 14:12 | XMS_ITS | Encounter Summary ---
Author Organization [facility] Address [facility] [place] [address] Care Team Providers Care Dip Lube Operator Name Role Phone Artemio Avila MD Primary Care Provider [phone] Encounter Details Date Type Department Care Team (Late st Contact Info) Description 06/19/2023 Prep for Procedure [facility] [place] [address] [id number] Jelly Lazcano APNP [address] [place] [address] Social History Tobacco Use Types [...] on filedocumented in this encounter Care Teams Dip Lube Operator Relationship Specialty Start Date End Date Artemio Avila MD [address] [place], [place] [id number] PCP - General 06/30/13 documented as of this encounter
--- OUTSIDE RECORDS SUMMARY | 2024-10-14 14:12 | XMS_ITS | Encounter Summary ---
Author Organization [facility] Address [facility] [place] [address] Care Team Providers Care Language Path Name Role Phone Artemio Avila MD Primary Care Provider [phone] Encounter Details Date Type Department Care Team (Late st Contact Info) Description 12/28/2018 Abstract [facility] CONVERSION [address] [place] [address] , Generic ConversionMD Social History Tobacco Use [...] on filedocumented in this encounter Care Teams Language Path Relationship Specialty Start Date End Date Artemio Avila MD [address] [facility] [place] [address] PCP - General 06/30/13 documented as of this encounter
--- OUTSIDE RECORDS SUMMARY | 2024-10-14 14:12 | XMS_ITS | Clinical Summary ---
Author Organization [facility] [address] Address [address] [place] [address] Care Team Providers Care Welding Machine Operator Electroslag Name Role Phone Artemio Avila MD Primary Care Provider [phone] Sarthak Myrick MD Unavailable [phone] Allergies Active Allergy Reactions Criticality Noted [...] mg enteric coated tabletIndications:Co ronary arteriosclerosis in [place] artery Take 1 tablet (81 mg total) [...] (Crestor) 20 mg tabletIndications:Co ronary arteriosclerosis in [place] artery Take 1 tablet (20 mg total) [...] (PLAVIX) 75 mg tabletIndications:Co ronary arteriosclerosis in [place] artery Take 1 tablet (75 mg total) [...] and possibly service. She was seeing our english and reading instructor to have them checked. She is going to follow up for further problems if needed. Bilateral impacted cerumen 03/26/2024 Assessment & Plan (03/26/2024 8:20 PM CDT): She did have a small to moderate amount of cerumen that I removed on both sides. I do not think it was enough to impact her hearing aids. She is going to talk with our english and reading instructor and follow up here otherwise as needed. [...] 06/04/2017 Assessment & Plan (06/04/2017 5:46 PM MAINTENANCE APPRENTICE): Currently taking Plavix and rosuvastatin Anxiety 06/04/2017 Assessment & Plan (01/21/2018 9:53 PM CDT): I am wondering if the patient's anxiety is contributing to some of her symptoms. She will be changing from her current Viibryd to another antidepressant soon. Assessment & Plan (06/04/2017 5:47 PM MAINTENANCE APPRENTICE): Patient has a lot of symptoms at [...] recently. Assessment & Plan (06/04/2017 5:44 PM MAINTENANCE APPRENTICE): Not a recent problem. 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 Takes Crestor 20 mg daily. Assessment & Plan (06/04/2017 5:45 PM MAINTENANCE APPRENTICE): 11/2016 total cholesterol 172, TG 185 and LDL 72, acceptable on rosuvastatin 20 mg daily. Coronary artery disease invo lving [place] coronary artery of [place] heart without angina pectoris 07/03/2014 Overview (10/26/2016): Coronary arteriosclerosis in [place] artery Assessment & Plan (01/21/2018 9:54 PM [...] well. Assessment & Plan (06/04/2017 5:44 PM MAINTENANCE APPRENTICE): Remote CABG History of coronary stent Recurrent [...] Department Care Team Description 09/11/2024 Results Follow-Up [facility] [address] [place] [address] Ella Cao MD 09/09/2024 9:15 AM MAINTENANCE APPRENTICE Ancillary Procedure [facility] [address] [place] [address] Coronary artery disease involving [place] coronary artery of [place] heart without angina pectoris; Hx of CABG; Chronic heart failure with preserved ejection fraction (HCC); Essential hypertension; Atherosclerosis of [place] coronary artery without angina pectoris, unspecified whether [place] or transplanted heart; Chronic congestive heart failure, unspecified heart failure type (HCC); Essential (primary) hypertension 08/28/2024 Telephone [facility] Cardiology [address] [place] [id number] Ella Cao MD 08/14/2024 10:45 AM MAINTENANCE APPRENTICE Office Visit [facility] Cardiology [address] [place] [address] Ella Cao MD Coronary artery disease involving [place] coronary artery of [place] heart without angina pectoris (Primary Dx); Hx of CABG; Presence of stent in coronary artery; Chronic heart failure with preserved ejection fraction (HCC); Multiple-type hyperlipidemia; Essential hypertension; History of TIAs from Last 3 Months Immunizations Immunization Administration Dates Next Due Influenza, Trivalent, Preservative Free, Intramu scular 05/23/2015 Surgical History Surgery Date Site/Laterality Comments CORONARY ARTERY BYPASS GRAFT CABG INNER EAR SURGERY Left HOLE IN EAR DRUM CHOLECYSTECTOMY Medical History Medical History Date Comments Hyperlipidemia Hyperlipidemia; Comments: [facility] 04/07/2014 - Chronic coronary artery disease Coronary artery disease Hypertension Hypertension Hx Other Medical TIA; Comments: [facility] 04/07/2014 - Hx Other Medical GERD; Comments: [facility] 04/07/2014 - Hx Other Medical anxiety/depress ion; Comments: [facility] 04/07/2014 - Hx Other Medical orthostatic hyp otension; Comments: [facility] 04/07/2014 - Hx Other Medical hysterectomy wi th BSO; Comments: [facility] 04/07/2014 - Hx Other Medical ankle surgery; Comments: [facility] 04/07/2014 - Autoimmune disease Heart disease GERD (gastroesophageal reflux disease) Family [...] on file Legal Sex Female 3:24 AM MAINTENANCE APPRENTICE Gender Identity Not on file Sexual Orientation Not on file Obstetrics History Last Filed Vital Signs Vital Sign Reading Time Taken Comments Blood Pressure 150/62 08/14/2024 10:47 AM MAINTENANCE APPRENTICE Pulse 58 08/14/2024 10:47 AM MAINTENANCE APPRENTICE Temperature 36.6 C (97.9 F) 10/04/2018 1:20 PM CDT Respiratory Rate 18 03/26/2024 10:53 AM CDT Oxygen Saturation 97% 08/14/2024 10:47 AM MAINTENANCE APPRENTICE Inhaled Oxygen Concentration - - Weight 91.6 kg (202 lb) 08/14/2024 10:47 AM MAINTENANCE APPRENTICE Height 172.7 cm (5' 8 ) 08/14/2024 10:47 AM MAINTENANCE APPRENTICE Body Mass Index 30.71 08/14/2024 10:47 AM MAINTENANCE APPRENTICE Plan of Treatment Health Maintenance Due Date Last Done Comments Depression Screening 1940 Fall Risk Assessment 1940 Osteoporosis Screening-Bone Density Scan 1940 Hepatitis B Screening 1958 Zoster Vaccine (1 of 2) 1990 Well Visit 65+ 2005 Pneumococcal vaccine 65+ (2 of 2 - PPSV23) 11/03/2015 09/08/2015 Influenza Vaccine (#1) 2024 10/07/2018, 2014 DTaP/Tdap/Td Vaccine (2 - Td or Tdap) 04/08/2027 Procedures Procedure Name Priority Date/Time Associated Diagnosis Comments TRANSTHORACIC ECHO (TTE) COMPLETE W DOPPLER/CF WO CONTRAST Routine 09/09/2024 9:35 AM MAINTENANCE APPRENTICE Coronary artery disease involving [place] coronary artery of [place] heart without angina pectoris Hx of CABG Chronic heart failure with preserved ejection fraction (HCC) Essential hypertension from Last 3 Months Results * TRANSTHORACIC ECHO (TTE) COMPLETE W DOPPLER/CF WO CONTRAST (09/09/2024 9:35 AM MAINTENANCE APPRENTICE) LV EF 70-75 % CONS SCIMAGE Anatomical Region Laterality Modality Ultrasound 09/09/2024 8:48 AM MAINTENANCE APPRENTICE Narrative 09/09/2024 11:57 AM MAINTENANCE APPRENTICE [facility] [address], [place] [address] [address] [facility] [address], [place] [address] P:[phone] P:[phone] Echocardiographic Report Patient Name: CHARIS MCCULLOUGH L : 1940 Study Date: 09/09/2024 8:48:35 AM Gender: F Tech: Location: [facility] Provider: ELLA CAO Height(Cm): 173 BSA: 2.1 [...] FINDINGS: Interpretation Site: Exam was interpreted at [facility]. Left Ventricle: Normal left ventricular systolic [...] By: Michael Weir MD 09/09/2024 11:56:24 AM MAINTENANCE APPRENTICE Procedure Note Michael Weir MD - 09/09/2024 [facility] [address] [facility] [address] [id number] [address] [facility] [address], [place] [address] P:[phone] P:[phone] Echocardiographic Report Patient Name: CHARIS MCCULLOUGH L : 1940 Study Date: 09/09/2024 8:48:35 AM Gender: F Tech: Location: [facility] Provider: ELLA CAO Height(Cm): 173 BSA: 2.1 [...] FINDINGS: Interpretation Site: Exam was interpreted at [facility]. Left Ventricle: Normal left ventricular systolic [...] By: Michael Weir MD 09/09/2024 11:56:24 AM MAINTENANCE APPRENTICE [facility] Marybeth Cao MD CV ECHO PROCEDURES Geno crump Result from Last 3 Months Insurance [employer] [facility] [employer] [facility] Care Teams Welding Machine Operator Electroslag Relationship Specialty Start Date End Date Artemio Avila MD PCP - General 10/20/16 Sarthak Myrick MD Referring Physician Otolaryngology 01/04/18
--- OUTSIDE RECORDS SUMMARY | 2024-10-14 14:12 | XMS_ITS | Clinical Summary ---
Author Organization [facility] Address [address] [place] [phone] Phone Care Team Providers Care Glass Sagger Name Role Phone Artemio Avila MD Primary Care Provider [phone] Allergies Active Allergy Reactions Criticality Noted Date [...] without residual deficits 04/13/2013 Coronary arteriosclerosis in [place] artery 04/13 Overview (03/12/2019): Overview: Coronary arteriosclerosis in [place] artery Last Assessment & Plan: Remote CABG [...] Date Type Department Care Team Description 08/08/2024 [facility] [address] [facility] [address] [address] [address] [place] [address] Jerrod Garcia PA [facility] [address] [facility] [place] [address] Jerrod Garcia PA from Last 3 Months [...] 36.3 C (97.4 F) 08/16/2020 1:16 PM SCHOOL SECRETARY Respiratory Rate 18 08/16/2020 1:16 PM SCHOOL SECRETARY Oxygen Saturation - - Inhaled Oxygen Concentration - - Weight 92.5 kg (204 lb) 02/20/2024 1:01 PM CDT Height 172.7 cm (5' 8 ) 02/20/2024 1:01 PM CDT Body Mass Index 31.02 02/20/2024 1:01 PM CDT Plan of Treatment Upcoming Encounters Date Type Department Care Team (Late st Contact Info) Description 04/21/2025 11:20 AM CDT Office Visit [facility] [address] [address] [place] [address] Vasyl Craft MD [address] [place] [address] Health Maintenance Due Date Last Done Comments Pneumococcal PPSV23/PCV13 65 + Years / High and Highest Risk (2 of 4 - PPSV23 or PCV20) 11/03/2015 09/08/2015 Influenza Vaccine (#1) 2024 05/23/2015 Care Teams Glass Sagger Relationship Specialty Start Date End Date Artemio Avila MD [address] [place] [address] PCP - General Family Medicine 10/16/18
== END 2024-10-14 12:08 | disposition home or self-care (01) ==
PROVIDERS: PCP Family Medicine; Visit Provider Nurse Practitioner
DX: R10.13 Epigastric pain (principal)
CPT/HCPCS: 36415; 80053; 82150; 83690; 85027

== ENCOUNTER 2024-12-03 08:39 | Outpatient (CLI) | payer OTHER, SELFPAY ==
--- NOTE | ~2024-12-03 | MR_ITS ---
EXAMINATION: MR MRCP wo/w con/w 3D wo ind DATE: 12/03/2024 10:13 INDICATION: Epigastric pain TECHNIQUE: Magnetic resonance imaging (MRI) of the abdomen was performed without and with 15 mL Multi lavelle intravenous contrast. Sequences included coronal T2-weighted SS-FSE, coronal T2-weighted FS SS- FSE, coronal T2-weighted FS FIESTA, axial T2-weighted FS FIESTA, axial T2-weighted FIESTA, sagittal T 2-weighted SS-FSE, axial T1-weighted dual-echo FSPGR, axial T2-weighted SS-FSE, axial T1-weighted LAV A, axial T2-weighted STIR FSE. Thick-slab T2-weighted FRFSE-XL images were obtained for magnetic reso nance cholangiopancreatography (MRCP). Rotating maximum intensity projection 3-D reconstructions of t he volumetric data were created by the technologist. Postcontrast sequences included a time course of axial T1-weighted LAVA. COMPARISON: CT dated 08/15/2023 FINDINGS: ABDOMEN MRI: Heart size is normal. Median sternotomy wires, likely for prior coronary artery bypass grafting. No p ericardial or pleural effusion. Cholecystectomy clips at the gallbladder fossa. Liver, spleen, pancre as and bilateral adrenal glands are normal. Bilateral T2 hyperintense nonenhancing renal cysts the ma jority subcentimeter with larger 1.9 cm exophytic cyst at the upper pole of the right kidney. The vis ualized bowels are unremarkable with no obstruction. No pathologically enlarged abdominal or upper pe lvic lymphadenopathy. Severe lumbar and lower thoracic spondylosis. ABDOMEN MRCP: The common bile duct measures up to 8 mm maximal diameter which is within normal limits post prior ch olecystectomy. No filling defects to suggest choledocholithiasis. No intrahepatic biliary ductal dila tion. The main pancreatic duct is normal. IMPRESSION: 1. Mild dilation the common bile duct measuring up to 8 mm which is within normal limits post cholecy stectomy without evident obstructing choledocholithiasis or intrahepatic biliary ductal dilation. Reviewed, dictated and finalized at location A. IMPRESSION: 1. Mild dilation the common bile duct measuring up to 8 mm which is within norm al limits post cholecystectomy without evident obstructing choledocholithiasis or intrahepatic biliary ductal dilation.
--- OUTSIDE RECORDS SUMMARY | 2024-12-03 08:45 | XMS_ITS | Encounter Summary ---
Author Organization [facility] Address [address] [place] [address] Care Team Providers Care Check Processing Clerk Name Role Phone Artemio Avila MD Primary Care Provider [phone] Reason for Referral * Surgical (Routine) - Closed Specialty Diagnoses / Procedures Referred By Veronica uhntley Referred To Contact Diagnoses Lumbar radiculopathy Procedures Case request operating room: INJECTION EPIDURAL TRANSFORAMINAL L4-5 Jelly Lazcano APNP Phone: tel: fax: Referral ID Status Reason Start Date Expiration Date Visits Re quested Visits Authorized [id number] Closed 04/04/2023 04/04/2024 1 1 Encounter Details Date Type Department Care Team (Late st Contact Info) Description 04/04/2023 Prep for Procedure [facility] [place] [address] [id number] Jelly Lazcano APNP [address] [place] [phone] Social History Tobacco Use Types Packs/Day Years [...] on file documented as of this encounter Functional Status * Calculated C-SSRS Risk Score (Lifetime/Recent) Answer Date of Assessment Author Status No Risk Indicated 04/04/2023 10:14 AM Reshma Campbell RN Active * [place] Suicide Severity Rating Scale (Screener/Recent Self-Report) Question Answer Date of Assessment Author Status 1. Wish to be (Past 1 Month) No 04/04/2023 10:14 AM Reshma Campbell RN Activ e 2. Non-Specific Active Suicidal Thoughts (Past 1 Month) No 04/04/2023 10:14 AM Reshma Campbell RN Activ e documented as of this encounter Plan of Treatment Scheduled Orders Name Type Priority Associated Diagnoses Orde r Schedule Case request operating room: INJECTION EPIDURAL TRANSFORAMINAL L4-5 Case Request Routine Lumbar radiculopathy Once for 1 Occurrences starting 04/04/2023 until 04/04/2023 documented as of this encounter Visit Diagnoses Diagnosis Lumbar radiculopathy- Primary Thoracic or lumbosacral neuritis or radiculitis, unspecified documented in this encounter Care Teams Check Processing Clerk Relationship Specialty Start Date End Date Artemio Avila MD [address] [place] [address] PCP - General 06/30/13 documented as of this encounter
--- OUTSIDE RECORDS SUMMARY | 2024-12-03 08:45 | XMS_ITS | Clinical Summary ---
Author Organization [facility] [address] Address [address] [place] [address] Care Team Providers Care Aeronautical Test Engineer Name Role Phone Artemio Avila MD Primary Care Provider [phone] Sarthak Myrick MD Unavailable [phone] Allergies Active Allergy Reactions Criticality Noted [...] mg enteric coated tabletIndications:Co ronary arteriosclerosis in [place] artery Take 1 tablet (81 mg total) [...] (Crestor) 20 mg tabletIndications:Co ronary arteriosclerosis in [place] artery Take 1 tablet (20 mg total) [...] (PLAVIX) 75 mg tabletIndications:Co ronary arteriosclerosis in [place] artery Take 1 tablet (75 mg total) [...] and possibly service. She was seeing our cloth seconds sorter to have them checked. She is going to follow up for further problems if needed. Bilateral impacted cerumen 03/26/2024 Assessment & Plan (03/26/2024 8:20 PM CDT): She did have a small to moderate amount of cerumen that I removed on both sides. I do not think it was enough to impact her hearing aids. She is going to talk with our cloth seconds sorter and follow up here otherwise as needed. [...] 06/04/2017 Assessment & Plan (06/04/2017 5:46 PM SIFTING OPERATOR): Currently taking Plavix and rosuvastatin Anxiety 06/04/2017 Assessment & Plan (01/21/2018 9:53 PM CDT): I am wondering if the patient's anxiety is contributing to some of her symptoms. She will be changing from her current Viibryd to another antidepressant soon. Assessment & Plan (06/04/2017 5:47 PM SIFTING OPERATOR): Patient has a lot of symptoms [...] recently. Assessment & Plan (06/04/2017 5:44 PM SIFTING OPERATOR): Not a recent problem. 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 Takes Crestor 20 mg daily. Assessment & Plan (06/04/2017 5:45 PM SIFTING OPERATOR): 11/2016 total cholesterol 172, TG 185 and LDL 72, acceptable on rosuvastatin 20 mg daily. Coronary artery disease invo lving [place] coronary artery of [place] heart without angina pectoris 07/03/2014 Overview (10/26/2016): Coronary arteriosclerosis in [place] artery Assessment & Plan (01/21/2018 9:54 PM [...] well. Assessment & Plan (06/04/2017 5:44 PM SIFTING OPERATOR): Remote CABG History of coronary stent [...] Department Care Team Description 09/11/2024 Results Follow-Up [facility] Card[facility] [address] [place] [address] Ella Cao MD 09/09/2024 9:15 AM SIFTING OPERATOR Ancillary Procedure [facility] Card[facility] [address] [place] [address] Coronary artery disease involving [place] coronary artery of [place] heart without angina pectoris; Hx of CABG; Chronic heart failure with preserved ejection fraction (HCC); Essential hypertension; Atherosclerosis of [place] coronary artery without angina pectoris, unspecified whether [place] or transplanted heart; Chronic congestive heart failure, unspecified heart failure type (HCC); Essential (primary) hypertension from Last 3 Months Immunizations Immunization Administration Dates Next Due Influenza, Trivalent, Preservative Free, Intramu scular 05/23/2015 Surgical History Surgery Date Site/Laterality Comments CORONARY ARTERY BYPASS GRAFT CABG INNER EAR SURGERY Left HOLE IN EAR DRUM CHOLECYSTECTOMY Medical History Medical History Date Comments Hyperlipidemia Hyperlipidemia; Comments: [facility] 04/07/2014 - Chronic coronary artery disease Coronary artery disease Hypertension Hypertension Hx Other Medical TIA; Comments: [facility] 04/07/2014 - Hx Other Medical GERD; Comments: [facility] 04/07/2014 - Hx Other Medical anxiety/depress ion; Comments: [facility] 04/07/2014 - Hx Other Medical orthostatic hyp otension; Comments: [facility] 04/07/2014 - Hx Other Medical hysterectomy wi th BSO; Comments: [facility] 04/07/2014 - Hx Other Medical ankle surgery; Comments: [facility] 04/07/2014 - Autoimmune disease Heart disease GERD [...] on file Legal Sex Female 3:24 AM SIFTING OPERATOR Gender Identity Not on file Sexual Orientation Not on file Obstetrics History Last Filed Vital Signs Vital Sign Reading Time Taken Comments Blood Pressure 150/62 08/14/2024 10:47 AM SIFTING OPERATOR Pulse 58 08/14/2024 10:47 AM SIFTING OPERATOR Temperature 36.6 C (97.9 F) 10/04/2018 1:20 PM CDT Respiratory Rate 18 03/26/2024 10:53 AM CDT Oxygen Saturation 97% 08/14/2024 10:47 AM SIFTING OPERATOR Inhaled Oxygen Concentration - - Weight 91.6 kg (202 lb) 08/14/2024 10:47 AM SIFTING OPERATOR Height 172.7 cm (5' 8 ) 08/14/2024 10:47 AM SIFTING OPERATOR Body Mass Index 30.71 08/14/2024 10:47 AM SIFTING OPERATOR Plan of Treatment Health Maintenance Due Date Last Done Comments Depression Screening 1940 Fall Risk Assessment 1940 Osteoporosis Screening-Bone Density Scan 1940 Hepatitis B Screening 1958 Zoster Vaccine (1 of 2) 1990 Well Visit 65+ 2005 Pneumococcal vaccine 65+ (2 of 2 - PPSV23) 11/03/2015 09/08/2015 Influenza Vaccine (Season Ended) 2025 10/08/19 19, 05/23/2015 DTaP/Tdap/Td Vaccine (2 - Td or Tdap) 04/08/2027 Procedures Procedure Name Priority Date/Time Associated Diagnosis Comments TRANSTHORACIC ECHO (TTE) COMPLETE W DOPPLER/CF WO CONTRAST Routine 09/09/2024 9:35 AM SIFTING OPERATOR Coronary artery disease involving [place] coronary artery of [place] heart without angina pectoris Hx of CABG Chronic heart failure with preserved ejection fraction (HCC) Essential hypertension from Last 3 Months Results * TRANSTHORACIC ECHO (TTE) COMPLETE W DOPPLER/CF WO CONTRAST (09/09/2024 9:35 AM SIFTING OPERATOR) LV EF 70-75 % CONS SCIMAGE Anatomical Region Laterality Modality Ultrasound 09/09/2024 8:48 AM SIFTING OPERATOR Narrative 09/09/2024 11:57 AM SIFTING OPERATOR [facility] [address] [facility] [address] [address] [address] [facility] [address], [place] [address] P:[phone] P:[phone] Echocardiographic Report Patient Name: CHARIS MCCULLOUGH L : 1940 Study Date: 09/09/2024 8:48:35 AM Gender: F Tech: Location: [place] Ref Provider: ELLA CAO Height(Cm): 173 BSA: 2.1 [...] FINDINGS: Interpretation Site: Exam was interpreted at [facility]. Left Ventricle: Normal left ventricular systolic function. [...] By: Michael Weir MD 09/09/2024 11:56:24 AM SIFTING OPERATOR Procedure Note Michael Weir MD - 09/09/2024 [facility] [address] [facility] [address], [place] [address] [address] [facility] [address], [place] [address] P:[phone] P:[phone] Echocardiographic Report Patient Name: CHARIS MCCULLOUGH L : 1940 Study Date: 09/09/2024 8:48:35 AM Gender: F Tech: Location: [facility] Provider: ELLA CAO Height(Cm): 173 BSA: [...] FINDINGS: Interpretation Site: Exam was interpreted at [facility]. Left Ventricle: Normal left ventricular systolic function. [...] By: Michael Weir MD 09/09/2024 11:56:24 AM SIFTING OPERATOR [facility] Marybeth Cao MD CV ECHO PROCEDURES Geno crump Result from Last 3 Months Insurance FOR [facility] FOR LIFE [facility] Member Subscriber Plan / Payer (Ef fective 2021-Present) Name:ElliotCharis mata Relation to Subscriber:Self Name:Charis Mccullough Payer ID:[id number] (NAIC) Type:MEDICARE RISK OTHER Address: [place] [id number] [facility] Member Subscriber Plan / Payer (Ef fective 2021-Present) Name:Charis Mccullough Relation to Subscriber:Self Name:Charis Mccullough Payer ID:[id number] (NAIC) Type:MEDICARE RISK OTHER Address: [address] [employer] [address] Care Teams Aeronautical Test Engineer Relationship Specialty Start Date End Date Artemio Avila MD PCP - General 10/20/16 Sarthak Myrick MD Referring Physician Otolaryngology 01/04/18
--- OUTSIDE RECORDS SUMMARY | 2024-12-03 08:45 | XMS_ITS | Encounter Summary ---
Author Organization [facility] Address [facility] [place] [address] Care Team Providers Care Cone Chocolate Dipper Name Role Phone Artemio Avila MD Primary Care Provider [phone] Encounter Details Date Type Department Care Team (Late st Contact Info) Description 06/19/2023 Results Notification [facility] [place] [address] [phone] Jelly Lazcano APNP [address] [place] [phone] Social History Tobacco Use Types Packs/Day Years [...] on filedocumented in this encounter Care Teams Cone Chocolate Dipper Relationship Specialty Start Date End Date Artemio Avila MD [address] [place] [address] PCP - General 06/30/13 documented as of this encounter
--- OUTSIDE RECORDS SUMMARY | 2024-12-03 08:45 | XMS_ITS | Referral Summary ---
Author Organization [facility] [address] [place] [address] [place] [address] Care Team Providers Care Career Development Manager Name Role Phone Artemio Avila MD Primary Care Provider [phone] Sarthak Myrick MD Unavailable [phone] Encounters Date Type Department Care Team Description 09/11/2024 Results Follow-Up [facility] [address] [place] [address] [address] [place] [address] Ella Cao MD 09/09/2024 9:15 AM TUMBLERS SUPERVISOR Ancillary Procedure [facility] [address] [place] [address] [address] [place] [address] Coronary artery disease involving [place] coronary artery of [place] heart without angina pectoris; Hx of CABG; Chronic heart failure with preserved ejection fraction (HCC); Essential hypertension; Atherosclerosis of [place] coronary artery without angina pectoris, unspecified whether port [place] or transplanted heart; Chronic congestive heart failure, unspecified heart failure type (HCC); Essential (primary) hypertension from Last 3 Months Allergies Active Allergy [...] mg enteric coated tabletIndications:Co ronary arteriosclerosis in [place] artery Take 1 tablet (81 mg total) [...] (Crestor) 20 mg tabletIndications:Co ronary arteriosclerosis in [place] artery Take 1 tablet (20 mg total) [...] (PLAVIX) 75 mg tabletIndications:Co ronary arteriosclerosis in [place] artery Take 1 tablet (75 mg total) [...] and possibly service. She was seeing our campaign assistant to have them checked. She is going to follow up for further problems if needed. Bilateral impacted cerumen 03/26/2024 Assessment & Plan (03/26/2024 8:20 PM CDT): She did have a small to moderate amount of cerumen that I removed on both sides. I do not think it was enough to impact her hearing aids. She is going to talk with our campaign assistant and follow up here otherwise as needed. [...] 06/04/2017 Assessment & Plan (06/04/2017 5:46 PM TUMBLERS SUPERVISOR): Currently taking Plavix and rosuvastatin Anxiety 06/04/2017 Assessment & Plan (01/21/2018 9:53 PM CDT): I am wondering if the patient's anxiety is contributing to some of her symptoms. She will be changing from her current Viibryd to another antidepressant soon. Assessment & Plan (06/04/2017 5:47 PM TUMBLERS SUPERVISOR): Patient has a lot of symptoms at [...] recently. Assessment & Plan (06/04/2017 5:44 PM TUMBLERS SUPERVISOR): Not a recent problem. 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 Takes Crestor 20 mg daily. Assessment & Plan (06/04/2017 5:45 PM TUMBLERS SUPERVISOR): 11/2016 total cholesterol 172, TG 185 and LDL 72, acceptable on rosuvastatin 20 mg daily. Coronary artery disease invo lving port gam[place] coronary artery of [place] heart without angina pectoris 07/03/2014 Overview (10/26/2016): Coronary arteriosclerosis in [place] artery Assessment & Plan (01/21/2018 9:54 PM [...] well. Assessment & Plan (06/04/2017 5:44 PM TUMBLERS SUPERVISOR): Remote CABG History of coronary stent Recurrent [...] on file Legal Sex Female 3:24 AM TUMBLERS SUPERVISOR Gender Identity Not on file Sexual Orientation Not on file Last Filed Vital Signs Vital Sign Reading Time Taken Comments Blood Pressure 150/62 08/14/2024 10:47 AM TUMBLERS SUPERVISOR Pulse 58 08/14/2024 10:47 AM TUMBLERS SUPERVISOR Temperature 36.6 C (97.9 F) 10/04/2018 1:20 PM CDT Respiratory Rate 18 03/26/2024 10:53 AM CDT Oxygen Saturation 97% 08/14/2024 10:47 AM TUMBLERS SUPERVISOR Inhaled Oxygen Concentration - - Weight 91.6 kg (202 lb) 08/14/2024 10:47 AM TUMBLERS SUPERVISOR Height 172.7 cm (5' 8 ) 08/14/2024 10:47 AM TUMBLERS SUPERVISOR Body Mass Index 30.71 08/14/2024 10:47 AM TUMBLERS SUPERVISOR Plan of Treatment Not on file Procedures Procedure Name Priority Date/Time Associated Diagnosis Comments TRANSTHORACIC ECHO (TTE) COMPLETE W DOPPLER/CF WO CONTRAST Routine 09/09/2024 9:35 AM TUMBLERS SUPERVISOR Coronary artery disease involving [place] coronary artery of [place] heart without angina pectoris Hx of CABG Chronic heart failure with preserved ejection fraction (HCC) Essential hypertension from Last 3 Months Results * TRANSTHORACIC ECHO (TTE) COMPLETE W DOPPLER/CF WO CONTRAST (09/09/2024 9:35 AM TUMBLERS SUPERVISOR) LV EF 70-75 % CONS SCIMAGE Anatomical Region Laterality Modality Ultrasound 09/09/2024 8:48 AM TUMBLERS SUPERVISOR Narrative 09/09/2024 11:57 AM TUMBLERS SUPERVISOR [facility] [address], [place] [address] [address] [facility] [address], [place] [address] P:[phone] P:[phone] Echocardiographic Report Patient Name: CHARIS MCCULLOUGH L : 1940 Study Date: 09/09/2024 8:48:35 AM Gender: F Tech: Location: [facility] Provider: ELLA CAO Height(Cm): 173 BSA: 2.1 [...] FINDINGS: Interpretation Site: Exam was interpreted at [facility]. Left Ventricle: Normal left ventricular systolic function. [...] By: Michael Weir MD 09/09/2024 11:56:24 AM TUMBLERS SUPERVISOR Procedure Note Michael Weir MD - 09/09/2024 [facility] [address] [facility] [address] [id number] [address] [facility] [address], [place], [place] [address] P:[phone] P:[phone] Echocardiographic Report Patient Name: CHARIS MCCULLOUGH L : 1940 Study Date: 09/09/2024 8:48:35 AM Gender: F Tech: Location: [facility] Provider: ELLA CAO Height(Cm): 173 BSA: 2.1 [...] FINDINGS: Interpretation Site: Exam was interpreted at [facility]. Left Ventricle: Normal left ventricular systolic function. [...] By: Michael Weir MD 09/09/2024 11:56:24 AM TUMBLERS SUPERVISOR [facility] Marybeth Cao MD CV ECHO PROCEDURES Geno crump Result from Last 3 Months Insurance SCADA Access [facility] [employer] [facility] Care Teams Career Development Manager Relationship Specialty Start Date End Date Artemio Avila MD PCP - General 10/20/16 Sarthak Myrick MD Referring Physician Otolaryngology 01/04/18
--- OUTSIDE RECORDS SUMMARY | 2024-12-03 08:45 | XMS_ITS | Encounter Summary ---
Author Organization [facility] Address [facility] [place] [address] Care Team Providers Care Admitted Attorneys Name Role Phone Artemio Avila MD Primary Care Provider [phone] Encounter Details Date Type Department Care Team (Late st Contact Info) Description 06/19/2023 Prep for Procedure [facility] [place] [address] [phone] Jelly Lazcano APNP [address] [place] [address] Social History Tobacco Use Types [...] on filedocumented in this encounter Care Teams Admitted Attorneys Relationship Specialty Start Date End Date Artemio Avila MD [address] [place], [place] [id number] PCP - General 06/30/13 documented as of this encounter
--- OUTSIDE RECORDS SUMMARY | 2024-12-03 08:45 | XMS_ITS | Encounter Summary ---
Author Organization [facility] Address [address] [facility] [place] [address] Care Team Providers Care Cigarette Catcher Name Role Phone Artemio Avila MD Primary Care Provider [phone] Encounter Details Date Type Department Care Team (Late st Contact Info) Description 10/27/2021 Lab Requisition [facility] DermPath Lab [address] [facility], [place] [address] Artemio Avila MD [address] [place] [address] Social History Tobacco Use Types Packs/Day Years Used Date Smoking Tobacco: Never Comments Unknown Sex and Gender Information Value Date Recorded Sex Assigned at Not on file Legal Sex Female 5:48 PM PLY SPLICER Gender Identity Not on file Sexual Orientation Not on file documented as of this encounter Plan of Treatment Not on file documented as of this encounter Procedures Procedure Name Priority Date/Time Associated Diagnosis Comments DERMATOPATHOLOGY Routine 10/25/2021 12:0 0 AM CDT documented in this encounter Results * DERMATOPATHOLOGY (10/25/2021 12:00 AM CDT) Case Report Dermatopathology Report Case: [id number] Authorizing Provider: Artemio Avila MD Collected: 10/25/2021 12:00 AM Ordering Location: [facility] Derm[facility] Lab Received: 10/27/2021 09:29 AM Pathologist: Laura Herrera MD Specimens: A) - Skin, left lower breast B) - Skin, left upper breast C) - Skin, left top chest 4:[address] [facility] Final Diagnosis Specimen A. SKIN, left lower breast: BENIGN VERRUCOUS KERATOSIS (L82.1) PRESENT AT MARGIN Specimen B. SKIN, left upper breast: SEBORRHEIC KERATOSIS, IRRITATED AND INFLAMED (L82.0) PRESENT AT MARGIN Specimen C. SKIN, left top chest: SEBORRHEIC KERATOSIS, IRRITATED AND INFLAMED (L82.0) PRESENT AT MARGIN 4:[address] [facility] DERMATOP[facility]ORAT[facility] Clinical History A-C: Changing lesion. Check margins. 4:[address] [facility] DERMATOP[facility]Y [facility]ORATORY Gross Description Specimen A: Received is one formalin filled container labeled with the patient's name and designated left lower breast. The specimen consists of a shave biopsy measuring 2t0e1il, bisected. The margin is inked green. Jar 0. Specimen B: Received is one formalin filled container labeled with the patient's name and designated left upper breast. The specimen consists of a shave biopsy measuring 2k1m1hd, bisected. The margin is inked green. Jar 0. Specimen C: Received is one formalin filled container labeled with the patient's name and designated left top chest. The specimen consists of a shave biopsy measuring 7t5h0yn, bisected. The margin is inked green. Jar 0. 4:[address] [facility] DERMATOPATHOLOGY [facility]ORATORY Microscopic Description Specimen A. SKIN, [...] characteristic determined by the Dermatopathology Laboratory at [facility], directed by Dr. Leana Swartz. These tests need not be, and therefore are not, approved by the [place] Food and Drug Administration. The tests are used for clinical purposes. Billing Codes Specimen Charges Stain Charges 79459 52068 85566 1 1 1 2 4:43 PM CDT DERMATOPATHOLOGY LABORATORY Embedded Images 2 4:43 PM CDT DERMATOPATHOLOGY LABORATORY Pathology/Cytology TISSUE SPECIMEN FROM SKIN / Unknown 10/25/2021 10/27/2021 9:29 AM CDT Miscellaneous samples (specimen) TISSUE SPECIMEN FROM SKIN / Unknown 10/25/2021 10/27/2021 9:29 AM CDT Miscellaneous samples (specimen) TISSUE SPECIMEN FROM SKIN / Unknown 10/25/2021 10/27/2021 9:29 AM CDT Artemio Avila MD LAB - PATHOLOGY/CYTOLOGY KENYE SAMANTHA Final Result DERMATOPATHOLOGY LABORATORY [facility] Department of Dermatology [facility] [address] [place] [address], [address] [phone] documented in this encounter Visit Diagnoses Not on filedocumented in this encounter Care Teams Cigarette Catcher Relationship Specialty Start Date End Date Artemio Avila MD [address] [place] [address] PCP - General 06/17/14 documented as of this encounter
--- OUTSIDE RECORDS SUMMARY | 2024-12-03 08:46 | XMS_ITS | Encounter Summary ---
Author Organization [facility] Address [address] [address] Care Team Providers Care Aluminum Boats Assembler Name Role Phone Artemio Avila MD Primary Care Provider [phone] Artemio Avila MD Primary Care Provider [phone] Sarthak Myrick MD Unavailable [phone] Encounter Details Date Type Department Care Team (Late st Contact Info) Description 09/08/2016 Orders Only [facility] ProviderRaffy MD [address] [place] [address] Social History Tobacco Use Types Packs/Day Years Used Date Smoking Tobacco: Never Alcohol Use Standard Drinks/Week Comments Yes 0 (1 standard drink = 0.6 oz pur e alcohol) Comments Unknown Sex and Gender Information Value Date Recorded Sex Assigned at Not on file Legal Sex Female 3:24 AM CHIEF SCHOOL FINANCE OFFICER Gender Identity Not on file Sexual [...] on filedocumented in this encounter Care Teams Aluminum Boats Assembler Relationship Specialty Start Date End Date Artemio Avila MD PCP - General 10/20/16 Artemio Avila MD PCP - General 12/21/15 10/19/16 Sarthak Myrick MD Referring Physician Otolaryngology 01/04/18 documented as of this encounter
--- OUTSIDE RECORDS SUMMARY | 2024-12-03 08:46 | XMS_ITS | Clinical Summary ---
Author Organization [facility] Address [address] [place] [address] Care Team Providers Care Private Duty Rn Name Role Phone Artemio Avila MD Primary Care Provider [phone] Allergies Active Allergy Reactions Criticality Noted Date [...] Comments Blood Pressure 186/72 07/10/2023 10:53 AM OFFICE RUNNER Pulse 64 07/10/2023 10:42 AM OFFICE RUNNER Temperature 36.6 C (97.9 F) 07/10/2023 9:57 AM OFFICE RUNNER Respiratory Rate 18 07/10/2023 10:53 AM OFFICE RUNNER Oxygen Saturation 99% 07/10/2023 10:42 AM OFFICE RUNNER Inhaled Oxygen Concentration - - Weight 99.6 kg (219 lb 9.6 oz) 07/10/2023 9:57 A M OFFICE RUNNER Height 167.6 cm (5' 6 ) 07/10/2023 9:57 AM OFFICE RUNNER Body Mass Index 35.44 07/10/2023 9:57 AM OFFICE RUNNER Plan of Treatment Health Maintenance Due Date Last Done Comments DTaP, Tdap and Td Vaccines ( 1 - Tdap) 1959 Zoster Vaccines (1 of 2) 1990 Annual Medicare Wellness Visit 2005 Dexa Scan (General) 2005 RSV Immunization or 60+ Years (1 - 1-dose 75+ series) 2015 Pneumococcal Vaccine: 50+ Ye ars (2 of 2 - PPSV23) 09/08/2016 09/08/2015 COVID-19 Vaccine (2 - 2023-2 5 season) 2024 09/30/2020 Meningococcal B Vaccine Aged Out No l onger eligible based on patient's age to complete this topic Meningococcal Vaccine Aged Out No philip logan eligible based on patient's age to complete this topic RSV Immunizations Under 20 Months Aged Out No longer eligible based on patient's age to complete this topic Insurance [facility] Care Teams Private Duty Rn Relationship Specialty Start Date End Date Artemio Avila MD [address] [place] [address] PCP - General 06/30/13
--- OUTSIDE RECORDS SUMMARY | 2024-12-03 08:46 | XMS_ITS | Continuity of Care Document ---
Author Organization [facility] Address [address] [place] [address] Phone Care Team Providers Care Show Girl Name Role Phone Joe Turner Unavailable Unavailable [...] Diagnoses Date Provider Providers Copied on Encounter [facility], [address], [place], [place], [id number], [place] tel:[phone] [facility] No Information 0 Yue Diaz. [address] , [address], [place], [address], [place]. tel:[phone] [facility], [address], [place], [place], [id number], tel:[phone] [facility] No Information John-0 1-200 9 Doisy Edward. [address] , [address], [place], [address], [place]. tel:[phone] Office/outpat ient Visit, [facility], [address], [place], [place], [id number], [place] tel:[phone] [facility] No Information May-2 9-200 8 Doisy Edward. [address] , [address], [place], [address], [place]. tel:[phone] [facility], [address] [place] [address] [address], [place], [place], [id number], [place] tel:[phone] [facility] No Information Oct-1 0-200 7 Doisy Edward. [address] [facility] , [address], [place], [address], [place]. tel:[phone] [facility], [address], [place], [place], [id number], [place] tel:[phone] [facility] No Information Sep-2 6-200 7 Doisy Edward. [address] , [address], [place], [address], [place]. tel:[phone] [facility], [address], [place], [place], [id number], [place] tel:[phone] [facility] No Information Sep-2 5-200 7 Doisy Edward. [address] , [address], [place], [address], [place]. tel:[phone] Office/outpat ient Visit, [facility], [address], [place], [place], [address], [place] tel:[phone] [facility] No Information John-2 7-200 7 Doisy Edward. [address] , [address], [place], [address], [place]. tel:[phone] Referring Provider: Joe Jacobo, [facility] [address], [place], [address]. tel:[phone] [facility], [address] [facility] [address], [place], [place], [id number], [place] tel:[phone] [facility] No Information [address] Yue Diaz. [facility] [address], [address], [place], [address], [place]. tel:[phone] Family History Family Member Type Diagnosis Age At Onset No Information Payers Payer name Insurance type Covered constitution party ID Authoriza tigabriel(s) Medicare [facility] [id number] For Life Mdcr Supp CI [id number] Social History Type Description Quantity Date Captured [...]
--- OUTSIDE RECORDS SUMMARY | 2024-12-03 08:46 | XMS_ITS | Clinical Summary ---
Author Organization [facility] Address [address] [place] [address] Phone Care Team Providers Care Infant Nanny Name Role Phone Artemio Avila MD Primary Care Provider [phone] Allergies Active Allergy Reactions Criticality Noted Date Comments Diltiazem Other (see comments) Low 09/04/2019 Bradycardia 2016 Medications aspirin EC 81 MG EC tablet Take 81 mg by mouth daily Active clopidogrel (PLAVIX) 75 MG tablet Take 75 mg by mouth 1 (one) time each day Active rosuvastatin (CRESTOR) 20 MG tablet Take 20 mg by mouth daily 9 Active DULoxetine (CYMBALTA) [address] capsule Take 90 mg by mouth 1 (one) time each day 1 Active NIFEdipine CC (ADALAT CC) 30 MG 24 hr tablet Take 90 mg by mouth 1 (one) time each day 1 Active Empagliflozin (Jardiance) 10 MG tablet Take [...] for gout flare resolution. 10 tablet 1 4 Active LORazepam (ATIVAN) 0.5 MG tablet Take 0.5 mg by mouth every 8 (eight) hours if needed 4 Active torsemide (DEMADEX) 10 MG tablet TAKE 1 TABLET(10 MG) BY MOUTH 1 TIME EACH DAY 90 tablet 3 5 Active potassium chloride (KLOR-CON M10) 10 MEQ CR tablet TAKE 1 TABLET(10 MEQ) BY MOUTH 1 TIME EACH DAY 30 tablet 11 5 Active Active Problems Problem Noted Date Diagnosed [...] without residual deficits 04/13/2013 Coronary arteriosclerosis in [place] artery 04/13 Overview (03/12/2019): Overview: Coronary arteriosclerosis in [place] artery Last Assessment & Plan: Remote CABG [...] Her anxiety may be contributing as well. Immunizations Immunization Administration Dates Next Due Influenza (IM) Preservative [...] at Not on file Legal Sex Female 8:52 AM [facility] Gender Identity Not on file Sexual Orientation Not on file Last Filed Vital Signs Vital Sign Reading Time Taken Comments Blood Pressure 128/78 02/20/2024 1:01 PM CDT Pulse 61 02/20/2024 1:01 PM CDT Temperature 36.3 C (97.4 F) 08/16/2020 1:16 PM FILLER AND TRIMMER Respiratory Rate 18 08/16/2020 1:16 PM FILLER AND TRIMMER Oxygen Saturation - - Inhaled Oxygen Concentration - - Weight 92.5 kg (204 lb) 02/20/2024 1:01 PM CDT Height 172.7 cm (5' 8 ) 02/20/2024 1:01 PM CDT Body Mass Index 31.02 02/20/2024 1:01 PM CDT Plan of Treatment Upcoming Encounters Date Type Department Care Team (Late st Contact Info) Description 04/21/2025 11:20 AM CDT Office Visit [facility] [address] [facility] [address] [place], [place] [id number] Vasyl Craft MD [address] [place] [address] Health Maintenance Due Date Last Done Comments Pneumococcal PPSV23/PCV13 65 + Years / High and Highest Risk (2 of 4 - PPSV23) 11/03/2015 09/08/2015 Influenza Vaccine (Season Ended) 2025 05/23/20 15 Insurance MEDICARE Member Subscriber Plan / Payer (Ef fective 2015-Present) Name:Regine Zarate Relation to Subscriber:Self Name:Regine Zarate Payer ID:[id number] Group ID:[id number] Type:Not on file Address: [address] [place] [phone] [facility] MEDICARE HMO [facility] Address: [facility] [address] [place] [address] [facility] Member Subscriber Plan / Payer (Ef fective 2022-Present) Name:Regine Zarate Relation to Subscriber:Self Name:Regine Zarate Payer ID:[id number] Group ID:Not on file Type:Not on file Address: [address] [place] [phone] Care Teams Infant Nanny Relationship Specialty Start Date End Date Artemio Avila MD [address] [place] [id number] PCP - General Family Medicine 10/16/18
--- OUTSIDE RECORDS SUMMARY | 2024-12-03 08:46 | XMS_ITS | Encounter Summary ---
Author Organization [facility] Address [address] [address] Care Team Providers Care Transmission Tester Name Role Phone Artemio Avila MD Primary Care Provider [phone] Artemio Avila MD Primary Care Provider [phone] Sarthak Myrick MD Unavailable [phone] Encounter Details Date Type Department Care Team (Late st Contact Info) Description 09/05/2016 Orders Only [facility] ProviderRaffy MD [address] [place] [address] Social History Tobacco Use Types Packs/Day Years Used Date Smoking Tobacco: Never Alcohol Use Standard Drinks/Week Comments Yes 0 (1 standard drink = 0.6 oz pur e alcohol) Comments Unknown Sex and Gender Information Value Date Recorded Sex Assigned at Not on file Legal Sex Female 3:24 AM YARROW GATHERER Gender Identity Not on file Sexual Orientation [...] on filedocumented in this encounter Care Teams Transmission Tester Relationship Specialty Start Date End Date Artemio Avila MD PCP - General 10/20/16 Artemio Avila MD PCP - General 12/21/15 10/19/16 Sarthak Myrick MD Referring Physician Otolaryngology 01/04/18 documented as of this encounter
--- OUTSIDE RECORDS SUMMARY | 2024-12-03 08:46 | XMS_ITS | Clinical Summary ---
Author Organization [facility] Address [address] [place] [address] Care Team Providers Care Assembler Bicycle Name Role Phone Artemio Avila MD Primary Care Provider [phone] Source Comments [facility],non-[facility] Affiliates and Associated Physician Practices is amultiple site organization consisting of ambulatory clinics and hospital sitesin [place], [place] and [place]. This disclosure is being madepursuant to the Care Everywhere program and may not contain all information available regarding this patient. Last updated 18.[facility] Family History Medical History Relation Name [...] on file Legal Sex Female 5:48 PM BOARD SAW RUNNER Gender Identity Not on file Sexual Orientation [...] - 1-dose 75+ series) 2015 COVID-19 VACCINE (2023-2 5 season) 2024 DEPRESSION SCREENING 07/23/2024 INFLUENZA VACCINE (Season Ended) 2025 HEPATITIS B VACCINE Aged Out No longe [...] patient's age to complete this topic Insurance [facility] MEDICARE [facility] Care Address: [facility] CLAIMS [address] [place] [address] [facility], [place] Address: [facility] CLAIMS [address] [place] [address] [place] [employer] [facility] MEDICARE [facility] MEDICARE Care Teams Assembler Bicycle Relationship Specialty Start Date End Date Artemio Avila MD [address] [place] [address] PCP - General 06/17/14
--- OUTSIDE RECORDS SUMMARY | 2024-12-03 08:46 | XMS_ITS | Encounter Summary ---
Author Organization [facility] Address [facility] [place] [address] Care Team Providers Care Finish Molder Name Role Phone Artemio Avila MD Primary Care Provider [phone] Encounter Details Date Type Department Care Team (Late st Contact Info) Description 12/28/2018 Abstract [facility] CONVERSION [address] [place] [address] , Generic ConversionMD Social History Tobacco Use [...] on filedocumented in this encounter Care Teams Finish Molder Relationship Specialty Start Date End Date Artemio Avila MD [address] [place] [address] PCP - General 06/30/13 documented as of this encounter
== END 2024-12-03 08:40 | disposition home or self-care (01) ==
PROVIDERS: PCP Family Medicine; Visit Provider Nurse Practitioner
DX: K83.8 Other specified diseases of biliary tract (principal); Z90.49 Acquired absence of other specified parts of digestive tract; K91.89 Other postprocedural complications and disorders of digestive system
CPT/HCPCS: 74183; 76376; A9577

== ENCOUNTER 2024-12-08 07:26 | Outpatient (CLI) | payer OTHER, SELFPAY ==
--- NOTE | ~2024-12-08 | MR_ITS ---
EXAMINATION: MR lumbar spine wo/w con DATE: 12/08/2024 08:25 INDICATION: Low back pain TECHNIQUE: Magnetic resonance imaging (MRI) of the lumbar spine was performed without and with 19 mL ProHance intravenous contrast. Sequences included sagittal T2-weighted FSE, sagittal T2-weighted FS F SE, and sagittal and axial T1-weighted FSE. Postcontrast sequences included axial T2-weighted FSE, sa gittal T1-weighted FSE, and axial and sagittal T1-weighted FS FSE. COMPARISON: Lumbar spine MR dated 05/30/2023 FINDINGS: 2 mm retrolisthesis L1 on L2, 4 mm retrolisthesis L3 on L4, 3 mm anterolisthesis L4 on L5 and 4 mm re trolisthesis L5 on S1. Vertebral body heights are normal. Severe disc height loss at T10-T11, L1-L2, L2-L3 and L5-S1 with associated fibrofatty degenerative endplate changes. Mild to moderate disc heigh t loss at L4-L5 with mild fibrovascular degenerative endplate changes and mild disc height loss at T1 1-T12 and L3-L4. The conus medullaris terminates at L1-L2. There is normal signal in the caudal spina l cord. No abnormally enhancing lesions identified on postcontrast imaging. 2.0 cm T2 hyperintense no nenhancing exophytic cyst at the upper pole the right kidney. Paravertebral soft tissues are unremark able. The following disc levels are specifically discussed: T12-L1: Disc is mildly bulging. There is moderate bilateral facet joint osteoarthritis. There is no n eural foraminal stenosis. There is mild central canal stenosis. L1-L2: Disc is bulging with annular fissure. There is severe bilateral facet joint osteoarthritis. Th ere is mild right and mild to moderate left neural foraminal stenosis. There is mild central canal st enosis. L2-L3: Bulging. There is severe bilateral facet joint osteoarthritis. There is mild bilateral neural foraminal stenosis. There is mild central canal stenosis. L3-L4: Disc is bulging with annular fissure. There is severe bilateral facet joint osteoarthritis. Th ere is moderate bilateral neural foraminal stenosis. There is moderate central canal stenosis. L4-L5: The disc does not extend beyond the more posterior L5 endplate margin. Annular fissure. Matter of labeled There is severe bilateral facet joint osteoarthritis. There is mild bilateral neural fora prasanna stenosis. There is mild central canal stenosis. L5-S1: Disc is bulging with superimposed annular fissure and small central disc extrusion with disc m aterial extending 4 mm caudal to the level of the superior endplate of S1. There is severe bilateral facet joint osteoarthritis. There is moderate left and mild to moderate right neural foraminal stenos is. There is mild central canal stenosis. IMPRESSION: 1. Minimal progression in severe lumbar spondylosis. Reviewed, dictated and finalized at location A.
--- OUTSIDE RECORDS SUMMARY | 2024-12-08 07:29 | XMS_ITS | Clinical Summary ---
Author Organization [facility] Address [address] [place] [address] Care Team Providers Care Multi Sensor Operator Name Role Phone Artemio Avila MD Primary Care Provider [phone] Source Comments [facility],non-[facility] Affiliates and Associated Physician Practices is amultiple site organization consisting of ambulatory clinics and hospital sitesin [place], [place], [place] and [place]. This disclosure is being madepursuant to the Care Everywhere program and may not contain all information available regarding this patient. 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
--- OUTSIDE RECORDS SUMMARY | 2024-12-08 07:29 | XMS_ITS | Encounter Summary ---
Author Organization [facility] Address [address] [place] [address] Care Team Providers Care Process Improvement Consultant Name Role Phone Artemio Avila MD Primary Care Provider [phone] Encounter Details Date Type Department Care Team (Late st Contact Info) Description 10/27/2021 Lab Requisition [facility] [address] [place] [address] Artemio Avila MD [address] [place] [address] Social History Tobacco Use Types Packs/Day Years Used Date Smoking Tobacco: Never Comments Unknown Sex and Gender Information Value Date Recorded Sex Assigned at Not on file 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 Gender Identity Not on file Sexual Orientation Not on file documented as of this encounter Plan of Treatment Not on file documented as of this encounter Procedures Procedure Name Priority Date/Time Associated Diagnosis Comments DERMATOPATHOLOGY Routine 10/25/2021 12:0 0 AM CDT documented in this encounter Results * DERMATOPATHOLOGY (10/25/2021 12:00 AM CDT) Case Report Dermatopathology Report Case: [id number] Authorizing Provider: Artemio Avila MD Collected: 10/25/2021 12:00 AM Ordering Location: [facility] Received: 10/27/2021 09:29 AM Pathologist: Laura Herrera MD Specimens: A) - Skin, left lower breast B) - Skin, left upper breast C) - Skin, left top chest 4:43 PM [facility] Final Diagnosis Specimen A. SKIN, left lower breast: BENIGN VERRUCOUS KERATOSIS (L82.1) PRESENT AT MARGIN Specimen B. SKIN, left upper breast: SEBORRHEIC KERATOSIS, IRRITATED AND INFLAMED (L82.0) PRESENT AT MARGIN Specimen C. SKIN, left top chest: SEBORRHEIC KERATOSIS, IRRITATED AND INFLAMED (L82.0) PRESENT AT MARGIN 4:43 PM [facility] Clinical History A-C: Changing lesion. Check margins. 4:43 PM [facility] Gross Description Specimen A: Received is one formalin filled container labeled with the patient's name and designated left lower breast. The specimen consists of a shave biopsy measuring [id number], bisected. The margin is inked green. Jar 0. Specimen B: Received is one formalin filled container labeled with the patient's name and designated left upper breast. The specimen consists of a shave biopsy measuring [id number], bisected. The margin is inked green. Jar 0. Specimen C: Received is one formalin filled container labeled with the patient's name and designated left top chest. The specimen consists of a shave biopsy measuring [id number], bisected. The margin is inked green. Jar 0. 4:43 PM [facility] Microscopic Description Specimen A. SKIN, [...] characteristic determined by the Dermatopathology Laboratory at [facility], directed by Dr. Leana Swartz. These tests need not be, and therefore are not, approved by the [place] Food and Drug Administration. The tests are used for clinical purposes. Billing Codes Specimen Charges Stain Charges 01716 [id number] 83934 1 1 1 2 4:43 PM CDT [...] PATHOLOGY/CYTOLOGY KENYE SAMANTHA Final Result DERMATOPATHOLOGY LABORATORY [facility] Department of Dermatology [facility] Specialized Medicine [address] [place] [address], [address] [phone] documented in this encounter Visit Diagnoses Not on filedocumented in this encounter Care Teams Process Improvement Consultant Relationship Specialty Start Date End Date Artemio Avila MD [address] [place] [address] PCP - General 06/17/14 documented as of this encounter
--- OUTSIDE RECORDS SUMMARY | 2024-12-08 07:29 | XMS_ITS | Encounter Summary ---
Author Organization [facility] Address [facility] [place] [address] Care Team Providers Care Follow Up Clerk Name Role Phone Artemio Avila MD Primary Care Provider [phone] Encounter Details Date Type Department Care Team (Late st Contact Info) Description 12/28/2018 Abstract [facility] CONVERSION [address] [place] [address] , Generic ConversionMD Social History Tobacco Use [...] on filedocumented in this encounter Care Teams Follow Up Clerk Relationship Specialty Start Date End Date Artemio Avila MD [address] [place] [id number] PCP - General 06/30/13 documented as of this encounter
--- OUTSIDE RECORDS SUMMARY | 2024-12-08 07:29 | XMS_ITS | Clinical Summary ---
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 Pulse 64 07/10/2023 10:42 AM TRUCK SUPERVISOR Temperature 36.6 C (97.9 F) 07/10/2023 9:57 AM TRUCK SUPERVISOR Respiratory Rate 18 07/10/2023 10:53 AM TRUCK SUPERVISOR Oxygen Saturation 99% 07/10/2023 10:42 AM TRUCK SUPERVISOR Inhaled Oxygen Concentration - - Weight 99.6 kg (219 lb 9.6 oz) 07/10/2023 9:57 A M TRUCK SUPERVISOR Height 167.6 cm (5' 6 ) 07/10/2023 9:57 AM TRUCK SUPERVISOR Body Mass Index 35.44 07/10/2023 9:57 AM TRUCK SUPERVISOR Plan of Treatment Health Maintenance Due Date [...] Insurance A [facility] Care Teams Apartment Coordinator Relationship Specialty Start Date End Date Artemio Avila MD [address] [address] PCP - General 06/30/13
--- OUTSIDE RECORDS SUMMARY | 2024-12-08 07:29 | XMS_ITS | Encounter Summary ---
Author Organization [facility] Address [facility] [place] [address] Care Team Providers Care Piano Professor Name Role Phone Artemio Avila MD Primary Care Provider [phone] Encounter Details Date Type Department Care Team (Late st Contact Info) Description 06/19/2023 Prep for Procedure [facility] [place] [address] [id number] Jelly Lazcano APNP [address] [place] [address] Social History Tobacco Use Types [...] on filedocumented in this encounter Care Teams Piano Professor Relationship Specialty Start Date End Date Artemio Avila MD [address] [place], [place] [id number] PCP - General 06/30/13 documented as of this encounter
--- OUTSIDE RECORDS SUMMARY | 2024-12-08 07:29 | XMS_ITS | Encounter Summary ---
Author Organization [facility] Address [facility] [place] [address] Care Team Providers Care Buck Presser Name Role Phone Artemio Avila MD Primary Care Provider [phone] Encounter Details Date Type Department Care Team (Late st Contact Info) Description 06/19/2023 Results Notification [facility] [place] [address] [id number] Jelly Lazcano APNP [address] [place] [phone] Social History Tobacco Use Types Packs/Day Years [...] on filedocumented in this encounter Care Teams Buck Presser Relationship Specialty Start Date End Date Artemio Avila MD [address] [place] [address] PCP - General 06/30/13 documented as of this encounter
--- OUTSIDE RECORDS SUMMARY | 2024-12-08 07:29 | XMS_ITS | Encounter Summary ---
Author Organization [facility] Address [address] [place] [address] Care Team Providers Care Pyrotechnic Mixer Name Role Phone Artemio Avila MD Primary Care Provider [phone] Reason for Referral * Surgical (Routine) - Closed Specialty Diagnoses / Procedures Referred By Veronica huntley Referred To Contact Diagnoses Lumbar radiculopathy Procedures Case request operating room: INJECTION EPIDURAL TRANSFORAMINAL L4-5 Jelly Lazcano APNP Phone: tel: fax: Referral ID Status Reason Start Date Expiration Date Visits Re quested Visits Authorized [id number] Closed 04/04/2023 04/04/2024 1 1 Encounter Details Date Type Department Care Team (Late st Contact Info) Description 04/04/2023 Prep for Procedure [facility] [place] [address] [id number] Jelly Lazcano APNP [address] [place] [phone] Social History Tobacco Use Types Packs/Day Years [...] 10:14 AM Reshma Campbell RN Active * [place] Suicide Severity Rating Scale (Screener/Recent Self-Report) Question [...] unspecified documented in this encounter Care Teams Pyrotechnic Mixer Relationship Specialty Start Date End Date Artemio Avila MD [address] [place] [address] PCP - General 06/30/13 documented as of this encounter
--- OUTSIDE RECORDS SUMMARY | 2024-12-08 07:30 | XMS_ITS | Clinical Summary ---
Author Organization [facility] Address [address] [place] [address] Phone Care Team Providers Care Hand Reamer Name Role Phone Artemio Avila MD Primary Care Provider [phone] Allergies Active Allergy Reactions Criticality Noted Date [...] without residual deficits 04/13/2013 Coronary arteriosclerosis in [place] artery 04/13 Overview (03/12/2019): Overview: Coronary arteriosclerosis in [place] artery Last Assessment & Plan: Remote CABG [...] on file Legal Sex Female 8:52 AM [facility] Gender Identity Not on file Sexual Orientation Not on file Last Filed Vital Signs Vital Sign Reading Time Taken Comments Blood Pressure 128/78 02/20/2024 1:01 PM CDT Pulse 61 02/20/2024 1:01 PM CDT Temperature 36.3 C (97.4 F) 08/16/2020 1:16 PM 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 Respiratory Rate 18 08/16/2020 1:16 PM 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 Oxygen Saturation - - Inhaled Oxygen Concentration - - Weight 92.5 kg (204 lb) 02/20/2024 1:01 PM CDT Height 172.7 cm (5' 8 ) 02/20/2024 1:01 PM CDT Body Mass Index 31.02 02/20/2024 1:01 PM CDT Plan of Treatment Upcoming Encounters Date Type Department Care Team (Late st Contact Info) Description 04/21/2025 11:20 AM CDT Office Visit [facility] [address] [place], [place] [id number] Vasyl Craft MD [address] [place] [address] Health Maintenance Due Date Last Done Comments Pneumococcal PPSV23/PCV13 65 + Years / High and Highest Risk (2 of 4 - PPSV23) 11/03/2015 09/08/2015 Influenza Vaccine (Season Ended) 2025 05/23/20 15 Insurance MEDICARE [facility] MEDICARE [facility] Address: [facility] [address] [place] [address] [facility] Care Teams Hand Reamer Relationship Specialty Start Date End Date Artemio Avila MD [address] [place] [phone] PCP - General Family Medicine 10/16/18
== END 2024-12-08 07:27 | disposition home or self-care (01) ==
PROVIDERS: PCP Family Medicine; Visit Provider Internal Medicine
DX: M54.50 Low back pain, unspecified (principal)
CPT/HCPCS: 72158; A9579

== ENCOUNTER 2024-12-26 10:56 | Outpatient (CLI) | payer OTHER, SELFPAY ==
--- OUTSIDE RECORDS SUMMARY | 2024-12-26 10:51 | XMS_ITS | Clinical Summary ---
Author Organization [facility] [place] [address] Address [address] [place] [address] Care Team Providers Care It Security Project Manager Name Role Phone Artemio Avila MD Primary Care Provider [phone] Sarthak Myrick MD Unavailable [phone] Allergies Active Allergy Reactions Criticality Noted [...] mg enteric coated tabletIndications:Co ronary arteriosclerosis in [place] artery Take 1 tablet (81 mg total) [...] (Crestor) 20 mg tabletIndications:Co ronary arteriosclerosis in [place] artery Take 1 tablet (20 mg total) [...] (PLAVIX) 75 mg tabletIndications:Co ronary arteriosclerosis in [place] artery Take 1 tablet (75 mg total) [...] mEq total) by mouth 08/08/19 25 Active tiZANidine (ZANAFLEX) 2 mg tablet 10/25/19 25 Active Active Problems Problem Noted Date [...] and possibly service. She was seeing our admeasurer to have them checked. She is going to follow up for further problems if needed. Bilateral impacted cerumen 03/26/2024 Assessment & Plan (03/26/2024 8:20 PM CDT): She did have a small to moderate amount of cerumen that I removed on both sides. I do not think it was enough to impact her hearing aids. She is going to talk with our admeasurer and follow up here otherwise as needed. [...] 06/04/2017 Assessment & Plan (06/04/2017 5:46 PM LANGUAGE PATH): Currently taking Plavix and rosuvastatin Anxiety 06/04/2017 Assessment & Plan (01/21/2018 9:53 PM CDT): I am wondering if the patient's anxiety is contributing to some of her symptoms. She will be changing from her current Viibryd to another antidepressant soon. Assessment & Plan (06/04/2017 5:47 PM LANGUAGE PATH): Patient has a lot of symptoms at [...] recently. Assessment & Plan (06/04/2017 5:44 PM LANGUAGE PATH): Not a recent problem. 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 Takes Crestor 20 mg daily. Assessment & Plan (06/04/2017 5:45 PM LANGUAGE PATH): 11/2016 total cholesterol 172, TG 185 and LDL 72, acceptable on rosuvastatin 20 mg daily. Coronary artery disease invo lving [place] coronary artery of [place] heart without angina pectoris 07/03/2014 Overview (10/26/2016): Coronary arteriosclerosis in [place] artery Assessment & Plan (01/21/2018 9:54 PM [...] well. Assessment & Plan (06/04/2017 5:44 PM LANGUAGE PATH): Remote CABG History of coronary stent Recurrent [...] Encounters Date Type Department Care Team Description 12/11/2024 11:45 AM CDT Office Visit [facility] Cardiology [address] [place] [address] Donna Cao MD Coronary artery disease involving [place] coronary artery of [place] heart without angina pectoris (Primary Dx); Hx of CABG; Essential hypertension; Presence of stent in coronary artery; Multiple-type hyperlipidemia; History of TIAs; Chronic heart failure with preserved ejection fraction (HCC) from Last 3 Months Immunizations Immunization Administration Dates Next Due Influenza, Trivalent, Preservative Free, Intramu scular 05/23/2015 Surgical History Surgery Date Site/Laterality Comments CORONARY ARTERY BYPASS GRAFT CABG INNER EAR SURGERY Left HOLE IN EAR DRUM CHOLECYSTECTOMY Medical History Medical History Date Comments Hyperlipidemia Hyperlipidemia; Comments: [facility] 04/07/2014 - Chronic coronary artery disease Coronary artery disease Hypertension Hypertension Hx Other Medical TIA; Comments: [facility] 04/07/2014 - Hx Other Medical GERD; Comments: [facility] 04/07/2014 - Hx Other Medical anxiety/depress ion; Comments: [facility] 04/07/2014 - Hx Other Medical orthostatic hyp otension; Comments: [facility] 04/07/2014 - Hx Other Medical hysterectomy wi th BSO; Comments: [facility] 04/07/2014 - Hx Other Medical ankle surgery; Comments: [facility] 04/07/2014 - Autoimmune disease Heart disease GERD [...] on file Legal Sex Female 3:24 AM LANGUAGE PATH Gender Identity Not on file Sexual Orientation Not on file Obstetrics History Last Filed Vital Signs Vital Sign Reading Time Taken Comments Blood Pressure 140/58 12/11/2024 11:35 AM CDT Pulse 60 12/11/2024 11:35 AM CDT Temperature 36.6 C (97.9 F) 10/04/2018 1:20 PM CDT Respiratory Rate 18 03/26/2024 10:53 AM CDT Oxygen Saturation 97% 12/11/2024 11:35 AM CDT Inhaled Oxygen Concentration - - Weight 94.3 kg (208 lb) 12/11/2024 11:35 AM CDT Height 172.7 cm (5' 8) 12/11/2024 11:35 AM CDT Body Mass Index 31.63 12/11/2024 11:35 AM CDT Plan of Treatment Health Maintenance Due Date Last Done Comments Depression Screening 1940 Fall Risk Assessment 1940 Osteoporosis Screening-Bone Density Scan 1940 Hepatitis B Screening 1958 Zoster Vaccine (1 of 2) 1990 Well Visit 65+ 2005 Pneumococcal vaccine 65+ (2 of 2 - PPSV23) 11/03/2015 09/08/2015 Influenza Vaccine (Season Ended) 2025 10/08/19 19, 05/23/2015 DTaP/Tdap/Td Vaccine (2 - Td or Tdap) 04/08/2027 Insurance [id number] [facility] FOR LIFE [facility] FOR LIFE Care Teams It Security Project Manager Relationship Specialty Start Date End Date Artemio Avila MD PCP - General 10/20/16 Sarthak Myrick MD Referring Physician Otolaryngology 01/04/18
--- OUTSIDE RECORDS SUMMARY | 2024-12-26 10:51 | XMS_ITS | Referral Summary ---
Author Organization [facility] [facility] [address] [place] [address] Care Team Providers Care Engineering Laboratory Technician Name Role Phone Artemio Avila MD Primary Care Provider [phone] Sarthak Myrick MD Unavailable [phone] Encounters Date Type Department Care Team Description 12/11/2024 11:45 AM CDT Office Visit [facility] Cardiology [address] [place] [address] Donna Cao MD Coronary artery disease involving [place] coronary artery of [place] heart without angina pectoris (Primary Dx); Hx of CABG; Essential hypertension; Presence of stent in coronary artery; Multiple-type hyperlipidemia; History of TIAs; Chronic heart failure with preserved ejection fraction (HCC) from Last 3 Months Allergies Active Allergy [...] mg enteric coated tabletIndications:Co ronary arteriosclerosis in [place] artery Take 1 tablet (81 mg total) [...] (Crestor) 20 mg tabletIndications:Co ronary arteriosclerosis in [place] artery Take 1 tablet (20 mg total) [...] (PLAVIX) 75 mg tabletIndications:Co ronary arteriosclerosis in [place] artery Take 1 tablet (75 mg total) [...] and possibly service. She was seeing our ski molder to have them checked. She is going to follow up for further problems if needed. Bilateral impacted cerumen 03/26/2024 Assessment & Plan (03/26/2024 8:20 PM CDT): She did have a small to moderate amount of cerumen that I removed on both sides. I do not think it was enough to impact her hearing aids. She is going to talk with our ski molder and follow up here otherwise as needed. [...] 06/04/2017 Assessment & Plan (06/04/2017 5:46 PM COMBAT SYSTEMS ENGINEER): Currently taking Plavix and rosuvastatin Anxiety 06/04/2017 Assessment & Plan (01/21/2018 9:53 PM CDT): I am wondering if the patient's anxiety is contributing to some of her symptoms. She will be changing from her current Viibryd to another antidepressant soon. Assessment & Plan (06/04/2017 5:47 PM COMBAT SYSTEMS ENGINEER): Patient has a lot of symptoms at [...] recently. Assessment & Plan (06/04/2017 5:44 PM COMBAT SYSTEMS ENGINEER): Not a recent problem. 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 Takes Crestor 20 mg daily. Assessment & Plan (06/04/2017 5:45 PM COMBAT SYSTEMS ENGINEER): 11/2016 total cholesterol 172, TG 185 and LDL 72, acceptable on rosuvastatin 20 mg daily. Coronary artery disease invo lving [place] coronary artery of [place] heart without angina pectoris 07/03/2014 Overview (10/26/2016): Coronary arteriosclerosis in [place] artery Assessment & Plan (01/21/2018 9:54 PM [...] well. Assessment & Plan (06/04/2017 5:44 PM COMBAT SYSTEMS ENGINEER): Remote CABG History of coronary stent Recurrent [...] on file Legal Sex Female 3:24 AM COMBAT SYSTEMS ENGINEER Gender Identity Not on file Sexual Orientation [...] 12/11/2024 11:35 AM CDT Plan of Treatment Not on file Insurance [employer] [facility] [employer] [facility] HEALTHCARE [facility] HEALTHCARE FOR LIFE Care Teams Engineering Laboratory Technician Relationship Specialty Start Date End Date Artemio Avila MD PCP - General 10/20/16 Sarthak Myrick MD Referring Physician Otolaryngology 01/04/18
--- OUTSIDE RECORDS SUMMARY | 2024-12-26 10:51 | XMS_ITS | Encounter Summary ---
Author Organization [facility] Address [address] [address] Care Team Providers Care Case Therapist Name Role Phone Artemio Avila MD Primary Care Provider [phone] Artemio Avila MD Primary Care Provider [phone] Sarthak Myrick MD Unavailable [phone] Encounter Details Date Type Department Care Team (Late st Contact Info) Description 09/05/2016 Orders Only [facility] ProviderRaffy MD [address] [place] [address] Social History Tobacco Use Types Packs/Day Years Used Date Smoking Tobacco: Never Alcohol Use Standard Drinks/Week Comments Yes 0 (1 standard drink = 0.6 oz pur e alcohol) Comments Unknown Sex and Gender Information Value Date Recorded Sex Assigned at Not on file Legal Sex Female 3:24 AM LACE WINDER Gender Identity Not on file Sexual Orientation [...] on filedocumented in this encounter Care Teams Case Therapist Relationship Specialty Start Date End Date Artemio Avila MD PCP - General 10/20/16 Artemio Avila MD PCP - General 12/21/15 10/19/16 Sarthak Myrick MD Referring Physician Otolaryngology 01/04/18 documented as of this encounter
--- OUTSIDE RECORDS SUMMARY | 2024-12-26 10:51 | XMS_ITS | Encounter Summary ---
Author Organization [facility] Address [address] [address] Care Team Providers Care Repair Department Manager Name Role Phone Artemio Avila MD Primary Care Provider [phone] Artemio Avila MD Primary Care Provider [phone] Sarthak Myrick MD Unavailable [phone] Encounter Details Date Type Department Care Team (Late st Contact Info) Description 09/08/2016 Orders Only [facility] ProviderRaffy MD [address] [place] [address] Social History Tobacco Use Types Packs/Day Years Used Date Smoking Tobacco: Never Alcohol Use Standard Drinks/Week Comments Yes 0 (1 standard drink = 0.6 oz pur e alcohol) Comments Unknown Sex and Gender Information Value Date Recorded Sex Assigned at Not on file Legal Sex Female 3:24 AM 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
--- OUTSIDE RECORDS SUMMARY | 2024-12-26 10:51 | XMS_ITS | Clinical Summary ---
Author Organization [facility] Address [address] [place] [address] Care Team Providers Care Mothercraft Nurse Name Role Phone Artemio Avila MD Primary Care Provider [phone] Source Comments [facility] Affiliates and Associated Physician Practices is amultiple site organization consisting of ambulatory clinics and hospital sitesin [place], [place], [place] and [place]. This disclosure is being madepursuant to the Care Everywhere program and may not contain all information available regarding this patient. Last updated 18.[facility] Family History Medical History Relation [...] on file Legal Sex Female 5:48 PM DAMAGE INSIDE ADJUSTER Gender Identity Not on file Sexual Orientation [...] age to complete this topic Insurance [facility] MEDICARE [facility] Care Address: [facility] CLAIMS [address] [place] [address] [facility] Foundation[facility] Address: [facility] CLAIMS [address] [place] [address] [employer] [facility] MEDICARE [facility] MEDICARE Care Teams Mothercraft Nurse Relationship Specialty Start Date End Date Artemio Avila MD [address] [place] [address] PCP - General 06/17/14
--- OUTSIDE RECORDS SUMMARY | 2024-12-26 10:51 | XMS_ITS | Clinical Summary ---
Author Organization [facility] Address [address] [place] [address] Phone Care Team Providers Care Electrical Troubleshooter Name Role Phone Artemio Avila MD Primary Care Provider [phone] Allergies Active Allergy Reactions Criticality Noted Date [...] without residual deficits 04/13/2013 Coronary arteriosclerosis in [place] artery 04/13 Overview (03/12/2019): Overview: Coronary arteriosclerosis in [place] artery Last Assessment & Plan: Remote CABG [...] on file Legal Sex Female 8:52 AM [facility] Gender Identity Not on file Sexual Orientation Not on file Last Filed Vital Signs Vital Sign Reading Time Taken Comments Blood Pressure 128/78 02/20/2024 1:01 PM CDT Pulse 61 02/20/2024 1:01 PM CDT Temperature 36.3 C (97.4 F) 08/16/2020 1:16 PM PAEDIATRIC PHYSIOTHERAPIST Respiratory Rate 18 08/16/2020 1:16 PM PAEDIATRIC PHYSIOTHERAPIST Oxygen Saturation - - Inhaled Oxygen Concentration - - Weight 92.5 kg (204 lb) 02/20/2024 1:01 PM CDT Height 172.7 cm (5' 8) 02/20/2024 1:01 PM CDT Body Mass Index 31.02 02/20/2024 1:01 PM CDT Plan of Treatment Upcoming Encounters Date Type Department Care Team (Late st Contact Info) Description 04/21/2025 11:20 AM CDT Office Visit [facility] [address] [facility] [address] [place], [place] [id number] Vasyl Craft MD [address] [place] [address] Health Maintenance Due Date Last Done Comments Pneumococcal PPSV23/PCV13 65 + Years / High and Highest Risk (2 of 4 - PPSV23) 11/03/2015 09/08/2015 Influenza Vaccine (Season Ended) 2025 05/23/20 [address] [facility] MEDICARE HMO [facility] Care Teams Electrical Troubleshooter Relationship Specialty Start Date End Date Artemio Avila MD [address] [place] [address] PCP - General Family Medicine 10/16/18
--- OUTSIDE RECORDS SUMMARY | 2024-12-26 10:51 | XMS_ITS | Encounter Summary ---
Author Organization [facility] Address [address] [facility] [place] [address] Care Team Providers Care Survey Superintendent Name Role Phone Artemio Avila MD Primary Care Provider [phone] Encounter Details Date Type Department Care Team (Late st Contact Info) Description 10/27/2021 Lab Requisition [facility] [address] [place] [address] Artemio Avila MD [address] [place] [address] Social History Tobacco Use Types Packs/Day Years Used Date Smoking Tobacco: Never Comments Unknown Sex and Gender Information Value Date Recorded Sex Assigned at Not on file Legal Sex Female 5:48 PM CALCULATOR OPERATOR Gender Identity Not on file Sexual Orientation Not on file documented as of this encounter Plan of Treatment Not on file documented as of this encounter Procedures Procedure Name Priority Date/Time Associated Diagnosis Comments DERMATOPATHOLOGY Routine 10/25/2021 12:0 0 AM CDT documented in this encounter Results * DERMATOPATHOLOGY (10/25/2021 12:00 AM CDT) Case Report Dermatopathology Report Case: [id number] Authorizing Provider: Artemio Avila MD Collected: 10/25/2021 12:00 AM Ordering Location: [facility] Received: 10/27/2021 09:29 AM Pathologist: Laura Herrera MD Specimens: A) - Skin, left lower breast B) - Skin, left upper breast C) - Skin, left top chest 4:43 PM [facility] D[facility]MAT[facility]Y [facility]ORATORY Final Diagnosis Specimen A. SKIN, left lower breast: BENIGN VERRUCOUS KERATOSIS (L82.1) PRESENT AT MARGIN Specimen B. SKIN, left upper breast: SEBORRHEIC KERATOSIS, IRRITATED AND INFLAMED (L82.0) PRESENT AT MARGIN Specimen C. SKIN, left top chest: SEBORRHEIC KERATOSIS, IRRITATED AND INFLAMED (L82.0) PRESENT AT MARGIN 4:43 PM T DERMATOPATHOLOGY LABORATORY at 1642 CDT Clinical History A-C: Changing lesion. Check margins. 4:43 PM T DERMATOPATHOLOGY LABORATORY Gross Description Specimen A: Received is one formalin filled container labeled with the patient's name and designated left lower breast. The specimen consists of a shave biopsy measuring [id number], bisected. The margin is inked green. Jar 0. Specimen B: Received is one formalin filled container labeled with the patient's name and designated left upper breast. The specimen consists of a shave biopsy measuring [id number], bisected. The margin is inked green. Jar 0. Specimen C: Received is one formalin filled container labeled with the patient's name and designated left top chest. The specimen consists of a shave biopsy measuring [id number], bisected. The margin is inked green. Jar 0. 4:43 PM T DERMATOPATHOLOGY LABORATORY Microscopic Description Specimen A. SKIN, [...] determined by the Dermatopathology Laboratory at [facility], directed by Dr. Leana Swartz. These tests need not be, and therefore are not, approved by the [place] Food and Drug Administration. The tests are used for clinical purposes. Billing Codes Specimen Charges Stain Charges 90081 [id number] 05283 1 1 1 2 4:43 PM CDT [...] PATHOLOGY/CYTOLOGY KENYE SAMANTHA Final Result DERMATOPATHOLOGY LABORATORY [facility] Department of Dermatology [facility] Specialized Medicine [address] [place] [address], [address] [phone] documented in this encounter Visit Diagnoses Not on filedocumented in this encounter Care Teams Survey Superintendent Relationship Specialty Start Date End Date Artemio Avila MD [address] [place] [address] PCP - General 06/17/14 documented as of this encounter
--- OUTSIDE RECORDS SUMMARY | 2024-12-26 10:58 | XMS_ITS | Continuity of Care Document ---
Author Organization [facility] Address [address] [place] [address] Phone Care Team Providers Care Data Quality Consultant Name Role Phone Joe Turner Unavailable [...] Diagnoses Date Provider Providers Copied on Encounter [facility], [address], [place], [place], [id number], [place] tel:[phone] [facility] No Information 0 Yue Diaz. [address] , [address], [place], [address], [place]. tel:[phone] [facility], [address], [place], [place], [id number], tel:[phone] [facility] No Information John-0 1-200 9 Doisy Edward. [address] , [address], [place], [address], [place]. tel:[phone] Office/outpat ient Visit, Est [facility], [address], [place], [place], [id number], [place] tel:[phone] [facility] No Information May-2 9-200 8 Doisy Edward. [address] , [address], [place], [address], [place]. tel:[phone] [facility], [address] [place] [address] [address], [place], [place], [address], [place] tel:[phone] [facility] No Information Oct-1 0-200 7 Doisy Edward. [address] [facility] , [address], [place], [address], [place]. tel:[phone] [facility], [address], [place], [place], [address], [place] tel:[phone] [facility] No Information Sep-2 6-200 7 Doisy Edward. [address] , [address], [place], [address], [place]. tel:[phone] [facility], [address], [place], [place], [address], [place] tel:[phone] [facility] No Information Sep-2 5-200 7 Doisy Edward. [address] , [address], [place], [address], [place]. tel:[phone] Office/outpat ient Visit, Est [facility], [address], [place], [place], [address], [place] tel:[phone] [facility] No Information John-2 7-200 7 Doisy Edward. [address] , [address], [place], [address], [place]. tel:[phone] Referring Provider: Joe Jacobo, [address] [facility] [address], [place], [address]. tel:[phone] [facility], [address] [facility] [address], [place], [place], [address], [place] tel:[phone] [facility] No Information 2[address] Yue Diaz. [facility] [address], [address], [place], [address], [place]. tel:[phone] Family History Family Member Type Diagnosis Age At Onset No Information Payers Payer name Insurance type Covered republican ID Authoriza tigabriel(s) Medicare [facility] [id number] For Life Mdcr Supp CI [id number] Social History Type Description Quantity Date Captured [...]
[2024-12-26 11:41] LABS: Basophils Percent Auto 0.5 % (0.2-1.2); Eosinophils Absolute Auto 0.1 K/mm3 (0-0.3); Eosinophils Percent Auto 1.8 % (0-4.4); Hematocrit 42.6 % (37.0-47.0); Hemoglobin 13.4 g/dL (12.0-15.0); Immature Granulocyte Absolute 0.02 K/mm3 (0.00-0.031); Immature Granulocyte Percent A 0.3 % (0-0.5); Lymphocytes Absolute Auto 2.34 K/mm3 (0.9-3.2); Lymphocytes Percent Auto 35.7 % (18.3-44.2); Mean Corpuscular HGB Conc 31.5 g/dl (32-36); Mean Corpuscular Hemoglobin 29.8 pg (26-34); Mean Corpuscular Volume 94.9 fl (80-100); Mean Platelet Volume 10.1 fl (7.4-10.4); Monocytes Absolute Auto 0.7 K/mm3 (0.1-0.6); Monocytes Percent Auto 10.2 % (2.6-8.5); Neutrophils Absolute Auto 3.4 K/mm3 (1.3-6.7); Neutrophils Percent Auto 51.5 % (45.5-73.1); Platelet Count Result 219 k/mm3 (150-375); Red Blood Count 4.49 M/mm3 (4.2-5.4); Red Cell Distribution Width 14.6 % (11.5-14.5); White Blood Count 6.6 K/mm3 (4.5-10.0)
[2024-12-26 11:42] LABS: Bacteria Urine None Seen /hpf; RBC Urine 0-2 /hpf (0-2); Squamous Epithelial Cell Urine None Seen /hpf (Few); WBC Urine 0-5 /hpf (0-3)
[2024-12-26 11:47] LABS: Add Urine Microscopic? YES; Appearance Urine Clear (Clear); Color Urine Orange (Yellow)
[2024-12-26 11:48] LABS: Anion Gap 10 mmol/L (4-12); Blood Urea Nitrogen 24 mg/dL (7-17); Calcium 9.4 mg/dL (8.4-10.2); Carbon Dioxide 25 mmol/L (22-30); Chloride 106 mmol/L (98-107); Estimated Glomerular Filt Rate 36; Glucose 89 mg/dL (65-110); Potassium 4.4 mmol/L (3.4-5.0); Sodium 141 mmol/L (137-145)
[2024-12-26 11:57] LABS: NT Pro B Type Natriuretic Pept 1040 pg/mL (19.9-100)
== END 2024-12-26 10:57 | disposition home or self-care (01) ==
PROVIDERS: PCP Family Medicine; Visit Provider Physician Assistant Medical
DX: N39.0 Urinary tract infection, site not specified (principal); N39.46 Mixed incontinence; R60.9 Edema, unspecified; N18.32 Chronic kidney disease, stage 3b; R06.02 Shortness of breath
CPT/HCPCS: 36415; 80048; 81001; 83880; 85025; 87086

== ENCOUNTER 2024-12-31 09:34 | Outpatient (CLI) | payer OTHER, SELFPAY ==
--- NOTE | 2024-12-31 | EST_ITS ---
Patient Info Name: Regine Zarate Age: 84 years : 1940 Gender: Female Ht: 66 in Wt: 204 lbs BSA: 2.11 m2 HR: 57 bpm BP: 129 / 63 mmHg Exam Date: 12/31/2024 10:00 AM Patient Status: O Admit Date: 12/31/2024 Exam Type: CA stress annabel w NM A regadenoson stress test was performed. Staff Referring Physician: Donna Cao MD Attending Provider: Donna Cao MD Exercise Technologist: Elmira Bobo Exercise Physician: Michael Weir Summary 1. Please correlate with nuclear medicine images, reported separately. 2. No abnormal ST-T wave changes with lexiscan. Protocol: Lexiscan Stress ECG Details Stage: REST Duration (min): 1 min : 57 sec HR (bpm): 56 SBP (mmHg): 129 DBP (mmHg): 63 Stage: REST Duration (min): 10 min : 50 sec HR (bpm): 57 SBP (mmHg): 129 DBP (mmHg): 63 Stage: STAGE 1 Duration (min): 0 min : 59 sec HR (bpm): 61 SBP (mmHg): 132 DBP (mmHg): 54 Stage: RECOVERY Duration (min): 1 min : 0 sec HR (bpm): 71 SBP (mmHg): 132 DBP (mmHg): 54 Stage: RECOVERY Duration (min): 2 min : 0 sec HR (bpm): 69 SBP (mmHg): 132 DBP (mmHg): 54 Stage: RECOVERY Duration (min): 3 min : 0 sec HR (bpm): 70 SBP (mmHg): 137 DBP (mmHg): 56 Stage: RECOVERY Duration (min): 4 min : 0 sec HR (bpm): 69 SBP (mmHg): 137 DBP (mmHg): 56 Stage: RECOVERY Duration (min): 4 min : 23 sec HR (bpm): 66 SBP (mmHg): 137 DBP (mmHg): 56 Rest HR: 57 bpm Peak HR: 72 bpm Rest Sys BP: 129 mmHg Peak Sys BP: 137 mmHg Max Pred HR: 136 bpm % Max Pred HR: 53 % Target HR: 116 bpm Max RPP: 9,864 bpm*mmHg Target HR Summary: Hemodynamic response to exercise was normal BP Response: Normal blood pressure response Termination Reason: Completed protocol Cardiac Symptoms: None Total Time: 1 min : 0 sec Rest Suazo BP: 63 mmHg Peak Suazo BP: 56 mmHg Total Dose: 0.4 mg Resting ECG Normal sinus rhythm. Minor resting ST/T wave changes. Stress ECG No abnormal ST/T wave changes with exercise. Arrhythmias Occasional PVCs. Occasional PACs. Report Signatures
--- NOTE | ~2024-12-31 | NM_ITS ---
EXAMINATION: NM annabel stress w perfusion DATE: 12/31/2024 12:35 INDICATION: Coronary artery disease TECHNIQUE: Rest images were obtained following intravenous administration of 10.3 mCi Tc99m tetrofosm in (Myoview). The patient was infused intravenously with Lexiscan (Regadenoson). Then, 44.7 mCi Tc99m tetrofosmin (Myoview) was administered intravenously, and stress images were obtained. Data was madelin nstructed into short axis and horizontal and vertical long axis SPECT images. Gated SPECT images were also obtained. COMPARISON: None. FINDINGS: There is no definite reversible or fixed perfusion abnormality to suggest ischemia or infar ction. There is normal left ventricular chamber size, wall motion and ejection fraction. Left ventr icular ejection fraction measures 70%. IMPRESSION: 1. Normal myocardial perfusion at rest and during stress. 2. Left ventricular ejection fraction measuring 70%. Reviewed, dictated and finalized at location A.
--- OUTSIDE RECORDS SUMMARY | 2024-12-31 10:33 | XMS_ITS | Encounter Summary ---
Author Organization [facility] Address [address] [address] Care Team Providers Care Door To Door Fundraising Collector Name Role Phone Artemio Avila MD Primary Care Provider [phone] Artemio Avila MD Primary Care Provider [phone] Sarthak Myrick MD Unavailable [phone] Encounter Details Date Type Department Care Team (Late st Contact Info) Description 09/08/2016 Orders Only [facility] ProviderRaffy MD [address] [place] [address] Social History Tobacco Use Types Packs/Day Years Used Date Smoking Tobacco: Never Alcohol Use Standard Drinks/Week Comments Yes 0 (1 standard drink = 0.6 oz pur e alcohol) Comments Unknown Sex and Gender Information Value Date Recorded Sex Assigned at Not on file Legal 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
--- OUTSIDE RECORDS SUMMARY | 2024-12-31 10:33 | XMS_ITS | Encounter Summary ---
Author Organization [facility] Address [address] [place] [address] Care Team Providers Care Semiautomatic Stitcher Operator Name Role Phone Artemio Avila MD Primary Care Provider [phone] Encounter Details Date Type Department Care Team (Late st Contact Info) Description 10/27/2021 Lab Requisition [facility] [address] [facility], [place] [address] Artemio Avila MD [address] [place] [address] Social History Tobacco Use Types Packs/Day Years Used Date Smoking Tobacco: Never Comments Unknown Sex and Gender Information Value Date Recorded Sex Assigned at Not on file Legal 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 Female 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 Gender Identity Not on file Sexual Orientation Not on file documented as of this encounter Plan of Treatment Not on file documented as of this encounter Procedures Procedure Name Priority Date/Time Associated Diagnosis Comments DERMATOPATHOLOGY Routine 10/25/2021 12:0 0 AM CDT documented in this encounter Results * DERMATOPATHOLOGY (10/25/2021 12:00 AM CDT) Case Report Dermatopathology Report Case: [id number] Authorizing Provider: Artemio Avila MD Collected: 10/25/2021 12:00 AM Ordering Location: [facility] Received: 10/27/2021 09:29 AM Pathologist: Laura Herrera MD Specimens: A) - Skin, left lower breast B) - Skin, left upper breast C) - Skin, left top chest 4:[address] [facility] DERMATOPATHOLOGY [facility]ORATORY Final Diagnosis Specimen A. SKIN, [...] specimen consists of a shave biopsy measuring [id number], bisected. The margin is inked green. Jar 0. Specimen B: Received is one formalin filled container labeled with the patient's name and designated left upper breast. The specimen consists of a shave biopsy measuring [id number], bisected. The margin is inked green. Jar 0. Specimen C: Received is one formalin filled container labeled with the patient's name and designated left top chest. The specimen consists of a shave biopsy measuring [id number], bisected. The margin is inked green. Jar [...] characteristic determined by the Dermatopathology Laboratory at [facility], directed by Dr. Leana Swartz. These tests need not be, and therefore are not, approved by the [place] Food and Drug Administration. The tests are used for clinical purposes. Billing Codes Specimen Charges Stain Charges 06399 [id number] 74907 1 1 1 2 4:43 PM CDT [...] PATHOLOGY/CYTOLOGY KENYE SAMANTHA Final Result DERMATOPATHOLOGY LABORATORY [facility] Department of Dermatology [facility] [address] [place] [address], [address] [phone] documented in this encounter Visit Diagnoses Not on filedocumented in this encounter Care Teams Semiautomatic Stitcher Operator Relationship Specialty Start Date End Date Artemio Avila MD [address] [place] [address] PCP - General 06/17/14 documented as of this encounter
--- OUTSIDE RECORDS SUMMARY | 2024-12-31 10:33 | XMS_ITS | Clinical Summary ---
Author Organization [facility] [place] [address] Address [address] [place] [address] Care Team Providers Care Aircraft Structural Fitter Name Role Phone Artemio Avila MD Primary Care Provider [phone] Sarthak Myrick MD Unavailable [phone] Allergies Active Allergy Reactions Criticality Noted [...] mg enteric coated tabletIndications:Co ronary arteriosclerosis in [place] artery Take 1 tablet (81 mg total) [...] (Crestor) 20 mg tabletIndications:Co ronary arteriosclerosis in [place] artery Take 1 tablet (20 mg total) [...] (PLAVIX) 75 mg tabletIndications:Co ronary arteriosclerosis in [place] artery Take 1 tablet (75 mg total) [...] and possibly service. She was seeing our machine designer to have them checked. She is going to follow up for further problems if needed. Bilateral impacted cerumen 03/26/2024 Assessment & Plan (03/26/2024 8:20 PM CDT): She did have a small to moderate amount of cerumen that I removed on both sides. I do not think it was enough to impact her hearing aids. She is going to talk with our machine designer and follow up here otherwise as needed. [...] 06/04/2017 Assessment & Plan (06/04/2017 5:46 PM IT SERVICE TECHNICIAN): Currently taking Plavix and rosuvastatin Anxiety 06/04/2017 Assessment & Plan (01/21/2018 9:53 PM CDT): I am wondering if the patient's anxiety is contributing to some of her symptoms. She will be changing from her current Viibryd to another antidepressant soon. Assessment & Plan (06/04/2017 5:47 PM IT SERVICE TECHNICIAN): Patient has a lot of symptoms at [...] recently. Assessment & Plan (06/04/2017 5:44 PM IT SERVICE TECHNICIAN): Not a recent problem. 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 Takes Crestor 20 mg daily. Assessment & Plan (06/04/2017 5:45 PM IT SERVICE TECHNICIAN): 11/2016 total cholesterol 172, TG 185 and LDL 72, acceptable on rosuvastatin 20 mg daily. Coronary artery disease invo lving [place] coronary artery of [place] heart without angina pectoris 07/03/2014 Overview (10/26/2016): Coronary arteriosclerosis in [place] artery Assessment & Plan (01/21/2018 9:54 PM [...] well. Assessment & Plan (06/04/2017 5:44 PM IT SERVICE TECHNICIAN): Remote CABG History of coronary stent Recurrent [...] Encounters Date Type Department Care Team Description 12/29/2024 Telephone [facility] Cardiology [address] [place] [address] Clementine Live NP 12/11/2024 11:45 AM CDT Office Visit [facility] Cardiology [address] [place] [address] Donna Cao MD Coronary artery disease involving [place] coronary artery of [place] heart without angina pectoris (Primary Dx); Hx [...] History Date Comments Hyperlipidemia Hyperlipidemia; Comments: [facility] 04/07/2014 - Chronic coronary artery disease Coronary artery disease Hypertension Hypertension Hx Other Medical TIA; Comments: [facility] 04/07/2014 - Hx Other Medical GERD; Comments: [facility] 04/07/2014 - Hx Other Medical anxiety/depress ion; Comments: [facility] 04/07/2014 - Hx Other Medical orthostatic hyp otension; Comments: [facility] 04/07/2014 - Hx Other Medical hysterectomy wi th BSO; Comments: [facility] 04/07/2014 - Hx Other Medical ankle surgery; Comments: [facility] 04/07/2014 - Autoimmune disease Heart [...] on file Legal Sex Female 3:24 AM IT SERVICE TECHNICIAN Gender Identity Not on file Sexual Orientation [...] (2 - Td or Tdap) 04/08/2027 Insurance [email or web address] [facility] Care Teams Aircraft Structural Fitter Relationship Specialty Start Date End Date Artemio Avila MD PCP - General 10/20/16 Sarthak Myrick MD Referring Physician Otolaryngology 01/04/18
--- OUTSIDE RECORDS SUMMARY | 2024-12-31 10:33 | XMS_ITS | Encounter Summary ---
Author Organization [facility] Address [address] [address] Care Team Providers Care Sign Erector And Repairer Name Role Phone Artemio Avila MD Primary Care Provider [phone] Artemio Avila MD Primary Care Provider [phone] Sarthak Myrick MD Unavailable [phone] Encounter Details Date Type Department Care Team (Late st Contact Info) Description 09/05/2016 Orders Only [facility] ProviderRaffy MD [address] [place] [address] Social History Tobacco Use Types Packs/Day Years Used Date Smoking Tobacco: Never Alcohol Use Standard Drinks/Week Comments Yes 0 (1 standard drink = 0.6 oz pur e alcohol) Comments Unknown Sex and Gender Information Value Date Recorded Sex Assigned at Not on file Legal Sex Female 3:24 AM NUTRITION ASSISTANT Gender Identity Not on file Sexual Orientation [...] on filedocumented in this encounter Care Teams Sign Erector And Repairer Relationship Specialty Start Date End Date Artemio Avila MD PCP - General 10/20/16 Artemio Avlia MD PCP - General 12/21/15 10/19/16 Sarthak Myrick MD Referring Physician Otolaryngology 01/04/18 documented as of this encounter
--- OUTSIDE RECORDS SUMMARY | 2024-12-31 10:33 | XMS_ITS | Clinical Summary ---
Author Organization [facility] Address [address] [facility] [place] [address] Care Team Providers Care Fermenter Helper Name Role Phone Artemio Avila MD Primary Care Provider [phone] Source Comments [facility],non-christian hospital Affiliates and Associated Physician Practices is amultiple site organization consisting of ambulatory clinics and hospital sitesin [place], [place], [place] and [place]. This disclosure is being madepursuant to the Care Everywhere program and may not contain all information available regarding this patient. Last updated 18.[facility] Family History Medical History Relation Name Comments [...] on file Legal Sex Female 5:48 PM FIELD SERVICE SUPERVISOR Gender Identity Not on file Sexual [...] patient's age to complete this topic Insurance [facility] MEDICARE [facility] Care Address: [facility] CLAIMS [address] [place] [address] [facility] Address: [facility]S [address] [place] [address] [facility] MEDICARE [facility] MEDICARE Care Teams Fermenter Helper Relationship Specialty Start Date End Date Artemio Avila MD [address] [place] [address] PCP - General 06/17/14
--- OUTSIDE RECORDS SUMMARY | 2024-12-31 10:33 | XMS_ITS | Referral Summary ---
Author Organization [place] [address] Address [address] [address] Care Team Providers Care Chucking And Boring Machine Operator Name Role Phone Artemio Avila MD Primary Care Provider [phone] Sarthak Myrick MD Unavailable [phone] Encounters Date Type Department Care Team Description 12/29/2024 Telephone [facility] Cardiology [address] [facility] [address] [place] [address] Clementine Live NP 12/11/2024 11:45 AM CDT Office Visit [facility] Medical [facility] Cardiology [address] [place] [address] [address] [place] [address] Donna Cao MD Coronary artery disease involving [place] coronary artery of [place] heart without angina pectoris (Primary Dx); Hx [...] mg enteric coated tabletIndications:Co ronary arteriosclerosis in [place] artery Take 1 tablet (81 mg total) [...] (Crestor) 20 mg tabletIndications:Co ronary arteriosclerosis in [place] artery Take 1 tablet (20 mg total) [...] (PLAVIX) 75 mg tabletIndications:Co ronary arteriosclerosis in [place] artery Take 1 tablet (75 mg total) [...] and possibly service. She was seeing our timber hewer to have them checked. She is going to follow up for further problems if needed. Bilateral impacted cerumen 03/26/2024 Assessment & Plan (03/26/2024 8:20 PM CDT): She did have a small to moderate amount of cerumen that I removed on both sides. I do not think it was enough to impact her hearing aids. She is going to talk with our timber hewer and follow up here otherwise as needed. [...] 06/04/2017 Assessment & Plan (06/04/2017 5:46 PM TAXONOMY TEACHER): Currently taking Plavix and rosuvastatin Anxiety 06/04/2017 Assessment & Plan (01/21/2018 9:53 PM CDT): I am wondering if the patient's anxiety is contributing to some of her symptoms. She will be changing from her current Viibryd to another antidepressant soon. Assessment & Plan (06/04/2017 5:47 PM TAXONOMY TEACHER): Patient has a lot of symptoms at [...] recently. Assessment & Plan (06/04/2017 5:44 PM TAXONOMY TEACHER): Not a recent problem. 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 Takes Crestor 20 mg daily. Assessment & Plan (06/04/2017 5:45 PM TAXONOMY TEACHER): 11/2016 total cholesterol 172, TG 185 and LDL 72, acceptable on rosuvastatin 20 mg daily. Coronary artery disease invo lving [place] coronary artery of [place] heart without angina pectoris 07/03/2014 Overview (10/26/2016): Coronary arteriosclerosis in [place] artery Assessment & Plan (01/21/2018 9:54 PM [...] well. Assessment & Plan (06/04/2017 5:44 PM TAXONOMY TEACHER): Remote CABG History of coronary stent Recurrent [...] on file Legal Sex Female 3:24 AM TAXONOMY TEACHER Gender Identity Not on file Sexual Orientation [...] Plan of Treatment Not on file Insurance [email or web address] [facility] Care Teams Chucking And Boring Machine Operator Relationship Specialty Start Date End Date Artemio Avila MD PCP - General 10/20/16 Sarthak Myrick MD Referring Physician Otolaryngology 01/04/18
--- OUTSIDE RECORDS SUMMARY | 2024-12-31 10:33 | XMS_ITS | Continuity of Care Document ---
Author Organization [facility] Address [address] [place] [address] Phone Care Team Providers Care Production Expediter Name Role Phone Joe Turner Unavailable Unavailable [...] Diagnoses Date Provider Providers Copied on Encounter [facility], [address], [place], [place], [id number], [place] tel:[phone] [facility] No Information 0 Yue Diaz. [address] , [address], [place], [address], [place]. tel:[phone] [facility], [address], [place], [place], [id number], tel:[phone] [facility] No Information John-0 1-200 9 Doisy Edward. [address] , [address], [place], [address], [place]. tel:[phone] Office/outpat ient Visit, [facility], [address], [place], [place], [address], [place] tel:[phone] [facility] No Information May-2 9-200 8 Doisy Edward. [address] , [address], [place], [address], [place]. tel:[phone] [facility], [address] [place] [address] [address], [place], [place], [id number], [place] tel:[phone] [facility] No Information Oct-1 0-200 7 Doisy Edward. [address] [facility] , [address], [place], [address], [place]. tel:[phone] [facility], [address], [place], [place], [id number], [place] tel:[phone] [facility] No Information Sep-2 6-200 7 Doisy Edward. [address] , [address], [place], [address], [place]. tel:[phone] [facility], [address], [place], [place], [id number], [place] tel:[phone] [facility] No Information Sep-2 5-200 7 Doisy Edward. [address] , [address], [place], [address], [place]. tel:[phone] Office/outpat ient Visit, Est [facility], [address], [place], [place], [id number], [place] tel:[phone] [facility] No Information John-2 7-200 7 Doisy Edward. [address] , [address], [place], [address], [place]. tel:[phone] Referring Provider: Joe Jacobo, [address] [facility] [address], [place], [address]. tel:[phone] [facility], [address] [facility] [address], [place], [place], [id number], [place] tel:[phone] [facility] No Information [address] Yue Diaz. [facility] [address], [address], [place], [address], [place]. tel:[phone] Family History Family Member Type Diagnosis Age At Onset No Information Payers Payer name Insurance type Covered democrat ID Authoriza tigabriel(s) Medicare [facility] [id number] For Life Mdcr Supp CI [id number] Social History Type Description Quantity Date Captured [...]
--- OUTSIDE RECORDS SUMMARY | 2024-12-31 10:33 | XMS_ITS | Clinical Summary ---
Author Organization [facility] Address [address] [place] [address] Phone Care Team Providers Care Vaccine Manager Name Role Phone Artemio Avila MD Primary Care Provider [phone] Allergies Active Allergy Reactions Criticality Noted Date [...] without residual deficits 04/13/2013 Coronary arteriosclerosis in [place] artery 04/13 Overview (03/12/2019): Overview: Coronary arteriosclerosis in [place] artery Last Assessment & Plan: Remote CABG [...] on file Legal Sex Female 8:52 AM [facility] Gender Identity Not on file Sexual Orientation Not on file Last Filed Vital Signs Vital Sign Reading Time Taken Comments Blood Pressure 128/78 02/20/2024 1:01 PM CDT Pulse 61 02/20/2024 1:01 PM CDT Temperature 36.3 C (97.4 F) 08/16/2020 1:16 PM DRAWER IN HAND Respiratory Rate 18 08/16/2020 1:16 PM DRAWER IN HAND Oxygen Saturation - - Inhaled Oxygen Concentration - - Weight 92.5 kg (204 lb) 02/20/2024 1:01 PM CDT Height 172.7 cm (5' 8) 02/20/2024 1:01 PM CDT Body Mass Index 31.02 02/20/2024 1:01 PM CDT Plan of Treatment Upcoming Encounters Date Type Department Care Team (Late st Contact Info) Description 03/17/2025 11:40 AM CDT Office Visit [facility] [address] [place] [address] Jerrod Garcia PA [address] [place] [address] 04/21/2025 11:20 AM CDT Office Visit [facility] [address] [facility] [address] [place] [address] Vasyl Craft MD [address] [facility] [address] [address] Health Maintenance Due Date Last Done Comments Pneumococcal PPSV23/PCV13 65 + Years / High and Highest Risk (2 of 4 - PPSV23) 11/03/2015 09/08/2015 Influenza Vaccine (Season Ended) 2025 05/23/20 15 Insurance MEDICARE [employer] MED[employer]ARE HMO [facility] Care Teams Vaccine Manager Relationship Specialty Start Date End Date Artemio Avila MD [address] [place] [address] PCP - General Family Medicine 10/16/18
--- OUTSIDE RECORDS SUMMARY | 2024-12-31 10:33 | XMS_ITS | Encounter Summary ---
Author Organization [facility] Healthcare Address [address] [place] [address] Care Team Providers Care Floral Clerk Name Role Phone Artemio Avila MD Primary Care Provider Sarthak Myrick MD Unavailable [phone] Encounter Details Date Type Department Care Team (Late st Contact Info) Description 12/29/2024 Telephone [facility] Medical Group Cardiology [address] [address] Clementine Live, JENNA [address] [place] [address] Social History Tobacco Use Types Packs/Day Years Used Date Smoking Tobacco: Never Smokeless Tobacco: Never Alcohol Use Standard Drinks/Week Comments Yes 0 (1 standard drink = 0.6 oz pur e alcohol) Comments Unknown Sex and Gender Information Value Date Recorded Sex Assigned at Not on file Legal Sex Female 3:24 AM PRINTING 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 Advised pt that this will not affect her test for tomorrow. * Telephone Encounter - Elza Castillo RN - 12/29/2024 3:31 PM CDT Spoke with pt, pt states that she had some labs done by her PCP and was advised to contact cardiology. Call placed to PCP office to have labs faxed to our office to review. * Telephone Encounter - Edita Akins - 12/29/2024 2:37 PM CDT Pt requesting a call back to discuss some blood work her PCP had her do because of some issues withher legs the tests came back showing that there is fluid build up around the heart and she is concerned that it will affect the results of her stress test she is supposed to have done this week at [facility] advise thank you Contact: documented in this encounter Plan of Treatment Not on file documented as of this encounter Visit Diagnoses Not on filedocumented in this encounter Care Teams Floral Clerk Relationship Specialty Start Date End Date Artemio Avila MD PCP - General 10/20/16 Sarthak Myrick MD Referring Physician Otolaryngology 01/04/18 documented as of this encounter
== END 2024-12-31 09:35 | disposition home or self-care (01) ==
PROVIDERS: PCP Family Medicine; Visit Provider Internal Medicine
DX: I25.10 Atherosclerotic heart disease of native coronary artery without angina pectoris (principal); Z95.1 Presence of aortocoronary bypass graft
CPT/HCPCS: 78452; 93017; A9502; J2785

== ENCOUNTER 2025-01-05 00:38 | Day surgery (SDC) | payer OTHER, SELFPAY ==
[2024-12-26 13:44] VITALS: BMI 33.0
--- NOTE | 2025-01-01 10:37 | PC.NURSE ---
01/01/25 Spoke with Elza AMBROSE at cardiology office and reviewed lexiscan stress test - clearance received 12/10/24 is still appropriate as the lexiscan stress test was normal.
--- OUTSIDE RECORDS SUMMARY | 2025-01-05 00:45 | XMS_ITS | Clinical Summary ---
Author Organization [facility] [address] Address [address] [place] [address] Care Team Providers Care Grounds Worker Name Role Phone Artemio Avila MD Primary Care Provider [phone] Sarthak Myrick MD Unavailable [phone] Allergies Active Allergy Reactions Criticality Noted [...] mg enteric coated tabletIndications:Co ronary arteriosclerosis in mentasta artery Take 1 tablet (81 mg total) [...] (Crestor) 20 mg tabletIndications:Co ronary arteriosclerosis in mentasta artery Take 1 tablet (20 mg total) [...] (PLAVIX) 75 mg tabletIndications:Co ronary arteriosclerosis in mentasta artery Take 1 tablet (75 mg total) [...] and possibly service. She was seeing our humidifier operator to have them checked. She is going to follow up for further problems if needed. Bilateral impacted cerumen 03/26/2024 Assessment & Plan (03/26/2024 8:20 PM CDT): She did have a small to moderate amount of cerumen that I removed on both sides. I do not think it was enough to impact her hearing aids. She is going to talk with our humidifier operator and follow up here otherwise as needed. [...] 06/04/2017 Assessment & Plan (06/04/2017 5:46 PM SENIOR QUALITY CONTROL TECHNICIAN): Currently taking Plavix and rosuvastatin Anxiety 06/04/2017 Assessment & Plan (01/21/2018 9:53 PM CDT): I am wondering if the patient's anxiety is contributing to some of her symptoms. She will be changing from her current Viibryd to another antidepressant soon. Assessment & Plan (06/04/2017 5:47 PM SENIOR QUALITY CONTROL TECHNICIAN): Patient has a lot of symptoms [...] recently. Assessment & Plan (06/04/2017 5:44 PM SENIOR QUALITY CONTROL TECHNICIAN): Not a recent problem. 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 Takes Crestor 20 mg daily. Assessment & Plan (06/04/2017 5:45 PM SENIOR QUALITY CONTROL TECHNICIAN): 11/2016 total cholesterol 172, TG 185 and LDL 72, acceptable on rosuvastatin 20 mg daily. Coronary artery disease invo lving mentasta coronary artery of mentasta heart without angina pectoris 07/03/2014 Overview (10/26/2016): Coronary arteriosclerosis in mentasta artery Assessment & Plan (01/21/2018 9:54 PM [...] well. Assessment & Plan (06/04/2017 5:44 PM SENIOR QUALITY CONTROL TECHNICIAN): Remote CABG History of coronary stent [...] Type Department Care Team Description 12/29/2024 Telephone [facility] Medical Group Cardiology [address] [place] [address] Clementine Live NP 12/11/2024 11:45 AM CDT Office Visit [facility] Medical Group Cardiology [address] [place] [address] Donna Cao MD Coronary artery disease involving mentasta coronary artery of mentasta heart without angina pectoris (Primary Dx); Hx [...] on file Legal Sex Female 3:24 AM SENIOR QUALITY CONTROL TECHNICIAN Gender Identity Not on file Sexual [...] (2 - Td or Tdap) 04/08/2027 Insurance [employer] [facility] Care Teams Grounds Worker Relationship Specialty Start Date End Date Artemio Avila MD PCP - General 10/20/16 Sarthak Myrick MD Referring Physician Otolaryngology 01/04/18
--- OUTSIDE RECORDS SUMMARY | 2025-01-05 00:45 | XMS_ITS | Continuity of Care Document ---
Author Organization [facility] Address [address] [place] [address] Phone Care Team Providers Care Chicken Raiser Name Role Phone Joe Turner Unavailable Unavailable [...] Diagnoses Date Provider Providers Copied on Encounter [facility], [address], [place], [place], [id number], [place] tel:[phone] [facility] No Information 0 Yue Diaz. [address], [place], [address], [place]. tel:[phone] [facility], [address], [place], [place], [address], tel:[phone] [facility] No Information John-0 1-200 9 Doisy Edward. [address] , [address], [place], [address], [place]. tel:[phone] Office/outpat ient Visit, [facility], [address], [place], [place], [address], [place] tel:[phone] [facility] No Information May-2 9-200 8 Doisy Edward. [address] , [address], [place], [address], [place]. tel:[phone] [facility], [address] [place] [address] [address], [place], [place], [address], [place] tel:[phone] [facility] No Information Oct-1 0-200 7 Doisy Edward. [address] [facility] , [address], [place], [address], [place]. tel:[phone] [facility], [address], [place], [place], [address], [place] tel:[phone] [facility] No Information Sep-2 6-200 7 Doisy Edward. [address] , [address], [place], [address], [place]. tel:[phone] [facility], [address], [place], [place], [address], [place] tel:[phone] [facility] No Information Sep-2 5-200 7 Doisy Edward. [address] , [address], [place], [address], [place]. tel:[phone] Office/outpat ient Visit, [facility], [address], [place], [place], [address], [place] tel:[phone] [facility] No Information John-2 7-200 7 Doisy Edward. [address] , [address], [place], [address], [place]. tel:[phone] Referring Provider: Joe Jacobo, [address] [facility] [address], [place], [address]. tel:[phone] [facility], [address] [facility] [address], [place], [place], [address], [place] tel:[phone] [facility] No Information [address] Yue Diaz. [facility] [address], [address], [place], [address], [place]. tel:[phone] Family History Family Member Type Diagnosis Age At Onset No Information Payers Payer name Insurance type Covered constitution party ID Authoriza tigabriel(s) Medicare [facility] [id number] For Life Mdcr Supp [place] [id number] Social History Type Description Quantity Date Captured [...]
--- OUTSIDE RECORDS SUMMARY | 2025-01-05 00:45 | XMS_ITS | Clinical Summary ---
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 Last Assessment & Plan: Remote CABG [...] on file Legal Sex Female 8:52 AM [facility] Gender Identity Not on file Sexual Orientation Not on file Last Filed Vital Signs Vital Sign Reading Time Taken Comments Blood Pressure 128/78 02/20/2024 1:01 PM CDT Pulse 61 02/20/2024 1:01 PM CDT Temperature 36.3 C (97.4 F) 08/16/2020 1:16 PM 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 Respiratory Rate 18 08/16/2020 1:16 PM 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 Oxygen Saturation - - Inhaled Oxygen Concentration - - Weight 92.5 kg (204 lb) 02/20/2024 1:01 PM CDT Height 172.7 cm (5' 8) 02/20/2024 1:01 PM CDT Body Mass Index 31.02 02/20/2024 1:01 PM CDT Plan of Treatment Upcoming Encounters Date Type Department Care Team (Late st Contact Info) Description 03/17/2025 11:40 AM CDT Office Visit [facility] [address] [facility] [address] [place] [address] Jerrod Garcia PA [address] [facility] [address] [place] [address] 04/21/2025 11:20 AM CDT Office Visit [facility] [address] [facility] [address] [place] [address] Vasyl Craft MD [address] [address] Health Maintenance Due Date Last Done Comments Pneumococcal PPSV23/PCV13 65 + Years / High and Highest Risk (2 of 4 - PPSV23) 11/03/2015 09/08/2015 Influenza Vaccine (Season Ended) 2025 05/23/20 15 Insurance MEDICARE [employer] MEDICARE HMO [facility] Care Teams Biscuit Maker Relationship Specialty Start Date End Date Artemio Avila MD [address] [place] [address] PCP - General Family Medicine 10/16/18
--- OUTSIDE RECORDS SUMMARY | 2025-01-05 00:45 | XMS_ITS | Referral Summary ---
Author Organization [place] [facility] [address] Address [address] [address] Care Team Providers Care Industrial Engineering Analyst Name Role Phone Artemio Avila MD Primary Care Provider [phone] Sarthak Myrick MD Unavailable [phone] Encounters Date Type Department Care Team Description 12/29/2024 Telephone [facility] Medical [facility] Cardiology [address] [facility] [address] [place] [address] Clementine Live NP 12/11/2024 11:45 AM CDT Office Visit [facility] Medical 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 She was seeing our associate sales to have them checked. She is going to follow up for further problems if needed. Bilateral impacted cerumen 03/26/2024 Assessment & Plan (03/26/2024 8:20 PM CDT): She did have a small to moderate amount of cerumen that I removed on both sides. I do not think it was enough to impact her hearing aids. She is going to talk with our associate sales and follow up here otherwise as needed. [...] 06/04/2017 Assessment & Plan (06/04/2017 5:46 PM APPLICATION CHEMIST): Currently taking Plavix and rosuvastatin Anxiety 06/04/2017 Assessment & Plan (01/21/2018 9:53 PM CDT): I am wondering if the patient's anxiety is contributing to some of her symptoms. She will be changing from her current Viibryd to another antidepressant soon. Assessment & Plan (06/04/2017 5:47 PM APPLICATION CHEMIST): Patient has a lot of symptoms at [...] recently. Assessment & Plan (06/04/2017 5:44 PM APPLICATION CHEMIST): Not a recent problem. 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 Takes Crestor 20 mg daily. Assessment & Plan (06/04/2017 5:45 PM APPLICATION CHEMIST): 11/2016 total cholesterol 172, TG 185 and LDL 72, acceptable on rosuvastatin 20 mg daily. 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 Assessment & Plan (06/04/2017 5:44 PM APPLICATION CHEMIST): Remote CABG History of coronary stent Recurrent [...] on file Legal Sex Female 3:24 AM APPLICATION CHEMIST Gender Identity Not on file Sexual Orientation [...] Plan of Treatment Not on file Insurance [employer] [facility] Care Teams Industrial Engineering Analyst Relationship Specialty Start Date End Date Artemio Avila MD PCP - General 10/20/16 Sarthak Myrick MD Referring Physician Otolaryngology 01/04/18
--- OUTSIDE RECORDS SUMMARY | 2025-01-05 00:45 | XMS_ITS | Clinical Summary ---
Author Organization [facility] Address [address] [place] [address] Care Team Providers Care Health Care Technician Name Role Phone Artemio Avila MD Primary Care Provider [phone] Source Comments [facility] Affiliates and Associated Physician Practices is amultiple site organization consisting of ambulatory clinics and hospital sitesin [place], [place], [place] and [place]. This disclosure is being madepursuant to the Care Everywhere program and may not contain all information available regarding this patient. 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 Gender Identity Not on file Sexual Orientation [...] complete this topic Insurance [facility] MEDICARE [facility] Care Address: [facility] CLAIMS [address] [place] [address] [facility] Address: [facility] CLAIMS [address] [place] [address] [employer] [facility] MEDICARE [facility] MEDICARE Care Teams Health Care Technician Relationship Specialty Start Date End Date Artemio Avila MD [address] [place] [address] PCP - General 06/17/14
--- OUTSIDE RECORDS SUMMARY | 2025-01-05 00:45 | XMS_ITS | Encounter Summary ---
Author Organization [facility] Address [address] [facility] [place] [address] Care Team Providers Care Leather Belt Maker Name Role Phone Artemio Avila MD Primary Care Provider [phone] Encounter Details Date Type Department Care Team (Late st Contact Info) Description 10/27/2021 Lab Requisition [facility] [address] [facility] [place] [address] Artemio Avila MD [address] [place] [address] Social History Tobacco Use Types Packs/Day Years Used Date Smoking Tobacco: Never Comments Unknown Sex and Gender Information Value Date Recorded Sex Assigned at Not on file 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 Gender Identity Not on file Sexual Orientation Not on file documented as of this encounter Plan of Treatment Not on file documented as of this encounter Procedures Procedure Name Priority Date/Time Associated Diagnosis Comments DERMATOPATHOLOGY Routine 10/25/2021 12:0 0 AM CDT documented in this encounter Results * DERMATOPATHOLOGY (10/25/2021 12:00 AM CDT) Case Report Dermatopathology Report Case: [id number] Authorizing Provider: Artemio Avila MD Collected: 10/25/2021 12:00 AM Ordering Location: [facility] Lab Received: 10/27/2021 09:29 AM Pathologist: Laura Herrera MD Specimens: A) - Skin, left lower breast B) - Skin, left upper breast C) - Skin, left top chest 4:43 PM [facility] DERMAT[facility]Y [facility]ORATORY Final Diagnosis Specimen A. SKIN, [...] specimen consists of a shave biopsy measuring [id number], bisected. The margin is inked green. Jar 0. Specimen B: Received is one formalin filled container labeled with the patient's name and designated left upper breast. The specimen consists of a shave biopsy measuring [id number], bisected. The margin is inked green. Jar 0. Specimen C: Received is one formalin filled container labeled with the patient's name and designated left top chest. The specimen consists of a shave biopsy measuring [id number], bisected. The margin is inked green. Jar [...] characteristic determined by the Dermatopathology Laboratory at [facility], directed by Dr. Leana Swartz. These tests need not be, and therefore are not, approved by the [place] Food and Drug Administration. The tests are used for clinical purposes. Billing Codes Specimen Charges Stain Charges 41573 [id number] 02307 1 1 1 2 4:43 PM CDT [...] PATHOLOGY/CYTOLOGY KENYE SAMANTHA Final Result DERMATOPATHOLOGY LABORATORY [facility] Department of Dermatology [facility] Specialized Medicine [address] [place] [address], [address] [phone] documented in this encounter Visit Diagnoses Not on filedocumented in this encounter Care Teams Leather Belt Maker Relationship Specialty Start Date End Date Artemio Avila MD [address] [place] [address] PCP - General 06/17/14 documented as of this encounter
--- OUTSIDE RECORDS SUMMARY | 2025-01-05 00:45 | XMS_ITS | Encounter Summary ---
Author Organization [facility] Medical Group Address [address] [address] Care Team Providers Care Manager Of Global Name Role Phone Artemio Avila MD Primary Care Provider [phone] Artemio Avila MD Primary Care Provider [phone] Sarthak Myrick MD Unavailable [phone] Encounter Details Date Type Department Care Team (Late st Contact Info) Description 09/05/2016 Orders Only [facility] ProviderRaffy MD [address] [place] [address] Social History Tobacco Use Types Packs/Day Years Used Date Smoking Tobacco: Never Alcohol Use Standard Drinks/Week Comments Yes 0 (1 standard drink = 0.6 oz pur e alcohol) Comments Unknown Sex and Gender Information Value Date Recorded Sex Assigned at Not on file Legal Sex Female 3:24 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
--- OUTSIDE RECORDS SUMMARY | 2025-01-05 00:45 | XMS_ITS | Encounter Summary ---
Author Organization [facility] Medical Group Address [address] [address] Care Team Providers Care Trip Follower Name Role Phone Artemio Avila MD Primary Care Provider [phone] Artemio Avila MD Primary Care Provider [phone] Sarthak Myrick MD Unavailable [phone] Encounter Details Date Type Department Care Team (Late st Contact Info) Description 09/08/2016 Orders Only [facility] ProviderRaffy MD [address] [place] [address] Social History Tobacco Use Types Packs/Day Years Used Date Smoking Tobacco: Never Alcohol Use Standard Drinks/Week Comments Yes 0 (1 standard drink = 0.6 oz pur e alcohol) Comments Unknown Sex and Gender Information Value Date Recorded Sex Assigned at Not on file 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
[2025-01-05 07:17] VITALS: BP 135/59; PULSE 60; RESP 16; TEMP 36.4; O2SAT 99; BMI 33.7
[2025-01-05] MEDS: LACTATED RINGERS 1,000 ML 150 ML IV CONT (07:25)
--- NOTE | 2025-01-05 07:53 | P.PNAN_ITS ---
Anes - Initial Pre Proc Eval Procedure: Operation Date: 01/05/25 08:15 Proposed Procedures p Esophagogastroduodenoscopy EGD - Juancarlos Comer MD Date/Time: 01/05/25 07:53 Surgeon: Juancarlos Comer MD Pre Op Diagnosis: Epigastric pain, GERD. Patient Data Age: 84 Gender: F Height: 1.68 m Weight: 95 kg Last Vital Signs Temp 36.4 C 01/05/25 07:17 Pulse 60 01/05/25 07:17 Resp 16 01/05/25 07:17 BP 135/59 L 01/05/25 07:17 Pulse Ox 99 01/05/25 07:17 O2 Del Method Room Air 01/05/25 07:17 Allergies Allergy/AdvReac Type Severity Reaction Status Date / Time No Known Allergies Allergy Unknown Verified 01/05/25 07:15 Home Medications ?Medication ?Instructions ?Recorded ?Confirmed ?Type aspirin 81 mg tablet,delayed 81 mg PO QAM 08/09/23 01/05/25 History release (Adult Low Dose Aspirin) metoprolol succinate 100 mg 100 mg PO HS 08/09/23 01/05/25 History tablet,extended release 24 hr clopidogrel 75 mg tablet (Plavix) 75 mg PO QAM 08/15/23 01/05/25 History multivitamin (Daily Multi-Vitamin 1 tablet PO DAILY 02/14/24 01/05/25 History tablet) lorazepam 0.5 mg tablet 0.5 mg PO DAILY PRN anxiety #30 05/27/24 12/26/24 Rx tabs tizanidine 2 mg tablet 2 mg PO TID PRN muscle spasticity 06/17/24 12/26/24 Rx #20 tabs empagliflozin 10 mg tablet 10 mg PO QNOON TAKES FOR HEART/SOB 06/29/24 01/05/25 Rx (Jardiance) #90 tabs pantoprazole 40 mg tablet,delayed 40 mg PO Q12HR #60 tabs 06/30/24 01/05/25 Rx release torsemide 10 mg tablet 10 mg PO DAILY 08/26/24 12/26/24 History nifedipine 90 mg tablet,extended 90 mg PO DAILY #90 tabs 08/30/24 01/05/25 Rx release albuterol sulfate 90 mcg/actuation 2 inh inhalation Q4H PRN shortness 09/27/24 12/26/24 Rx aerosol inhaler of breath or wheezing #8.5 grams dicyclomine 10 mg capsule 10 mg PO .every 6 hours #120 caps 10/14/24 01/05/25 Rx lansoprazole 30 mg capsule,delayed 30 mg PO BID #180 caps 10/14/24 01/05/25 Rx release albuterol sulfate 90 mcg/actuation 1 inh inhalation Q4H PRN shortness 12/24/24 01/05/25 Rx aerosol inhaler (Ventolin HFA) of breath or wheezing 1 month #8.5 grams duloxetine 60 mg capsule,delayed 60 mg PO BID 12/24/24 01/05/25 History release (Cymbalta) nitrofurantoin 100 mg PO Q12H #20 caps 12/26/24 12/26/24 Rx monohydrate/macrocrystals 100 mg capsule (Macrobid) potassium chloride 10 mEq meq PO 12/26/24 History tablet,extended release(part/cryst) rosuvastatin 20 mg tablet (Crestor) 20 mg PO HS #90 tabs 12/29/24 01/05/25 Rx Patient hx anesthesia problems: none Family hx anesthesia problems: none Results Review: All pre-operative results and documents have been reviewed as part of the pre- operative evaluation. [facility] Past Medical History Medical History Gastroesophageal reflux disease Nausea and vomiting Syncope Hematoma of gallbladder Elevated liver enzymes BMI 35.0-35.9,adult Obesity Hx of adenomatous colonic polyps Family hx of colon cancer Esophageal web Chronic constipation Left breast lump At moderate risk for fall BMI 36.0-36.9,adult Otalgia, left ear GERD without esophagitis Osteoarthritis of knees, bilateral Lumbar spondylosis History of one miscarriage Bilateral primary osteoarthritis of knee Pleuritic chest pain Vascular disease Kidney disease Coronary artery disease Ataxia Left shoulder pain Inflamed seborrheic keratosis Inflamed skin tag Lumbar radiculopathy, chronic BMI 33.0-33.9,adult Need for vaccination Anxiety disorder, unspecified Anxiety and depression Hypertension BMI 32.0-32.9,adult Head ache BMI 31.0-31.9,adult Ear pressure Polyp of ascending colon Erosive esophagitis Urinary incontinence Serous otitis media BMI 32.0-32.9,adult Anxiety CKD (chronic kidney disease) III WENDY (obstructive sleep apnea) TIA (transient ischemic attack) 2010 Diverticula of colon Generalized osteoarthritis of multiple sites [place] positive (~10/2019) GERD with apnea Atherosclerotic heart disease of [place] coronary artery with angina pectoris CABG x3, 1997. 2016 cardiac catheterization: Patent Left anterior descending with patent stent. sequential ADAME to the occluded D1 was patent but occluded to the Left anterior descending. The PRASANNA from the ADAME to the OM 1 has been occluded since 2001. 90% ostial stenosis of a small to medium-sized OM 1 manage medically because of negative stress tests and atypical chest pain. Chronic sinusitis Cough Essential (primary) hypertension History of melanoma Surgical History Surgical History History of laparoscopic cholecystectomy 08/13/23 [facility] [place] teeth removed History of hysterectomy History of dilation and curettage History of ankle surgery 2011 Hx of CABG 1999 Family History Family History Father Alcoholic Hypertension Cancer Mother Cerebrovascular accident Sibling Heart disease Other Diabetes mellitus Family history of alcoholism Family history of arthritis Family history of cardiovascular disease Family history of kidney disease Family history of malignant neoplasm of urinary bladder Social History Social History Social History: ; in his sleep. Lives in an apartment, busy with caodaism. Daughter is Shyann Perez. 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 Gender identity (if verbalized by the patient): Female Sexual Orientation (if Verbalized by the Patient): Straight or Heterosexual Spiritual care concerns: No Anes - Eval Final PreProcedure Day of Procedure 01/05/25 07:53 Patient weight: obese Heart: regular rate and rhythm Lungs: decreased breath sounds Airway: Mallampati scale class II Neurological: alert and oriented Last oral intake: >/= 8 hours ASA classification: IV Emergent: no Anesthetic plan: proceed Anesthesia type and monitoring: general GIVS and standard monitoring Results Review: All pre-operative results and documents have been reviewed as part of the pre- operative evaluation. Informed Consent: The patient's anesthetic plan and its attendant risks and benefits were discussed with the patient/family/POA. Questions were solicited and answers provided to the satisfaction of the patient/family/POA.
--- NOTE | 2025-01-05 08:17 | P.HP_ITS ---
History of Present Illness History of Present Illness Consent: Risks, benefits, and alternatives have been discussed and questions answered. Patient agrees to proceed with procedure. Chief complaint: Epigastric pain, GERD. Narrative: Regine Zarate is a 84 year old female here for egd, intermittent epigastric pain, she had bile leak in 2023 after cholecystectomy treated with ercp and stenting (removed since), MRCP recently no abnormal findings. Review of Systems Review of Systems: All systems reviewed & are unremarkable except as noted in HPI and below PMFSH Past Medical History Medical History Gastroesophageal reflux disease Nausea and vomiting Syncope Hematoma of gallbladder Elevated liver enzymes BMI 35.0-35.9,adult Obesity Hx of adenomatous colonic polyps Family hx of colon cancer Esophageal web Chronic constipation Left breast lump At moderate risk for fall BMI 36.0-36.9,adult Otalgia, left ear GERD without esophagitis Osteoarthritis of knees, bilateral Lumbar spondylosis History of one miscarriage Bilateral primary osteoarthritis of knee Pleuritic chest pain Vascular disease Kidney disease Coronary artery disease Ataxia Left shoulder pain Inflamed seborrheic keratosis Inflamed skin tag Lumbar radiculopathy, chronic BMI 33.0-33.9,adult Need for vaccination Anxiety disorder, unspecified Anxiety and depression Hypertension BMI 32.0-32.9,adult Head ache BMI 31.0-31.9,adult Ear pressure Polyp of ascending colon Erosive esophagitis Urinary incontinence Serous otitis media BMI 32.0-32.9,adult Anxiety CKD (chronic kidney disease) III WENDY (obstructive sleep apnea) TIA (transient ischemic attack) 2010 Diverticula of colon Generalized osteoarthritis of multiple sites [place] positive (~10/2019) GERD with apnea Atherosclerotic heart disease of [place] coronary artery with angina pectoris CABG x3, 1998. 2016 cardiac catheterization: Patent Left anterior descending with patent stent. sequential ADAME to the occluded D1 was patent but occluded to the Left anterior descending. The PRASANNA from the ADAME to the OM 1 has been occluded since 2001. 90% ostial stenosis of a small to medium-sized OM 1 manage medically because of negative stress tests and atypical chest pain. Chronic sinusitis Cough Essential (primary) hypertension History of melanoma Surgical History Surgical History History of laparoscopic cholecystectomy 08/13/23 [facility] [place] teeth removed History of hysterectomy History of dilation and curettage History of ankle surgery 2011 Hx of CABG 1998 Family History Family History Father Alcoholic Hypertension Cancer Mother Cerebrovascular accident Sibling Heart disease Other Diabetes mellitus Family history of alcoholism Family history of arthritis Family history of cardiovascular disease Family history of kidney disease Family history of malignant neoplasm of urinary bladder Social History Social History Social History: ; in his sleep. Lives in an apartment, busy with religion. Daughter is Shyann Perez. 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 Gender identity (if verbalized by the patient): Female Sexual Orientation (if Verbalized by the Patient): Straight or Heterosexual Spiritual care concerns: No Meds Home Medications and Allergies Home Medications ?Medication ?Instructions ?Recorded ?Confirmed ?Type aspirin 81 mg tablet,delayed 81 mg PO QAM 08/09/23 01/05/25 History release (Adult Low Dose Aspirin) metoprolol succinate 100 mg 100 mg PO HS 08/09/23 01/05/25 History tablet,extended release 24 hr clopidogrel 75 mg tablet (Plavix) 75 mg PO QAM 08/15/23 01/05/25 History multivitamin (Daily Multi-Vitamin 1 tablet PO DAILY 02/14/24 01/05/25 History tablet) lorazepam 0.5 mg tablet 0.5 mg PO DAILY PRN anxiety #30 05/27/24 12/26/24 Rx tabs tizanidine 2 mg tablet 2 mg PO TID PRN muscle spasticity 06/17/24 12/26/24 Rx #20 tabs empagliflozin 10 mg tablet 10 mg PO QNOON TAKES FOR HEART/SOB 06/29/24 01/05/25 Rx (Jardiance) #90 tabs pantoprazole 40 mg tablet,delayed 40 mg PO Q12HR #60 tabs 06/30/24 01/05/25 Rx release torsemide 10 mg tablet 10 mg PO DAILY 08/26/24 12/26/24 History nifedipine 90 mg tablet,extended 90 mg PO DAILY #90 tabs 08/30/24 01/05/25 Rx release albuterol sulfate 90 mcg/actuation 2 inh inhalation Q4H PRN shortness 09/27/24 12/26/24 Rx aerosol inhaler of breath or wheezing #8.5 grams dicyclomine 10 mg capsule 10 mg PO .every 6 hours #120 caps 10/14/24 01/05/25 Rx lansoprazole 30 mg capsule,delayed 30 mg PO BID #180 caps 10/14/24 01/05/25 Rx release albuterol sulfate 90 mcg/actuation 1 inh inhalation Q4H PRN shortness 12/24/24 01/05/25 Rx aerosol inhaler (Ventolin HFA) of breath or wheezing 1 month #8.5 grams duloxetine 60 mg capsule,delayed 60 mg PO BID 12/24/24 01/05/25 History release (Cymbalta) nitrofurantoin 100 mg PO Q12H #20 caps 12/26/24 12/26/24 Rx monohydrate/macrocrystals 100 mg capsule (Macrobid) potassium chloride 10 mEq meq PO 12/26/24 History tablet,extended release(part/cryst) rosuvastatin 20 mg tablet (Crestor) 20 mg PO HS #90 tabs 12/29/24 01/05/25 Rx Allergies Allergy/AdvReac Type Severity Reaction Status Date / Time No Known Allergies Allergy Unknown Verified 01/05/25 07:15 Vital Signs Vital Signs - 24 hr 01/05/25 07:17 Temperature 97.6 F Pulse Rate 60 Respiratory Rate 16 Blood Pressure 135/59 L Pulse Oximetry 99 Oxygen Delivery Room Air Exam Const: General: comfortable and no acute distress HENMT: Face/Nose/Sinus: Normal nares present Eyes: General: appearance normal, both eyes and all related structures Neck: Neck: no JVD Resp: Auscultation: clear to auscultation bilaterally Cardio: Rate: regular rate Rhythm: regular rhythm GI: Inspection: non-distended GI Palp: Yes Soft to palpation Skin: General skin exam: normal color Neuro: Speech: normal speech Extrem: General: normal to inspection Psych: Mental Status: mental status grossly normal Assessment and Plan Assessment and plan (1) Abdominal pain: Qualifiers: Abdominal location: epigastric Qualified Code(s): R10.13 - Epigastric pain Code(s): R10.9 - Unspecified abdominal pain Status: Acute Assessment and Plan: egd with bx
--- NOTE | 2025-01-05 08:26 | S_PTH ---
PATIENT: Regine Zarate LOC: [facility] Hernandez#:[id number] AGE/SX: 84/F ROOM: RE01/05/[address]: Juancarlos Comer MD : 1940 BED: DIS: 01/05/2025 SPEC #: [id number] RECD: 01/05/25 10:59 STATUS: CONNOR VELÁSQUEZ #: [id number] JAROCHO: 01/05/25 08:[address]: Juancarlos Comer DEPT: [facility] Surgical RECD BY: Dolores Rutherford ENTERED: 01/05/25 10:59 SP TYPE: Surgical OTHR DR: Artemio Avila MD Tissues: A - Small Bowel Bx B - Gastric Biopsy Procedures: Hematoxylin and Eosin Stain Gross and Microscopic Level 4
[2025-01-05 08:27] VITALS: BP 128/61; PULSE 60; RESP 16; O2SAT 98
[2025-01-05 08:37] VITALS: BP 122/49; PULSE 54; RESP 16; O2SAT 98
[2025-01-05 08:47] VITALS: BP 123/52; PULSE 52; RESP 16; O2SAT 98
== END 2025-01-05 08:57 | disposition home or self-care (01) ==
PROVIDERS: PCP Family Medicine; Referring Provider Nurse Practitioner; Visit Provider Internal Medicine Gastroenterology
PROC: 0DJ08ZZ Inspection of Upper Intestinal Tract, Via Natural or Artificial Opening Endoscopic (ICD-10-PCS; CPT 43249; principal; 2025-01-05 08:15)
DX: K22.2 Esophageal obstruction (principal); K29.70 Gastritis, unspecified, without bleeding; K21.9 Gastro-esophageal reflux disease without esophagitis; E66.9 Obesity, unspecified; Z68.33 Body mass index [BMI] 33.0-33.9, adult
CPT/HCPCS: 43249; 43239; 88305; C1726; J2704; J7120

== ENCOUNTER 2025-01-30 15:07 | Outpatient (CLI) | payer OTHER, SELFPAY ==
--- OUTSIDE RECORDS SUMMARY | 2025-01-30 15:10 | XMS_ITS | Clinical Summary ---
Author Organization [facility] [place] [address] Address [address] [place] [address] Care Team Providers Care Automatic Driller And Reamer Name Role Phone Artemio Avila MD Primary Care Provider [phone] Sarthak Myrick MD Unavailable [phone] Allergies Active Allergy Reactions Criticality Noted [...] mg enteric coated tabletIndications:Co ronary arteriosclerosis in [place] artery Take 1 tablet (81 mg total) [...] (Crestor) 20 mg tabletIndications:Co ronary arteriosclerosis in [place] artery Take 1 tablet (20 mg total) by mouth daily 90 tablet 3 12/27/19 23 Active NIFEdipine (NIFEdipine CC) 90 mg 24 hr tabletIndications:Es sential hypertension Take 1 tablet (90 mg total) by mouth daily 90 tablet 3 08/09/19 24 Active torsemide (DEMADEX) 10 mg tablet Take 1 tablet (10 mg total) by mouth daily 08/08/19 25 Active potassium chloride ER 10 mEq CR tablet Take 1 tablet/capsul e (10 mEq total) by mouth 08/08/19 25 Active tiZANidine (ZANAFLEX) 2 mg tablet 10/25/19 25 Active clopidogreL (PLAVIX) 75 mg tabletIndications:Co ronary arteriosclerosis in [place] artery Take 1 tablet (75 mg total) by mouth daily 90 tablet 3 01/07/20 25 Active metoprolol XL (TOPROL-XL) 100 mg 24 hr tablet Take 1 tablet (100 mg total) by mouth daily 90 tablet 2 01/23/20 25 Active nitroglycerin (NITROSTAT) 0.[address] 1 tablet (0.4 mg total) under the tongue every 5 (five) minutes as needed for chest pain 50 tablet 1 01/23/20 25 Active nitroglycerin (NITROSTAT) 0.[address] 1 tablet (0.4 mg total) under the tongue every 5 (five) minutes as needed for chest pain 50 tablet 1 08/17/19 24 025 Discontin ued(Reord er) clopidogreL (PLAVIX) 75 mg tabletIndications:Co ronary arteriosclerosis in [place] artery Take 1 tablet (75 mg total) by mouth daily 90 tablet 3 01/14/20 24 025 Discontin ued(Reord er) metoprolol XL (TOPROL-XL) 100 mg 24 hr tablet Take 1 tablet (100 mg total) by mouth daily 90 tablet 2 04/15/20 24 07/03/2 025 Discontin ued(Reord er) Active Problems Problem Noted Date Diagnosed Date [...] and possibly service. She was seeing our carry out clerk and shelf stocker to have them checked. She is going to follow up for further problems if needed. Bilateral impacted cerumen 03/26/2024 Assessment & Plan (03/26/2024 8:20 PM CDT): She did have a small to moderate amount of cerumen that I removed on both sides. I do not think it was enough to impact her hearing aids. She is going to talk with our carry out clerk and shelf stocker and follow up here otherwise as needed. [...] 06/04/2017 Assessment & Plan (06/04/2017 5:46 PM FACILITY ENGINEER): Currently taking Plavix and rosuvastatin Anxiety 06/04/2017 Assessment & Plan (01/21/2018 9:53 PM CDT): I am wondering if the patient's anxiety is contributing to some of her symptoms. She will be changing from her current Viibryd to another antidepressant soon. Assessment & Plan (06/04/2017 5:47 PM FACILITY ENGINEER): Patient has a lot of symptoms [...] recently. Assessment & Plan (06/04/2017 5:44 PM FACILITY ENGINEER): Not a recent problem. 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 Takes Crestor 20 mg daily. Assessment & Plan (06/04/2017 5:45 PM FACILITY ENGINEER): 11/2016 total cholesterol 172, TG 185 and LDL 72, acceptable on rosuvastatin 20 mg daily. Coronary artery disease invo lving [place] coronary artery of [place] heart without angina pectoris 07/03/2014 Overview (10/26/2016): Coronary arteriosclerosis in [place] artery Assessment & Plan (01/21/2018 9:54 PM [...] well. Assessment & Plan (06/04/2017 5:44 PM FACILITY ENGINEER): Remote CABG History of coronary stent [...] Encounters Date Type Department Care Team Description 01/22/2025 Telephone [facility] [address] [place] [address] [address] [place] [phone] Clementine Live NP 01/15/2025 9:30 AM CDT Office Visit [facility] [address] [place] [address] [address] [place] [phone] Clementine Live NP Elevated brain natriuretic peptide (BNP) level (Primary Dx); Coronary artery disease involving [place] coronary artery of [place] heart without angina pectoris 01/06/[address] [place] [phone] Clementine Live NP 12/31/2024 Orders Only [facility] Health Information Management [address] [place] [phone] Donna Cao MD 12/29/[address] [place] [address] [phone] Clementine Live NP 12/11/2024 11:45 AM CDT Office Visit [facility] [address] [place] [address] [address] [place] [phone] Donna Cao MD Coronary artery disease involving [place] coronary artery of [place] heart without angina pectoris (Primary Dx); Hx [...] Medical History Date Comments Hyperlipidemia Hyperlipidemia; Comments: [facility] 04/07/2014 - Chronic coronary artery disease Coronary artery disease Hypertension Hypertension Hx Other Medical TIA; Comments: [facility] 04/07/2014 - Hx Other Medical GERD; Comments: [facility] 04/07/2014 - Hx Other Medical anxiety/depress ion; Comments: [facility] 04/07/2014 - Hx Other Medical orthostatic hyp otension; Comments: [facility] 04/07/2014 - Hx Other Medical hysterectomy wi th BSO; Comments: [facility] 04/07/2014 - Hx Other Medical ankle surgery; Comments: [facility] 04/07/2014 - Autoimmune disease Heart disease GERD [...] on file Legal Sex Female 3:24 AM FACILITY ENGINEER Gender Identity Not on file Sexual Orientation Not on file Obstetrics History Last Filed Vital Signs Vital Sign Reading Time Taken Comments Blood Pressure 126/62 01/15/2025 9:27 AM CDT Pulse 54 01/15/2025 9:27 AM CDT Temperature 36.6 C (97.9 F) 10/04/2018 1:20 PM CDT Respiratory Rate 18 03/26/2024 10:53 AM CDT Oxygen Saturation 97% 01/15/2025 9:27 AM CDT Inhaled Oxygen Concentration - - Weight 93.9 kg (207 lb) 01/15/2025 9:27 AM CDT Height 172.7 cm (5' 8) 01/15/2025 9:27 AM CDT Body Mass Index 31.47 01/15/2025 9:27 AM CDT Plan of Treatment Health Maintenance Due Date Last Done Comments Depression Screening 1940 Fall Risk Assessment 1940 Osteoporosis Screening-Bone Density Scan 1940 Hepatitis B Screening 1958 Zoster Vaccine (1 of 2) 1990 Well Visit 65+ 2005 Pneumococcal vaccine 65+ (2 of 2 - PPSV23) 11/03/2015 09/08/2015 Influenza Vaccine (#1) 2025 10/07/2018, 2014 DTaP/Tdap/Td Vaccine (2 - Td or Tdap) 04/08/2027 Procedures Procedure Name Priority Date/Time Associated Diagnosis Comments SCAN - RADIOLOGY/IMAGING 12/31/2024 from Last 3 Months Results * SCAN - RADIOLOGY/IMAGING (12/31/2024) Anatomical Region Laterality Modality Other us Ripa Marybeth Cao MD Final R esult from Last 3 Months Insurance FOR [facility] LIFE [facility] HEALTHCARE [facility] LIFE Care Teams Automatic Driller And Reamer Relationship Specialty Start Date End Date Artemio Avila MD PCP - General 10/20/16 Sarthak Myrick MD Referring Physician Otolaryngology 01/04/18
--- OUTSIDE RECORDS SUMMARY | 2025-01-30 15:10 | XMS_ITS | Encounter Summary ---
Author Organization [facility] Address [address] [place] [address] Care Team Providers Care Railroad Signal And Switch Operator Name Role Phone Artemio Avila MD Primary Care Provider [phone] Reason for Referral * Surgical (Routine) - Closed Specialty Diagnoses / Procedures Referred By Veronica huntley Referred To Contact Diagnoses Lumbar radiculopathy Procedures Case request operating room: INJECTION EPIDURAL TRANSFORAMINAL L4-5 Jelly Lazcano APNP Phone: tel: fax: Referral ID Status Reason Start Date Expiration Date Visits Re quested Visits Authorized [id number] Closed 04/04/2023 04/04/2024 1 1 Encounter Details Date Type Department Care Team (Late st Contact Info) Description 04/04/2023 Prep for Procedure [facility] [place] [phone] [phone] Jelly Lazcano APNP [address] [place] [phone] Social History Tobacco Use Types Packs/Day Years [...] 10:14 AM Reshma Campbell RN Active * [place] Suicide Severity Rating Scale (Screener/Recent Self-Report) Question [...] unspecified documented in this encounter Care Teams Railroad Signal And Switch Operator Relationship Specialty Start Date End Date Artemio Avila MD [address] [place] [address] PCP - General 06/30/13 documented as of this encounter
--- OUTSIDE RECORDS SUMMARY | 2025-01-30 15:10 | XMS_ITS | Clinical Summary ---
Author Organization [facility] Address [address] [place] [address] Care Team Providers Care Tipple Tender Name Role Phone Artemio Avila MD Primary Care Provider [phone] Source Comments [facility]west medical center Affiliates and Associated Physician Practices is amultiple site organization consisting of ambulatory clinics and hospital sitesin [place], [place], [place] and [place]. This disclosure is being madepursuant to the Care Everywhere program and may not contain all information available regarding this patient. Last updated 18.[facility] Family History Medical History Relation [...] on file Legal Sex Female 5:48 PM EDGER OPERATOR Gender Identity Not on file Sexual [...] patient's age to complete this topic Insurance [employer] Care Address: [facility] CLAIMS [address] [place] [address] [facility] [place] Address: [facility] CLAIMS [address] [place] [address] [employer] SELF PAY NO INSURANCE Member Subscriber Plan / Payer (Ef fective for All Dates) Name:SadiaDestinee mataricia Ayana Member ID:Not on file Relation to Subscriber:Not on file Name:SADIAREGINE Ayana Subscriber ID:Not on file (Home) Address: [address] [place] [id number] Payer ID:Not on file Group ID:Not on file Type:Self Pay Address: [place], [place] [facility] MEDICARE [facility] MEDICARE [facility] MEDICARE Care Teams Tipple Tender Relationship Specialty Start Date End Date Artemio Avila MD [address] [place] [address] PCP - General 06/17/14
--- OUTSIDE RECORDS SUMMARY | 2025-01-30 15:10 | XMS_ITS | Encounter Summary ---
Author Organization [facility] Address [address] [facility] [place] [address] Care Team Providers Care Choral Teacher Name Role Phone Artemio Avila MD Primary Care Provider [phone] Encounter Details Date Type Department Care Team (Late st Contact Info) Description 10/27/2021 Lab Requisition [facility] DermPath Lab [address] [facility], [place] [address] Artemio Avila MD [address] [place] [address] Social History Tobacco Use Types Packs/Day Years Used Date Smoking Tobacco: Never Comments Unknown Sex and Gender Information Value Date Recorded Sex Assigned at Not on file Legal Sex Female 5:48 PM THORACIC MEDICINE PHYSICIAN Gender Identity Not on file Sexual Orientation Not on file documented as of this encounter Plan of Treatment Not on file documented as of this encounter Procedures Procedure Name Priority Date/Time Associated Diagnosis Comments DERMATOPATHOLOGY Routine 10/25/2021 12:0 0 AM CDT documented in this encounter Results * DERMATOPATHOLOGY (10/25/2021 12:00 AM CDT) Case Report Dermatopathology Report Case: [id number] Authorizing Provider: Artemio Avila MD Collected: 10/25/2021 12:00 AM Ordering Location: [facility] DermPath Lab Received: 10/27/2021 09:29 AM Pathologist: Laura Herrera MD Specimens: A) - Skin, left lower breast B) - Skin, left upper breast C) - Skin, left top chest 4:43 PM [facility] DERMATOPATHOLOGY LABORATORY Final Diagnosis Specimen A. SKIN, [...] specimen consists of a shave biopsy measuring [id number], bisected. The margin is inked green. Jar 0. Specimen B: Received is one formalin filled container labeled with the patient's name and designated left upper breast. The specimen consists of a shave biopsy measuring [id number], bisected. The margin is inked green. Jar 0. Specimen C: Received is one formalin filled container labeled with the patient's name and designated left top chest. The specimen consists of a shave biopsy measuring [id number], bisected. The margin is inked green. Jar [...] characteristic determined by the Dermatopathology Laboratory at [facility], directed by Dr. Leana Swartz. These tests need not be, and therefore are not, approved by the [place] Food and Drug Administration. The tests are used for clinical purposes. Billing Codes Specimen Charges Stain Charges 68566 41667 64278 1 1 1 2 4:43 PM CDT [...] PATHOLOGY/CYTOLOGY KENYE SAMANTHA Final Result DERMATOPATHOLOGY LABORATORY [facility] Department of Dermatology [facility] Specialized Medicine [address] [place] [address], [address] Floor [address] [phone] documented in this encounter Visit Diagnoses Not on filedocumented in this encounter Care Teams Choral Teacher Relationship Specialty Start Date End Date Artemio Avila MD [address] [place] [address] PCP - General 06/17/14 documented as of this encounter
--- OUTSIDE RECORDS SUMMARY | 2025-01-30 15:10 | XMS_ITS | Encounter Summary ---
Author Organization [facility] Address [facility] access hospital[address] [place] [address] Care Team Providers Care Pca Name Role Phone Artemio Avila MD Primary Care Provider [phone] Encounter Details Date Type Department Care Team (Late st Contact Info) Description 06/19/2023 Prep for Procedure [facility] [place] [address] [phone] Jelly Lazcano APNP [address] [place] [address] Social History Tobacco Use Types [...] on filedocumented in this encounter Care Teams Pca Relationship Specialty Start Date End Date Artemio Avila MD [address] [place], [place] [id number] PCP - General 06/30/13 documented as of this encounter
--- OUTSIDE RECORDS SUMMARY | 2025-01-30 15:10 | XMS_ITS | Referral Summary ---
Author Organization [place] [address] [place] [address] Care Team Providers Care Assistant Property Manager Name Role Phone Artemio Avila MD Primary Care Provider Sarthak Myrick MD Unavailable [phone] Encounters Date Type Department Care Team Description 01/22/2025 Telephone [facility] Cardiology [address] [place] [address] [address] [place] [address] Clementine Live NP 01/15/2025 9:30 AM CDT Office Visit [facility] Cardiology [address] [place] [address] [address] [place] [address] Clementine Live NP Elevated brain natriuretic peptide (BNP) level (Primary Dx); Coronary artery disease involving [place] coronary artery of [place] heart without angina pectoris 01/06/[address] [facility] Cardiology [address] [place] [address] [address] [place] [address] Clementine Live NP 12/31/2024 Orders Only [facility] Health Information Management [address] [place] [address] Donna Cao MD 12/29/[address] [facility] Cardiology [address] [place] [address] Clementine Live NP 12/11/2024 11:45 AM CDT Office Visit [facility] Cardiology [address] [facility] [address] [place] [address] Donna Cao MD Coronary artery disease involving [place] coronary artery of [place] heart without angina pectoris (Primary Dx); Hx [...] mg enteric coated tabletIndications:Co ronary arteriosclerosis in [place] artery Take 1 tablet (81 mg total) [...] (Crestor) 20 mg tabletIndications:Co ronary arteriosclerosis in [place] artery Take 1 tablet (20 mg total) [...] (PLAVIX) 75 mg tabletIndications:Co ronary arteriosclerosis in [place] artery Take 1 tablet (75 mg total) [...] (PLAVIX) 75 mg tabletIndications:Co ronary arteriosclerosis in [place] artery Take 1 tablet (75 mg total) by mouth daily 90 tablet 3 01/14/20 24 025 Discontin ued(Reord er) metoprolol XL (TOPROL-XL) 100 mg 24 hr tablet Take 1 tablet (100 mg total) by mouth daily 90 tablet 2 04/15/20 24 025 Discontin ued(Reord er) Active Problems Problem [...] and possibly service. She was seeing our lens fabricating machine tender to have them checked. She is going to follow up for further problems if needed. Bilateral impacted cerumen 03/26/2024 Assessment & Plan (03/26/2024 8:20 PM CDT): She did have a small to moderate amount of cerumen that I removed on both sides. I do not think it was enough to impact her hearing aids. She is going to talk with our lens fabricating machine tender and follow up here otherwise as needed. [...] 06/04/2017 Assessment & Plan (06/04/2017 5:46 PM BLUEPRINT BLOCKER): Currently taking Plavix and rosuvastatin Anxiety 06/04/2017 Assessment & Plan (01/21/2018 9:53 PM CDT): I am wondering if the patient's anxiety is contributing to some of her symptoms. She will be changing from her current Viibryd to another antidepressant soon. Assessment & Plan (06/04/2017 5:47 PM BLUEPRINT BLOCKER): Patient has a lot of symptoms at [...] recently. Assessment & Plan (06/04/2017 5:44 PM BLUEPRINT BLOCKER): Not a recent problem. 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 Takes Crestor 20 mg daily. Assessment & Plan (06/04/2017 5:45 PM BLUEPRINT BLOCKER): 11/2016 total cholesterol 172, TG 185 and LDL 72, acceptable on rosuvastatin 20 mg daily. Coronary artery disease invo lving [place] coronary artery of [place] heart without angina pectoris 07/03/2014 Overview (10/26/2016): Coronary arteriosclerosis in [place] artery Assessment & Plan (01/21/2018 9:54 PM [...] well. Assessment & Plan (06/04/2017 5:44 PM BLUEPRINT BLOCKER): Remote CABG History of coronary stent Recurrent [...] on file Legal Sex Female 3:24 AM BLUEPRINT BLOCKER Gender Identity Not on file Sexual Orientation [...] 01/15/2025 9:27 AM CDT Plan of Treatment Not on file Procedures Procedure Name Priority Date/Time Associated Diagnosis Comments SCAN - RADIOLOGY/IMAGING 12/31/2024 from Last 3 Months Results * SCAN - RADIOLOGY/IMAGING (12/31/2024) Anatomical Region Laterality Modality Other us Ripa Marybeth Cao MD Final R esult from Last 3 Months Insurance PharmAssistant [facility] PharmAssistant [facility] Care Teams Assistant Property Manager Relationship Specialty Start Date End Date Artemio Avila MD PCP - General 10/20/16 Sarthak Myrick MD Referring Physician Otolaryngology 01/04/18
--- OUTSIDE RECORDS SUMMARY | 2025-01-30 15:10 | XMS_ITS | Encounter Summary ---
Author Organization [facility] Address [facility] [place] [address] Care Team Providers Care Tank Furnace Operator Name Role Phone Artemio Avila MD Primary Care Provider [phone] Encounter Details Date Type Department Care Team (Late st Contact Info) Description 06/19/2023 Results Notification [facility] Interventional [place] [address] [phone] Jelly Lazcano APNP [address] [place] [phone] Social History Tobacco Use Types Packs/Day Years [...] on filedocumented in this encounter Care Teams Tank Furnace Operator Relationship Specialty Start Date End Date Artemio Avila MD [address] [place] [address] PCP - General 06/30/13 documented as of this encounter
--- OUTSIDE RECORDS SUMMARY | 2025-01-30 15:11 | XMS_ITS | Clinical Summary ---
Author Organization [facility] Address [address] [place] [address] Care Team Providers Care Assembler Sandal Parts Name Role Phone Artemio Avila MD Primary Care Provider [phone] Allergies Active Allergy Reactions Criticality Noted Date [...] Comments Blood Pressure 186/72 07/10/2023 10:53 AM JOB DEVELOPER FOR DEAF ADULTS Pulse 64 07/10/2023 10:42 AM JOB DEVELOPER FOR DEAF ADULTS Temperature 36.6 C (97.9 F) 07/10/2023 9:57 AM JOB DEVELOPER FOR DEAF ADULTS Respiratory Rate 18 07/10/2023 10:53 AM JOB DEVELOPER FOR DEAF ADULTS Oxygen Saturation 99% 07/10/2023 10:42 AM JOB DEVELOPER FOR DEAF ADULTS Inhaled Oxygen Concentration - - Weight 99.6 kg (219 lb 9.6 oz) 07/10/2023 9:57 A M JOB DEVELOPER FOR DEAF ADULTS Height 167.6 cm (5' 6) 07/10/2023 9:57 AM JOB DEVELOPER FOR DEAF ADULTS Body Mass Index 35.44 07/10/2023 9:57 AM JOB DEVELOPER FOR DEAF ADULTS Plan of Treatment Health Maintenance Due Date [...] age to complete this topic Insurance [facility] Care Teams Assembler Sandal Parts Relationship Specialty Start Date End Date Artemio Avila MD [address] [address] PCP - General 06/30/13
--- OUTSIDE RECORDS SUMMARY | 2025-01-30 15:11 | XMS_ITS | Clinical Summary ---
Author Organization [facility] Address [address] [place] [address] Phone Care Team Providers Care Building Construction Teacher Name Role Phone Artemio Avila MD Primary Care Provider Allergies Active Allergy Reactions Criticality Noted Date [...] without residual deficits 04/13/2013 Coronary arteriosclerosis in [place] artery 04/13 Overview (03/12/2019): Overview: Coronary arteriosclerosis in [place] artery Last Assessment & Plan: Remote CABG [...] on file Legal Sex Female 8:52 AM [facility] Gender Identity Not on file Sexual Orientation Not on file Last Filed Vital Signs Vital Sign Reading Time Taken Comments Blood Pressure 128/78 02/20/2024 1:01 PM CDT Pulse 61 02/20/2024 1:01 PM CDT Temperature 36.3 C (97.4 F) 08/16/2020 1:16 PM WATCH INSPECTOR FINAL MOVEMENT Respiratory Rate 18 08/16/2020 1:16 PM WATCH INSPECTOR FINAL MOVEMENT Oxygen Saturation - - Inhaled Oxygen Concentration - - Weight 92.5 kg (204 lb) 02/20/2024 1:01 PM CDT Height 172.7 cm (5' 8) 02/20/2024 1:01 PM CDT Body Mass Index 31.02 02/20/2024 1:01 PM CDT Plan of Treatment Upcoming Encounters Date Type Department Care Team (Late st Contact Info) Description 03/17/2025 11:40 AM CDT Office Visit [facility] [address] [facility] [address] [place] [address] Jerrod Garcia PA [address] [facility] [facility] [address] [facility] [address] [place] [address] 04/21/2025 11:20 AM CDT Office Visit [facility] [address] [facility] [address] [place] [address] Vasly Craft MD [address] [facility] [address] [address] Health Maintenance Due Date Last Done Comments Pneumococcal PPSV23/PCV13 65 + Years / High and Highest Risk (2 of 4 - PPSV23, PCV20, or PCV21) 11/03/2015 09/08/2015 Influenza Vaccine (#1) 2025 05/23/2015 Insurance MEDICARE [facility] [place] MEDICARE HMO [facility] Address: [facility] [address] [place] [address] [facility] Care Teams Building Construction Teacher Relationship Specialty Start Date End Date Artemio Avila MD [address] [place] [facility] [place] [address] PCP - General Family Medicine 10/16/18
--- OUTSIDE RECORDS SUMMARY | 2025-01-30 15:11 | XMS_ITS | Encounter Summary ---
Author Organization [facility] Address [facility] [place] [address] Care Team Providers Care Career Technical Education Instructor Name Role Phone Artemio Avila MD Primary Care Provider [phone] Encounter Details Date Type Department Care Team (Late st Contact Info) Description 12/28/2018 Abstract [facility] CONVERSION [address] [place] [address] , Generic ConversionMD Social History Tobacco Use [...] on filedocumented in this encounter Care Teams Career Technical Education Instructor Relationship Specialty Start Date End Date Artemio Avila MD [address] [place] [address] PCP - General 06/30/13 documented as of this encounter
--- OUTSIDE RECORDS SUMMARY | 2025-01-30 15:11 | XMS_ITS | Encounter Summary ---
Author Organization [facility] Address [address] [place] [address] Care Team Providers Care Last Waxer Name Role Phone Artemio Avila MD Primary Care Provider [phone] Sarthak Myrick MD Unavailable [phone] Encounter Details Date Type Department Care Team (Late st Contact Info) Description 10/01/2017 Orders Only [facility] Health Information Management [address] [place] [address] Scanning, Provider Social History Tobacco Use Types Packs/Day Years Used Date Smoking Tobacco: Never Smokeless Tobacco: Never Alcohol Use Standard Drinks/Week Comments Yes 0 (1 standard drink = 0.6 oz pur e alcohol) Comments Unknown Sex and Gender Information Value Date Recorded Sex Assigned at Not on file Legal Sex Female 3:24 AM DEBT RECOVERY OFFICER Gender Identity Not on file Sexual Orientation Not on file documented as of this encounter Plan of Treatment Not on file documented as of this encounter Procedures Procedure Name Priority Date/Time Associated Diagnosis Comments SCAN - LABS 10/01/2017 documented in this encounter Results * SCAN - LABS (10/01/2017) us Provider Scanning Final Result documented in this encounter Visit Diagnoses Not on filedocumented in this encounter Care Teams Last Waxer Relationship Specialty Start Date End Date Artemio Avila MD PCP - General 10/20/16 Sarthak Myrick MD Referring Physician Otolaryngology 01/04/18 documented as of this encounter
--- OUTSIDE RECORDS SUMMARY | 2025-01-30 15:11 | XMS_ITS | Encounter Summary ---
Author Organization [facility] Address [address] [address] Care Team Providers Care Geoduck Diver Name Role Phone Artemio Avila MD Primary Care Provider [phone] Artemio Avila MD Primary Care Provider [phone] Sarthak Myrick MD Unavailable [phone] Encounter Details Date Type Department Care Team (Late st Contact Info) Description 09/08/2016 Orders Only [facility] ProviderRaffy MD [address] [place] [address] Social History Tobacco Use Types Packs/Day Years Used Date Smoking Tobacco: Never Alcohol Use Standard Drinks/Week Comments Yes 0 (1 standard drink = 0.6 oz pur e alcohol) Comments Unknown Sex and Gender Information Value Date Recorded Sex Assigned at Not on file Legal Sex Female 3:24 AM RETAIL OFFICE MANAGER Gender Identity Not on file Sexual Orientation [...] on filedocumented in this encounter Care Teams Geoduck Diver Relationship Specialty Start Date End Date Artemio Avila MD PCP - General 10/20/16 Artemio Avila MD PCP - General 12/21/15 10/19/16 Sarthak Myrick MD Referring Physician Otolaryngology 01/04/18 documented as of this encounter
--- OUTSIDE RECORDS SUMMARY | 2025-01-30 15:11 | XMS_ITS | Encounter Summary ---
Author Organization [facility] Address [address] [address] Care Team Providers Care Spider Assembler Name Role Phone Artemio Avila MD Primary Care Provider [phone] Artemio Avila MD Primary Care Provider [phone] Sarthak Myrick MD Unavailable [phone] Encounter Details Date Type Department Care Team (Late st Contact Info) Description 09/05/2016 Orders Only [facility] ProviderRaffy MD [address] [place] [address] Social History Tobacco Use Types Packs/Day Years Used Date Smoking Tobacco: Never Alcohol Use Standard Drinks/Week Comments Yes 0 (1 standard drink = 0.6 oz pur e alcohol) Comments Unknown Sex and Gender Information Value Date Recorded Sex Assigned at Not on file Legal Sex Female 3:24 AM ANNUAL GIVING MANAGER Gender Identity Not on file Sexual [...] on filedocumented in this encounter Care Teams Spider Assembler Relationship Specialty Start Date End Date Artemio Avila MD PCP - General 10/20/16 Artemio Avila MD PCP - General 12/21/15 10/19/16 Sarthak Myrick MD Referring Physician Otolaryngology 01/04/18 documented as of this encounter
--- OUTSIDE RECORDS SUMMARY | 2025-01-30 15:11 | XMS_ITS | Continuity of Care Document ---
Author Organization [facility] Address [address] [place] [address] Phone Care Team Providers Care Log Buncher Name Role Phone Joe Turner Unavailable Unavailable [...] Diagnoses Date Provider Providers Copied on Encounter [facility], [address], [place], [place], [id number], [place] tel:[phone] [facility] No Information 0 Yue Diaz. [address] , [address], [place], [address], [place]. tel:[phone] [facility], [address], [place], [place], [id number], tel:[phone] [facility] No Information John-0 1-200 9 Doisy Edward. [address] , [address], [place], [address], [place]. tel:[phone] Office/outpat ient Visit, Est [facility] Eye [facility], [address], [place], [place], [id number], [place] tel:[phone] [facility] No Information May-2 9-200 8 Doisy Edward. [address] , [address], [place], [address], [place]. tel:[phone] [facility], [address] [place] [address] [address], [place], [place], [id number], [place] tel:[phone] [facility] No Information Oct-1 0-200 7 Doisy Edward. [address] [facility] , [address], [place], [address], [place]. tel:[phone] [facility] Eye [facility], [address], [place], [place], [id number], [place] tel:[phone] [facility] No Information Sep-2 6-200 7 Doisy Edward. [address] , [address], [place], [address], [place]. tel:[phone] [facility], [address], [place], [place], [id number], [place] tel:[phone] [facility] No Information Sep-2 5-200 7 Doisy Edward. [address] , [address], [place], [address], [place]. tel:[phone] Office/outpat ient Visit, Est [facility] Eye [facility], [address], [place], [place], [id number], [place] tel:[phone] [facility] No Information John-2 7-200 7 Doisy Edward. [address] , [address], [place], [address], [place]. tel:[phone] Referring Provider: Joe Jacobo, [address] [facility] [address], [place], [address]. tel:[phone] [facility] Eye [facility], [address] [facility] [address], [place], [place], [id number], [place] tel:[phone] [facility] No Information [address] Yue Diaz. [facility] [address], [address], [place], [address], [place]. tel:[phone] Family History Family Member Type Diagnosis Age At Onset No Information Payers Payer name Insurance type Covered republican ID Authoriza tigabriel(s) Medicare [facility] [id number] For Life Mdcr Supp CI [id number] Social History Type Description Quantity Date Captured [...]
[2025-01-30 15:48] LABS: Hematocrit 42.2 % (37.0-47.0); Hemoglobin 13.5 g/dL (12.0-15.0); Immature Granulocyte Percent A 0.3 % (0-0.5); Lymphocytes Absolute Auto 2.50 K/mm3 (0.9-3.2); Mean Corpuscular HGB Conc 32.0 g/dl (32-36); Mean Corpuscular Hemoglobin 29.4 pg (26-34); Mean Corpuscular Volume 91.9 fl (80-100); Nucleated Red Blood Cells Absolute Auto 0.000 K/mm3 (0.0-0.012); Nucleated Red Blood Cells Perc 0.0 % (0.0-0.2); Platelet Count Result 238 k/mm3 (150-375); Red Blood Count 4.59 M/mm3 (4.2-5.4); White Blood Count 7.4 K/mm3 (4.5-10.0)
[2025-01-30 16:02] LABS: Alanine Aminotransferase 26 U/L (6-35); Albumin Level 3.9 g/dL (3.5-5.1); Alkaline Phosphatase 66 U/L (38-126); Anion Gap 10 mmol/L (4-12); Aspartate Amino Transferase 33 U/L (14-36); Bilirubin,Total 0.5 mg/dL (0.2-1.3); Blood Urea Nitrogen 28 mg/dL (7-17); CRP < 0.5 mg/dL (<1.0); Calcium 9.1 mg/dL (8.4-10.2); Carbon Dioxide 21 mmol/L (22-30); Chloride 111 mmol/L (98-107); Estimated Glomerular Filt Rate 36; Glucose 131 mg/dL (65-110); Potassium 3.9 mmol/L (3.4-5.0); Sodium 142 mmol/L (137-145); Total Protein 7.1 g/dL (6.3-8.2)
[2025-01-30 16:05] LABS: Add Urine Microscopic? YES; Appearance Urine Clear (Clear); Glucose Urine UA 2+ mg/dL (Negative); Leukocyte Esterase Ur Trace LEU/UL (Negative); Nitrate Urine Negative (Negative); Specific Grav Ur 1.009 (1.001-1.035)
== END 2025-01-30 15:08 | disposition home or self-care (01) ==
LOC: ANHLAB 15:09
PROVIDERS: PCP Family Medicine; Referring Provider Internal Medicine; Visit Provider Internal Medicine Critical Care Medicine
DX: G60.9 Hereditary and idiopathic neuropathy, unspecified (principal); N18.9 Chronic kidney disease, unspecified; R06.02 Shortness of breath; Z79.899 Other long term (current) drug therapy
CPT/HCPCS: 36415; 80053; 80069; 81001; 85025; 85652; 86140

== ENCOUNTER 2025-04-20 10:08 | Outpatient (CLI) | payer OTHER, SELFPAY ==
--- NOTE | ~2025-04-20 | US_ITS ---
Examination: Ultrasound of the retroperitoneum including kidneys and bladder. Clinical History: Chronic kidney disease . Comparison: CT abdomen and pelvis 08/15/2023. Findings: Right kidney: 10 cm. Normal echogenicity. No collecting system dilatation. No shadowing calculi. 17 mm exophytic cyst. Left kidney: 9 cm. Normal echogenicity. No collecting system dilatation. No shadowing calculi. Urinary bladder: No wall thickening or focal abnormality. IMPRESSION: 1. No hydronephrosis. Reviewed, dictated and finalized at location R. IMPRESSION: 1. No hydronephrosis.
== END 2025-04-20 10:09 | disposition home or self-care (01) ==
LOC: MICIMG 10:10
PROVIDERS: PCP Physician Assistant Medical; Visit Provider Physician Assistant
DX: N18.30 Chronic kidney disease, stage 3 unspecified (principal)
CPT/HCPCS: 76770

== ENCOUNTER 2025-05-13 10:00 | Outpatient (CLI) | payer OTHER, SELFPAY ==
--- OUTSIDE RECORDS SUMMARY | 2025-05-13 11:48 | XMS_ITS | Encounter Summary ---
Author Organization [facility] Address [facility] [place] [address] Care Team Providers Care Rn Progressive Care Unit Name Role Phone Artemio Avila MD Primary Care Provider [phone] Reason for Referral * Surgical (Routine) - Closed Specialty Diagnoses / Procedures Referred By Veronica huntley Referred To Contact Diagnoses Lumbar radiculopathy Procedures Case request operating room: INJECTION EPIDURAL TRANSFORAMINAL L4-5 Jelly Lazcano NP 3 [facility] [address] [place] [address] Phone: tel: [phone] fax: Referral ID Status Reason Start Date Expiration Date Visits Re quested Visits Authorized [id number] Closed 04/04/2023 04/04/2024 1 1 Encounter Details Date Type Department Care Team (Late st Contact Info) Description 04/04/2023 Prep for Procedure [facility] [place], [place] [id number] [phone] Jelly Lazcano NP 3 [facility] [address] [place] [phone] (Work) Social History Tobacco Use Types Packs/Day Years [...] 10:14 AM Reshma Campbell RN Active * Ira Suicide Severity Rating Scale (Screener/Recent Self-Report) Question [...] unspecified documented in this encounter Care Teams Rn Progressive Care Unit Relationship Specialty Start Date End Date Artemio Avila MD [address] [place] [address] PCP - General 06/30/13 documented as of this encounter
--- OUTSIDE RECORDS SUMMARY | 2025-05-13 11:48 | XMS_ITS | Encounter Summary ---
Author Organization [facility] Address [facility] [place] [address] Care Team Providers Care Jacket Changer Name Role Phone Artemio Avila MD Primary Care Provider [phone] Encounter Details Date Type Department Care Team (Late st Contact Info) Description 12/28/2018 Abstract [facility] CONVERSION [address] [place] [address] , Generic ConversionMD Social History Tobacco Use [...] on filedocumented in this encounter Care Teams Jacket Changer Relationship Specialty Start Date End Date Artemio Avila MD [address] [place] [address] PCP - General 06/30/13 documented as of this encounter
--- OUTSIDE RECORDS SUMMARY | 2025-05-13 11:48 | XMS_ITS | Encounter Summary ---
Author Organization [facility] Address [facility] [place] [address] Care Team Providers Care Rocket Motor Tester Name Role Phone Artemio Avila MD Primary Care Provider [phone] Encounter Details Date Type Department Care Team (Late st Contact Info) Description 06/19/2023 Results Notification [facility] [place] [address] [phone] Jelly Lazcano NP 3 [facility] [address] [place] [address] [phone] (Work) Social History Tobacco Use Types Packs/Day [...] on filedocumented in this encounter Care Teams Rocket Motor Tester Relationship Specialty Start Date End Date Artemio Avila MD [address] [address] PCP - General 06/30/13 documented as of this encounter
--- OUTSIDE RECORDS SUMMARY | 2025-05-13 11:48 | XMS_ITS | Encounter Summary ---
Author Organization [facility] Address [facility] [place] [address] Care Team Providers Care Dog Day Care Attendant Name Role Phone Artemio Avila MD Primary Care Provider [phone] Encounter Details Date Type Department Care Team (Late st Contact Info) Description 06/19/2023 Prep for Procedure [facility] [place] [address] [phone] Jelly Lazcano NP 3 [facility] [address] [place] [phone] [phone] (Work) Social History Tobacco Use Types Packs/Day [...] on filedocumented in this encounter Care Teams Dog Day Care Attendant Relationship Specialty Start Date End Date Artemio Avila MD [address] [address] PCP - General 06/30/13 documented as of this encounter
--- OUTSIDE RECORDS SUMMARY | 2025-05-13 11:48 | XMS_ITS | Encounter Summary ---
Author Organization [facility] Address [address] [facility] [place] [address] Care Team Providers Care Radar Mechanic Name Role Phone Artemio Avila MD Primary Care Provider [phone] Encounter Details Date Type Department Care Team (Late st Contact Info) Description 10/27/2021 Lab Requisition [facility] DermPath Lab [address] [facility] [place] [address] Artemio Avila MD [address] [place] [address] Social History Tobacco Use Types Packs/Day Years Used Date Smoking Tobacco: Never Comments Unknown Sex and Gender Information Value Date Recorded Sex Assigned at Not on file Legal Sex Female 5:48 PM CORPORATE VP ADVERTISING & ONLINE Gender Identity Not on file Sexual Orientation Not on file documented as of this encounter Plan of Treatment Not on file documented as of this encounter Procedures Procedure Name Priority Date/Time Associated Diagnosis Comments DERMATOPATHOLOGY Routine 10/25/2021 12:0 0 AM CDT documented in this encounter Results * DERMATOPATHOLOGY (10/25/2021 12:00 AM CDT) Case Report Dermatopathology Report Case: [id number] Authorizing Provider: Artemio Avila MD Collected: 10/25/2021 12:00 AM Ordering Location: [facility] Derm[facility] Lab Received: 10/27/2021 09:29 AM Pathologist: Laura Herrera MD Specimens: A) - Skin, left lower breast B) - Skin, left upper breast C) - Skin, left top chest 4:43 PM [facility] DERMATOPATHOLOGY LABORATORY Final Diagnosis Specimen [...] specimen consists of a shave biopsy measuring [id number], bisected. The margin is inked green. Jar 0. Specimen B: Received is one formalin filled container labeled with the patient's name and designated left upper breast. The specimen consists of a shave biopsy measuring [id number], bisected. The margin is inked green. Jar 0. Specimen C: Received is one formalin filled container labeled with the patient's name and designated left top chest. The specimen consists of a shave biopsy measuring [id number], bisected. The margin is inked green. Jar [...] characteristic determined by the Dermatopathology Laboratory at [facility], directed by Dr. Leana Swartz. These tests need not be, and therefore are not, approved by the [place] Food and Drug Administration. The tests are used for clinical purposes. Billing Codes Specimen Charges Stain Charges 80832 [id number] 1 1 1 2 4:43 PM CDT [...] PATHOLOGY/CYTOLOGY KENYE SAMANTHA Final Result DERMATOPATHOLOGY LABORATORY [facility] Department of Dermatology [facility] Specialized Medicine [address] [place] [address], [address] [phone] documented in this encounter Visit Diagnoses Not on filedocumented in this encounter Care Teams Radar Mechanic Relationship Specialty Start Date End Date Artemio Avila MD [address] [place] [address] PCP - General 06/17/14 documented as of this encounter
--- OUTSIDE RECORDS SUMMARY | 2025-05-13 11:48 | XMS_ITS | Clinical Summary ---
Author Organization [facility] Address [address] [facility] [place] [address] Care Team Providers Care Zipper Trimmer Hand Name Role Phone Artemio Avila MD Primary Care Provider [phone] Source Comments [facility] Affiliates and Associated Physician Practices is amultiple site organization consisting of ambulatory clinics and hospital sitesin [place], [place], [place] and [place]. This disclosure is being madepursuant to the Care Everywhere program and may not contain all information available regarding this patient. Last updated 18.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 Gender Identity Not on file Sexual Orientation [...] yrs (1 - 1-dose 75+ series) 2015 DEPRESSION SCREENING 07/23/2024 COVID-19 VACCINE (2023-2 5 season) 2025 INFLUENZA VACCINE (#1) 2025 HEPATITIS B VACCINE Aged Out No [...] to complete this topic Insurance [employer] [facility] Healthcare/[facility] Address: [facility] CLAIMS [address] [place] [address] [employer] SELF PAY NO INSURANCE Member Subscriber Plan / Payer (Ef fective for All Dates) Name:SadiaDestinee mataricia Ayana Member ID:Not on file Relation to Subscriber:Not on file Name:SADIAREGINE Ayana Subscriber ID:Not on file (Home) Address: [address] [place] [id number] Payer ID:Not on file Group ID:Not on file Type:Self Pay Address: [place], [place] [facility] MEDICARE [facility] MEDICARE [facility] MEDICARE Care Teams Zipper Trimmer Hand Relationship Specialty Start Date End Date Artemio Avila MD [address] [place] [address] PCP - General 06/17/14
--- OUTSIDE RECORDS SUMMARY | 2025-05-13 11:49 | XMS_ITS | Clinical Summary ---
Author Organization [facility] Address [address] [place] [address] Care Team Providers Care Clay Maker Name Role Phone Artemio Avila MD [...] Comments Blood Pressure 186/72 07/10/2023 10:53 AM SIGNAL HELPER Pulse 64 07/10/2023 10:42 AM SIGNAL HELPER Temperature 36.6 C (97.9 F) 07/10/2023 9:57 AM SIGNAL HELPER Respiratory Rate 18 07/10/2023 10:53 AM SIGNAL HELPER Oxygen Saturation 99% 07/10/2023 10:42 AM SIGNAL HELPER Inhaled Oxygen Concentration - - Weight 99.6 kg (219 lb 9.6 oz) 07/10/2023 9:57 A M SIGNAL HELPER Height 167.6 cm (5' 6) 07/10/2023 9:57 AM SIGNAL HELPER Body Mass Index 35.44 07/10/2023 9:57 AM SIGNAL HELPER Plan of Treatment Health Maintenance Due Date Last Done Comments DTaP, Tdap and Td Vaccines ( 1 - Tdap) 1959 Zoster Vaccines (1 of 2) 1990 Annual Medicare Wellness Visit 2005 RSV Immunization or 60+ Years (1 - 1-dose 75+ series) 2015 Pneumococcal Vaccine: 50+ Ye ars (2 of 2 - PCV20 or PCV21) 09/08/2016 09/08/2015 COVID-19 Vaccine (2 - 2024-2 6 season) 2025 09/30/2020 Influenza Adult (#1) 2025 05/23/2015 Hepatitis A Vaccines Aged Out No long er eligible based on patient's age to complete this topic Meningococcal B Vaccine Aged Out No l onger eligible based on patient's age to complete this topic Meningococcal Vaccine Aged Out No philip logan eligible based on patient's age to complete this topic RSV Immunizations Under 20 Months Aged Out No longer eligible based on patient's age to complete this topic Insurance [facility] Care Teams Clay Maker Relationship Specialty Start Date End Date Artemio Avila MD [address] [address] PCP - General 06/30/13
--- NOTE | 2025-06-14 23:34 | WPDPFTINT ---
PFT Procedure Performed PFT Procedure Performed Spirometry with Pre/Post Bronchodilator Plethysmography (Lung Vol) Diffusing Cap (DLCO) PFT Interpretation DOS: 05/13/2025 REQUESTING: Clementina Molina MD REASON FOR TESTING: shortness of breath, coughing PULMONARY FUNCTION TESTS Results are reliable and reproducible. Repeatability of spirometry FEV1 maneuver pre and post bronchodilator is Grade A. Yehuda: GLI 2012 reference equations were used. Spirometry: The pre-bronchodilator FEV1 is 1.97 L, 101%. The pre-bronchodilator FVC is 2.83 L, 109%. The FEV1/FVC ratio is 69%. After bronchodilator, the FEV1 is 1.98 L, +1. After bronchodilator, the FVC is 2.94 L, +4. The FEV1/FVC ratio is 67%. Lung volumes: The total lung capacity is 5.16 L, 96%. The residual volume is 2.32 L, 89%. The RV/TLC is 45%. The functional residual capacity is 3.92 L, 125% Airway resistance is increased. Diffusion: DLCO is 11.8, 60%. The DLCO/VA is 3.23, 82%. Flow volume loop: The flow volume loop shows a normal tracing. IMPRESSION: Normal spirometry without response to bronchodilator, normal lung volumes and mild diffusion impairment that corrects for alveolar volume. Lack of response to bronchodilator should not preclude use if clinically indicated. Compared to a PFT 09/05/2019, the absolute values are similar. She was not able to produce reliable results on the prior study due to excessive coughing and not being able to exhale for at least 6 seconds. Clementina Molina MD
--- NOTE | 2025-06-14 23:44 | WPDSIXMINUTE ---
Six Minute Walk Procedure Procedure Performed Pulmonary Stress Test (6 min walk) Six Minute Walk Six Minute Walk: DATE OF SERVICE: 05/13/2025 REQUESTING: Clementina Molina MD REASON FOR TESTING: chronic cough, shortness of breath SIX MINUTE WALK This test was conducted per ATS guidelines, on room air. She used a wheeled walker during the test. The initial saturation was 99%, and initial heart rate was 66 bpm. The patient walked without stopping, completing 243 m/ 800 feet. The saturation at the end of testing was 96%, and the heart rate was 83 bpm. The Jeffry score for fatigue and dyspnea was 3 initially, and 4 at the end of testing. IMPRESSION: This is a normal study. The patient did not require supplemental oxygen with exertion. Clementina Molina MD
== END 2025-05-13 10:01 | disposition home or self-care (01) ==
PROVIDERS: PCP Family Medicine; Visit Provider Internal Medicine Critical Care Medicine
DX: R06.02 Shortness of breath (principal)
CPT/HCPCS: 94060; 94618; 94726; 94729

== ENCOUNTER 2025-06-16 10:45 | Outpatient (CLI) | payer OTHER, SELFPAY ==
--- NOTE | ~2025-06-16 | XR_ITS ---
XR lumbar spine min 4V Indication: M47.816 - Spondylosis without myelopathy or radiculopathy... Comparison: None Findings: Grade 1 retrolisthesis of L3 on L4 with grade 1 anterolisthesis of L4 on L5. No acute fracture. There is no subluxation with flexion-extension. Moderate to severe loss of disc height throughout. Soft tissues unremarkable Impression: No acute abnormality. Reviewed, dictated and finalized at location P. ER HELPER Impression: No acute abnormality.
== END 2025-06-16 10:46 | disposition home or self-care (01) ==
LOC: ANHIMG 10:48
PROVIDERS: PCP Family Medicine; Visit Provider Neurological Surgery
DX: M47.816 Spondylosis without myelopathy or radiculopathy, lumbar region (principal); M43.16 Spondylolisthesis, lumbar region; R29.890 Loss of height
CPT/HCPCS: 72110